=== PATIENT | male | born 1950 | race Caucasian/White ===

== ENCOUNTER → 2017-03-19 11:13 | Outpatient (CLI) | payer OTHER, MEDICARE, SELFPAY ==
[2017-03-19 13:45] LABS: Amphetamine/Metha Screen,Urine Negative ng/mL (<1000); Barbiturates Screen,Urine Negative ng/mL (<200); Benzodiazepines Screen,Urine Negative ng/mL (200); Cannabinoid Screen,Urine Negative ng/mL (<50); Cocaine Screen,Urine Negative ng/g (<300); Methadone Screen,Urine Negative ng/mL (<300); Opiate Screen,Urine Positive ng/mL (<300); Phencyclidine Screen,Urine Negative ng/mL (<25)
[2017-04-02 01:07] LABS: Codeine Negative (Cutoff=100); Hydrocodone Positive (.); Hydromorphone Positive (.); Morphine Negative (Cutoff=100)
[2017-04-02 17:07] LABS: Opiates Positive (.)
== END ==
PROVIDERS: PCP Nuclear Medicine Nuclear Cardiology; Visit Provider Anesthesiology
DX: Z79.899 Other long term (current) drug therapy (principal)
CPT/HCPCS: 80305; 80361; G0480

== ENCOUNTER → 2017-04-20 09:03 | Outpatient (POV) | payer OTHER, MEDICARE, SELFPAY ==
[2017-04-20 09:32] VITALS: BP 145/85; PULSE 66; RESP 18; TEMP 36.1; O2SAT 97; BMI 30.4
--- NOTE | 2017-04-20 10:19 | HMH.PAINSOAP ---
[facility] Pain Management SOAP Note Subjective:: The patient is a pleasant 66-year-old white male who presents today for medication refills. 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 Patient also has chronic DVTs. Patient has recently had a flare in his pain. Patient states that his primary care physician gave him permission to take more medication. We had a long discussion about how we are in a pain clinic and we are unable to allow him to take more medication. I stated that if he had flares in the future he is to call the office and let us know so that a plan can be devised between us and his primary care provider. I discussed with him that taking more medication is a breech of contract and that we have to monitor this closely and it could potentially lead to him being discharged from our clinic. Patient rates his pain 5 out of 10 today. Patient is on chronic Coumadin therapy. Patient states the pain medication allows him to be more functional and he states that he received 50% to 60% relief of his pain symptoms. Patient denies any side effects. [id number] and appropriate. Patient's UDS has been appropriate in the past. ROS General: no recent weight change, no fever, no sleep disturbances Respiratory: no cough, no shortness of air, no recurring pulmonary infections Cardiovascular/Peripheral Vascular: No chest pain, No palpitations, no edema, no shortness of breath. Gastrointestinal: no incontinence, normal bowel movements reported Genitourinary: no incontinence Musculoskeletal: Abdominal pain, back pain Psychiatric: normal mood/ affect Neurological: Weakness at times in bilateral lower extremity, [denies balance issues] Objective:: Physical Exam General: Alert and oriented x3, no acute distress, pleasant and cooperative, [on room air] Lungs: Resps E/U, Symmetrical chest expansion, Eyes: PERRL Musculoskeletal: Flexion and extension of lumbar spine somewhat guarded secondary to pain, deep tendon reflexes normal, strength in upper and lower extremities [5/5], normal gait noted, multiple scars on the abdomen. Neurological: speech clear, roll capper equal, no gross sensory deficits Assessment:: chronic pain syndrome, abdominal pain Plan:: We will refill this patient's Chloride 7.5 g 1 p.o. 3 times daily and give him 2 months prescriptions. Patient and I had a long discussion about taking the medication appropriately. Patient states he understands. Daxa and urine drug screen reviewed and appropriate. We will follow-up the patient in 3 months. He is to call us if he has any flares in his pain or his primary care physician as him to take more pain medication. Dr. Grier has reviewed his chart and agrees with this plan. Patient has been prescribed a controlled substance after being counseled on the medication, medication safety, and possible side effects. DAXA report has been obtained and reviewed prior to prescription and found to be appropriate. Opioid contract was reviewed and signed by the patient, and that they have agreed to all of the terms set forth by our compliance program. This note was dictated using voice recognition software and may contain errors or omissions
--- NOTE | 2017-04-20 10:24 | P.CONS_ITS ---
[facility] Pain Management SOAP Note Subjective:: The patient is a pleasant 66-year-old white male who presents today for medication refills. 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 Patient also has chronic DVTs. Patient has recently had a flare in his pain. Patient states that his primary care physician gave him permission to take more medication. We had a long discussion about how we are in a pain clinic and we are unable to allow him to take more medication. I stated that if he had flares in the future he is to call the office and let us know so that a plan can be devised between us and his primary care provider. I discussed with him that taking more medication is a breech of contract and that we have to monitor this closely and it could potentially lead to him being discharged from our clinic. Patient rates his pain 5 out of 10 today. Patient is on chronic Coumadin therapy. Patient states the pain medication allows him to be more functional and he states that he received 50% to 60% relief of his pain symptoms. Patient denies any side effects. [id number] reviewed and appropriate. Patient's UDS has been appropriate in the past. ROS General: no recent weight change, no fever, no sleep disturbances Respiratory: no cough, no shortness of air, no recurring pulmonary infections Cardiovascular/Peripheral Vascular: No chest pain, No palpitations, no edema, no shortness of breath. Gastrointestinal: no incontinence, normal bowel movements reported Genitourinary: no incontinence Musculoskeletal: Abdominal pain, back pain Psychiatric: normal mood/ affect Neurological: Weakness at times in bilateral lower extremity, [denies balance issues] Objective:: Physical Exam General: Alert and oriented x3, no acute distress, pleasant and cooperative, [ on room air] Lungs: Resps E/U, Symmetrical chest expansion, Eyes: PERRL Musculoskeletal: Flexion and extension of lumbar spine somewhat guarded secondary to pain, deep tendon reflexes normal, strength in upper and lower extremities [5/5], normal gait noted, multiple scars on the abdomen. Neurological: speech clear, bi technical lead equal, no gross sensory deficits Assessment:: chronic pain syndrome, abdominal pain Plan:: We will refill this patient's Har[place] 7.5 g 1 p.o. 3 times daily and give him 2 months prescriptions. Patient and I had a long discussion about taking the medication appropriately. Patient states he understands. Daxa and urine drug screen reviewed and appropriate. We will follow-up the patient in 3 months. He is to call us if he has any flares in his pain or his primary care physician as him to take more pain medication. Dr. Grier has reviewed his chart and agrees with this plan. Patient has been prescribed a controlled substance after being counseled on the medication, medication safety, and possible side effects. DAXA report has been obtained and reviewed prior to prescription and found to be appropriate. Opioid contract was reviewed and signed by the patient, and that they have agreed to all of the terms set forth by our compliance program. This note was dictated using voice recognition software and may contain errors or omissions
== END ==
PROVIDERS: Family Provider Family Medicine; PCP Nuclear Medicine Nuclear Cardiology; Visit Provider Clinical Nurse Specialist Family Health
DX: G89.4 Chronic pain syndrome (principal)
CPT/HCPCS: 99212

== ENCOUNTER → 2017-06-21 09:37 | Outpatient (CLI) | payer OTHER, MEDICARE, SELFPAY ==
[2017-06-21 10:26] LABS: Amphetamine/Metha Screen,Urine Negative ng/mL (<1000); Barbiturates Screen,Urine Negative ng/mL (<200); Benzodiazepines Screen,Urine Negative ng/mL (200); Cannabinoid Screen,Urine Negative ng/mL (<50); Cocaine Screen,Urine Negative ng/g (<300); Methadone Screen,Urine Negative ng/mL (<300); Opiate Screen,Urine Positive ng/mL (<300); Phencyclidine Screen,Urine Negative ng/mL (<25)
[2017-06-29 14:23] LABS: Codeine Negative (Cutoff=100); Hydrocodone Positive (.); Hydromorphone Positive (.); Morphine Negative (Cutoff=100)
[2017-06-29 15:32] LABS: Opiates Positive (.)
== END ==
PROVIDERS: Visit Provider Anesthesiology
DX: Z79.899 Other long term (current) drug therapy (principal)
CPT/HCPCS: 80305; 80361; 80365; G0480

== ENCOUNTER → 2017-07-12 10:49 | Outpatient (POV) | payer OTHER, MEDICARE, SELFPAY ==
[2017-07-12 10:57] VITALS: BP 160/81; PULSE 72; RESP 18; O2SAT 98; BMI 28.3
--- NOTE | 2017-07-12 11:21 | HMH.PAINSOAP ---
[facility] Pain Management SOAP Note Subjective:: Patient is a pleasant 66-year-old white male who presents today for medication refills. 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 Patient also has chronic DVTs. Patient had a recent occurrence of the right calf DVT. Patient has recently passed a pill count. Patient Kaspar #[id number] reviewed and appropriate. Patient's UDS is reviewed and appropriate. Patient's being managed with Newbern 7.5 mg 1 p.o. 3 times daily. He denies any side effects to the medication. Patient states that relieves his symptoms 50-60%. Most of his pain being in his right groin. ROS General: no recent weight change, no fever, no sleep disturbances Respiratory: no cough, no shortness of air, no recurring pulmonary infections Cardiovascular/Peripheral Vascular: No chest pain, No palpitations, no edema, no shortness of breath. Gastrointestinal: no incontinence, normal bowel movements reported Genitourinary: no incontinence Musculoskeletal: Abdominal pain, back pain Psychiatric: normal mood/ affect Neurological: [denies weakness in extremities], [denies balance issues] Objective:: Physical Exam General: Alert and oriented x3, no acute distress, pleasant and cooperative, [on room air] Lungs: Resps E/U, Symmetrical chest expansion, Eyes: PERRL Musculoskeletal: Flexion and extension of lumbar spine somewhat guarded secondary to pain, deep tendon reflexes normal, strength in upper and lower extremities [5/5], slightly antalgic gait noted Neurological: speech clear, international tax manager equal, no gross sensory deficits Assessment:: Chronic pain syndrome, abdominal pain Plan:: We will refill this patient's Newbern 7.5 mg 1 p.o. 3 times daily. We will give him 2 months worth of prescriptions. Patient Kaspar and urine drug screen reviewed and appropriate. Dr. Grier has reviewed this chart and agrees with this plan of care. Patient can lease picker his third month prescription in the interim. Patient has been prescribed a controlled substance after being counseled on the medication, medication safety, and possible side effects. DAXA report has been obtained and reviewed prior to prescription and found to be appropriate. Opioid contract was reviewed and signed by the patient, and that they have agreed to all of the terms set forth by our compliance program. This note was dictated using voice recognition software and may contain errors or omissions
--- NOTE | 2017-07-12 11:26 | P.CONS_ITS ---
[facility] Pain Management SOAP Note Subjective:: Patient is a pleasant 66-year-old white male who presents today for medication refills. 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 Patient also has chronic DVTs. Patient had a recent occurrence of the right calf DVT. Patient has recently passed a pill count. Patient Kaspar #[id number] reviewed and appropriate. Patient's UDS is reviewed and appropriate. Patient's being managed with Ewen 7.5 mg 1 p.o. 3 times daily. He denies any side effects to the medication. Patient states that relieves his symptoms 50-60%. Most of his pain being in his right groin. ROS General: no recent weight change, no fever, no sleep disturbances Respiratory: no cough, no shortness of air, no recurring pulmonary infections Cardiovascular/Peripheral Vascular: No chest pain, No palpitations, no edema, no shortness of breath. Gastrointestinal: no incontinence, normal bowel movements reported Genitourinary: no incontinence Musculoskeletal: Abdominal pain, back pain Psychiatric: normal mood/ affect Neurological: [denies weakness in extremities], [denies balance issues] Objective:: Physical Exam General: Alert and oriented x3, no acute distress, pleasant and cooperative, [ on room air] Lungs: Resps E/U, Symmetrical chest expansion, Eyes: PERRL Musculoskeletal: Flexion and extension of lumbar spine somewhat guarded secondary to pain, deep tendon reflexes normal, strength in upper and lower extremities [5/5], slightly antalgic gait noted Neurological: speech clear, snow removal supervisor equal, no gross sensory deficits Assessment:: Chronic pain syndrome, abdominal pain Plan:: We will refill this patient's Ewen 7.5 mg 1 p.o. 3 times daily. We will give him 2 months worth of prescriptions. Patient Kaspar and urine drug screen reviewed and appropriate. Dr. Grier has reviewed this chart and agrees with this plan of care. Patient can cherry picker operator his third month prescription in the interim. Patient has been prescribed a controlled substance after being counseled on the medication, medication safety, and possible side effects. DAXA report has been obtained and reviewed prior to prescription and found to be appropriate. Opioid contract was reviewed and signed by the patient, and that they have agreed to all of the terms set forth by our compliance program. This note was dictated using voice recognition software and may contain errors or omissions
== END ==
PROVIDERS: Family Provider Family Medicine; PCP Nuclear Medicine Nuclear Cardiology; Visit Provider Clinical Nurse Specialist Family Health
DX: G89.4 Chronic pain syndrome (principal)
CPT/HCPCS: 99212

== ENCOUNTER → 2017-10-18 10:12 | Outpatient (POV) | payer OTHER, MEDICARE, SELFPAY ==
[2017-10-18 10:44] VITALS: BP 141/72; PULSE 86; RESP 18; O2SAT 97; BMI 29.7
--- NOTE | 2017-10-18 12:54 | HMH.PAINSOAP ---
[facility] Pain Management SOAP Note Subjective:: Patient is a pleasant 67-year-old white male who presents today for follow-up and medication refills. 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 Patient has recent occurrence of DVTs. Patient Kaspar #[id number] reviewed and appropriate. Patient's currently on [place] 7.5 mg 1 p.o. 3 times daily. He states it helps his symptoms up to 60%. Most of his pain today is in his sternal region. ROS General: no recent weight change, no fever, no sleep disturbances Respiratory: no cough, no shortness of air, no recurring pulmonary infections Cardiovascular/Peripheral Vascular: No chest pain, No palpitations, no edema, no shortness of breath. Gastrointestinal: no incontinence, normal bowel movements reported Genitourinary: no incontinence Musculoskeletal: Overall pain, abdominal pain Psychiatric: normal mood/ affect Neurological: [denies weakness in extremities], [denies balance issues] Objective:: Physical Exam General: Alert and oriented x3, no acute distress, pleasant and cooperative, [on room air] Lungs: Resps E/U, Symmetrical chest expansion, Eyes: PERRL Musculoskeletal: Flexion and extension of lumbar spine somewhat guarded secondary to pain, deep tendon reflexes normal, strength in upper and lower extremities [5/5], normal gait noted Neurological: speech clear, refinery operator gas plant equal, no gross sensory deficits Assessment:: Chronic pain syndrome, abdominal pain Plan:: We will refill the patient's Norc 7.5 mg 1 p.o. 3 times daily and give him 2 months worth of prescriptions. Patient to follow-up in 3 months. Patient's Daxa and urine drug screen reviewed and appropriate. Dr. Grier is reviewed this chart and agrees with this plan of care. Patient can fish bait picker his third month prescription in the interim. Patient has been prescribed a controlled substance after being counseled on the medication, medication safety, and possible side effects. DAXA report has been obtained and reviewed prior to prescription and found to be appropriate. Opioid contract was reviewed and signed by the patient, and that they have agreed to all of the terms set forth by our compliance program. This note was dictated using voice recognition software and may contain errors or omissions
--- NOTE | 2017-10-18 12:57 | P.CONS_ITS ---
[facility] Pain Management SOAP Note Subjective:: Patient is a pleasant 67-year-old white male who presents today for follow-up and medication refills. 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 Patient has recent occurrence of DVTs. Patient Kaspar #[id number] reviewed and appropriate. Patient's currently on [place] 7.5 mg 1 p.o. 3 times daily. He states it helps his symptoms up to 60%. Most of his pain today is in his sternal region. ROS General: no recent weight change, no fever, no sleep disturbances Respiratory: no cough, no shortness of air, no recurring pulmonary infections Cardiovascular/Peripheral Vascular: No chest pain, No palpitations, no edema, no shortness of breath. Gastrointestinal: no incontinence, normal bowel movements reported Genitourinary: no incontinence Musculoskeletal: Overall pain, abdominal pain Psychiatric: normal mood/ affect Neurological: [denies weakness in extremities], [denies balance issues] Objective:: Physical Exam General: Alert and oriented x3, no acute distress, pleasant and cooperative, [on room air] Lungs: Resps E/U, Symmetrical chest expansion, Eyes: PERRL Musculoskeletal: Flexion and extension of lumbar spine somewhat guarded secondary to pain, deep tendon reflexes normal, strength in upper and lower extremities [5/5], normal gait noted Neurological: speech clear, research home economist equal, no gross sensory deficits Assessment:: Chronic pain syndrome, abdominal pain Plan:: We will refill the patient's Norc 7.5 mg 1 p.o. 3 times daily and give him 2 months worth of prescriptions. Patient to follow-up in 3 months. Patient's Daxa and urine drug screen reviewed and appropriate. Dr. Grier is reviewed this chart and agrees with this plan of care. Patient can fiber picker his third month prescription in the interim. Patient has been prescribed a controlled substance after being counseled on the medication, medication safety, and possible side effects. DAXA report has been obtained and reviewed prior to prescription and found to be appropriate. Opioid contract was reviewed and signed by the patient, and that they have agreed to all of the terms set forth by our compliance program. This note was dictated using voice recognition software and may contain errors or omissions
== END ==
PROVIDERS: Family Provider Family Medicine; PCP Nuclear Medicine Nuclear Cardiology; Visit Provider Clinical Nurse Specialist Family Health
DX: G89.29 Other chronic pain (principal); Z98.890 Other specified postprocedural states; R10.9 Unspecified abdominal pain; Z76.0 Encounter for issue of repeat prescription; Z79.899 Other long term (current) drug therapy
CPT/HCPCS: 99212

== ENCOUNTER → 2018-01-10 08:54 | Outpatient (POV) | payer OTHER, MEDICARE, SELFPAY ==
--- NOTE | 2018-01-10 09:20 | HMH.PAINSOAP ---
[facility] Pain Management SOAP Note Subjective:: Is a pleasant 67-year-old white male who presents today for follow-up. Patient is currently on [place] 7.5 mg 1 p.o. 3 times daily for multiple reasons. Patient is having pain secondary to previous abdominal surgeries and bowel vascular embolus. Patient has had a recent occurrence of DVTs and presents today with increased pain in his legs. I encouraged him to go to his primary care physician. Patient's DAXA reviewed and appropriate. Patient's urine drug screen has been appropriate. Patient denies any side effects to his medication and states that helps up to 60%. Most of his pain today is in his bilateral legs. ROS General: no recent weight change, no fever, no sleep disturbances Respiratory: no cough, no shortness of air, no recurring pulmonary infections Cardiovascular/Peripheral Vascular: No chest pain, No palpitations, no edema, no shortness of breath. Gastrointestinal: no incontinence, normal bowel movements reported Genitourinary: no incontinence Musculoskeletal: Overall pain, abdominal pain, bilateral leg pain Psychiatric: normal mood/ affect Neurological: [denies weakness in extremities], [denies balance issues] Objective:: Physical Exam General: Alert and oriented x3, no acute distress, pleasant and cooperative, [on room air] Lungs: Resps E/U, Symmetrical chest expansion, Eyes: PERRL Musculoskeletal: Flexion and extension of lumbar spine somewhat guarded secondary to pain, deep tendon reflexes normal, strength in upper and lower extremities [5/5], [abnormal gait noted] Neurological: speech clear, behavior support specialist equal, no gross sensory deficits Assessment:: Chronic abdominal pain, chronic pain syndrome Plan:: We will refill the patient's [place] 7.5 mg 1 p.o. 3 times daily and given months worth of prescriptions. Patient follow-up in 3 months and retrieve his third month in the interim. Patient's Daxa and urine drug screen reviewed and appropriate. I encouraged him to utilize Tylenol if necessary. I also encouraged him to make an appointment with his primary care physician in regards to his new onset of laying. Patient states he will do this. Dr. Grier has reviewed this chart and agrees with this plan of care. Patient has been prescribed a controlled substance after being counseled on the medication, medication safety, and possible side effects. DAXA report has been obtained and reviewed prior to prescription and found to be appropriate. Opioid contract was reviewed and signed by the patient, and that they have agreed to all of the terms set forth by our compliance program. This note was dictated using voice recognition software and may contain errors or omissions
[2018-01-10 09:31] VITALS: BP 140/87; PULSE 84; RESP 18; O2SAT 97
[2018-01-10 15:02] LABS: Amphetamine/Metha Screen,Urine Negative ng/mL (<1000); Barbiturates Screen,Urine Negative ng/mL (<200); Benzodiazepines Screen,Urine Negative ng/mL (<200); Cannabinoid Screen,Urine Negative ng/mL (<50); Cocaine Screen,Urine Negative ng/mL (<300); Methadone Screen,Urine Negative ng/mL (<300); Opiate Screen,Urine Positive ng/mL (<300); Phencyclidine Screen,Urine Negative ng/mL (<25)
[2018-01-17 17:09] LABS: Codeine Negative (Cutoff=100); Hydrocodone Positive (.); Hydromorphone Positive (.); Morphine Negative (Cutoff=100)
[2018-01-18 06:08] LABS: Opiates Positive (.)
== END ==
PROVIDERS: PCP Family Medicine; Visit Provider Clinical Nurse Specialist Family Health
DX: G89.29 Other chronic pain (principal); Z79.899 Other long term (current) drug therapy
CPT/HCPCS: 80305; 80361; 80365; 99213; G0480

== ENCOUNTER → 2018-04-05 08:58 | Outpatient (POV) | payer MEDICARE, OTHER, SELFPAY ==
[2018-04-05 09:10] VITALS: BP 189/91; PULSE 90; RESP 18; O2SAT 99
--- NOTE | 2018-04-05 09:15 | HMH.PAINSOAP ---
[facility] Pain Management SOAP Note Subjective:: Is a pleasant 67-year-old white male who presents today for follow-up. He is currently on Fortescue 7.5 mg 1 p.o. 3 times daily for multiple reasons. He has pain secondary to previous abdominal surgeries and bowel vascular embolus. Patient states he is having a flare right now. Patient is finding it difficult to eat at times. Patient rates his pain a 6 out of 10. Patient also still suffering from DVTs in his left leg. Patient's DAXA reviewed and appropriate patient's urine drug screen has been appropriate. He denies side effects to his medication and states it helps up to 60%. Most of the pain today is in his abdomen ROS General: no recent weight change, no fever, no sleep disturbances Respiratory: no cough, no shortness of air, no recurring pulmonary infections Cardiovascular/Peripheral Vascular: No chest pain, No palpitations, no edema, no shortness of breath. Gastrointestinal: no incontinence, normal bowel movements reported Genitourinary: no incontinence Musculoskeletal: Abdominal pain, leg pain Psychiatric: normal mood/ affect Neurological: [denies weakness in extremities], [denies balance issues] Objective:: Physical Exam General: Alert and oriented x3, no acute distress, pleasant and cooperative, [on room air] Lungs: Resps E/U, Symmetrical chest expansion, Eyes: PERRL Musculoskeletal: Flexion and extension of lumbar spine somewhat guarded secondary to pain, deep tendon reflexes normal, strength in upper and lower extremities [5/5], [abnormal gait noted] Neurological: speech clear, hotel services sales representative equal, no gross sensory deficits Assessment:: Chronic abdominal pain, chronic pain syndrome Plan:: We will refill the patient's Fortescue 7.5 mg 1 p.o. 3 times daily and give 2 months worth of medication. Patient will follow-up in 3 months and retrieve his third month in the interim. Patient has been prescribed a controlled substance after being counseled on the medication, medication safety, and possible side effects. DAXA report has been obtained and reviewed prior to prescription and found to be appropriate. Opioid contract was reviewed and signed by the patient, and that they have agreed to all of the terms set forth by our compliance program. Dr. Grier has reviewed this note and agrees with this plan of care. This note was dictated using voice recognition software and may contain errors or omissions
== END ==
PROVIDERS: PCP Family Medicine; Visit Provider Clinical Nurse Specialist Family Health
DX: R10.9 Unspecified abdominal pain (principal); G89.4 Chronic pain syndrome
CPT/HCPCS: 99213

== ENCOUNTER → 2018-07-04 09:51 | Outpatient (POV) | payer MEDICARE, OTHER, SELFPAY ==
--- NOTE | 2018-07-04 10:16 | P.CONS_ITS ---
[facility] Pain Management SOAP Note Subjective:: Patient is a pleasant 67-year-old white male who presents today for follow-up and medication refills. He is currently on [place] 7.5 mg 1 p.o. 3 times daily. He has pain secondary to previous abdominal surgeries and bowel vascular embolus. Patient states his medication helps him up to 60% he rates his pain a 9 out of 10 today. Stating he has a flare. Patient has had gabapentin in the past however he takes it on as-needed basis. I discussed with him potentially adding this is a continual and prophylactic type medication. ROS General: no recent weight change, no fever, no sleep disturbances Respiratory: no cough, no shortness of air, no recurring pulmonary infections Cardiovascular/Peripheral Vascular: No chest pain, No palpitations, no edema, no shortness of breath. Gastrointestinal: no incontinence, normal bowel movements reported Genitourinary: no incontinence Musculoskeletal: Abdominal pain, leg pain Psychiatric: normal mood/ affect Neurological: [denies weakness in extremities], [denies balance issues] Objective:: Physical Exam General: Alert and oriented x3, no acute distress, pleasant and cooperative, [on room air] Lungs: Resps E/U, Symmetrical chest expansion, Eyes: PERRL Musculoskeletal: Flexion and extension of lumbar spine somewhat guarded secondary to pain, deep tendon reflexes normal, strength in upper and lower extremities [5/5], [abnormal gait noted] Neurological: speech clear, outsole molder equal, no gross sensory deficits Assessment:: Chronic abdominal pain, chronic pain syndrome Plan:: We will refill the patient's [place] 7.5 mg 1 p.o. 3 times daily and give 2 months worth of medication. We will follow-up with him in 3 months reassess his symptoms at that time. I encouraged him to utilize his gabapentin on a regular basis. He can receive 3-month in the interim. He is been instructed to call the office if he has any issues prior to the next appointment. Patient has been prescribed a controlled substance after being counseled on the medication, medication safety, and possible side effects. [employer] report has been obtained and reviewed prior to prescription and found to be appropriate. Opioid contract was reviewed and signed by the patient, and that they have agreed to all of the terms set forth by our compliance program. Dr. Grier has reviewed this note and agrees with this plan of care. This note was dictated using voice recognition software and may contain errors or omissions
[2018-07-04 10:17] VITALS: BP 165/80; PULSE 68; RESP 18; O2SAT 98
[2018-07-04 11:06] LABS: Amphetamine/Metha Screen,Urine Negative ng/mL (<1000); Barbiturates Screen,Urine Negative ng/mL (<200); Benzodiazepines Screen,Urine Negative ng/mL (<200); Cannabinoid Screen,Urine Negative ng/mL (<50); Cocaine Screen,Urine Negative ng/mL (<300); Methadone Screen,Urine Negative ng/mL (<300); Opiate Screen,Urine Positive ng/mL (<300); Phencyclidine Screen,Urine Negative ng/mL (<25)
[2018-07-08 14:12] LABS: Codeine Negative (Cutoff=100); Hydrocodone Positive (.); Hydromorphone Negative (Cutoff=100); Morphine Negative (Cutoff=100)
[2018-07-08 14:43] LABS: Opiates Positive (.)
== END ==
PROVIDERS: PCP Family Medicine; Visit Provider Clinical Nurse Specialist Family Health
DX: R10.9 Unspecified abdominal pain (principal); G89.4 Chronic pain syndrome
CPT/HCPCS: 80305; 80361; 80365; 99213; G0480

== ENCOUNTER → 2018-09-26 08:57 | Outpatient (POV) | payer MEDICARE, OTHER, SELFPAY ==
[2018-09-26 09:13] VITALS: BP 160/70; PULSE 71; RESP 18; O2SAT 98
--- NOTE | 2018-09-26 09:18 | HMH.PAINSOAP ---
[facility] Pain Management SOAP Note Subjective:: Patient is a pleasant 68-year-old white female who presents today for follow-up and medication refill. Patient is currently on [place] 7.51 p.o. 3 times daily. He is been on it for quite some time. He states is not helping at this time. He rates his pain a 9 out of 10. He has pain secondary to previous abdominal patient also been out of his gabapentin. Patient's been on gabapentin 300 mg 1-2 tabs twice daily. We will refill this. Kevin #[id number] reviewed and appropriate. ROS General: no recent weight change, no fever, no sleep disturbances Respiratory: no cough, no shortness of air, no recurring pulmonary infections Cardiovascular/Peripheral Vascular: No chest pain, No palpitations, no edema, no shortness of breath. Gastrointestinal: no incontinence, normal bowel movements reported Genitourinary: no incontinence Musculoskeletal: Abdominal pain, leg pain Psychiatric: normal mood/ affect, Neurological: [denies weakness in extremities], [denies balance issues] Objective:: Physical Exam General: Alert and oriented x3, no acute distress, pleasant and cooperative, [on room air] Lungs: Resps E/U, Symmetrical chest expansion, Eyes: PERRL Musculoskeletal: Flexion and extension of bar spine somewhat guarded secondary to pain, deep tendon reflexes normal, strength in upper and lower extremities [5/5], antalgic gait noted, extreme tenderness of the abdomen on palpation. Neurological: speech clear, rn angiography equal, no gross sensory deficits Assessment:: Chronic abdominal pain, chronic pain syndrome Plan:: We will change the patient to Percocet 5 mg 1 p.o. 4 times daily given 1 month worth of medication and see him back in 1 month to see if this is beneficial we will also refill his gabapentin 300 mg 1-2 tabs p.o. twice daily. Kevin reviewed and appropriate. Urine drug screen has been appropriate. Dr. Grier has reviewed this note and agrees with this plan of care. This note was dictated using voice recognition software and may contain errors or omissions Pain Management Hx Components *Have you ever received a pneumonia vaccine?: Yes *Have you received a flu vaccine this season?: No - *Social History *Occupational Status:: other *Travel in the last 8 weeks: None
--- NOTE | 2018-09-26 09:21 | P.CONS_ITS ---
[facility] Pain Management SOAP Note Subjective:: Patient is a pleasant 68-year-old white female who presents today for follow-up and medication refill. Patient is currently on [place] 7.51 p.o. 3 times daily. He is been on it for quite some time. He states is not helping at this time. He rates his pain a 9 out of 10. He has pain secondary to previous abdominal patient also been out of his gabapentin. Patient's been on gabapentin 300 mg 1- 2 tabs twice daily. We will refill this. Kevin #[id number] reviewed and appropriate. ROS General: no recent weight change, no fever, no sleep disturbances Respiratory: no cough, no shortness of air, no recurring pulmonary infections Cardiovascular/Peripheral Vascular: No chest pain, No palpitations, no edema, no shortness of breath. Gastrointestinal: no incontinence, normal bowel movements reported Genitourinary: no incontinence Musculoskeletal: Abdominal pain, leg pain Psychiatric: normal mood/ affect, Neurological: [denies weakness in extremities], [denies balance issues] Objective:: Physical Exam General: Alert and oriented x3, no acute distress, pleasant and cooperative, [on room air] Lungs: Resps E/U, Symmetrical chest expansion, Eyes: PERRL Musculoskeletal: Flexion and extension of bar spine somewhat guarded secondary to pain, deep tendon reflexes normal, strength in upper and lower extremities [5/5], antalgic gait noted, extreme tenderness of the abdomen on palpation. 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 4 times daily given 1 month w orth of medication and see him back in 1 month to see if this is beneficial we will also refill his gabapentin 300 mg 1-2 tabs p.o. twice daily. Kevin reviewed and appropriate. Urine drug screen has been appropriate. Dr. Grier has reviewed this note and agrees with this plan of care. This note was dictated using voice recognition software and may contain errors or omissions Pain Management Hx Components *Have you ever received a pneumonia vaccine?: Yes *Have you received a flu vaccine this season?: No - *Social History *Occupational Status:: other *Travel in the last 8 weeks: None
== END ==
PROVIDERS: PCP Family Medicine; Visit Provider Clinical Nurse Specialist Family Health
DX: R10.9 Unspecified abdominal pain (principal); G89.4 Chronic pain syndrome
CPT/HCPCS: 99212

== ENCOUNTER → 2018-10-25 09:59 | Outpatient (POV) | payer MEDICARE, OTHER, SELFPAY ==
[2018-10-25 11:06] VITALS: BP 155/87; PULSE 75; RESP 18; O2SAT 98; BMI 29.9
--- NOTE | 2018-10-25 12:56 | HMH.PAINSOAP ---
[facility] Pain Management SOAP Note Subjective:: Patient is a pleasant 68-year-old white male who presents today for follow-up and medication refills at his last visit we changed him from [place] to Percocet 5 mg 1 p.o. 4 times daily he states it is much more beneficial he rates his pain 8 out of 10. He denies side effects his medication. [facility] #[id number] reviewed and appropriate. ROS General: no recent weight change, no fever, no sleep disturbances Respiratory: no cough, no shortness of air, no recurring pulmonary infections Cardiovascular/Peripheral Vascular: No chest pain, No palpitations, no edema, no shortness of breath. Gastrointestinal: no incontinence, normal bowel movements reported Genitourinary: no incontinence Musculoskeletal: Abdominal pain Psychiatric: normal mood/ affect Neurological: [denies weakness in extremities], [denies balance issues] Objective:: Physical Exam General: Alert and oriented x3, no acute distress, pleasant and cooperative, [on room air] Lungs: Resps E/U, Symmetrical chest expansion, Eyes: PERRL Musculoskeletal: Flexion and extension of lumbar spine somewhat guarded secondary to pain, deep tendon reflexes normal, strength in upper and lower extremities [5/5], slightly antalgic gait noted Neurological: speech clear, customer experience analyst equal, no gross sensory deficits Assessment:: Chronic abdominal pain and chronic pain syndrome Plan:: We will refill his Percocet 5 mg 1 p.o. 4 times daily and give him 2 months worth of medications back in 3 months. He can brick picker the third month in the interim. He is been instructed to call the office if he has any issues prior to his next appointment. Dr. Grier has reviewed this note and agrees with this plan of care. This note was dictated using voice recognition software and may contain errors or omissions Pain Management Hx Components *Have you ever received a pneumonia vaccine?: Yes *Have you received a flu vaccine this season?: No - *Social History *Occupational Status:: other *Travel in the last 8 weeks: None
== END ==
PROVIDERS: PCP Family Medicine; Visit Provider Clinical Nurse Specialist Family Health
DX: G89.29 Other chronic pain (principal); R10.9 Unspecified abdominal pain
CPT/HCPCS: 99212

== ENCOUNTER → 2018-12-20 12:43 | Outpatient (CLI) | payer MEDICARE, OTHER, SELFPAY ==
[2018-12-20 15:17] LABS: Amphetamine/Metha Screen,Urine Negative ng/mL (<1000); Barbiturates Screen,Urine Negative ng/mL (<200); Benzodiazepines Screen,Urine Negative ng/mL (<200); Cannabinoid Screen,Urine Negative ng/mL (<50); Cocaine Screen,Urine Negative ng/mL (<300); Methadone Screen,Urine Negative ng/mL (<300); Opiate Screen,Urine Positive ng/mL (<300); Phencyclidine Screen,Urine Negative ng/mL (<25)
[2018-12-25 07:08] LABS: Codeine Negative (Cutoff=100); Hydrocodone Positive (.); Hydromorphone Negative (Cutoff=100); Morphine Negative (Cutoff=100); Oxycodone (GC/MS) 697 ng/mL (Cutoff=100)
[2018-12-25 21:12] LABS: Opiates Positive (.); Oxymorphone (GC/MS) 216 ng/mL (Cutoff=100)
== END ==
PROVIDERS: Visit Provider Clinical Nurse Specialist Family Health
DX: Z79.899 Other long term (current) drug therapy (principal)
CPT/HCPCS: 80305; 80361; 80365; G0480

== ENCOUNTER → 2019-01-23 10:03 | Outpatient (POV) | payer MEDICARE, OTHER, SELFPAY ==
[2019-01-23 10:28] VITALS: BP 175/89; PULSE 79; RESP 18; O2SAT 99
--- NOTE | 2019-01-23 10:36 | HMH.PAINSOAP ---
[facility] Pain Management SOAP Note Subjective:: Patient is a pleasant 68-year-old white male who presents today for follow-up and medication refills. Patient is doing well on his Percocet 5 mg 1 p.o. 4 times a day he denies any side effects. [facility] #[id number] reviewed and appropriate. Patient did have a urine drug screen which showed positive for both hydrocodone and oxycodone. With discussion in regards to this patient is stated that he had taken several of his pills that were previously prescribed to him we discussed that this is potentially harmful and we discussed that this is a breech of contract. Patient will discontinue any use of additional narcotic medications. Patient denies side effects his medication he rates his pain a 7 out of 10. ROS General: no recent weight change, no fever, no sleep disturbances Respiratory: no cough, no shortness of air, no recurring pulmonary infections Cardiovascular/Peripheral Vascular: No chest pain, No palpitations, no edema, no shortness of breath. Gastrointestinal: no new onset incontinence, normal bowel movements reported Genitourinary: no new onset incontinence Musculoskeletal: Abdominal pain Psychiatric: normal mood/ affect Neurological: [denies new onset weakness in extremities], [denies new onset balance issues] Objective:: Physical Exam General: Alert and oriented x3, no acute distress, pleasant and cooperative, [on room air] Lungs: Resps E/U, Symmetrical chest expansion, Eyes: PERRL Musculoskeletal: Flexion and extension of lumbar spine somewhat guarded secondary to pain, deep tendon reflexes normal, strength in upper and lower extremities [5/5], antalgic gait noted Neurological: speech clear, lighting designer equal, no gross sensory deficits Assessment:: Chronic abdominal pain, chronic pain syndrome Plan:: We will continue him on his Percocet 5 mg 1 p.o. 4 times daily. Patient also had an appropriate pill count recently. I will follow-up with the patient in 2 months reassess his symptoms at that time he is been instructed to call the office if he has issues prior to his next appointment. Patient has been prescribed a controlled substance after being counseled on the medication, medication safety, and possible side effects. [employer] report has been obtained and reviewed prior to prescription and found to be appropriate. Opioid contract was reviewed and signed by the patient, and that they have agreed to all of the terms set forth by our compliance program. Dr. Grier has reviewed this note and agrees with this plan of care. This note was dictated using voice recognition software and may contain errors or omissions [facility] History I have reviewed the patient's past medical history: Yes *Have you ever received a pneumonia vaccine?: Yes *Have you received a flu vaccine this season?: Yes - *Social History *Occupational Status:: other *Travel in the last 8 weeks: None Family Hx:: Non-contributory
--- NOTE | 2019-01-23 10:39 | P.CONS_ITS ---
[facility] Pain Management SOAP Note Subjective:: Patient is a pleasant 68-year-old white male who presents today for follow-up and medication refills. Patient is doing well on his Percocet 5 mg 1 p.o. 4 times a day he denies any side effects. [facility] #[id number] reviewed and appropriate. Patient did have a urine drug screen which showed positive for both hydrocodone and oxycodone. With discussion in regards to this patient is stated that he had taken several of his pills that were previously prescribed to him we discussed that this is potentially harmful and we discussed that this is a breech of contract. Patient will discontinue any use of additional narcotic medications. Patient denies side effects his medication he rates his pain a 7 o ut of 10. ROS General: no recent weight change, no fever, no sleep disturbances Respiratory: no cough, no shortness of air, no recurring pulmonary infections Cardiovascular/Peripheral Vascular: No chest pain, No palpitations, no edema, no shortness of breath. Gastrointestinal: no new onset incontinence, normal bowel movements reported Genitourinary: no new onset incontinence Musculoskeletal: Abdominal pain Psychiatric: normal mood/ affect Neurological: [denies new onset weakness in extremities], [denies new onset balance issues] Objective:: Physical Exam General: Alert and oriented x3, no acute distress, pleasant and cooperative, [on room air] Lungs: Resps E/U, Symmetrical chest expansion, Eyes: PERRL Musculoskeletal: Flexion and extension of lumbar spine somewhat guarded secondary to pain, deep tendon reflexes normal, strength in upper and lower extremities [5/5], antalgic gait noted Neurological: speech clear, 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 4 times daily. Patient also had an appropriate pill count recently. I will follow-up with the patient in 2 months reassess his symptoms at that time he is been instructed to call the office if he has issues prior to his next appointment. Patient has been prescribed a controlled substance after being counseled on the medication, medication safety, and possible side effects. [employer] report has been obtained and reviewed prior to prescription and found to be appropriate. Opioid contract was reviewed and signed by the patient, and that they have agreed to all of the terms set forth by our compliance program. Dr. Grier has reviewed this note and agrees with this plan of care. This note was dictated using voice recognition software and may contain errors or omissions [facility] History I have reviewed the patient's past medical history: Yes *Have you ever received a pneumonia vaccine?: Yes *Have you received a flu vaccine this season?: Yes - *Social History *Occupational Status:: other *Travel in the last 8 weeks: None Family Hx:: Non-contributory
[2019-01-23 12:10] LABS: Amphetamine/Metha Screen,Urine Negative ng/mL (<1000); Barbiturates Screen,Urine Negative ng/mL (<200); Benzodiazepines Screen,Urine Negative ng/mL (<200); Cannabinoid Screen,Urine Negative ng/mL (<50); Cocaine Screen,Urine Negative ng/mL (<300); Methadone Screen,Urine Negative ng/mL (<300); Opiate Screen,Urine Positive ng/mL (<300); Phencyclidine Screen,Urine Negative ng/mL (<25)
[2019-01-26 16:43] LABS: Oxycodone (GC/MS) 1618 ng/mL (Cutoff=100)
[2019-01-27 10:47] LABS: Opiates Negative (Cutoff=100); Oxymorphone (GC/MS) 1033 ng/mL (Cutoff=100)
== END ==
PROVIDERS: PCP Family Medicine; Visit Provider Clinical Nurse Specialist Family Health
DX: R10.9 Unspecified abdominal pain (principal); G89.4 Chronic pain syndrome; Z79.899 Other long term (current) drug therapy
CPT/HCPCS: 80305; 80361; 80365; 99212; G0480

== ENCOUNTER → 2019-03-27 10:37 | Outpatient (POV) | payer MEDICARE, OTHER, SELFPAY ==
[2019-03-27 11:30] VITALS: BP 155/95; PULSE 90; RESP 18; O2SAT 99
--- NOTE | 2019-03-27 11:56 | HMH.PAINSOAP ---
[facility] Pain Management SOAP Note Subjective:: Patient is a pleasant 68-year-old white male who presents today for follow-up and medication refills. Patient is currently on Percocet 5 mg 1 p.o. 4 times daily. He denies side effects. Overall doing well. [facility] #[id number] reviewed and appropriate. He does have a new blood clot in his left leg which is quite painful. He rates his pain today a 7 out of 10. ROS General: no recent weight change, no fever, no sleep disturbances Respiratory: no cough, no shortness of air, no recurring pulmonary infections Cardiovascular/Peripheral Vascular: No chest pain, No palpitations, no edema, no shortness of breath. Gastrointestinal: no new onset incontinence, normal bowel movements reported Genitourinary: no new onset incontinence Musculoskeletal: Abdominal pain Psychiatric: normal mood/ affect, [denies depression], [denies anxiety] Neurological: [denies new onset weakness in extremities], [denies new onset balance issues] Objective:: Physical Exam General: Alert and oriented x3, no acute distress, pleasant and cooperative, [on room air] Lungs: Resps E/U, Symmetrical chest expansion, Eyes: PERRL Musculoskeletal: Flexion and extension of lumbar spine somewhat guarded secondary to pain, deep tendon reflexes normal, strength in upper and lower extremities [5/5], antalgic gait noted Neurological: speech clear, operations planner equal, no gross sensory deficits Assessment:: Chronic abdominal pain, chronic pain syndrome Plan:: We will refill his Percocet 5 mg 1 p.o. 4 times daily give him 2 months worth of medication. Patient is been instructed call the office if he has any issues prior to his next appointment. We will see him in 3 months reassess his symptoms at that time patient will call for third month interim prescription. Patient has been prescribed a controlled substance after being counseled on the medication, medication safety, and possible side effects. [employer] report has been obtained and reviewed prior to prescription and found to be appropriate. Opioid contract was reviewed and signed by the patient, and that they have agreed to all of the terms set forth by our compliance program. Dr. Grier has reviewed this note and agrees with this plan of care. This note was dictated using voice recognition software and may contain errors or omissions [facility] History I have reviewed the patient's past medical history: Yes *Have you ever received a pneumonia vaccine?: Yes *Have you received a flu vaccine this season?: Yes - *Social History *Occupational Status:: other *Travel in the last 8 weeks: None Family Hx:: Non-contributory
== END ==
PROVIDERS: PCP Family Medicine; Visit Provider Clinical Nurse Specialist Family Health
DX: G89.4 Chronic pain syndrome (principal); R10.9 Unspecified abdominal pain
CPT/HCPCS: 99212

== ENCOUNTER → 2019-06-20 09:36 | Outpatient (POV) | payer MEDICARE, OTHER, SELFPAY ==
[2019-06-20 09:53] VITALS: BP 152/58; PULSE 78; RESP 18; TEMP 36.8; O2SAT 98; BMI 29.9
--- NOTE | 2019-06-20 10:08 | HMH.PAINSOAP ---
[facility] Pain Management SOAP Note Subjective:: Pleasant 68-year-old white male who presents today for medication refills. He is currently on Percocet 5 mg 1 p.o. 4 times daily he denies side effects with medication. He states is working very well up to 80% relief of his symptomology he does rate his pain an 8 out of 10 today which is little higher due to a recent blood clot. Patient's [facility] #[id number] reviewed and appropriate. Patient's urine drug screens have been appropriate. Patient has a morphine equivalent of 30. Patient states that when he got his last pill bottles that he had a mixture of white and blue pills. He had some concerns in regards to this. I discussed with him at his next visit to picking up a prescription at the pharmacy to open them prior to leaving and discussed this with the pharmacist if this occurs again. ROS General: no recent weight change, no fever, no sleep disturbances Respiratory: no cough, no shortness of air, no recurring pulmonary infections Cardiovascular/Peripheral Vascular: No chest pain, No palpitations, no edema, no shortness of breath. Gastrointestinal: no new onset incontinence, normal bowel movements reported Genitourinary: no new onset incontinence Musculoskeletal: Back pain, leg pain, abdominal pain Psychiatric: normal mood/ affect Neurological: [denies new onset weakness in extremities], [denies new onset balance issues] Objective:: Physical Exam General: Alert and oriented x3, no acute distress, pleasant and cooperative, [on room air] Lungs: Resps E/U, Symmetrical chest expansion, Eyes: PERRL Musculoskeletal: Flexion and extension of lumbar spine somewhat guarded secondary to pain, deep tendon reflexes normal, strength in upper and lower extremities [5/5], [abnormal gait noted] Neurological: speech clear, power 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 4 times daily and give him 2 months worth of medication I will follow-up with him in 3 months reassess his symptoms at that time he can picker packer 1 interim prescription. Patient's been instructed to call the office if he has any issues prior to his next appointment. Patient has been prescribed a controlled substance after being counseled on the medication, medication safety, and possible side effects. [employer] report has been obtained and reviewed prior to prescription and found to be appropriate. Opioid contract was reviewed and signed by the patient, and that they have agreed to all of the terms set forth by our compliance program. We specifically discussed risk factors for Covid-19 including age, heart or lung disease, diabetes, immunosuppression and travel. We also discussed that NSAIDs may worsen Covid-19 infection symptoms and that they should not be used to treat Covid-19 symptoms. Patient was also informed that corticosteroids in any form oral or injectable will decrease immune response and may increase risk of Covid-[address] Grier has reviewed this patient's chart and this note and agrees with plan of care. Patient has been instructed to call the office if they have any issues prior to the next appointment. [facility] History I have reviewed the patient's past medical history: Yes *Have you ever received a pneumonia vaccine?: Yes *Have you received a flu vaccine this season?: Yes - *Social History *Occupational Status:: other *Travel in the last 8 weeks: None Family Hx:: Non-contributory
== END ==
PROVIDERS: PCP Family Medicine; Visit Provider Clinical Nurse Specialist Family Health
DX: R10.9 Unspecified abdominal pain (principal); G89.29 Other chronic pain
CPT/HCPCS: 99212

== ENCOUNTER → 2019-09-14 08:13 | Outpatient (POV) | payer MEDICARE, OTHER, SELFPAY ==
[2019-09-14 09:27] VITALS: BP 146/77; PULSE 91; RESP 18; O2SAT 98; BMI 29.9
--- NOTE | 2019-09-14 10:27 | HMH.PAINSOAP ---
[facility] Pain Management SOAP Note Subjective:: Patient is a 68-year-old white male who presents today for medication refill. He is being treated for chronic abdominal pain and chronic pain syndrome. Patient rates his pain a 9 out of 10 today. He says that much of his pain is directly related to the weather today due to rain. He is currently managed with set 5 mg 1 tablet p.o. 4 times daily. He any side effects to the medication. He does say the medication does give him up to 80% relief. Patient's Kevin and urine drug screens have been appropriate. Morphine equivalent is 30. Review of Systems General: No recent weight changes, no fever, no sleep disturbances Respiratory: No cough, no shortness of air, no recurring pulmonary infections Cardiovascular/peripheral vascular: No chest pain, no palpitations, no edema, no shortness of breath Gastrointestinal: No new onset incontinence, normal bowel movements reported Genitourinary: No new onset incontinence Musculoskeletal: Low back pain Psychiatric: Normal mood/affect Neurological: [Denies weakness in extremities], [denies balance issues] Objective:: Physical exam General: Alert and oriented x3, no acute distress, pleasant and cooperative, [on room air] Lungs: Respirations even and unlabored, symmetrical chest expansion Eyes: PERRL Musculoskeletal: Flexion and extension of lumbar spine somewhat guarded secondary to pain, deep tendon reflexes normal, strength in upper and lower extremities [5/5], [abnormal gait noted] Neurological: Speech clear, underground roof bolter equal, no gross sensory deficit Assessment:: Chronic abdominal pain and chronic pain syndrome Plan:: We will the patient and I specifically discussed risk factors for COVID19. These risks include, but are not limited to age greater than 60, heart or lung disease, diabetes, immunosuppression, and travel. We also discussed NSAIDs may worsen COVID19 infection or symptoms. Patient should not use NSAIDs to treat COVID19 signs or symptoms. Patient was also informed that any type of corticosteroid of any form (oral or injection) will decrease the patient's immune system response and may increase the likelihood of COVID19 infection and symptoms[address] Dr. Grier has reviewed this note and agrees with this plan of care. This note was dictated using voice recognition software and make contain errors or omissions. Refill the patient's Percocet 5 mg 1 tablet p.o. 4 times daily. We will give him 2 months worth of medication and he can slate picker the third month in the interim. Patient has been instructed to contact clinic if he has any concerns before his next appointment. [facility] History I have reviewed the patient's past medical history: Yes *Have you ever received a pneumonia vaccine?: Yes *Have you received a flu vaccine this season?: Yes - *Social History *Occupational Status:: other *Travel in the last 8 weeks: None Family Hx:: Non-contributory
== END ==
PROVIDERS: PCP Family Medicine; Visit Provider Clinical Nurse Specialist Family Health
DX: R10.9 Unspecified abdominal pain (principal); G89.29 Other chronic pain
CPT/HCPCS: 99212

== ENCOUNTER → 2019-12-04 08:33 | Outpatient (POV) | payer MEDICARE, OTHER, SELFPAY ==
[2019-12-04 08:36] VITALS: BP 142/74; PULSE 85; RESP 18; TEMP 36.8; O2SAT 98; BMI 29.6
--- NOTE | 2019-12-04 08:53 | P.CONS_ITS ---
[facility] Pain Management SOAP Note Subjective:: Patient is a 69-year-old white male who presents today for medication refills. He is being treated for chronic abdominal pain and chronic pain syndrome. Patient rates his pain 8 out of 10 which is slightly higher he has had no new blood clots develop. He is currently managed with Percocet 5 mg 1 p.o. 4 times daily. He denies side effects his medication. He states it helps up to 80%. [facility] #[id number] reviewed and appropriate. Patient is to do a drug screen and will be called in for 1 in the next month. Patient's morphine equivalent is 30. Patient is currently on high-dose anticoagulants and is unable to do any injective therapies. ROS General: no recent weight change, no fever, no sleep disturbances Respiratory: no cough, no shortness of air, no recurring pulmonary infections Cardiovascular/Peripheral Vascular: No chest pain, No palpitations, no edema, no shortness of breath. Gastrointestinal: no new onset incontinence, normal bowel movements reported Genitourinary: no new onset incontinence Musculoskeletal: Back pain, abdominal pain, joint pain, leg pain Psychiatric: normal mood/ affect Neurological: [denies new onset weakness in extremities], [denies new onset balance issues] Objective:: Physical Exam General: Alert and oriented x3, no acute distress, pleasant and cooperative, [on room air] Lungs: Resps E/U, Symmetrical chest expansion, Eyes: PERRL Musculoskeletal: Flexion and extension of lumbar spine somewhat guarded secon dalton to pain, deep tendon reflexes normal, strength in upper and lower extremities [5/5], antalgic gait noted Neurological: speech clear, assistant front desk manager equal, no gross sensory deficits Assessment:: Chronic abdominal pain, chronic pain syndrome Plan:: We will see the patient back in 3 months and continue his Percocet 5 mg 1 p.o. 4 times daily. Patient is not due medication at this time. His next fill date will be December 12, 2019. He has been instructed to call the office if he has any issues prior to his next appointment. Dr. Grier has reviewed this note and agrees with this plan of care. This note was dictated using voice recognition software and may contain errors or omissions Patient has been prescribed a controlled substance after being counseled on the medication, medication safety, and possible side effects. [employer] report has been obtained and reviewed prior to prescription and found to be appropriate. Opioid contract was reviewed and signed by the patient, and that they have agreed to all of the terms set forth by our compliance program. [facility] History I have reviewed the patient's past medical history: Yes *Have you ever received a pneumonia vaccine?: No *Have you received a flu vaccine this season?: No - *Social History *Occupational Status:: other *Travel in the last 8 weeks: None Family Hx:: Non-contributory
== END ==
PROVIDERS: PCP Family Medicine; Visit Provider Clinical Nurse Specialist Family Health
DX: R10.9 Unspecified abdominal pain (principal); G89.4 Chronic pain syndrome
CPT/HCPCS: 99212

== ENCOUNTER → 2020-03-04 08:49 | Outpatient (POV) | payer MEDICARE, OTHER, SELFPAY ==
--- NOTE | 2020-03-04 09:11 | P.CONS_ITS ---
[facility] Pain Management SOAP Note Subjective:: Patient is a pleasant 69-year-old white male who presents today for medication refills. He is being treated for chronic abdominal pain and chronic pain syndrome. Patient rates his pain a 9 out of 10. This is mostly secondary to a fall. Patient states his medication helps up to 80%. Daxa #[id number] reviewed and appropriate. Drug screens have been appropriate. His morphine equivalent is 30 patient is currently on high-dose anticoagulation therapy and is unable to do injections. ROS General: no recent weight change, no fever, no sleep disturbances Respiratory: no cough, no shortness of air, no recurring pulmonary infections Cardiovascular/Peripheral Vascular: No chest pain, No palpitations, no edema, no shortness of breath. Gastrointestinal: no new onset incontinence, normal bowel movements reported Genitourinary: no new onset incontinence Musculoskeletal: Back pain, abdominal pain, joint pain, leg pain Psychiatric: normal mood/ affect, Neurological: [denies new onset weakness in extremities], [denies new onset balance issues] Objective:: Physical Exam General: Alert and oriented x3, no acute distress, pleasant and cooperative, [on room air] Lungs: Resps E/U, Symmetrical chest expansion, Eyes: PERRL Musculoskeletal: Flexion and extension of lumbar spine somewhat guarded secondary to pain, deep tendon reflexes normal, strength in upper and lower extremities [5/5], [abnormal gait noted] Neurological: speech clear, gift basket packer equal, no gross sensory deficits Assessment:: Chronic abdominal pain, chronic pain syndrome Plan:: We will see the patient back in 3 months. We will continue his Percocet 5 mg 1 p.o. 4 times daily. He is not due medication at this time his next refill date will be March 08. He has been instructed to call the office if he has any issues prior to his next appointment. Patient's been instructed to call the office if she has any issues prior to her next appointment. Dr. Grier has reviewed this note and agrees with this plan of care. This note was dictated using voice recognition software and may contain errors or omissions Patient has been prescribed a controlled substance after being counseled on the medication, medication safety, and possible side effects. [employer] report has been obtained and reviewed prior to prescription and found to be appropriate. Opioid contract was reviewed and signed by the patient, and that they have agreed to a ll of the terms set forth by our compliance program. [facility] History I have reviewed the patient's past medical history: Yes *Have you ever received a pneumonia vaccine?: No *Have you received a flu vaccine this season?: No - *Social History *Occupational Status:: other *Travel in the last 8 weeks: None Family Hx:: Non-contributory
[2020-03-04 09:14] VITALS: BP 156/87; PULSE 74; RESP 18; O2SAT 98; BMI 29.7
== END ==
PROVIDERS: PCP Family Medicine; Visit Provider Clinical Nurse Specialist Family Health
DX: R10.9 Unspecified abdominal pain (principal); G89.4 Chronic pain syndrome; Z88.8 Allergy status to other drugs, medicaments and biological substances
CPT/HCPCS: 99212; G0463

== ENCOUNTER → 2020-06-03 08:52 | Outpatient (POV) | payer MEDICARE, OTHER, SELFPAY ==
[2020-06-03 09:14] VITALS: BP 160/71; PULSE 71; RESP 18; O2SAT 98; BMI 29.0
--- NOTE | 2020-06-03 09:16 | P.CONS_ITS ---
[facility] Pain Management SOAP Note Subjective:: Patient is a pleasant 69-year-old white male who presents today for medication refills. He is being treated for chronic abdominal pain and chronic pain syndrome. Patient rates his pain a 9 out of 10. He is currently in a crisis being managed by his primary care physician. Patient has a history of blood clots and has developed one under his right arm. Drug screens have been appropriate. His morphine equivalent is 30. Daxa #[id number] reviewed and appropriate. He is currently on high doses of anticoagulation therapy. ROS General: no recent weight change, no fever, no sleep disturbances Respiratory: no cough, no shortness of air, no recurring pulmonary infections Cardiovascular/Peripheral Vascular: No chest pain, No palpitations, no edema, no shortness of breath. Gastrointestinal: no new onset incontinence, normal bowel movements reported Genitourinary: no new onset incontinence Musculoskeletal: Abdominal pain, joint pain, back pain Psychiatric: normal mood/ affect Neurological: [denies new onset weakness in extremities], [denies new onset balance issues] Objective:: Physical Exam General: Alert and oriented x3, no acute distress, pleasant and cooperative, [on room air] Lungs: Resps E/U, Symmetrical chest expansion, Eyes: PERRL Musculoskeletal: Flexion and extension of lumbar spine somewhat guarded secondary to pain, deep tendon reflexes normal, strength in upper and lower extremities [5/5], [abnormal gait noted] Neurological: speech clear, flux core welder equal, no gross sensory deficits Assessment:: Chronic pain syndrome, chronic abdominal pain Plan:: We will continue the patient's Percocet 5 mg 1 p.o. 4 times daily. We will refill him in 3 months. He has been instructed to call the office if he has any issues prior to his next appointment. Patient has been prescribed a controlled substance after being counseled on the medication, medication safety, and possible side effects. [employer] report has been obtained and reviewed prior to prescription and found to be appropriate. Opioid contract was reviewed and signed by the patient, and that they have agreed to all of the terms set forth by our compliance program. Dr. Grier has reviewed this note and agrees with this plan of care. This note was dictated using voice recognition software and may contain errors or omissions [facility] History I have reviewed the patient's past medical history: Yes *Have you ever received a pneumonia vaccine?: Yes *Have you received a flu vaccine this season?: Yes - *Social History *Occupational Status:: other *Travel in the last 8 weeks: None Family Hx:: Non-contributory
== END ==
PROVIDERS: PCP Family Medicine; Visit Provider Clinical Nurse Specialist Family Health
DX: R10.9 Unspecified abdominal pain (principal); G89.4 Chronic pain syndrome
CPT/HCPCS: 99212; G0463

== ENCOUNTER → 2020-08-29 08:45 | Outpatient (POV) | payer MEDICARE, OTHER, SELFPAY ==
[2020-08-29 08:58] VITALS: BP 156/77; PULSE 81; RESP 18; O2SAT 97; BMI 29.9
--- NOTE | 2020-08-29 10:16 | HMH.PAINSOAP ---
[facility] Pain Management SOAP Note Subjective:: Patient is a 70-year-old white male who presents today for follow-up and medication refills. He has been treated for chronic abdominal pain and chronic pain syndrome. He recently had cataract surgery and is having being worsening pain today. He says that because he is unable to bend forward due to his cataract surgery, his pain has worsened in his abdominal area. He is managed with Percocet 5 mg 1 tablet p.o. 4 times daily. He denies any side effects patient. Daxa and drug screens have been appropriate. He does rate his pain an 8 out of 10 today. Review of Systems General: No recent weight changes, no fever, no sleep disturbances Respiratory: No cough, no shortness of air, no recurring pulmonary infections Cardiovascular/peripheral vascular: No chest pain, no palpitations, no edema, no shortness of breath Gastrointestinal: No new onset incontinence, normal bowel movements reported Genitourinary: No new onset incontinence Musculoskeletal: [] Abdominal pain left lower Psychiatric: Normal mood/affect Neurological: [Denies weakness in extremities], [denies balance issues] Objective:: Physical exam General: Alert and oriented x3, no acute distress, pleasant and cooperative, [on room air] Lungs: Respirations even and unlabored, symmetrical chest expansion Eyes: PERRL Musculoskeletal: Flexion and extension of [] spine somewhat nonguarded, deep tendon reflexes normal, strength in upper and lower extremities [5/5], [abnormal gait noted] Neurological: Speech clear, surveillance observer equal, no gross sensory deficit Gastrointestinal: Abdomen soft, tender to palpation Assessment:: Chronic neck abdominal pain, chronic pain syndrome Plan:: We will refill the patient's Percocet 5 mg 1 tablet p.o. 4 times daily. We will give him a month medication and see him back in the clinic in 1 month for reevaluation of symptoms. Patient has been instructed to contact the clinic with any concerns before the next appointment. Dr. Grier has reviewed this note and agrees with this plan of care. This note was dictated using voice recognition software and make contain errors or omissions. Patient has been prescribed a controlled substance after being counseled on the medication, medication safety, and possible side effects. [employer] report has been obtained and reviewed prior to prescription and found to be appropriate. Opioid contract was reviewed and signed by the patient, and that they have agreed to all of the terms set forth by our compliance program. Risks and benefits of the medication have been explained in detail to the patient. The patient has been advised to consult with his/her primary care provider and pharmacist regarding drug-drug interaction of medications currently prescribed. [facility] History I have reviewed the patient's past medical history: Yes *Have you ever received a pneumonia vaccine?: No *Have you received a flu vaccine this season?: No - *Social History Smoking Status: Never smoker Alcohol Intake: never *Occupational Status:: unemployed *Travel in the last 8 weeks: None Family Hx:: Non-contributory
[2020-08-29 10:51] LABS: Benzodiazepines Screen,Urine Negative ng/ml (<200)
[2020-08-29 10:52] LABS: Amphetamine/Metha Screen,Urine Negative ng/ml (<1000); Barbiturates Screen,Urine Negative ng/ml (<200)
[2020-08-29 10:53] LABS: Cannabinoid Screen,Urine Negative ng/ml (<50); Cocaine Screen,Urine Negative ng/ml (<300)
[2020-08-29 10:54] LABS: Methadone Screen,Urine Negative ng/ml (<300)
[2020-08-29 10:55] LABS: Opiate Screen,Urine Positive ng/ml (<300); Phencyclidine Screen,Urine Negative ng/ml (<25)
[2020-09-05 00:07] LABS: Opiates Negative ng/mL (Cutoff=100); Oxycodone Positive (.); Oxycodone Confirm 1381 ng/mL (Cutoff=100); Oxymorphone Positive (.); Oxymorphone Confirm 658 ng/mL (Cutoff=100)
== END ==
PROVIDERS: Visit Provider Clinical Nurse Specialist Family Health
DX: M54.2 Cervicalgia (principal); R10.9 Unspecified abdominal pain; G89.4 Chronic pain syndrome; Z79.899 Other long term (current) drug therapy
CPT/HCPCS: 80305; 80361; 80365; 99212; G0463; G0480

== ENCOUNTER → 2020-09-23 08:53 | Outpatient (POV) | payer MEDICARE, OTHER, SELFPAY ==
--- NOTE | 2020-09-23 09:04 | P.CONS_ITS ---
[facility] Pain Management SOAP Note Subjective:: Patient is a pleasant 71-year-old white male who presents today chronic neck, abdominal pain and chronic pain syndrome. He is currently being being treated for chronic neck, abdominal pain, chronic pain syndrome. He is rating his pain today a 9 out of 10. Is currently managed with Percocet five 1 tablet p.o. 4 times daily. He is concerned his last prescription that was received from the pharmacy was a different size pill, he feels that this brand of Percocet did not effectively manage his pain. I have advised the patient to follow-up with the pharmacy as we have prescribed the same medication for the patient. His Kevin number is [phone] he has an active morphine equivalent of 30. His previous drug screens have been reviewed and appropriate. Review of Systems General: No recent weight changes, no fever, no sleep disturbances Respiratory: No cough, no shortness of air, no recurring pulmonary infections Cardiovascular/peripheral vascular: No chest pain, no palpitations, no edema, no shortness of breath Gastrointestinal: No new onset incontinence, normal bowel movements reported Genitourinary: No new onset incontinence Musculoskeletal: [Neck abdominal pain] Psychiatric: [Normal mood/affect] Neurological: [Denies weakness in extremities], [denies balance issues] Objective:: Physical exam General: Alert and oriented x3 no acute distress, pleasant and cooperative, [on room air] Lungs: Respirations even and unlabored, symmetrical chest expansion Eyes: PERRL Musculoskeletal: Flexion and extension of the cervical spine nonguarded, deep tendon reflexes normal, strength in upper and lower extremities 5 out of 5 normal gait noted Neurological: Speech clear, bus steward equal, no gross sensory deficit Assessment:: Chronic neck, abdominal pain, chronic pain syndrome Plan:: We will refill the patient's Percocet 5 mg 1 tablet p.o. 4 times daily. We will provide the patient with 1 month worth of medication refills. We will see the patient back in the clinic in 1 month for follow-up. He is welcome to contact the clinic if he has any questions or concerns prior to his next appointment. Dr. Lan has reviewed this note and agrees with this plan of care. This note was dictated using voice recognition software and may contain errors or omissions. [facility] History *Have you ever received a pneumonia vaccine?: No *Have you received a flu vaccine this season?: No - *Social History Smoking Status: Never smoker Alcohol Intake: never *Occupational Status:: unemployed *Travel in the last 8 weeks: None Family Hx:: Non-contributory
[2020-09-23 09:05] VITALS: BP 134/92; PULSE 89; RESP 18; O2SAT 98
== END ==
PROVIDERS: Visit Provider Family Medicine
DX: M54.2 Cervicalgia (principal); R10.9 Unspecified abdominal pain; G89.4 Chronic pain syndrome
CPT/HCPCS: 99212; G0463

== ENCOUNTER → 2020-10-17 08:50 | Outpatient (POV) | payer MEDICARE, OTHER, SELFPAY ==
[2020-10-17 09:15] VITALS: BP 164/77; PULSE 88; RESP 18; O2SAT 98
--- NOTE | 2020-10-17 09:45 | HMH.PAINSOAP ---
[facility] Pain Management SOAP Note Subjective:: Patient is a 70-year-old white male who presents today for medication refills. He has been treated for chronic neck pain, abdominal pain. The patient says that his previous medication that he got, Percocet 5 mg 1 tablet p.o. 4 times daily was a generic medication and did not seem to give him adequate relief. I did discuss with the patient he would need to discuss this with his pharmacy. He does not wish to change pharmacies. Today, the patient's pain is in his right axilla area. He says that he is unable to raise his arm above his head due to pain. I did discuss possible compounding cream to the area, however, he has declined. He is also taking gabapentin prescribed by his primary care he does rate his pain a 9 out of 10. He is not interested in injective therapy. Review of Systems General: No recent weight changes, no fever, no sleep disturbances Respiratory: No cough, no shortness of air, no recurring pulmonary infections Cardiovascular/peripheral vascular: No chest pain, no palpitations, no edema, no shortness of breath Gastrointestinal: No new onset incontinence, normal bowel movements reported Genitourinary: No new onset incontinence Musculoskeletal: Right axilla pain, right neck pain, abdominal pain Psychiatric: [Normal mood/affect] Neurological: [Denies weakness in extremities], [denies balance issues] Objective:: Physical exam General: Alert and oriented x3, no acute distress, pleasant and cooperative, [on room air] Lungs: Respirations even and unlabored, symmetrical chest expansion Eyes: PERRL Musculoskeletal: Flexion and extension of cervical [spine] somewhat guarded secondary to pain, strength in upper and lower extremities [5/5], normal gait noted Gastrointestinal: Abdomen tender Neurological: Speech clear, [cub reporter equal], no gross sensory deficit Assessment:: Chronic neck pain, abdominal pain, chronic pain syndrome Plan:: We will refill the patient's Percocet 5 mg 1 tablet p.o. 4 times daily. We will see him back in 1 month for reevaluation of symptoms. The patient's [facility] #[id number] drug screen has been appropriate. Risks and benefits of the medication have been explained in detail to the patient. The patient has been advised to consult with his/her primary care provider and pharmacist regarding drug-drug interaction of medications currently prescribed. Patient has been instructed to contact the clinic with any concerns before the next appointment. Dr. Grier has reviewed this note and agrees with this plan of care. This note was dictated using voice recognition software and make contain errors or omissions. [facility] History I have reviewed the patient's past medical history: Yes *Have you ever received a pneumonia vaccine?: Yes *Have you received a flu vaccine this season?: No - *Social History Smoking Status: Never smoker Alcohol Intake: never *Occupational Status:: unemployed *Travel in the last 8 weeks: None Family Hx:: Non-contributory
== END ==
PROVIDERS: Visit Provider Clinical Nurse Specialist Family Health
DX: M54.2 Cervicalgia (principal); R10.9 Unspecified abdominal pain; G89.4 Chronic pain syndrome
CPT/HCPCS: 99212; G0463

== ENCOUNTER → 2020-11-14 09:42 | Outpatient (POV) | payer MEDICARE, OTHER, SELFPAY ==
[2020-11-14 09:53] VITALS: BP 139/70; PULSE 95; RESP 18; O2SAT 98; BMI 29.7
--- NOTE | 2020-11-14 10:37 | HMH.PAINSOAP ---
[facility] Pain Management SOAP Note Subjective:: Patient is a 70-year-old white male who presents today for medication refills. He is being treated for chronic abdominal pain and low back and lower extremity pain. He is currently on Percocet 5 mg 1 tablet p.o. 4 times daily. He rates his pain an 8 out of 10 today. Is complaining of worsening right lower extremity pain. He does report a history of blood clots. He recently underwent cataract surgery for which he says was not successful. He does have to return to his surgeon for repeat surgery to his eyes. Patient is complaining of worsening pain to his right low back area and right lower extremity. He is very sensitive to medications and is concerned with trying any other oral medications. We discussed trying compounding cream to the area. He does not want to proceed with injective therapy. Review of Systems General: No recent weight changes, no fever, no sleep disturbances Respiratory: No cough, no shortness of air, no recurring pulmonary infections Cardiovascular/peripheral vascular: No chest pain, no palpitations, no edema, no shortness of breath Gastrointestinal: No new onset incontinence, normal bowel movements reported Genitourinary: No new onset incontinence Musculoskeletal: Right low back pain, right lower extremity pain Psychiatric: [Normal mood/affect] Neurological: [Denies weakness in extremities], [denies balance issues] Objective:: Physical exam General: Alert and oriented x3, no acute distress, pleasant and cooperative, [on room air] Lungs: Respirations even and unlabored, symmetrical chest expansion Eyes: PERRL Musculoskeletal: Flexion and extension of lumbar [spine] somewhat guarded secondary to pain, strength in upper and lower extremities [5/5], [antalgic gait noted] Neurological: Speech clear, [manager warehouse equal], no gross sensory deficit Assessment:: Low back pain, abdominal pain, chronic pain syndrome Plan:: Patient's leg was assessed with no redness or open areas to the leg. He does report a history of blood clots. He did not have pain with movement of the leg. He says the pain is worse upon awakening in the morning. The pain eases off throughout the day. We will order the patient compounding cream without diclofenac. He is on anticoagulation therapy. We will continue his Percocet 5 mg 1 tablet p.o. 4 times daily. [facility] #[id number] has been reviewed and is appropriate. Morphine equivalent is 30. Risks and benefits of the medication have been explained in detail to the patient. The patient has been advised to consult with his/her primary care provider and pharmacist regarding drug-drug interaction of medications currently prescribed. Patient has been prescribed a controlled substance after being counseled on the medication, medication safety, and possible side effects. DAXA report has been obtained and reviewed prior to prescription and found to be appropriate. Opioid contract was reviewed and signed by the patient, and that they have agreed to all of the terms set forth by our compliance program. Patient has been instructed to contact the clinic with any concerns before the next appointment. Dr. Grier has reviewed this note and agrees with this plan of care. This note was dictated using voice recognition software and make contain errors or omissions. [facility] History I have reviewed the patient's past medical history: Yes *Have you ever received a pneumonia vaccine?: Yes *Have you received a flu vaccine this season?: No - *Social History Smoking Status: Never smoker Alcohol Intake: never *Occupational Status:: unemployed *Travel in the last 8 weeks: None Family Hx:: Non-contributory
== END ==
PROVIDERS: PCP Family Medicine; Visit Provider Clinical Nurse Specialist Family Health
DX: M54.5 Low back pain (principal); R10.9 Unspecified abdominal pain; G89.4 Chronic pain syndrome
CPT/HCPCS: 99212; G0463

== ENCOUNTER → 2020-12-12 09:34 | Outpatient (POV) | payer MEDICARE, OTHER, SELFPAY ==
[2020-12-12 09:56] VITALS: BP 149/75; PULSE 89; RESP 18; O2SAT 99; BMI 29.6
--- NOTE | 2020-12-12 10:01 | HMH.PAINSOAP ---
[facility] Pain Management SOAP Note Subjective:: Patient is a 70-year-old white male who presents today for medication refills. He is rating his pain a 9 out of 10 today. He says that he is having worsening episodes of severe pain that will cause him to fall to the floor. He is having to be assisted to the bathroom due to pain and fear of falling. He is accompanied by his today. He does have a history of blood clots and recently underwent cataract surgery to his eyes. He is also having worsening pain to his eyes since surgery. He reports to be very sensitive to medications and is concerned with trying other oral medications. He is managed in the clinic with Percocet 5 mg 1 tablet p.o. 4 times daily. The patient's is requesting a visit with Dr. Grier. They would like to discuss a further plan of care with him. Review of Systems General: No recent weight changes, no fever, no sleep disturbances Respiratory: No cough, no shortness of air, no recurring pulmonary infections Cardiovascular/peripheral vascular: No chest pain, no palpitations, no edema, no shortness of breath Gastrointestinal: No new onset incontinence, normal bowel movements reported Genitourinary: No new onset incontinence Musculoskeletal: Chronic abdominal and leg pain, frequent headaches Psychiatric: [Normal mood/affect] Neurological: Weakness and recent falls Objective:: Physical exam General: Alert and oriented x3, no acute distress, pleasant and cooperative Lungs: Respirations even and unlabored, symmetrical chest expansion Eyes: PERRL Musculoskeletal: Flexion and extension of lumbar [spine] somewhat guarded secondary to pain, [antalgic gait noted] Neurological: Speech clear, no gross sensory deficit Assessment:: Chronic pain syndrome, low back pain, chronic abdominal pain Plan:: We will continue the patient's Percocet 5 mg 1 tablet p.o. 4 times daily. They would like to see Dr. Grier at the next visit. They would like to discuss further plan of care with him regarding his oral medications. reports she has never met Dr. Grier and has been coming here for 3 years. Risks and benefits of the medication have been explained in detail to the patient. The patient does understand the risk of dependence on the medication when given over a prolonged period. Patient has been advised of risks of oversedation with the prescribed medication. Narcan has been offered to the paitent in the event of oversedation. Patient has been advised that a family member should also be educated regarding administration of Narcan. The patient has been advised to consult with his/her primary care provider and pharmacist regarding drug-drug interaction of medications currently prescribed. Patient has been prescribed a controlled substance after being counseled on the medication, medication safety, and possible side effects. DAXA report has been obtained and reviewed prior to prescription and found to be appropriate. Opioid contract was reviewed and signed by the patient, and that they have agreed to all of the terms set forth by our compliance program. Patient has been instructed to contact the clinic with any concerns before the next appointment. Dr. Grier has reviewed this note and agrees with this plan of care. This note was dictated using voice recognition software and make contain errors or omissions. [facility] History I have reviewed the patient's past medical history: Yes *Have you ever received a pneumonia vaccine?: Yes *Have you received a flu vaccine this season?: No - *Social History Smoking Status: Never smoker Alcohol Intake: never *Occupational Status:: unemployed *Travel in the last 8 weeks: None Family Hx:: Non-contributory
[2020-12-12 11:03] LABS: Amphetamine/Metha Screen,Urine Negative ng/ml (<1000)
[2020-12-12 11:04] LABS: Barbiturates Screen,Urine Negative ng/ml (<200); Benzodiazepines Screen,Urine Negative ng/ml (<200)
[2020-12-12 11:06] LABS: Cannabinoid Screen,Urine Negative ng/ml (<50)
[2020-12-12 11:07] LABS: Cocaine Screen,Urine Negative ng/ml (<300)
[2020-12-12 11:08] LABS: Methadone Screen,Urine Negative ng/ml (<300)
[2020-12-12 11:12] LABS: Opiate Screen,Urine Positive ng/ml (<300)
[2020-12-12 11:13] LABS: Phencyclidine Screen,Urine Negative ng/ml (<25)
== END ==
PROVIDERS: Visit Provider Clinical Nurse Specialist Family Health
DX: G89.4 Chronic pain syndrome (principal); M54.50 Low back pain, unspecified; R10.9 Unspecified abdominal pain; Z79.891 Long term (current) use of opiate analgesic
CPT/HCPCS: 80305; 99212; G0463

== ENCOUNTER → 2021-01-10 10:44 | Outpatient (POV) | payer MEDICARE, OTHER, SELFPAY ==
[2021-01-10 11:00] VITALS: BP 150/66; PULSE 79; RESP 20; TEMP 36.6; O2SAT 96
--- NOTE | 2021-01-10 12:59 | HMH.PAINSOAP ---
[facility] Pain Management SOAP Note Subjective:: Patient is a very pleasant 70-year-old white male who presents today for follow-up and medication refills. He has been treated for chronic pain syndrome, low back pain, and chronic abdominal pain. He reports he is continuing to have worsening episodes of severe pain that results in him breaking out in sweat turning red and falling to the floor. He has a history of blood clots and is currently on Coumadin for this. He also recently underwent eye surgery. In regards to his chronic pain, he is currently taking Percocet 5 mg 1 tablet p.o. 4 times daily and gabapentin 300 mg 1 tab p.o. twice daily and reports overall this is somewhat managing his pain. He denies any adverse effects to this medication. The gabapentin is being prescribed by his primary care physician. However, he states it would be easier to get all his pain medications from one clinic and is requesting we take over prescribing the gabapentin. Objective:: General: Alert and oriented x3, no acute distress, pleasant and cooperative Lungs: Resps E/U, symmetric chest expansion Eyes: PERRL Musculoskeletal: limited flexion and extension of the lumbar spine secondary to pain. Deep tendon reflexes were normal in bilateral lower extremities. Motor exam was grossly intact in the bilateral lower extremities, antalgic gait noted. Neurological: Speech is clear, taker out equal, no gross sensory deficits Assessment:: Chronic pain syndrome, low back pain, chronic abdominal pain Plan:: I discussed with the patient we will continue his current oral pain medications including oral Percocet 5 mg 1 tablet p.o. 4 times daily #120 which we will refill today. We will also take over prescribing the gabapentin and increase him to gabapentin 300 mg 1 tablet p.o. 3 times daily for better pain control. We will follow-up with him in 1 month reassessment of his chronic pain symptoms and medication refills. We discussed risks and benefits of this medication and these have been explained in detail to the patient. The patient does understand the risk of dependence on the medication when given over a prolonged period. The patient also has been advised the risks of oversedation with prescribed medication. He has been previously prescribed Narcan in the event of oversedation. Patient has been advised that a family member should also be educated regarding the administration of Narcan. Patient has been advised to consult with his or her primary care provider and pharmacist regarding drug drug interaction of medications currently prescribed. Patient has been prescribed a controlled substance after being counseled on the medication, medication safety, and possible side effects. The Kevin report has been obtained and reviewed prior to prescription and found to be appropriate. Opiate contract was also reviewed and signed by the patient, and that they have agreed to all of the terms set forth by our compliance program. [facility] History *Have you ever received a pneumonia vaccine?: Yes *Have you received a flu vaccine this season?: No - *Social History Smoking Status: Never smoker Alcohol Intake: never *Occupational Status:: other *Travel in the last 8 weeks: None Family Hx:: Non-contributory
== END ==
PROVIDERS: PCP Family Medicine; Visit Provider Anesthesiology Pain Medicine
DX: M54.50 Low back pain, unspecified (principal); R10.9 Unspecified abdominal pain; G89.4 Chronic pain syndrome
CPT/HCPCS: 99212; G0463

== ENCOUNTER → 2021-02-10 09:07 | Outpatient (POV) | payer MEDICARE, OTHER, SELFPAY ==
[2021-02-10 09:17] VITALS: BP 153/85; PULSE 93; RESP 18; O2SAT 99
--- NOTE | 2021-02-10 09:40 | P.CONS_ITS ---
[facility] Pain Management SOAP Note Subjective:: Patient is a pleasant 71-year-old male who comes in here today for follow-up and medication refill. Patient is currently being treated for chronic pain syndrome, chronic abdominal pain. Patient is currently being managed with Percocet 5 mg / 325 mg 4 times a day and gabapentin 300 mg 3 times a day. Patient denies any side effects from this medication. Patient denies any change to location and type of pain. Patient is wanting refills today. Patient rates his pain as 9 out of 10. His Daxa is [id number] with an active morphine equivalent of 30. Drug screen has been reviewed and appropriate. Review of Systems General: No recent weight changes, no fever, no sleep disturbances Respiratory: No cough, no shortness of air, no recurring pulmonary infections Cardiovascular/peripheral vascular: No chest pain, no palpitations, no edema, no shortness of breath Gastrointestinal: Abdominal pain no new onset incontinence, normal bowel movements reported Genitourinary: No new onset incontinence Musculoskeletal: [Low back pain Psychiatric: [Normal mood/affect] Neurological: [Denies weakness in extremities], [denies balance issues] Objective:: Physical exam General: Alert and oriented x3, no acute distress, pleasant and cooperative Lungs: Respirations even and unlabored, symmetrical chest expansion Eyes: PERRL GI: tender to palpation in all quadrants Musculoskeletal: Flexion and extension of lumbar [spine] somewhat guarded secondary to pain, [antalgic gait noted] Neurological: Speech clear, no gross sensory deficit Assessment:: Chronic pain syndrome, low back pain, chronic abdominal pain Factor V Leiden Plan:: We will continue the patient's 4 times a day and gabapentin 300 mg 3 times a day. We will provide the patient with [1 month] of refills. We would like to see the patient back in [1 month] for follow up. Risks and benefits of the medication have been explained in detail to the patient. The patient does understand the risk of dependence on the medication when given over a prolonged period. Patient has been advised of risks of oversedation with the prescribed medication. Narcan has been offered to the paitent in the event of oversedation. Patient has been advised that a family member should also be educated regarding administration of Narcan. The patient has been advised to consult with his/her primary care provider and pharmacist regarding drug-drug interaction of medications currently prescribed. Patient has been prescribed a controlled substance after being counseled on the medication, medication safety, and possible side effects. DAXA report has been obtained and reviewed prior to prescription and found to be appropriate. Opioid contract was reviewed and signed by the patient, and that they have agreed to all of the terms set forth by our compliance program. Patient has been instructed to contact the clinic with any concerns before the next appointment. Dr. Grier has reviewed this note and agrees with this plan of care. This note was dictated using voice recognition software and make contain errors or omissions. [facility] History *Have you ever received a pneumonia vaccine?: No *Have you received a flu vaccine this season?: No - *Social History Smoking Status: Never smoker Alcohol Intake: never *Occupational Status:: unemployed *Travel in the last 8 weeks: None Family Hx:: Non-contributory
== END ==
PROVIDERS: Visit Provider Clinical Nurse Specialist Family Health
DX: G89.4 Chronic pain syndrome (principal); M54.50 Low back pain, unspecified; R10.9 Unspecified abdominal pain; D68.51 Activated protein C resistance
CPT/HCPCS: 99212; G0463

== ENCOUNTER → 2021-03-11 13:49 | Outpatient (POV) | payer MEDICARE, OTHER, SELFPAY ==
[2021-03-11 14:08] VITALS: BP 144/90; PULSE 99; RESP 18; O2SAT 98
--- NOTE | 2021-03-11 14:31 | HMH.PAINSOAP ---
[facility] Pain Management SOAP Note Subjective:: Patient is a 70-year-old white male who presents today for medication refill. We do treat the patient for chronic pain syndrome and chronic abdominal pain. He is managed with Percocet 5 mg 1 tablet p.o. 4 times daily and gabapentin 300 mg 1 tablet p.o. 3 times daily. He says he does not need refills on gabapentin. Patient says he does have occasional constipation. He does manage this with MiraLAX and stool softeners. He is rating his pain an 8 out of 10 today. He does not feel that the oral medications are given him significant relief. The patient does say that he does have a history of clotting disorder requiring him to take Coumadin. He also reports that he has not seen Dr. Grier and would like to follow-up with him. He was scheduled to see Dr. Grier, but says he did see Dr. Dinero at that time. He says Dr. Dinero did not do anything for him and would prefer to see Dr. Grier at next visit. Review of Systems General: No recent weight changes, no fever, no sleep disturbances Respiratory: No cough, no shortness of air, no recurring pulmonary infections Cardiovascular/peripheral vascular: No chest pain, no palpitations, no edema, no shortness of breath Gastrointestinal: No new onset incontinence, normal bowel movements reported Genitourinary: No new onset incontinence Musculoskeletal: Chronic abdominal pain, chronic leg pain Psychiatric: [Normal mood/affect] Neurological: [Denies weakness in extremities], [denies balance issues] Objective:: Physical exam General: Alert and oriented x3, no acute distress, pleasant and cooperative Lungs: Respirations even and unlabored, symmetrical chest expansion Eyes: PERRL Musculoskeletal: Flexion and extension of lumbar [spine] somewhat guarded secondary to pain, [antalgic gait noted] Neurological: Speech clear, no gross sensory deficit Assessment:: Chronic pain syndrome, chronic abdominal pain, Factor V Leiden Plan:: For now, we will continue patient's Percocet 5 mg 1 tablet p.o. 4 times daily. He will continue with gabapentin 300 mg 1 tablet p.o. 3 times daily. He does not need refills on his gabapentin at this time. [facility] #[id number] has been reviewed and is appropriate. Drug screens have been appropriate. Morphine equivalent is 30. ORT is minimal risk. He will see Dr. Grier next visit. Risks and benefits of the medication have been explained in detail to the patient. The patient does understand the risk of dependence on the medication when given over a prolonged period. Patient has been advised of risks of oversedation with the prescribed medication. Narcan has been offered to the paitent in the event of oversedation. Patient has been advised that a family member should also be educated regarding administration of Narcan. The patient has been advised to consult with his/her primary care provider and pharmacist regarding drug-drug interaction of medications currently prescribed. Patient has been prescribed a controlled substance after being counseled on the medication, medication safety, and possible side effects. DAXA report has been obtained and reviewed prior to prescription and found to be appropriate. Opioid contract was reviewed and signed by the patient, and that they have agreed to all of the terms set forth by our compliance program. Patient has been instructed to contact the clinic with any concerns before the next appointment. Dr. Grier has reviewed this note and agrees with this plan of care. This note was dictated using voice recognition software and make contain errors or omissions. [facility] History I have reviewed the patient's past medical history: Yes *Have you ever received a pneumonia vaccine?: Yes *Have you received a flu vaccine this season?: No - *Social History Smoking Status: Never smoker Alcohol Intake: never *Occupational Status:: unemployed *Travel in the last 8 weeks: None Family Hx:: Non-c
[2021-03-11 23:09] LABS: Amphetamine/Metha Screen,Urine Negative ng/ml (<1000); Benzodiazepines Screen,Urine Negative ng/ml (<200)
[2021-03-11 23:10] LABS: Barbiturates Screen,Urine Negative ng/ml (<200)
[2021-03-11 23:11] LABS: Cannabinoid Screen,Urine Negative ng/ml (<50); Methadone Screen,Urine Negative ng/ml (<300)
[2021-03-11 23:12] LABS: Cocaine Screen,Urine Negative ng/ml (<300)
[2021-03-11 23:13] LABS: Opiate Screen,Urine Negative ng/ml (<300)
[2021-03-11 23:14] LABS: Phencyclidine Screen,Urine Negative ng/ml (<25)
[2021-03-25 19:08] LABS: Opiates Negative (Cutoff=100); Oxycodone (GC/MS) 577 ng/mL (Cutoff=100); Oxymorphone (GC/MS) 430 ng/mL (Cutoff=100)
== END ==
PROVIDERS: Visit Provider Clinical Nurse Specialist Family Health
DX: G89.4 Chronic pain syndrome (principal); R10.9 Unspecified abdominal pain; D68.51 Activated protein C resistance; Z79.891 Long term (current) use of opiate analgesic
CPT/HCPCS: 80305; 80361; 80365; 99212; G0463; G0480

== ENCOUNTER → 2021-04-03 14:49 | Outpatient (POV) | payer MEDICARE, OTHER, SELFPAY ==
[2021-04-03 15:13] VITALS: BP 142/81; PULSE 103; RESP 18; O2SAT 97
--- NOTE | 2021-04-07 15:17 | HMH.PAINSOAP ---
[facility] Pain Management SOAP Note Subjective:: Patient is a 70-year-old white male who presents today for medication refills. We do manage him for chronic pain syndrome with chronic abdominal pain. He does have a clotting disorder. Patient is managed with Percocet 5 mg 1 tablet p.o. 4 times daily and gabapentin 300 mg 1 tablet p.o. 3 times daily. The patient is complaining that he is having 9 out of 10 pain. Patient has also complained in the past of not being able to see Dr. Grier. At last visit, he was scheduled to see Dr. Grier, however, Dr. Dinero was present. The patient did not want to discuss his pain with Dr. Dinero. Today, he is once again asking for change in medication. His is very tearful and states that the patient is having significant pain with minimal relief with his oral medications. Review of Systems General: No recent weight changes, no fever, no sleep disturbances Respiratory: No cough, no shortness of air, no recurring pulmonary infections Cardiovascular/peripheral vascular: No chest pain, no palpitations, no edema, no shortness of breath Gastrointestinal: No new onset incontinence, Genitourinary: No new onset incontinence Musculoskeletal: Chronic abdominal pain Psychiatric: [Normal mood/affect] Neurological: [Denies weakness in extremities], [denies balance issues] Objective:: Physical exam General: Alert and oriented x3, no acute distress, pleasant and cooperative Lungs: Respirations even and unlabored, symmetrical chest expansion Eyes: PERRL Abdomen: Soft, nondistended, tender to palpation Musculoskeletal: Flexion and extension of [] [spine nonguarded [antalgic gait noted] Neurological: Speech clear, no gross sensory deficit Assessment:: Chronic pain syndrome, chronic abdominal pain Plan:: Patient and are advised today that I cannot change his current medication regimen. He is on Percocet 5 mg 1 tablet p.o. 4 times daily and gabapentin 300 mg 1 tablet p.o. 3 times daily. Of note, the patient did report that he did not have enough medication to last the full month. The clinical documentation spec did contact the pharmacy. Patient has pick the medication up early. We will obtain a drug screen and will need to do a random pill count to maintain compliance with medications. We will schedule him to see Dr. Grier next visit to discuss his medication options. Drug screens have been appropriate in the past Daxa has been appropriate in the past. Patient denies any side effects to medication. Risks and benefits of the medication have been explained in detail to the patient. The patient does understand the risk of dependence on the medication when given over a prolonged period. Patient has been advised of risks of oversedation with the prescribed medication. Narcan has been offered to the paitent in the event of oversedation. Patient has been advised that a family member should also be educated regarding administration of Narcan. The patient has been advised to consult with his/her primary care provider and pharmacist regarding drug-drug interaction of medications currently prescribed. Patient has been prescribed a controlled substance after being counseled on the medication, medication safety, and possible side effects. DAXA report has been obtained and reviewed prior to prescription and found to be appropriate. Opioid contract was reviewed and signed by the patient, and that they have agreed to all of the terms set forth by our compliance program. Patient has been instructed to contact the clinic with any concerns before the next appointment. Dr. Grier has reviewed this note and agrees with this plan of care. This note was dictated using voice recognition software and make contain errors or omissions. [facility] History I have reviewed the patient's past medical history: Yes *Have you ever received a pneumonia vaccine?: No *Have you received a flu vaccine this season?: No - *Social History
== END ==
PROVIDERS: Visit Provider Clinical Nurse Specialist Family Health
DX: R10.9 Unspecified abdominal pain (principal); G89.29 Other chronic pain
CPT/HCPCS: 99212; G0463

== ENCOUNTER → 2021-05-08 13:13 | Outpatient (POV) | payer MEDICARE, OTHER, SELFPAY ==
[2021-05-08 14:00] VITALS: BP 151/82; PULSE 105; RESP 20; TEMP 37; O2SAT 96; BMI 29.7
--- NOTE | 2021-05-08 15:37 | P.CONS_ITS ---
[facility] Pain Management SOAP Note Subjective:: Patient is a pleasant 70-year-old male who is here for medication refill and follow-up. Patient is currently being treated for chronic pain syndrome, chronic abdominal pain. Patient is being managed with Percocet 5 mg 4 times a day and gabapentin 300 mg 3 times a day. Patient denies any side effects from the medications. Patient denies any changes to the location and type of pain. Patient states that this is adequately helping manage his pain. Rates pain as 6 out of 10. [facility] number [id number]. Patient continues to have abdominal pain and right-sided chest pain secondary to his clotting issue. General: No recent weight changes, no fever, no sleep disturbances Respiratory: No cough, no shortness of air, no recurring pulmonary infections Cardiovascular/peripheral vascular: No chest pain, no palpitations, no edema, no shortness of breath Gastrointestinal: No new onset incontinence, normal bowel movements reported Genitourinary: No new onset incontinence Musculoskeletal: Abdominal pain, right-sided chest pain Psychiatric: [Normal mood/affect] Neurological: [Denies weakness in extremities], [denies balance issues] Objective:: General: Alert and oriented x3, no acute distress, pleasant and cooperative, [on room air] Lungs: Respirations even and unlabored, symmetrical chest expansion Chest: Swelling and tenderness around his right chest Eyes: PERRL GI: Epigastric region is tender to palpation. Neurological: Speech clear, no gross sensory deficit Assessment:: Chronic pain syndrome, chronic abdominal pain, factor V Leiden Plan:: We will continue the patient's Percocet 5 mg 4 times a day. Patient still has refills on his gabapentin. We will also start the patient on lidocaine patches to hopefully help with some of the right-sided chest pain. We will provide the patient with 1 month of refills. We would like to see the patient back in a month for follow-up and reevaluation of chronic pain syndrome. Patient has been advised of risks of oversedation with the prescribed medi cation. Narcan has been offered to the paitent in the event of oversedation. Patient has been advised that a family member should also be educated regarding administration of Narcan. Patient has been instructed to contact the clinic with any concerns before the next appointment. Dr. Grier has reviewed this note and agrees with this plan of care. This note was dictated using voice recognition software and make contain errors or omissions. [facility] History *Have you ever received a pneumonia vaccine?: Yes *Have you received a flu vaccine this season?: No - *Social History Smoking Status: Never smoker Alcohol Intake: never *Occupational Status:: retired *Travel in the last 8 weeks: None Family Hx:: Non-contributory
== END ==
PROVIDERS: Visit Provider Student in an Organized Health Care Education/Training Program
DX: G89.4 Chronic pain syndrome (principal); R10.9 Unspecified abdominal pain; D68.51 Activated protein C resistance
CPT/HCPCS: 99212; G0463

== ENCOUNTER → 2021-05-23 09:52 | Outpatient (POV) | payer MEDICARE, OTHER, SELFPAY ==
[2021-05-23 10:35] VITALS: BP 165/74; PULSE 95; RESP 20; TEMP 36.3; O2SAT 99; BMI 29.7
--- NOTE | 2021-05-23 12:39 | P.CONS_ITS ---
[facility] Pain Management SOAP Note Subjective:: This patient is a pleasant 70-year-old white male who we have been treating for chronic abdominal pain along with degenerative disc disease of lumbar spine and lumbar radiculopathy symptoms. He does have factor V Leiden deficiency with increasing clotting disorder and is not a candidate for any injective therapy. Currently he is medically managed with Percocet 5 mg 4 times a day and gabapentin 300 mg 3 times a day. The gabapentin is given to him by his primary care physician. He has been on this dose for a long time. He did notice that he is having some increasing pain. I have talked to him about changing his medication regimen and we can increase this to oxycodone 5 mg 6 times a day to see if this helps with his pain symptoms since he continues to have clotting issues with his factor V Leiden deficiency and is not a candidate for any injections. I did tell him he can take Tylenol in addition to this but no more than 4 times a day. Objective:: Alert and oriented x3 no acute distress. Patient does have an antalgic gait. Motor strength of the lower extremities is 5/5. There is no gross sensory deficit. Pain score is an 8 out of 10 today. Assessment:: Degenerative disc disease of lumbar spine with lumbar radiculopathy symptoms with chronic low back pain and chronic abdominal pain as well as increasing chest pain with factor V Leiden deficiency. Plan:: We are medically managing this patient. We will change his medication regimen to oxycodone 5 mg 6 times a day. He can take Tylenol in addition to this but no more than 4 times a day. He is to continue with his gabapentin 300 mg 3 times a day given to him by his primary care physician. [facility] History *Have you ever received a pneumonia vaccine?: Yes *Have you received a flu vaccine this season?: No - *Social History Smoking Status: Never smoker Alcohol Intake: never *Occupational Status:: other *Travel in the last 8 weeks: None Family Hx:: Non-contributory
== END ==
PROVIDERS: PCP Family Medicine; Visit Provider Anesthesiology
DX: M51.16 Intervertebral disc disorders with radiculopathy, lumbar region (principal); R10.84 Generalized abdominal pain; R07.9 Chest pain, unspecified; G89.29 Other chronic pain
CPT/HCPCS: 99212; G0463

== ENCOUNTER → 2021-06-23 09:38 | Outpatient (POV) | payer MEDICARE, OTHER, SELFPAY ==
--- NOTE | 2021-06-23 10:00 | P.CONS_ITS ---
[facility] Pain Management SOAP Note Subjective:: This patient is a pleasant 70-year-old white male that comes our clinic today for medication refills. Currently writing for him Percocet 5 mg 6 times daily. He does have factor V Leiden deficiency with increasing clotting disorder and is not a candidate for any injective therapy. Currently his medications seems to be doing him well regarding his chronic pain. Patient also taking gabapentin 300 mg 1 p.o. 3 times daily. This comes from his PCP. Patient describes his pain as constant, dull, aching. Pain is eccentrically all over his body specifically upper body and chest area. Objective:: Patient is awake alert oriented x3. No acute distress. Patient does have antalgic gait. Upper and lower extremity motor strength normal. Gross sensory deficit. Pain score today is 7/10. Assessment:: Indices lumbar spine multiple levels. Lumbar radicular symptoms. Chronic low back pain with chronic abdominal pain as well increasing chest pain with factor V Leiden deficiency. Plan:: We will continue his pain medication as ordered. Percocet 5 mg 1 p.o. 6 times daily. Gabapentin from his PCP is 600 mg 1 p.o. twice daily. Patient's [facility] report is been reviewed and appropriate. #[id number]. [facility] History *Have you ever received a pneumonia vaccine?: Yes *Have you received a flu vaccine this season?: No - *Social History Smoking Status: Never smoker Alcohol Intake: never *Occupational Status:: other *Travel in the last 8 weeks: Inside the [facility] Family Hx:: Non-contributory
[2021-06-23 10:58] VITALS: BP 145/75; PULSE 95; RESP 18; TEMP 35.7; O2SAT 99; BMI 33.0
[2021-06-23 11:08] LABS: Amphetamine/Metha Screen,Urine Negative ng/ml (<1000)
[2021-06-23 11:09] LABS: Barbiturates Screen,Urine Negative ng/ml (<200)
[2021-06-23 11:10] LABS: Benzodiazepines Screen,Urine Negative ng/ml (<200); Cannabinoid Screen,Urine Negative ng/ml (<50)
[2021-06-23 11:11] LABS: Cocaine Screen,Urine Negative ng/ml (<300)
[2021-06-23 11:12] LABS: Methadone Screen,Urine Negative ng/ml (<300); Opiate Screen,Urine Positive ng/ml (<300)
[2021-06-23 11:13] LABS: Phencyclidine Screen,Urine Negative ng/ml (<25)
[2021-07-02 19:09] LABS: Opiates Negative (Cutoff=100); Oxycodone (GC/MS) 1062 ng/mL (Cutoff=100); Oxymorphone (GC/MS) 992 ng/mL (Cutoff=100)
== END ==
PROVIDERS: Student in an Organized Health Care Education/Training Program; Visit Provider Nurse Anesthetist, Certified Registered
DX: M51.16 Intervertebral disc disorders with radiculopathy, lumbar region (principal); R10.9 Unspecified abdominal pain; G89.29 Other chronic pain; R07.9 Chest pain, unspecified; D68.51 Activated protein C resistance; Z79.891 Long term (current) use of opiate analgesic
CPT/HCPCS: 80305; 80361; 80365; 99212; G0463; G0480

== ENCOUNTER → 2021-07-24 08:51 | Outpatient (POV) | payer MEDICARE, OTHER, SELFPAY ==
--- NOTE | 2021-07-24 09:46 | P.CONS_ITS ---
[facility] Pain Management SOAP Note Subjective:: Patient is a pleasant 71-year-old male who is here for medication refill and follow-up. Patient is currently being treated for degenerative disc disease of the lumbar spine with lumbar radiculopathy symptoms. Patient is being managed with oxycodone 5 mg 6 times a day. Patient denies any side effects from the medications. Patient denies any changes to the location and type of pain. Patient states that this is adequately helping manage their pain. Rates pain as 6 out of 10. [facility] number [id number] with an active morphine equivalent 45. Drug screens have been reviewed and appropriate. Patient does have factor V Leiden and is not a candidate for any injective therapy. We recently increased his medication from Percocet 5 mg 4 times a day to oxycodone 5 mg 6 times a day. He says that this pain regimen is helping him more. Additionally, they did find some pulmonary nodules recently. 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 Nothing to do at the moment. Review of Systems: General: No recent weight changes, no fever, no sleep disturbances Respiratory: No cough, no shortness of air, no recurring pulmonary infections Cardiovascular/peripheral vascular: No chest pain, no palpitations, no edema, no shortness of breath Gastrointestinal: No new onset incontinence, normal bowel movements reported Genitourinary: No new onset incontinence Musculoskeletal: Low back pain Psychiatric: [Normal mood/affect] Neurological: [Denies weakness in extremities], [denies balance issues] Objective:: Physical Exam: General: Alert and oriented x3, no acute distress, pleasant and cooperative Lungs: Respirations even and unlabored, symmetrical chest expansion Eyes: PERRL Musculoskeletal: Flexion and extension of lumbar [spine] somewhat guarded secondary to pain, [antalgic gait noted] Neurological: Speech clear, no gross sensory deficit Assessment:: Degenerative disc disease of lumbar spine with lumbar radiculopathy symptoms, factor V Leiden deficiency Plan:: We will continue the patient's oxycodone 5 mg 6 times a day. We will provide the patient with 1 month of refills. We would like to see the patient back in 1 month for follow-up and reevaluation of chronic pain syndrome. Patient has been advised of risks of oversedation with the prescribed medication. Narcan has been offered to the patient in the event of oversedation. Patient has been advised that a family member should also be educated regarding administration of Narcan. Patient has been instructed to contact the clinic with any concerns before the next appointment. Dr. Grier has reviewed this note and agrees with this plan of care. This note was dictated using voice recognition software and make contain errors or omissions. [facility] History *Have you ever received a pneumonia vaccine?: No *Have you received a flu vaccine this season?: No - *Social History Smoking Status: Never smoker Alcohol Intake: never *Occupational Status:: retired *Travel in the last 8 weeks: Inside the [place] Family Hx:: Non-contributory
[2021-07-24 10:17] VITALS: BP 113/72; PULSE 88; RESP 18; TEMP 36.2; O2SAT 97
== END ==
PROVIDERS: Visit Provider Student in an Organized Health Care Education/Training Program
DX: M51.16 Intervertebral disc disorders with radiculopathy, lumbar region (principal); D68.2 Hereditary deficiency of other clotting factors
CPT/HCPCS: 99212; G0463

== ENCOUNTER → 2021-08-26 08:33 | Outpatient (POV) | payer MEDICARE, OTHER, SELFPAY ==
--- NOTE | 2021-08-26 08:58 | P.CONS_ITS ---
[facility] Pain Management SOAP Note Subjective:: Patient is a pleasant 71-year-old male who is here for medication refill and follow-up. Patient is currently being treated for degenerative disc disease of lumbar spine with lumbar radiculopathy symptoms. Patient has managed with oxycodone 5 mg 6 times a day. He denies any side effects from this medication. He denies any changes to the location and type of pain. Patient states this is actively managing his pain. Today he rates his pain a 6 out of 10. Patient describes the pain as a dull ache. Patient has a history of factor V Leiden and is not a candidate for injective therapy. Kevin is [phone]. It has been reviewed and is appropriate. 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 He has follow-up with this next week. 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 He states that he is only has 50% use of his lungs due to this. He also is having trouble from prior cataract surgery. He states it did not improve his vision. He is following up with ophthalmology regarding this. Review of Systems: General: No recent weight changes, no fever, no sleep disturbances Respiratory: No cough, no shortness of air, no recurring pulmonary infections Cardiovascular/peripheral vascular: No chest pain, no palpitations, no edema, no shortness of breath Gastrointestinal: No new onset incontinence, normal bowel movements reported Genitourinary: No new onset incontinence Musculoskeletal: Low back pain, abdomen pain Psychiatric: [Normal mood/affect] Neurological: [Denies weakness in extremities], [denies balance issues] Objective:: Physical Exam: General: Alert and oriented x3, no acute distress, pleasant and cooperative Lungs: Respirations even and unlabored, symmetrical chest expansion Eyes: PERRL Musculoskeletal: Flexion and extension of lumbar [spine] somewhat guarded secondary to pain, [antalgic gait noted] Neurological: Speech clear, no gross sensory deficit Assessment:: Degenerative disc disease of lumbar spine with lumbar radiculopathy symptoms, factor V Leiden deficiency Plan:: We will continue the patient's oxycodone 5 mg 6 times a day. We will give 1 month of refills on this. Will return to clinic in 1 month for follow-up and med refill. Patient has been advised of risks of oversedation with the prescribed medication. Narcan has been offered to the patient in the event of oversedation. Patient has been advised that a family member should also be educated regarding administration of Narcan. Patient has been instructed to contact the clinic with any concerns before the next appointment. Dr. Grier has reviewed this note and agrees with this plan of care. This note was dictated using voice recognition software and make contain errors or omissions. [facility] History I have reviewed the patient's past medical history: Yes *Have you ever received a pneumonia vaccine?: Yes *Have you received a flu vaccine this season?: No - *Social History Smoking Status: Never smoker Alcohol Intake: never *Occupational Status:: retired *Travel in the last 8 weeks: Inside the [place] [facility] Family Hx:: Non-contributory
[2021-08-26 09:07] VITALS: BP 157/91; PULSE 99; RESP 18; TEMP 36.8; O2SAT 98; BMI 29.7
== END ==
PROVIDERS: Visit Provider Student in an Organized Health Care Education/Training Program
DX: M51.16 Intervertebral disc disorders with radiculopathy, lumbar region (principal); D68.2 Hereditary deficiency of other clotting factors
CPT/HCPCS: 99212; G0463

== ENCOUNTER → 2021-09-25 10:00 | Outpatient (POV) | payer MEDICARE, OTHER, SELFPAY ==
[2021-09-25 10:04] VITALS: BP 147/67; PULSE 89; RESP 20; O2SAT 97; BMI 29.7
[2021-09-25 10:45] LABS: Amphetamine/Metha Screen,Urine Negative ng/ml (<1000)
[2021-09-25 10:46] LABS: Barbiturates Screen,Urine Negative ng/ml (<200)
[2021-09-25 10:47] LABS: Benzodiazepines Screen,Urine Negative ng/ml (<200); Cannabinoid Screen,Urine Negative ng/ml (<50)
[2021-09-25 10:48] LABS: Cocaine Screen,Urine Negative ng/ml (<300)
[2021-09-25 10:49] LABS: Methadone Screen,Urine Negative ng/ml (<300)
[2021-09-25 10:50] LABS: Opiate Screen,Urine Negative ng/ml (<300)
[2021-09-25 10:51] LABS: Phencyclidine Screen,Urine Negative ng/ml (<25)
--- NOTE | 2021-09-25 11:13 | HMH.PAINSOAP ---
[facility] Pain Management SOAP Note Subjective:: Patient is a pleasant 71-year-old male who presents today for medication refill and follow-up. We are currently treating the patient for degenerative disc disease of lumbar spine with lumbar radiculopathy symptoms. Today he rates his pain a 7 out of 10. He describes his pain all in his low back, chest and groin area. States he has a hiatal hernia that occasionally bothers him causing chest pain. He is currently being managed with oxycodone 5 mg 6 times a day. He denies any side effects from this medication. He denies any change to the location or type of pain he experiences. He states this medication is helping manage his pain. Patient has a history of factor V Leyden and is not a candidate for injective therapy. Patient states he is scheduled for removal of his cancerous facial lesion on October 22. He is scheduled to have this in office and states he is not sure how he will make it to his next follow-up appointment with us. He is also scheduled for a vision appointment on October 13. He has had trouble since his cataract surgery and has not had improvement in his vision. His Kevin is [phone]. It has been reviewed and appropriate. 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 He states he only has 50% use of his lungs due to this. Review of Systems: General: No recent weight changes, no fever, no sleep disturbances Respiratory: No cough, no shortness of air, no recurring pulmonary infections Cardiovascular/peripheral vascular: No chest pain, no palpitations, no edema, no shortness of breath Gastrointestinal: No new onset incontinence, normal bowel movements reported Genitourinary: No new onset incontinence Musculoskeletal: Low back pain, chest pain, groin pain Psychiatric: [Normal mood/affect] Neurological: [Denies weakness in extremities], [denies balance issues] Objective:: Physical Exam: General: Alert and oriented x3, no acute distress, pleasant and cooperative Lungs: Respirations even and unlabored, symmetrical chest expansion Eyes: PERRL Musculoskeletal: Flexion and extension of lumbar [spine] somewhat guarded secondary to pain, [antalgic gait noted] Neurological: Speech clear, no gross sensory deficit Assessment:: Degenerative disc disease of lumbar spine with lumbar radiculopathy symptoms Plan:: Patient has significant pain in his low back. We will refill the patient's oxycodone 5 mg 6 times a day. We will give this patient a 1 month supply of this medication. I have discussed with the patient regarding doing a telehealth visit at our next follow-up due to his upcoming surgical procedure. We will see the patient back via telehealth visit for medication refill and reevaluation of symptoms. Patient has been advised of risk of oversedation with the prescribed medication. Patient has been instructed to contact the clinic with any concerns before the next appointment. Dr. Grier has reviewed this note and agrees with this plan of care. This note was dictated using voice recognition software and make contain errors or omissions. [facility] History I have reviewed the patient's past medical history: Yes *Have you ever received a pneumonia vaccine?: Yes *Have you received a flu vaccine this season?: No - *Social History Smoking Status: Never smoker Alcohol Intake: never *Occupational Status:: other *Travel in the last 8 weeks: None Family Hx:: Non-contributory
[2021-09-30 15:15] LABS: Opiates Negative (Cutoff=100); Oxycodone (GC/MS) 1944 ng/mL (Cutoff=100); Oxymorphone (GC/MS) 1437 ng/mL (Cutoff=100)
== END ==
PROVIDERS: Student in an Organized Health Care Education/Training Program; PCP Family Medicine; Visit Provider Nurse Practitioner Family
DX: M51.16 Intervertebral disc disorders with radiculopathy, lumbar region (principal)
CPT/HCPCS: 80305; 80361; 80365; 99212; G0463; G0480

== ENCOUNTER → 2021-10-23 09:06 | Outpatient (POV) | payer MEDICARE, OTHER, SELFPAY ==
--- NOTE | 2021-10-23 09:12 | EXP.PAIN.SOA ---
[facility] Pain Management SOAP Note Subjective:: Patient is a pleasant 71-year-old male who presents today for medication refill and follow-up. We are currently treating the patient for degenerative disc disease of lumbar spine with lumbar radiculopathy symptoms. Today he states his pain is a 9 out of 10. He states the pain is all in his low back, groin area and chest where he has a hiatal hernia. Patient states that he got bad news over the weekend and he had a bad episode that increased his pain. Patient describes these as aching, throbbing sensations that are fairly constant. He denies any new trauma or injury. He denies any change to the location or type of pain he experiences. He is currently managed with Percocet 5 mg 6 times a day. He denies any side effects from this medication. He states this medication does help manage his pain. He is requesting a refill at today's visit. Patient states he does still occasionally use his gabapentin 300 mg as needed. He states this weekend he did take some and it did seem to help with his symptoms. Patient does have a history of factor V Leyden and is not a candidate for injective therapy. He has a history of multiple PEs and DVTs. Patient was recently scheduled to have cancerous facial lesions removed at the end of September however it has been postponed due to finding out a larger area of skin must be removed and will need a skin graft. He is waiting to hear more for the new date because he will be hospitalized for this procedure. He has also been experiencing vision problems since having cataract surgery. 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 His Kevin is [phone]. Its been reviewed and appropriate. Review of Systems: General: No recent weight changes, no fever, no sleep disturbances Respiratory: No cough, no shortness of air, no recurring pulmonary infections Cardiovascular/peripheral vascular: No chest pain, no palpitations, no edema, no shortness of breath Gastrointestinal: No new onset incontinence, normal bowel movements reported Genitourinary: No new onset incontinence Musculoskeletal: Chest pain, groin pain, low back Psychiatric: [Normal mood/affect] Neurological: [Denies weakness in extremities], [denies balance issues] Objective:: General: Alert and oriented x3, pleasant and cooperative Lungs: Patient is able to say complete sentences without dyspnea Neurological: Speech clear Assessment:: Degenerative disc disease of lumbar spine with lumbar radiculopathy symptoms Plan:: Patient continues to have significant pain in his low back groin and chest. I will reorder the patient's Percocet 5 mg 6 times a day and provide a 1 month supply of this medication. Patient will keep us updated regarding when he will be rescheduled for surgery. We will follow back up with the patient in 1 month to reevaluate his symptoms and refill medication. Patient has been instructed to contact the clinic with any concerns before the next appointment. Dr. Grier has reviewed this note and agrees with this plan of care. This note was dictated using voice recognition software and make contain errors or omissions. Patient is an established patient with their informed consent to treat signed and on file. Patient was visually authenticated based on the photograph in the patient?s file. Patient was given a choice of telemedicine visit or office visit; patient chose telemedicine/telehealth visit due to COVID-19 state of emergency. This visit is being conducted via telemedicine telehealth ([place]) in accordance with all applicable laws and regulations. Patient is located in [location] and the treating medical provider is located in [place]. [facility] Social History Smoking Status: Never smoker alcohol intake: never current occupational status: other
== END | disposition home or self-care (01) ==
PROVIDERS: PCP Family Medicine; Visit Provider Nurse Practitioner Family
DX: M51.16 Intervertebral disc disorders with radiculopathy, lumbar region (principal)
CPT/HCPCS: 99212; G0463

== ENCOUNTER → 2021-11-19 09:43 | Outpatient (POV) | payer MEDICARE, OTHER, SELFPAY ==
[2021-11-19 10:43] VITALS: BP 147/74; PULSE 89; RESP 18; TEMP 37.1; O2SAT 97; BMI 29.2
--- NOTE | 2021-11-19 12:24 | EXP.PAIN.SOA ---
[facility] Pain Management SOAP Note Subjective:: Patient is a pleasant 71-year-old male who presents today for medication refill and follow-up. We are currently treating the patient for degenerative disc disease of the lumbar spine with lumbar radiculopathy symptoms. Today he rates his pain a 8 out of 10. He states the pain is all in his low back, groin area and chest where he has a hiatal hernia. Patient is scheduled for December 02 at the [facility] for excision of cancer from his face. Patient states that they are having to take a large section as compared to what they initially thought that would need to be removed and he is going to have to require a skin graft. Patient also has a history of factor V Leyden and is not a candidate for injective therapy due to multiple PEs and DVTs. 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 Patient is currently managed with Percocet 5 mg 6 times a day. He denies any side effects from this medication he states this medication does adequately manage his pain. He is requesting refill at today's visit. He does also use gabapentin 300 mg as needed when his symptoms are worse. His Kevin is [id number]. It has been reviewed and appropriate. Review of Systems: General: No recent weight changes, no fever, no sleep disturbances Respiratory: No cough, no shortness of air, no recurring pulmonary infections Cardiovascular/peripheral vascular: No chest pain, no palpitations, no edema, no shortness of breath Gastrointestinal: No new onset incontinence, normal bowel movements reported Genitourinary: No new onset incontinence Musculoskeletal: Low back pain, groin pain, chest pain Psychiatric: [Normal mood/affect] Neurological: [Denies weakness in extremities], [denies balance issues] Objective:: Physical Exam: General: Alert and oriented x3, no acute distress, pleasant and cooperative Lungs: Respirations even and unlabored, symmetrical chest expansion Eyes: PERRL Musculoskeletal: Flexion and extension of lumbar [spine] somewhat guarded secondary to pain, [antalgic gait noted] Neurological: Speech clear, no gross sensory deficit Assessment:: Degenerative disc disease lumbar spine with lumbar radiculopathy symptoms Plan:: Patient continues to have significant pain in his low back that radiates into his bilateral extremities. Patient is not a candidate for injective therapy and he is managed with oral medications. I will refill the patient's Percocet 5 mg 6 times a day and provide a 1 month supply of this medication. Due to the patient's upcoming surgery at [facility] we will make his next appointment a telehealth visit. Patient will follow-up in 1 month via telehealth for reevaluation of symptoms and medication refill. Patient has been advised of risks of oversedation with the prescribed medication. Narcan has been offered to the patient in the event of oversedation. Patient has been advised that a family member should also be educated regarding administration of Narcan. Patient has been instructed to contact the clinic with any concerns before the next appointment. Dr. Grier has reviewed this note and agrees with this plan of care. This note was dictated using voice recognition software and make contain errors or omissions. [facility] Social History (Updated 10/23/21 @ 09:22 by Maryjane Woodard APRN) Smoking Status: Never smoker alcohol intake: never current occupational status: retired Travel in the last 8 weeks: None
== END | disposition home or self-care (01) ==
PROVIDERS: PCP Family Medicine; Visit Provider Nurse Practitioner Family
DX: M51.16 Intervertebral disc disorders with radiculopathy, lumbar region (principal)
CPT/HCPCS: 99212; G0463

== ENCOUNTER → 2021-12-15 09:30 | Outpatient (POV) | payer MEDICARE, OTHER, SELFPAY ==
--- NOTE | 2021-12-15 09:38 | EXP.PAIN.SOA ---
[facility] Pain Management SOAP Note Subjective:: Patient is a pleasant 71-year-old male who presents today for telehealth visit, medication refill and follow-up. We are currently treating the patient for degenerative disc disease of lumbar spine with lumbar radiculopathy symptoms. Today he rates his pain a 10 out of 10. He states the pain is primarily in his chest and under both his bilateral arms. Patient denies any new trauma or injury. Patient did have facial surgery on December 02 to remove cancer. Patient did undergo a skin graft at the time of this procedure. Patient did follow-up in the [facility] on the and had his alana removed. Patient states he is scheduled for follow-up on Wednesday with them. Patient states he has had this type of pain before and states frequently does have chest pain due to his hiatal hernia. Patient states he takes a daily Pepcid we will continue the patient's to help with the symptoms. Patient has a history of factor V Leyden and is not a candidate for injective therapy due to multiple PEs and DVTs in the past. Patient does see an compress engineer for vision problems and he has stated he is almost legally blind in 1 eye. 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 Patient is currently managed with Percocet 5 mg 6 times a day. Patient denies any side effects from this medication.. He states this medication does help manage his pain symptoms. He is requesting a refill. Patient does also use gabapentin 300 mg as needed when his pain symptoms are worse. His Kevin is [id number]. It has been reviewed and appropriate. Review of Systems: General: No recent weight changes, no fever, no sleep disturbances Respiratory: No cough, no shortness of air, no recurring pulmonary infections Cardiovascular/peripheral vascular: No chest pain, no palpitations, no edema, no shortness of breath Gastrointestinal: No new onset incontinence, normal bowel movements reported Genitourinary: No new onset incontinence Musculoskeletal: Chest pain, bilateral underarm pain Psychiatric: [Normal mood/affect] Neurological: [Denies weakness in extremities], [denies balance issues] Objective:: General: Alert and oriented x3, pleasant and cooperative Lungs: Patient is able to say complete sentences without dyspnea Neurological: Speech clear Assessment:: Degenerative disc disease lumbar spine with lumbar radiculopathy symptoms Plan:: Patient is experiencing significant pain in his chest and under his bilateral arms during today's visit. I have counseled the patient to present to the ER for evaluation of symptoms if they continue to worsen or are unrelieved by his pain medication. Patient will let us know if he ends up going to the ER. Patient's audio telehealth visit occurred at the patient's home lasting from 0925 through 0937. We will follow-up with the patient in 1 month. Patient will return to clinic in 1 month for reevaluation of symptoms, medication refill and follow-up. Patient has been advised of risks of oversedation with the prescribed medication. Narcan has been offered to the patient in the event of oversedation. Patient has been advised that a family member should also be educated regarding administration of Narcan. Patient has been instructed to contact the clinic with any concerns before the next appointment. Dr. Grier has reviewed this note and agrees with this plan of care. This note was dictated using voice recognition software and make contain errors or omissions. Patient is an established patient with their informed consent to treat signed and on file. Patient was visually authenticated based on the photograph in the patient?s file. Patient was given a choice of telemedicine visit or office visit; patient chose telemedicine/telehealth visit due to recent facial surgery. This visit is being conducted via telemedicine telehealth ([place]) in accordance with a
== END | disposition home or self-care (01) ==
PROVIDERS: Visit Provider Nurse Practitioner Family
DX: M51.16 Intervertebral disc disorders with radiculopathy, lumbar region (principal)
CPT/HCPCS: 99212; G0463

== ENCOUNTER → 2022-01-13 09:21 | Outpatient (POV) | payer MEDICARE, OTHER, SELFPAY ==
[2022-01-13 09:47] VITALS: BP 129/67; PULSE 89; RESP 18; O2SAT 99; BMI 29.0
--- NOTE | 2022-01-13 09:48 | EXP.PAIN.SOA ---
[facility] Pain Management SOAP Note Subjective:: Patient is a pleasant 71-year-old male who presents today for medication refill and follow-up. We are currently treating the patient for degenerative disc disease of lumbar spine with lumbar radiculopathy symptoms. Today he rates his pain a 7 out of 10. Patient states it is more stomach pains. Recently patient did have facial surgery on December 02 to remove cancer and undergo a skin graft at that time as well. Patient states his surgery went well and he had clear margins. Patient did state he had several issues following the surgery with his stomach, GERD, blood pressure, etc. Today he does state that he is feeling much better, that he was prescribed a new medication for his GERD. Patient states he is scheduled for follow-up on March 19. Patient does state he has limited range of motion of his head due to them taking the skin graft from his neck. 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 Patient does see a patient access coordinator on a regular basis for this issue. 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 Patient is currently managed on Percocet 5 mg 6 times a day. Patient denies any side effects from this medication. He states this medication does help his pain symptoms. He is requesting a refill. His Kevin is [phone]. It has been reviewed and appropriate. Review of Systems: General: No recent weight changes, no fever, no sleep disturbances Respiratory: No cough, no shortness of air, no recurring pulmonary infections Cardiovascular/peripheral vascular: No chest pain, no palpitations, no edema, no shortness of breath Gastrointestinal: No new onset incontinence, normal bowel movements reported Genitourinary: No new onset incontinence Musculoskeletal: Low back, abdomen pain Psychiatric: [Normal mood/affect] Neurological: [Denies weakness in extremities], [denies balance issues] Objective:: Physical Exam: General: Alert and oriented x3, no acute distress, pleasant and cooperative Lungs: Respirations even and unlabored, symmetrical chest expansion Eyes: PERRL Musculoskeletal: Flexion and extension of lumbar [spine] somewhat guarded secondary to pain, [antalgic gait noted] Neurological: Speech clear, no gross sensory deficit Assessment:: Degenerative disc disease of lumbar spine with lumbar radiculopathy symptoms, abdominal pain, chronic pain Plan:: Patient continues to experience significant pain in his low back/abdomen at today's visit. I will refill the patient's Percocet 5 mg 6 times a day and provide a 1 month supply of this medication. I have counseled the patient that he may benefit from physical therapy in the future to help with his limited range of motion however at this time the patient would like to wait. We will follow-up with the patient in 1 month via audio telehealth visit for reevaluation of symptoms, medication refill and follow-up. Patient has been advised of risks of oversedation with the prescribed medication. Narcan has been offered to the patient in the event of oversedation. Patient has been advised that a family member should also be educated regarding administration of Narcan. Patient has been instructed to contact the clinic with any concerns before the next appointment. Dr. Grier has reviewed this note and agrees with this plan of care. This note was dictated using voice recognition software and make contain errors or omissions. [facility] Social History (Updated 10/23/21 @ 09:22 by Maryjane Woodard, ANDREW) Smoking Status: Never smoker alcohol intake: never current occupational status: retired Travel in the last 8 weeks: None
== END | disposition home or self-care (01) ==
PROVIDERS: PCP Family Medicine; Visit Provider Nurse Practitioner Family
DX: M51.16 Intervertebral disc disorders with radiculopathy, lumbar region (principal); R10.9 Unspecified abdominal pain; G89.29 Other chronic pain
CPT/HCPCS: 99212; G0463

== ENCOUNTER → 2022-02-19 10:24 | Outpatient (POV) | payer MEDICARE, OTHER, SELFPAY ==
--- NOTE | 2022-02-19 10:45 | EXP.PAIN.SOA ---
[facility] Pain Management SOAP Note Subjective:: Patient is a pleasant 71-year-old male who presents today for medication refill and follow-up via telehealth visit. This telehealth visit is occurring at the patient's home and he has consented for this appointment. We do currently treat the patient for degenerative disc disease of his lumbar spine with lumbar radiculopathy symptoms. Today he rates his pain an 8 out of 10. Patient denies any new trauma or injury. Patient denies any change location or type of pain he experiences. Patient does state he continues to experience pain in his stomach and that did have a flareup yesterday. Patient was prescribed a new medication for his GERD at our last visit and he states that this is doing well however in times of these flareups there is not much that makes a difference except waiting them out. Patient did recently have facial surgery to remove skin cancer on December 02 and did actually have a skin graft placed at that time as well. Patient continues to state he is doing well from this procedure and is scheduled to go back for follow-up on March 18. Patient states that he did have a couple concerning spots on his neck that he will be seen if he needs to have those removed. 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 Patient is almost legally blind in 1 eye and does go to an industrial fabric cutter on a regular basis. 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 Patient is managed with Percocet 5 mg 6 times a day. Patient denies any side effects from this medication. He states this medication does help provide significant relief of his symptoms. He is requesting a refill at today's visit. His Kevin is [phone]. It is been reviewed and appropriate. Review of Systems: General: No recent weight changes, no fever, no sleep disturbances Respiratory: No cough, no shortness of air, no recurring pulmonary infections Cardiovascular/peripheral vascular: No chest pain, no palpitations, no edema, no shortness of breath Gastrointestinal: No new onset incontinence, normal bowel movements reported Genitourinary: No new onset incontinence Musculoskeletal: Stomach pain Psychiatric: [Normal mood/affect] Neurological: [Denies weakness in extremities], [denies balance issues] Objective:: General: Alert and oriented x3, pleasant and cooperative Lungs: Patient is able to say complete sentences without dyspnea Neurological: Speech clear Assessment:: Degenerative disc disease of lumbar spine with lumbar radiculopathy symptoms Plan:: Patient continues to experience significant stomach pain however he is doing well with his current medication regimen. I will refill the patient's oxycodone 5 mg 6 times a day and provide a 1 month supply of this medication. This telehealth visit occurred from [id number]. Patient will return to clinic in 1 month for reevaluation of symptoms, medication refill and follow-up. Patient has been advised of risks of oversedation with the prescribed medication. Narcan has been offered to the patient in the event of oversedation. Patient has been advised that a family member should also be educated regarding administration of Narcan. Patient has been instructed to contact the clinic with any concerns before the next appointment. Dr. Grier has reviewed this note and agrees with this plan of care. This note was dictated using voice recognition software and make contain errors or omissions. [facility] Disclaimer: The information contained in this section may have been updated after the patient was seen, as this information can be updated by other users. Social History (Updated 10/23/21 @ 09:22 by Maryjane Wodoard APRN) Smoking Status: Never smoker alcohol intake: never current occupational status: retired Travel in the last 8 weeks: None
== END | disposition home or self-care (01) ==
PROVIDERS: Visit Provider Nurse Practitioner Family
DX: M51.16 Intervertebral disc disorders with radiculopathy, lumbar region (principal)
CPT/HCPCS: 99212; G0463

== ENCOUNTER → 2022-03-16 09:19 | Outpatient (POV) | payer MEDICARE, OTHER, SELFPAY ==
[2022-03-16 09:43] VITALS: BP 162/85; PULSE 91; RESP 18; O2SAT 97; BMI 29.1
--- NOTE | 2022-03-16 09:44 | EXP.PAIN.SOA ---
[facility] Pain Management SOAP Note Subjective:: Patient is a pleasant 71-year-old male who presents today for medication refill and follow-up. We are currently treating the patient for degenerative disc disease of lumbar spine with lumbar radiculopathy symptoms, abdominal pain. Today he rates his pain a 6 out of 10. Patient denies any new trauma or injury. Patient denies any change location or type of pain he experiences. Patient did state he had a flareup of his stomach pain about a week and a half ago. Patient has been prescribed a new GERD medication and states this has helped with some of his flareups. Patient does have a history of facial surgery to remove cancer on December 02 and is scheduled for a follow-up with them on March 18. Patient does state he continues to have some limited range of motion around his neck where they took the skin graft as well as his left cheek at the site of excision. Patient states he is experiencing drawing of his mouth with numbness and some dribbling of fluids when he tries to drink. Patient also states he feels like he has some limited range of motion below his left eye to the site of the skin graft and states he feels like it is pulling with certain movements. 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 Patient also is almost legally blind in 1 eye and only has 50% use of his lungs due to a calcified fungal infection. Patient is currently managed with oxycodone 5 mg 6 times a day. Patient denies any side effects from this medication. He states this medication does adequately help manage his symptoms. He is requesting a refill at today's visit. His Kevin is [id number]. Its been reviewed and appropriate. Review of Systems: General: No recent weight changes, no fever, no sleep disturbances Respiratory: No cough, no shortness of air, no recurring pulmonary infections Cardiovascular/peripheral vascular: No chest pain, no palpitations, no edema, no shortness of breath Gastrointestinal: No new onset incontinence, normal bowel movements reported Genitourinary: No new onset incontinence Musculoskeletal: Abdominal pain, face pain, low back pain Psychiatric: [Normal mood/affect] Neurological: [Denies weakness in extremities], [denies balance issues] Objective:: Physical Exam: General: Alert and oriented x3, no acute distress, pleasant and cooperative Lungs: Respirations even and unlabored, symmetrical chest expansion Eyes: PERRL Musculoskeletal: Flexion and extension of lumbar [spine] somewhat guarded secondary to pain, [antalgic gait noted] Neurological: Speech clear, no gross sensory deficit ORT score updated with low risk Assessment:: Degenerative disc disease of lumbar spine with lumbar radiculopathy symptoms, abdominal pain Plan:: Patient continues to experience significant pain in his abdomen and low back however he does do well with his current medication regimen. I will refill his oxycodone 5 mg 6 times a day and provide a 1 month supply of this medication. Patient will do a 1 month telehealth visit for reevaluation of his symptoms, medication refill and follow-up. Patient has been advised of risks of oversedation with the prescribed medication. Narcan has been offered to the patient in the event of oversedation. Patient has been advised that a family member should also be educated regarding administration of Narcan. Patient has been instructed to contact the clinic with any concerns before the next appointment. Dr. Grier has reviewed this note and agrees with this plan of care. This note was dictated using voice recognition software and make contain errors or omissions. [facility] Disclaimer: The information contained in this section may have been updated after the patient was seen, as this information can be updated by other users. Social History (Updated 10/23/21 @ 09:22 by Maryjane Woodard APRN) Smoking Status: [place]
== END | disposition home or self-care (01) ==
PROVIDERS: PCP Family Medicine; Visit Provider Nurse Practitioner Family
DX: M51.16 Intervertebral disc disorders with radiculopathy, lumbar region (principal); R10.9 Unspecified abdominal pain
CPT/HCPCS: 99212; G0463

== ENCOUNTER → 2022-04-16 11:11 | Outpatient (POV) | payer MEDICARE, OTHER, SELFPAY ==
--- NOTE | 2022-04-16 11:17 | A.OFFVIS_ITS ---
[facility] Pain Management SOAP Note Subjective:: Patient is a pleasant 71-year-old male who presents today via telehealth visit for medication refill and follow-up. This visit is occurring at his home and he has given consent for our audio appointment. We are currently treating the patient for degenerative disc disease of lumbar spine with lumbar radiculopathy symptoms, abdominal pain. Today he rates his pain an 8 out of 10. Patient states he has had a recent flareup of his abdominal pain. Patient states that it is getting better however it frequently takes several days to see significant improvement. Patient does have a history of facial surgery with skin graft to remove cancer on December 02, 2021. Patient states he has had a follow-up visit with this doctor and stated that it was healing good and have discharged him from their care. Patient states he does have a spot on his shoulder that he will go to a fixture maker to look at and is unsure whether or not he will have to have this removed. 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 Patient is not a candidate for injective therapy due to a significant history of PEs and DVTs. Patient does have history of factor V Leyden. Patient does state that he continues to have some pulling around his neck at the site of where they took the skin for his graft. Patient is currently managed with oxycodone 5 mg 6 times a day. Patient denies any side effects from this medicat ion. His Kevin is [id number]. Its been reviewed and appropriate. Review of Systems: General: No recent weight changes, no fever, no sleep disturbances Respiratory: No cough, no shortness of air, no recurring pulmonary infections Cardiovascular/peripheral vascular: No chest pain, no palpitations, no edema, no shortness of breath Gastrointestinal: No new onset incontinence, normal bowel movements reported Genitourinary: No new onset incontinence Musculoskeletal: Abdominal pain Psychiatric: [Normal mood/affect] Neurological: [Denies weakness in extremities], [denies balance issues] Objective:: General: Alert and oriented x3, pleasant and cooperative Lungs: Patient is able to say complete sentences without dyspnea Neurological: Speech clear Assessment:: Degenerative disc disease of lumbar spine with lumbar radiculopathy symptoms, abdominal pain Plan:: Patient continues to experience significant pain in his abdomen however he is doing well with his current medication regimen. I will refill his oxycodone 5 mg 6 times a day and provide a 1 month supply of this medication. Patient will return to clinic in 1 month for reevaluation of symptoms, medication refill and follow-up. Patient has been advised of risks of oversedation with the prescribed medication. Narcan has been offered to the patient in the event of oversedation. Patient has been advised that a family member should also be educated regarding administration of Narcan. Patient has been instructed to contact the clinic with any concerns before the next appointment. Dr. Grier has reviewed this note and agrees with this plan of care. This note was dictated using voice recognition software and make contain errors or omissions. [facility] Disclaimer: The information contained in this section may have been updated after the patient was seen, as this information can be updated by other users. Social History (Updated 10/23/21 @ 09:22 by Maryjane Woodard APRN) Smoking Status: Never smoker alcohol intake: never current occupational status: retired Travel in the last 8 weeks: None
== END | disposition home or self-care (01) ==
PROVIDERS: Visit Provider Nurse Practitioner Family
DX: M51.16 Intervertebral disc disorders with radiculopathy, lumbar region (principal); R10.9 Unspecified abdominal pain
CPT/HCPCS: 99212; G0463

== ENCOUNTER → 2022-05-14 09:30 | Outpatient (POV) | payer MEDICARE, OTHER, SELFPAY ==
[2022-05-14 10:16] VITALS: BP 140/73; PULSE 99; RESP 18; O2SAT 97; BMI 30.4
--- NOTE | 2022-05-14 10:23 | A.OFFVIS_ITS ---
[facility] [place] Pain Management SOAP Note Subjective:: Patient is a pleasant 71-year-old male who presents today for 1 month follow-up and medication refill. We are currently treating the patient for degenerative disc disease of lumbar spine with lumbar radiculopathy symptoms, abdominal pain. Today he rates his pain a 8 out of 10. Patient states that he was doing more yard work a couple of days ago and woke up the next day with pain, swelling and tenderness at his right leg. Patient states he has gone to his primary care doctor who did state it was a blood clots. He states he has been put on a new medication for this. Patient states he continues to have low back pain and abdominal pain. He denies any recent flareups. He is currently managed with oxycodone 5 mg 6 times a day. Patient denies any side effects from this medication. His Kevin is [id number]. Its been reviewed and appropriate. Review of Systems: General: No recent weight changes, no fever, no sleep disturbances Respiratory: No cough, no shortness of air, no recurring pulmonary infections Cardiovascular/peripheral vascular: No chest pain, no palpitations, no edema, no shortness of breath Gastrointestinal: No new onset incontinence, normal bowel movements reported Genitourinary: No new onset incontinence Musculoskeletal: Abdominal pain Psychiatric: [Normal mood/affect] Neurological: [Denies weakness in extremities], [denies balance issues] Objective:: Physical Exam: General: Alert and oriented x3, no acute distress, pleasant and cooperative Lungs: Respirations even and unlabored, symmetrical chest expansion Eyes: PERRL Musculoskeletal: Flexion and extension of thoracic [spine] somewhat guarded secondary to pain, [antalgic gait noted] Neurological: Speech clear, no gross sensory deficit Assessment:: Degenerative disc disease of lumbar spine with lumbar radiculopathy symptoms, abdominal pain Plan:: Patient is doing well with his current medication regimen. I will refill his oxycodone 5 mg 6 times a day and provide a 1 month supply of this medication. Patient will return to clinic in 1 month for reevaluation of symptoms, medication refill and follow-up. Patient has been advised of risks of oversedation with the prescribed medication. Narcan has been offered to the patient in the event of oversedation. Patient has been advised that a family member should also be educated regarding administration of Narcan. Patient has been instructed to contact the clinic with any concerns before the next appointment. Dr. Grier has reviewed this note and agrees with this plan of care. This note was dictated using voice recognition software and make contain errors or omissions. [facility] Disclaimer: The information contained in this section may have been updated after the patient was seen, as this information can be updated by other users. Social History (Updated 10/23/21 @ 09:22 by Maryjane Woodard APRN) Smoking Status: Never smoker alcohol intake: never current occupational status: retired Travel in the last 8 weeks: None
[2022-05-14 10:43] LABS: Benzodiazepines Screen,Urine Negative ng/ml (<200)
[2022-05-14 10:44] LABS: Amphetamine/Metha Screen,Urine Negative ng/ml (<1000)
[2022-05-14 10:45] LABS: Barbiturates Screen,Urine Negative ng/ml (<200); Cannabinoid Screen,Urine Negative ng/ml (<50)
[2022-05-14 10:46] LABS: Cocaine Screen,Urine Negative ng/ml (<300)
[2022-05-14 10:47] LABS: Methadone Screen,Urine Negative ng/ml (<300)
[2022-05-14 10:48] LABS: Opiate Screen,Urine Positive ng/ml (<300); Phencyclidine Screen,Urine Negative ng/ml (<25)
[2022-05-22 08:14] LABS: Opiates Negative (Cutoff=100); Oxycodone (GC/MS) 2310 ng/mL (Cutoff=100); Oxymorphone (GC/MS) 1104 ng/mL (Cutoff=100)
== END | disposition home or self-care (01) ==
PROVIDERS: PCP Family Medicine; Visit Provider Nurse Practitioner Family
DX: M51.16 Intervertebral disc disorders with radiculopathy, lumbar region (principal); Z79.891 Long term (current) use of opiate analgesic; R10.9 Unspecified abdominal pain
CPT/HCPCS: 80305; 80361; 80365; 99212; G0463; G0480

== ENCOUNTER → 2022-06-11 09:16 | Outpatient (POV) | payer MEDICARE, OTHER, SELFPAY ==
[2022-06-11 09:26] VITALS: BP 139/70; PULSE 85; RESP 18; O2SAT 96; BMI 30.4
--- NOTE | 2022-06-11 09:28 | A.OFFVIS_ITS ---
[facility] Pain Management SOAP Note Subjective:: Patient is a pleasant 71-year-old male who presents today for medication refill and follow-up. We are currently treating the patient for degenerative disc disease of lumbar spine with lumbar radiculopathy symptoms, abdominal pain. Today he rates his pain a 4 out of 10. Patient denies any new trauma or injury. He states he continues to do overall well with his medications. He states he has not had any stomach flareups over the last week. He is currently managed with oxycodone 5 mg 6 times a day. His Kevin is [id number]. Its been reviewed and appropriate. Review of Systems: General: No recent weight changes, no fever, no sleep disturbances Respiratory: No cough, no shortness of air, no recurring pulmonary infections Cardiovascular/peripheral vascular: No chest pain, no palpitations, no edema, no shortness of breath Gastrointestinal: No new onset incontinence, normal bowel movements reported Genitourinary: No new onset incontinence Musculoskeletal: Low back pain Psychiatric: [Normal mood/affect] Neurological: [Denies weakness in extremities], [denies balance issues] Objective:: Physical Exam: General: Alert and oriented x3, no acute distress, pleasant and cooperative Lungs: Respirations even and unlabored, symmetrical chest expansion Eyes: PERRL Musculoskeletal: Flexion and extension of lumbar [spine] somewhat guarded secondary to pain, [antalgic gait noted] Neurological: Speech clear, no gross sensory deficit Assessment:: Degenerative disc disease of lumbar spine with lumbar radiculopathy symptoms, abdominal pain Plan:: Patient is doing well with his current medication regimen. I will refill his oxycodone 5 mg 6 times a day and provide a 1 month supply of this medication. Patient will return to clinic in 1 month for reevaluation of symptoms, medication refill and follow-up. Patient has been advised of risks of oversedation with the prescribed medication. Narcan has been offered to the patient in the event of oversedation. Patient has been advised that a family member should also be educated regarding administration of Narcan. Patient has been instructed to contact the clinic with any concerns before the next appointment. Dr. Grier has reviewed this note and agrees with this plan of care. This note was dictated using voice recognition software and make contain errors or omissions. [facility] Disclaimer: The information contained in this section may have been updated after the patient was seen, as this information can be updated by other users. Social History (Updated 10/23/21 @ 09:22 by Maryjane Woodard APRN) Smoking Status: Never smoker alcohol intake: never current occupational status: retired Travel in the last 8 weeks: None
== END | disposition home or self-care (01) ==
PROVIDERS: PCP Family Medicine; Visit Provider Nurse Practitioner Family
DX: M51.16 Intervertebral disc disorders with radiculopathy, lumbar region (principal); R10.9 Unspecified abdominal pain
CPT/HCPCS: 99212; G0463

== ENCOUNTER → 2022-07-09 08:59 | Outpatient (POV) | payer MEDICARE, OTHER, SELFPAY ==
--- NOTE | 2022-07-09 09:23 | A.OFFVIS_ITS ---
[facility] Pain Management SOAP Note Subjective:: Patient is a pleasant 71-year-old male who presents today for medication refill and follow-up. We are currently treating the patient for degenerative disc disease of the lumbar spine with lumbar radiculopathy symptoms, abdominal pain. Today he rates his pain an 8 out of 10. Patient states that he has pain on a daily basis and continues to have abdominal issues. He states he did have significant straining with a bowel movement earlier this week and did bleed due to this. Patient does take daily medications to help soften his bowels and help them stay regulated however occasionally and he will continue to have stomach flareups and constipation issues. He is currently managed with oxycodone 5 mg 6 times a day. He denies any side effects from this medication. He does also have a compounding cream that he states he will occasionally put on his legs and get additional relief. His Kevin is [id number]. Its been reviewed and appropriate. Review of Systems: General: No recent weight changes, no fever, no sleep disturbances Respiratory: No cough, no shortness of air, no recurring pulmonary infections Cardiovascular/peripheral vascular: No chest pain, no palpitations, no edema, no shortness of breath Gastrointestinal: No new onset incontinence, normal bowel movements reported Genitourinary: No new onset incontinence Musculoskeletal: Low back pain, abdominal pain Psychiatric: [Normal mood/affect] Neurological: [Denies weakness in extremities], [denies balance issues] Objective:: Physical Exam: General: Alert and oriented x3, no acute distress, pleasant and cooperative Lungs: Respirations even and unlabored, symmetrical chest expansion Eyes: PERRL Musculoskeletal: Flexion and extension of lumbar [spine] somewhat guarded secondary to pain, [antalgic gait noted] Neurological: Speech clear, no gross sensory deficit Assessment:: Degenerative disc disease of lumbar spine with lumbar radiculopathy symptoms, abdominal pain Plan:: I will refill his oxycodone 5 mg 6 times a day and provide a 1 month supply of this medication. Patient will return to clinic in 1 months for reevaluation of symptoms and medication refill. Patient has been advised of risks of oversedation with the prescribed medication. Narcan has been offered to the patient in the event of oversedation. Patient has been advised that a family member should also be educated regarding administration of Narcan. Patient has been instructed to contact the clinic with any concerns before the next appointment. Dr. Grier has reviewed this note and agrees with this plan of care. This note was dictated using voice recognition software and make contain errors or omissions. [facility] Disclaimer: The information contained in this section may have been updated after the patient was seen, as this information can be updated by other users. Social History (Updated 10/23/21 @ 09:22 by Maryjane Woodard APRN) Smoking Status: Never smoker alcohol intake: never current occupational status: retired Travel in the last 8 weeks: None
[2022-07-09 09:50] VITALS: BP 161/79; PULSE 81; RESP 20
== END | disposition home or self-care (01) ==
PROVIDERS: PCP Family Medicine; Visit Provider Nurse Practitioner Family
DX: M51.16 Intervertebral disc disorders with radiculopathy, lumbar region (principal); R10.9 Unspecified abdominal pain
CPT/HCPCS: 99212; G0463

== ENCOUNTER → 2022-08-06 08:45 | Outpatient (POV) | payer MEDICARE, OTHER, SELFPAY ==
--- NOTE | 2022-08-06 08:50 | A.OFFVIS_ITS ---
[facility] Pain Management SOAP Note Subjective:: Patient is a pleasant 71-year-old male who presents today for 1 month medication refill and follow-up.? We are currently treating the patient for degenerative disc disease of the lumbar spine with lumbar radiculopathy symptoms, abdominal pain.? Today he rates his pain an 7 out of 10.? He denies any new trauma or injury. He denies any change location or type of pain he experiences. He states he did have a GI flareup this past weekend that was really bad however it has resolved and he is doing better today. He states he is scheduled for a wellness checkup next Wednesday. He is currently managed with oxycodone 5 mg 6 times a day.? He denies any side effects from this medication.? He is also prescribed compounding cream. His Kevin is [id number] its been reviewed and appropriate. Review of Systems: General: No recent weight changes, no fever, no sleep disturbances Respiratory: No cough, no shortness of air, no recurring pulmonary infections Cardiovascular/peripheral vascular: No chest pain, no palpitations,? no edema, no shortness of breath Gastrointestinal: No new onset incontinence, normal bowel movements reported Genitourinary: No new onset incontinence Musculoskeletal: Low back pain, abdominal pain Psychiatric: [Normal mood/affect] Neurological: [Denies weakness in extremities], [denies balance issues] Objective:: Physical Exam: General: Alert and oriented x3, no acute distress, pleasant and cooperative Lungs: Respirations even and unlabored, symmetrical chest expansion Eyes: PERRL Musculoskeletal: Flexion and extension of lumbar [spine] somewhat guarded secondary to pain, [antalgic gait noted] Neurological: Speech clear, no gross sensory deficit Assessment:: Degenerative disc disease of lumbar spine with lumbar radiculopathy symptoms, abdominal pain Plan:: I will refill the patient's oxycodone 5 mg 6 times a day and provide a 1 month supply of this medication. Patient will return to clinic in 1 month for re evaluation of symptoms, medication refill and follow-up. Patient has been advised of risks of oversedation with the prescribed medication. Narcan has been offered to the patient in the event of ove rsedation. Patient has been advised that a family member should also be educated regarding administration of Narcan. Patient has been instructed to contact the clinic with any concerns before the next appointment. Dr. Grier has reviewed this note and agrees with this plan of care. This note was dictated using voice recognition software and make contain errors or omissions. [facility] Disclaimer: The information contained in this section may have been updated after the patient was seen, as this information can be updated by other users. Social History (Updated 10/23/21 @ 09:22 by Maryjane Woodard APRN) Smoking Status: Never smoker alcohol intake: never current occupational status: retired Travel in the last 8 weeks: None
[2022-08-06 09:19] VITALS: BP 130/65; PULSE 83; RESP 18; TEMP 36.6; O2SAT 96; BMI 268.0
== END | disposition home or self-care (01) ==
PROVIDERS: PCP Family Medicine; Visit Provider Nurse Practitioner Family
DX: M51.16 Intervertebral disc disorders with radiculopathy, lumbar region (principal); R10.9 Unspecified abdominal pain
CPT/HCPCS: 99212; G0463

== ENCOUNTER → 2022-09-04 09:09 | Outpatient (POV) | payer MEDICARE, OTHER, SELFPAY ==
[2022-09-04 09:20] VITALS: BP 119/77; PULSE 94; RESP 18; O2SAT 98; BMI 29.7
--- NOTE | 2022-09-04 09:22 | A.OFFVIS_ITS ---
[facility] Pain Management SOAP Note Subjective:: This patient is a very pleasant 71-year-old male that comes our clinic today for a 1 month medication refill and follow-up. He currently is being treated by our clinic for degenerative disc lumbar spine multilevels. With lumbar radiculopathy. Chronic abdominal pain. Today he rates his pain 7/10. Patient is currently being managed by our clinic with oxycodone 5 mg 1 p.o. 6 times daily. Patient's Kevin #[id number] has been reviewed and appropriate. Patient does not report any side effects or complications with the current medication management. Objective:: Patient is awake alert Dodson x3. In no acute distress. Flexion-extension imelda mbar spine somewhat guarded secondary to pain. Deep tendon reflexes upper lower extremities normal. Motor strength upper and lower extremities normal. There is no gross sensory deficit. Gait is antalgic requiring a cane for stability. Assessment:: Degenerative disc lumbar spine multilevels. Lumbar radiculopathy. Chronic abdominal pain. History of CVA. Chronic pain syndrome. Plan:: We will refill the patient's oxycodone 5 mg 1 p.o. 6 times daily. Patient will return to see us in 1 month for medication refill. [facility] Disclaimer: The information contained in this section may have been updated after the patient was seen, as this information can be updated by other users. Social History (Updated 10/23/21 @ 09:22 by Maryjane Woodard APRN) Smoking Status: Never smoker alcohol intake: never substance use type: denies use current occupational status: retired Travel in the last 8 weeks: None
== END | disposition home or self-care (01) ==
PROVIDERS: PCP Family Medicine; Visit Provider Nurse Practitioner Family
DX: M51.16 Intervertebral disc disorders with radiculopathy, lumbar region (principal); R10.9 Unspecified abdominal pain; Z86.73 Personal history of transient ischemic attack (TIA), and cerebral infarction without residual deficits; G89.4 Chronic pain syndrome
CPT/HCPCS: 99212; G0463

== ENCOUNTER → 2022-10-05 09:20 | Outpatient (POV) | payer MEDICARE, OTHER, SELFPAY ==
--- NOTE | 2022-10-05 09:35 | EXP.PAIN.SOA ---
[facility] Pain Management SOAP Note Subjective:: Patient is a pleasant 72-year-old male who presents today for medication refill and follow-up.? We are currently treating the patient for degenerative disc disease of the lumbar spine with lumbar radiculopathy symptoms, abdominal pain.? Today he rates his pain an 8 out of 10.? He does have a current blood clot in the left lower leg. He states he has had his blood thinners altered related to this and that they are continuing to monitor his progress. Patient also states he has not had a GI flareup since about 2 weeks ago. He denies any other new trauma. He is currently managed with oxycodone 5 mg 6 times a day.? He denies any side effects from this medication.? He is also prescribed compounding cream. His Kevin is [id number]. its been reviewed and appropriate. Review of Systems: General: No recent weight changes, no fever, no sleep disturbances Respiratory: No cough, no shortness of air, no recurring pulmonary infections Cardiovascular/peripheral vascular: No chest pain, no palpitations,? no edema, no shortness of breath Gastrointestinal: No new onset incontinence, normal bowel movements reported Genitourinary: No new onset incontinence Musculoskeletal: Low back pain, left lower leg pain Psychiatric: [Normal mood/affect] Neurological: [Denies weakness in extremities], [denies balance issues] Objective:: Physical Exam: General: Alert and oriented x3, no acute distress, pleasant and cooperative Lungs: Respirations even and unlabored, symmetrical chest expansion Eyes: PERRL Musculoskeletal: Flexion and extension of lumbar [spine] somewhat guarded secondary to pain, [antalgic gait noted] Neurological: Speech clear, no gross sensory deficit Assessment:: Degenerative disc disease of lumbar spine with lumbar radiculopathy symptoms, abdominal pain Plan:: I will refill the patient's oxycodone 5 mg 6 times a day and provide a 1 month supply of this medication. Patient will return to clinic in 1 month for reevaluation of symptoms, medication refill and follow-up. Patient has been advised of risks of oversedation with the prescribed medication. Narcan has been offered to the patient in the event of oversedation. Patient has been advised that a family member should also be educated regarding administration of Narcan. Patient has been instructed to contact the clinic with any concerns before the next appointment. Dr. Grier has reviewed this note and agrees with this plan of care. This note was dictated using voice recognition software and make contain errors or omissions. [facility] Disclaimer: The information contained in this section may have been updated after the patient was seen, as this information can be updated by other users. Social History (Updated 09/04/22 @ 09:24 by José Biswas CRNA) Smoking Status: Never smoker alcohol intake: never substance use type: denies use current occupational status: retired Travel in the last 8 weeks: None
[2022-10-05 10:00] VITALS: BP 130/76; PULSE 93; RESP 18; O2SAT 99; BMI 29.7
== END | disposition home or self-care (01) ==
PROVIDERS: PCP Family Medicine; Visit Provider Nurse Practitioner Family
DX: M51.16 Intervertebral disc disorders with radiculopathy, lumbar region (principal); R10.9 Unspecified abdominal pain
CPT/HCPCS: 99212; G0463

== ENCOUNTER → 2022-11-05 09:05 | Outpatient (POV) | payer MEDICARE, OTHER, SELFPAY ==
--- NOTE | 2022-11-05 09:40 | A.OFFVIS_ITS ---
[facility] Pain Management SOAP Note Subjective:: Patient is a pleasant 72-year-old male who presents today for medication refill. We are currently treating the patient for degenerative disc disease of the lumbar spine with lumbar radiculopathy symptoms, abdominal pain. Today he rates his pain an 8 out of 10. Patient denies any new trauma or injury. He states he continues to have flareups of his abdominal pain as well as he still dealing with a blood clot in his left lower leg. He is currently managed with oxycodone 5 mg 6 times a day. Patient denies any side effects from this medication. He is also prescribed compounding cream. His Kevin is [id number]. Its been reviewed and appropriate. Review of Systems: General: No recent weight changes, no fever, no sleep disturbances Respiratory: No cough, no shortness of air, no recurring pulmonary infections Cardiovascular/peripheral vascular: No chest pain, no palpitations, no edema, no shortness of breath Gastrointestinal: No new onset incontinence, normal bowel movements reported Genitourinary: No new onset incontinence Musculoskeletal: Abdominal pain, low back pain Psychiatric: [Normal mood/affect] Neurological: [Denies weakness in extremities], [denies balance issues] Objective:: Physical Exam: General: Alert and oriented x3, no acute distress, pleasant and cooperative Lungs: Respirations even and unlabored, symmetrical chest expansion Eyes: PERRL Musculoskeletal: Flexion and extension of lumbar [spine] somewhat guarded secondary to pain, [antalgic gait noted] Neurological: Speech clear, no gross sensory deficit Assessment:: Degenerative disc disease of lumbar spine with lumbar radiculopathy symptoms, abdominal pain Plan:: I will refill the patient's oxycodone 5 mg 6 times a day and provide a 1 month supply of this medication. Patient will return to clinic in 1 month for reevaluation of symptoms and medication refill. Patient has been advised of risks of oversedation with the prescribed medication. Narcan has been offered to the patient in the event of oversedation. Patient has been advised that a family member should also be educated regarding administration of Narcan. Patient has been instructed to contact the clinic with any concerns before the next appointment. Dr. Grier has reviewed this note and agrees with this plan of care. This note was dictated using voice recognition software and make contain errors or omissions. [facility] Disclaimer: The information contained in this section may have been updated after the patient was seen, as this information can be updated by other users. Social History (Updated 09/04/22 @ 09:24 by José Biswas CRNA) Smoking Status: Never smoker alcohol intake: never substance use type: denies use current occupational status: retired Travel in the last 8 weeks: None
[2022-11-05 11:05] VITALS: BP 102/69; PULSE 85; RESP 18; O2SAT 98; BMI 29.7
== END | disposition home or self-care (01) ==
PROVIDERS: Visit Provider Nurse Practitioner Family
DX: M51.16 Intervertebral disc disorders with radiculopathy, lumbar region (principal); R10.9 Unspecified abdominal pain
CPT/HCPCS: 99212; G0463

== ENCOUNTER → 2022-12-04 08:48 | Outpatient (POV) | payer MEDICARE, OTHER, SELFPAY ==
--- OUTSIDE RECORDS SUMMARY | 2022-12-04 08:51 | XMS_ITS | Continuity of Care Document ---
Author Name Unknown Address [address] [place], [place] [id number] Organization [facility] Phone Care Team Providers Care Channel Cementer Name Role Phone SAQIB GREENE Primary Care SAQIB GREENE Admitting SAQIB GREENE Primary Attending SAQIB GREENE Unavailable ALLERGIES AND ADVERSE REACTIONS ALLERGIES AND ADVERSE REACTIONS Code System Allergy Substance Adverse Reaction Date Reaction (Severity) Comment Status Reported By Updated By [id number] RXNorm FLOXIN Adverse reaction to substance active [id number] on October 17, 2015 1:11:03 PM [facility] [id number] RXNorm IODINE Adverse reaction to substance active [id number] on October 17, 2015 1:11:03 PM [place] METOCLOPRAMIDE Adverse reaction to substance active [id number] on October 17, 2015 4:31:40 PM [facility] 6058 RXNorm ISOSORBIDE NITRATE Adverse reaction to substance active [id number] on June 03, 2017 2:53:38 PM [facility] RESULTS Patient: LILIBETH Cohen Date of : 1950 LABORATORY RESULTS ORDER 200: PT PROTHROMBIN TI ME W INR (LOINC: 61801-3) ORDER DATE: September 23, 2022 11:31:00 AM [place] Specimen Source: Plasma PERFORMING LAB: [address] [id number] Result Comment:
--- OUTSIDE RECORDS SUMMARY | 2022-12-04 08:51 | XMS_ITS | Continuity of Care Document ---
Author Name Unknown Address [address] [place], [place] [id number] Organization [facility] Phone Care Team Providers Care Spiral Machine Operator Name Role Phone SAQIB GREENE Primary Care SAQIB GREENE Admitting SAQIB GREENE Primary Attending [phone] SAQIB GREENE Unavailable ALLERGIES AND ADVERSE REACTIONS ALLERGIES AND ADVERSE REACTIONS Code System Allergy Substance Adverse Reaction Date Reaction (Severity) Comment Status Reported By Updated By [id number] RXNorm FLOXIN Adverse reaction to substance active [id number] on October 17, 2015 1:11:03 PM [facility] [id number] RXNorm IODINE Adverse reaction to substance active [id number] on October 17, 2015 1:11:03 PM [place] METOCLOPRAMIDE Adverse reaction to substance active [id number] on October 17, 2015 4:31:40 PM [facility] 6058 RXNorm ISOSORBIDE NITRATE Adverse reaction to substance active [id number] on June 03, 2017 2:53:38 PM [facility] RESULTS Patient: LILIBETH Cohen Date of : 1950 LABORATORY RESULTS ORDER 200: PT PROTHROMBIN TI ME W INR (LOINC: 77930-0) ORDER DATE: September 23, 2022 11:31:00 AM [place] Specimen Source: Plasma PERFORMING LAB: [address] [id number] Result Comment:
--- OUTSIDE RECORDS SUMMARY | 2022-12-04 08:51 | XMS_ITS | Continuity of Care Document ---
Author Name Unknown Address [address] [place], [place] [id number] Organization [facility] Phone Care Team Providers Care Instructional Systems Designer Name Role Phone SAQIB GREENE Admitting SAQIB GREENE Primary Attending SAQIB GREENE Unavailable SAQIB GREENE Primary Care ALLERGIES AND ADVERSE REACTIONS ALLERGIES AND ADVERSE REACTIONS Code System Allergy Substance Adverse Reaction Date Reaction (Severity) Comment Status Reported By Updated By [id number] RXNorm FLOXIN Adverse reaction to substance active [id number] on October 17, 2015 1:11:03 PM [place] [id number] RXNorm IODINE Adverse reaction to substance active [id number] on October 17, 2015 1:11:03 PM [facility] METOCLOPRAMIDE Adverse reaction to substance active [id number] on October 17, 2015 4:31:40 PM [facility] 6058 RXNorm ISOSORBIDE NITRATE Adverse reaction to substance active [id number] on June 03, 2017 2:53:38 PM [facility] RESULTS Patient: LILIBETH Cohen Date of : 1950 LABORATORY RESULTS ORDER 200: PT PROTHROMBIN TI ME W INR (LOINC: 33930-3) ORDER DATE: November 17, 2022 12:30:00 PM [place] Specimen Source: Plasma PERFORMING LAB: [address] [id number] Result Commen
--- OUTSIDE RECORDS SUMMARY | 2022-12-04 08:51 | XMS_ITS | Continuity of Care Document ---
Author Name Unknown Address [address], [place] [id number] Organization [facility] Phone Care Team Providers Care Aco Coordinator Name Role Phone SAQIB GREENE Admitting SAQIB GREENE Primary Attending SAQIB GREENE Unavailable SAQIB GREENE Primary Care ALLERGIES AND ADVERSE REACTIONS ALLERGIES AND ADVERSE REACTIONS Code System Allergy Substance Adverse Reaction Date Reaction (Severity) Comment Status Reported By Updated By 7623 RXNorm FLOXIN Adverse reaction to substance active [id number] on October 17, 2015 1:11:03 PM [place] [id number] RXNorm IODINE Adverse reaction to substance active [id number] on October 17, 2015 1:11:03 PM UT METOCLOPRAMIDE Adverse reaction to substance active [id number] on October 17, 2015 4:31:40 PM UT 6058 RXNorm ISOSORBIDE NITRATE Adverse reaction to substance active [id number] on June 03, 2017 2:53:38 PM UT RESULTS Patient: LILIBETH Cohen Date of : 1950 LABORATORY RESULTS ORDER 200: PT PROTHROMBIN TI ME W INR (LOINC: 22375-2) ORDER DATE: November 17, 2022 12:30:00 PM UT Specimen Source: Plasma PERFORMING LAB: [address] [id number] Result Commen
[2022-12-04 09:34] VITALS: BP 132/68; PULSE 90; RESP 20; BMI 29.4
--- NOTE | 2022-12-04 09:40 | A.OFFVIS_ITS ---
[facility] Pain Management SOAP Note Subjective:: This patient is a pleasant 72-year-old male that presents to our clinic today for medication refills. We currently treating the patient for degenerative disc disease lumbar spine multilevels. Lumbar radiculopathy. Patient continues with chronic blood thinner. He reports his INR yesterday was 2.9. He has a history of deep vein thrombosis bilateral legs. Patient reports having clots evacuated in the left lower leg last week. We are currently managing the patient with oxycodone 5 mg 1 p.o. 6 times daily. Patient denies any side effects regarding this medication. Patient's Kevin #[id number] has been reviewed and appropriate. Objective:: Patient is awake alert Moran x3. In no acute distress. Flexion-extension lumbar spine somewhat guarded secondary to pain. Deep tendon reflexes upper lower extremities normal. Motor strength upper and lower extremities normal. There is no sensory deficit. Gait is antalgic. Assessment:: Degenerative disc lumbar spine multilevels. Lumbar radiculopathy. Lumbar spondylosis. Chronic blood thinner secondary to history of DVTs. Plan:: We will refill the patient's pain medication. Oxycodone 5 mg 1 p.o. 6 times daily. Patient will be sent to the lab today for urinary drug screen. [facility] Disclaimer: The information contained in this section may have been updated after the patient was seen, as this information can be updated by other users. Social History (Updated 09/04/22 @ 09:24 by José Biswas CRNA) Smoking Status: Never smoker alcohol intake: never substance use type: denies use current occupational status: other Travel in the last 8 weeks: None
== END | disposition home or self-care (01) ==
PROVIDERS: PCP Family Medicine; Visit Provider Nurse Anesthetist, Certified Registered
DX: M51.16 Intervertebral disc disorders with radiculopathy, lumbar region (principal); M47.26 Other spondylosis with radiculopathy, lumbar region; Z79.01 Long term (current) use of anticoagulants; Z86.718 Personal history of other venous thrombosis and embolism
CPT/HCPCS: 99212; G0463

== ENCOUNTER → 2022-12-04 09:34 | Outpatient (CLI) | payer MEDICARE, OTHER, SELFPAY ==
[2022-12-04 10:36] LABS: Barbiturates Screen,Urine Negative ng/ml (<200)
[2022-12-04 10:37] LABS: Amphetamine/Metha Screen,Urine Negative ng/ml (<1000)
[2022-12-04 10:38] LABS: Benzodiazepines Screen,Urine Negative ng/ml (<200); Cannabinoid Screen,Urine Negative ng/ml (<50)
[2022-12-04 10:39] LABS: Methadone Screen,Urine Negative ng/ml (<300)
[2022-12-04 10:40] LABS: Cocaine Screen,Urine Negative ng/ml (<300); Phencyclidine Screen,Urine Negative ng/ml (<25)
[2022-12-04 10:41] LABS: Opiate Screen,Urine Negative ng/ml (<300)
[2022-12-09 15:33] LABS: Opiates Negative (Cutoff=100); Oxycodone (GC/MS) 1068 ng/mL (Cutoff=100); Oxymorphone (GC/MS) 620 ng/mL (Cutoff=100)
== END ==
LOC: LAB 09:35
PROVIDERS: PCP Family Medicine; Visit Provider Nurse Practitioner Family
DX: Z79.891 Long term (current) use of opiate analgesic (principal)
CPT/HCPCS: 80305; 80307; 80361; 80365; 99212; G0463; G0480

== ENCOUNTER → 2022-12-31 08:32 | Outpatient (POV) | payer MEDICARE, OTHER, SELFPAY ==
--- NOTE | 2022-12-31 08:51 | EXP.PAIN.SOA ---
[facility] Pain Management SOAP Note Subjective:: Patient is a pleasant 72-year-old male who presents today for medication refill. We are currently treating the patient for degenerative disc disease of lumbar spine with lumbar radiculopathy symptoms. Today he rates his pain a 9 out of 10. Patient does state today is a bad day with his abdominal pain and has more pressure in his upper chest related to diet. Patient denies any new injury or trauma from our last visit. Patient states he is still dealing with the blood clots in his lower leg however he states they have told him it may be the best it is going to get. Patient has significant comorbidities. He is currently managed with oxycodone 5 mg 6 times a day. He denies any side effects from this medication. His Kevin has been reviewed and is appropriate. Review of Systems: General: No recent weight changes, no fever, no sleep disturbances Respiratory: No cough, no shortness of air, no recurring pulmonary infections Cardiovascular/peripheral vascular: No chest pain, no palpitations, no edema, no shortness of breath Gastrointestinal: No new onset incontinence, normal bowel movements reported Genitourinary: No new onset incontinence Musculoskeletal: Low back pain, abdominal pain Psychiatric: [Normal mood/affect] Neurological: [Denies weakness in extremities], [denies balance issues] Objective:: Physical Exam: General: Alert and oriented x3, no acute distress, pleasant and cooperative Lungs: Respirations even and unlabored, symmetrical chest expansion Eyes: PERRL Musculoskeletal: Flexion and extension of lumbar [spine] somewhat guarded secondary to pain, [antalgic gait noted] Neurological: Speech clear, no gross sensory deficit Assessment:: Degenerative disc disease of lumbar spine with lumbar radiculopathy symptoms, abdominal pain Plan:: I will refill the patient's oxycodone 5 mg 6 times a day and provide a 1 month supply of these medications. Patient will return to clinic in 1 month for reevaluation of symptoms and plan of care. Patient has been advised of risks of oversedation with the prescribed medication. Narcan has been offered to the patient in the event of oversedation. Patient has been advised that a family member should also be educated regarding administration of Narcan. Patient has been instructed to contact the clinic with any concerns before the next appointment. Dr. Grier has reviewed this note and agrees with this plan of care. This note was dictated using voice recognition software and make contain errors or omissions. [facility] Disclaimer: The information contained in this section may have been updated after the patient was seen, as this information can be updated by other users. Social History (Updated 09/04/22 @ 09:24 by José Biswas CRNA) Smoking Status: Never smoker alcohol intake: never substance use type: denies use current occupational status: other Travel in the last 8 weeks: None
[2022-12-31 09:02] VITALS: BP 141/82; PULSE 76; RESP 18; O2SAT 99; BMI 29.4
== END | disposition home or self-care (01) ==
PROVIDERS: PCP Family Medicine; Visit Provider Nurse Practitioner Family
DX: M51.16 Intervertebral disc disorders with radiculopathy, lumbar region (principal); R10.9 Unspecified abdominal pain
CPT/HCPCS: 99212; G0463

== ENCOUNTER → 2023-01-27 10:12 | Outpatient (POV) | payer MEDICARE, OTHER, SELFPAY ==
[2023-01-27 10:36] VITALS: BP 125/81; PULSE 89; RESP 18; O2SAT 97; BMI 29.1
--- NOTE | 2023-01-27 10:53 | A.OFFVIS_ITS ---
[facility] Pain Management SOAP Note Subjective:: Patient is a pleasant 72-year-old male who presents today for 1 month follow-up and medication refill. We are currently treating the patient for degenerative disc disease of lumbar spine with lumbar radiculopathy symptoms. Today he rates his pain an 8 out of 10. Patient denies any new trauma or injury. He does state that he is no longer having the stomach pain like what he was at last visit however he is having the nausea still. Patient does state that this is almost worse than the pain. Patient is currently managed with oxycodone 5 mg 6 times a day. He denies any side effects from this medication. His Kevin has been reviewed and is appropriate. Review of Systems: General: No recent weight changes, no fever, no sleep disturbances Respiratory: No cough, no shortness of air, no recurring pulmonary infections Cardiovascular/peripheral vascular: No chest pain, no palpitations, no edema, no shortness of breath Gastrointestinal: No new onset incontinence, normal bowel movements reported Genitourinary: No new onset incontinence Musculoskeletal: Low back pain, stomach pain Psychiatric: [Normal mood/affect] Neurological: [Denies weakness in extremities], [denies balance issues] Objective:: Physical Exam: General: Alert and oriented x3, no acute distress, pleasant and cooperative Lungs: Respirations even and unlabored, symmetrical chest expansion Eyes: PERRL Musculoskeletal: Flexion and extension of lumbar [spine] somewhat guarded secondary to pain, [antalgic gait noted] Neurological: Speech clear, no gross sensory deficit Assessment:: Degenerative disc disease of lumbar spine with lumbar radiculopathy symptoms, abdominal pain Plan:: I will refill the patient's oxycodone 5 mg 6 times a day and provide a 1 month supply of this medication. Patient will return to clinic in 1 month for reevaluation of symptoms and plan of care. Patient has been advised of risks of oversedation with the prescribed medication. Narcan has been offered to the patient in the event of oversedation. Patient has been advised that a family member should also be educated regarding administration of Narcan. Patient has been instructed to contact the clinic with any concerns before the next appointment. Dr. Grier has reviewed this note and agrees with this plan of care. This note was dictated using voice recognition software and make contain errors or omissions. [facility] Disclaimer: The information contained in this section may have been updated after the patient was seen, as this information can be updated by other users. Social History (Updated 09/04/22 @ 09:24 by José Biswas CRNA) Smoking Status: Never smoker alcohol intake: never substance use type: denies use current occupational status: retired Travel in the last 8 weeks: None
== END | disposition home or self-care (01) ==
PROVIDERS: PCP Family Medicine; Visit Provider Nurse Practitioner Family
DX: M51.16 Intervertebral disc disorders with radiculopathy, lumbar region (principal); R10.9 Unspecified abdominal pain
CPT/HCPCS: 99212; G0463

== ENCOUNTER → 2023-02-24 11:15 | Outpatient (POV) | payer MEDICARE, OTHER, SELFPAY ==
[2023-02-24 11:32] VITALS: BP 175/94; PULSE 101; RESP 20; BMI 28.7
--- NOTE | 2023-02-24 11:40 | A.OFFVIS_ITS ---
[facility] Pain Management SOAP Note Subjective:: Nicole is a pleasant 72-year-old male who presents today for medication refill. We are currently treating the patient for degenerative disc disease of lumbar spine with lumbar radiculopathy symptoms. Today he rates his pain an 8 out of 10. Patient states he has been under the weather the last couple of weeks due to having a stomach flareup. Patient states that he did have severe pain during this time and was unable to enjoy Cris or New Year's due to this. Patient states he does have concerns for upcoming visits if he has a another flareup of whether or not he will be able to get in for his follow-up appointments. Patient is currently managed with oxycodone 5 mg 6 times a day. He denies any side effects from this medication. His Kevin has been reviewed and is appropriate. Review of Systems: General: No recent weight changes, no fever, no sleep disturbances Respiratory: No cough, no shortness of air, no recurring pulmonary infections Cardiovascular/peripheral vascular: No chest pain, no palpitations, no edema, no shortness of breath Gastrointestinal: No new onset incontinence, normal bowel movements reported Genitourinary: No new onset incontinence Musculoskeletal: Stomach pain Psychiatric: [Normal mood/affect] Neurological: [Denies weakness in extremities], [denies balance issues] Objective:: Physical Exam: General: Alert and oriented x3, no acute distress, pleasant and cooperative Lungs: Respirations even and unlabored, symmetrical chest expansion Eyes: PERRL Musculoskeletal: Flexion and extension of lumbar [spine] somewhat guarded secondary to pain, [antalgic gait noted] Neurological: Speech clear, no gross sensory deficit Assessment:: Degenerative disc disease of lumbar spine with lumbar radiculopathy symptoms Plan:: We will refill the patient's oxycodone 5 mg 6 times a day and provide a 1 month supply of this medication. Patient will return to clinic in 1 month for reevaluation of symptoms and medication refill. Patient has been advised of risks of oversedation with the prescribed medication. Narcan has been offered to the patient in the event of oversedation. Patient has been advised that a family member should also be educated regarding administration of Narcan. Patient has been instructed to contact the clinic with any concerns before the next appointment. Dr. Grier has reviewed this note and agrees with this plan of care. This note was dictated using voice recognition software and make contain errors or omissions. [facility] Disclaimer: The information contained in this section may have been updated after the patient was seen, as this information can be updated by other users. Social History (Updated 09/04/22 @ 09:24 by José Biswas CRNA) Smoking Status: Never smoker alcohol intake: never substance use type: denies use current occupational status: other Travel in the last 8 weeks: None
[2023-02-24 12:24] LABS: Amphetamine/Metha Screen,Urine Negative ng/ml (<1000); Barbiturates Screen,Urine Negative ng/ml (<200); Benzodiazepines Screen,Urine Negative ng/ml (<200); Cannabinoid Screen,Urine Negative ng/ml (<50); Methadone Screen,Urine Negative ng/ml (<300); Phencyclidine Screen,Urine Negative ng/ml (<25)
[2023-02-24 12:29] LABS: Cocaine Screen,Urine Negative ng/ml (<300); Opiate Screen,Urine Negative ng/ml (<300)
[2023-02-28 13:14] LABS: Opiates Negative (Cutoff=100); Oxycodone (GC/MS) 1218 ng/mL (Cutoff=100); Oxymorphone (GC/MS) 468 ng/mL (Cutoff=100)
== END | disposition home or self-care (01) ==
PROVIDERS: PCP Family Medicine; Visit Provider Nurse Practitioner Family
DX: Z79.891 Long term (current) use of opiate analgesic (principal); M51.16 Intervertebral disc disorders with radiculopathy, lumbar region
CPT/HCPCS: 80307; 80361; 80365; 99212; G0463; G0480

== ENCOUNTER → 2023-03-26 08:23 | Outpatient (POV) | payer MEDICARE, OTHER, SELFPAY ==
--- NOTE | 2023-03-26 08:35 | EXP.PAIN.SOA ---
[facility] Pain Management SOAP Note Subjective:: Patient is a pleasant 72-year-old male who comes our clinic today for follow-up visit regarding medication refills. We are currently managing him with oxycodone 5 mg 1 p.o. 5 times daily. Patient reports pain medicine is helping with his overall low back hip and leg radicular symptoms. We have been treating the patient for quite some time for chronic low back pain as well as bilateral hip and leg radicular symptoms due to degenerative disc multilevel lumbar spine. Patient reports having left lateral cervical node pop up over the last 2 weeks. Upon examination it is extremely tender for palpation. He does have an appointment with his PCP next week for evaluation. He denies sore throat. No cough. His Kevin and UDS have been appropriate. He rates his pain today 08/01. Objective:: Patient is awake alert [place] x 3. No acute distress. Flexion-extension lumbar spine very guarded secondary to pain. Deep tendon reflexes upper and lower extremities normal. Motor strength upper and lower extremities normal. There is no gross sensory deficit. Gait is normal. Assessment:: Degenerative disc lumbar spine multilevels. Lumbar radiculopathy. Macular degeneration. Plan:: Patient will return in 1 month for medication refills. [facility] Disclaimer: The information contained in this section may have been updated after the patient was seen, as this information can be updated by other users. Social History (Updated 09/04/22 @ 09:24 by José Biswas CRNA) Smoking Status: Never smoker alcohol intake: never substance use type: denies use current occupational status: other Travel in the last 8 weeks: None
[2023-03-26 08:40] VITALS: BP 132/73; PULSE 84; RESP 18; O2SAT 97; BMI 28.7
== END | disposition home or self-care (01) ==
PROVIDERS: PCP Family Medicine; Visit Provider Nurse Anesthetist, Certified Registered
DX: M51.16 Intervertebral disc disorders with radiculopathy, lumbar region (principal); H35.30 Unspecified macular degeneration
CPT/HCPCS: 99212; G0463

== ENCOUNTER → 2023-04-26 09:27 | Outpatient (POV) | payer MEDICARE, OTHER, SELFPAY ==
[2023-04-26 10:13] VITALS: BP 169/83; PULSE 101; RESP 18; BMI 29.4
--- NOTE | 2023-04-26 10:40 | A.OFFVIS_ITS ---
[facility] Pain Management SOAP Note Subjective:: Patient is a pleasant 72-year-old male who presents today for medication refill and follow-up. We are currently treating the patient for degenerative disc disease of lumbar spine with lumbar radiculopathy symptoms, abdominal pain. Today he rates his pain a 10 out of 10. Patient states he continues to have abdominal issues but also has tenderness under his right arm due to still having swelling from prior blood clots. 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 He states that this is causing some pain. Patient is questioning whether or not he will have to have these removed and if he needs to go to a specialist. Patient is currently managed with oxycodone 5 mg 6 times a day. He denies any side effects from this medication. His Kevin has been reviewed and is appropriate. Review of Systems: General: No recent weight changes, no fever, no sleep disturbances Respiratory: No cough, no shortness of air, no recurring pulmonary infections Cardiovascular/peripheral vascular: No chest pain, no palpitations, no edema, no shortness of breath Gastrointestinal: No new onset incontinence, normal bowel movements reported Genitourinary: No new onset incontinence Musculoskeletal: Low back pain Psychiatric: [Normal mood/affect] Neurological: [Denies weakness in extremities], [denies balance issues] Objective:: Physical Exam: General: Alert and oriented x3, no acute distress, pleasant and cooperative Lungs: Respirations even and unlabored, symmetrical chest expansion Eyes: PERRL Musculoskeletal: Flexion and extension of lumbar [spine] somewhat guarded secondary to pain, [antalgic gait noted] Neurological: Speech clear, no gross sensory deficit Assessment:: Degenerative disc disease of lumbar spine with lumbar radiculopathy symptoms, abdominal pain Plan:: I will refill the patient's oxycodone 5 mg 6 times a day and provide a 1 month supply of this medication. Patient will return to clinic in 1 month for reevaluation of symptoms and plan of care. I have discussed with the patient due to the location of the lipomas that I would suggest he follow-up with his ENT specialist out of . We will follow-up with this at future visits. Risks and benefits of the medication have been explained in detail to the patient. The patient does understand the risk of dependence on the medication when given over a prolonged period. Patient has been advised of risks of oversedation with the prescribed medication. Narcan has been offered to the paitent in the event of oversedation. Patient has been advised that a family member should also be educated regarding administration of Narcan. The patient has been advised to consult with his/her primary care provider and pharmacist regarding drug-drug interaction of medications currently prescribed. Patient has been prescribed a controlled substance after being counseled on the medication, medication safety, and possible side effects. Opioid contract was reviewed and signed by the patient, and that they have agreed to all of the terms set forth by our compliance program. Patient has been instructed to contact the clinic with any concerns before the next appointment. Dr. Grier has reviewed this note and agrees with this plan of care. This note was dictated using voice recognition software and make contain errors or omissions. [facility] Disclaimer: The information contained in this section may have been updated after the patient was seen, as this information can be updated by other users. Social History (Updated 09/04/22 @ 09:24 by José Biswas CRNA) Smoking Status: Never smoker alcohol intake: never substance use type: denies use current occupational status: other Travel in the last 8 weeks: None
== END | disposition home or self-care (01) ==
PROVIDERS: PCP Family Medicine; Visit Provider Nurse Practitioner Family
DX: M51.16 Intervertebral disc disorders with radiculopathy, lumbar region (principal); R10.9 Unspecified abdominal pain
CPT/HCPCS: 99212; G0463

== ENCOUNTER 2023-05-26 09:35 | Outpatient (POV) | payer MEDICARE, OTHER, SELFPAY ==
[2023-05-26 09:55] VITALS: BP 155/80; PULSE 86; RESP 16; O2SAT 98; BMI 29.6
--- NOTE | 2023-05-26 09:57 | EXP.PAIN.SOA ---
[facility] Pain Management SOAP Note Subjective:: Patient is a pleasant 72-year-old male who presents today for medication refill. He rates his pain today at 8 out of 10. Patient denies any new trauma or injury. He does state from our last visit he is feeling a little bit better. He does state that over the last 3 days he has had more stomach related issues. He also states that they did have to change his blood thinner recently. 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 He denies that it has gotten any larger. He states he is set up to see his primary care doctor regarding this and that then she will set up with the ENT specialist out of . He does also state that he feels like he is completely now lost his vision in the right eye. He states he can just see light or dark but the rest is blurred. Patient is currently managed with oxycodone 5 mg 6 times a day. He denies any side effects from this medication. Patient is prescribed compounded cream and states that he is almost out of it. Patient is unsure whether or not he has refills. His Kevin has been reviewed and is appropriate. Review of Systems: General: No recent weight changes, no fever, no sleep disturbances Respiratory: No cough, no shortness of air, no recurring pulmonary infections Cardiovascular/peripheral vascular: No chest pain, no palpitations, no edema, no shortness of breath Gastrointestinal: No new onset incontinence, normal bowel movements reported Genitourinary: No new onset incontinence Musculoskeletal: Abdominal pain, low back pain, left neck pain Psychiatric: [Normal mood/affect] Neurological: [Denies weakness in extremities], [denies balance issues] Objective:: Physical Exam: General: Alert and oriented x3, no acute distress, pleasant and cooperative Lungs: Respirations even and unlabored, symmetrical chest expansion Eyes: PERRL Musculoskeletal: Flexion and extension of lumbar [spine] somewhat guarded secondary to pain, [antalgic gait noted] Neurological: Speech clear, no gross sensory deficit Assessment:: Degenerative disc disease of lumbar spine with lumbar radiculopathy symptoms, abdominal pain Plan:: We will refill the patient's oxycodone 5 mg 6 times a day and provide a 1 month supply of this medication. Patient will return to clinic in 1 month for reevaluation of symptoms and plan of care. Risks and benefits of the medication have been explained in detail to the patient. The patient does understand the risk of dependence on the medication when given over a prolonged period. Patient has been advised of risks of oversedation with the prescribed medication. Narcan has been offered to the paitent in the event of oversedation. Patient has been advised that a family member should also be educated regarding administration of Narcan. The patient has been advised to consult with his/her primary care provider and pharmacist regarding drug-drug interaction of medications currently prescribed. Patient has been prescribed a controlled substance after being counseled on the medication, medication safety, and possible side effects. Opioid contract was reviewed and signed by the patient, and that they have agreed to all of the terms set forth by our compliance program. Patient has been instructed to contact the clinic with any concerns before the next appointment. Dr. Grier has reviewed this note and agrees with this plan of care. This note was dictated using voice recognition software and make contain errors or omissions. [facility] Disclaimer: The information contained in this section may have been updated after the patient was seen, as this information can be updated by other users. Social History (Updated 09/04/22 @ 09:24 by José Biswas CRNA) Smoking Status: Never smoker alcohol intake: never substance use type: denies use current occupational status: other Travel in the last 8 weeks: None
== END 2023-05-26 23:59 | disposition home or self-care (01) ==
PROVIDERS: PCP Family Medicine; Visit Provider Nurse Practitioner Family
DX: M51.16 Intervertebral disc disorders with radiculopathy, lumbar region (principal); R10.9 Unspecified abdominal pain
CPT/HCPCS: 99212; G0463

== ENCOUNTER 2023-06-24 08:45 | Outpatient (POV) | payer MEDICARE, OTHER, SELFPAY ==
[2023-06-24 09:02] VITALS: BP 126/82; PULSE 91; RESP 18; O2SAT 98; BMI 29.4
--- NOTE | 2023-06-24 09:12 | A.OFFVIS_ITS ---
[facility] Pain Management SOAP Note Subjective:: Patient is a pleasant 72-year-old male who presents today for medication refill and 1 month follow-up. Today he rates his pain an 8 out of 10. He denies any new trauma or injury. He does state that they are still having trouble regulating his blood levels with his blood thinner. He states he is scheduled to go back next Wednesday to check the PT and INR again. Patient does also state from our last visit that he is now being dropped by one of his insurances coming up. Patient is currently managed with oxycodone 5 mg 6 times a day. He denies any side effects from this medication. Patient has also gotten his compounded cream and states it does help. His Kevin has been reviewed and is appropriate. Review of Systems: General: No recent weight changes, no fever, no sleep disturbances Respiratory: No cough, no shortness of air, no recurring pulmonary infections Cardiovascular/peripheral vascular: No chest pain, no palpitations, no edema, no shortness of breath Gastrointestinal: No new onset incontinence, normal bowel movements reported Genitourinary: No new onset incontinence Musculoskeletal: Low back pain abdominal pain Psychiatric: [Normal mood/affect] Neurological: [Denies weakness in extremities], [denies balance issues] Objective:: Physical Exam: General: Alert and oriented x3, no acute distress, pleasant and cooperative Lungs: Respirations even and unlabored, symmetrical chest expansion Eyes: PERRL Musculoskeletal: Flexion and extension of lumbar [spine] somewhat guarded secondary to pain, [antalgic gait noted] Neurological: Speech clear, no gross sensory deficit Assessment:: Degenerative disc disease of lumbar spine with lumbar radiculopathy symptoms, chronic pain syndrome, abdominal pain Plan:: I will refill the patient's oxycodone and provide a 1 month supply of this medication. Patient will return to clinic in 1 month for reevaluation of symptoms and plan of care. Risks and benefits of the medication have been explained in detail to the patient. The patient does understand the risk of dependence on the medication when given over a prolonged period. Patient has been advised of risks of oversedation with the prescribed medication. Narcan has been offered to the paitent in the event of oversedation. Patient has been advised that a family member should also be educated regarding administration of Narcan. The patient has been advised to consult with his/her primary care provider and pharmacist regarding drug-drug interaction of medications currently prescribed. Patient has been prescribed a controlled substance after being counseled on the medication, medication safety, and possible side effects. Opioid contract was reviewed and signed by the patient, and that they have agreed to all of the terms set forth by our compliance program. Patient has been instructed to contact the clinic with any concerns before the next appointment. Dr. Grier has reviewed this note and agrees with this plan of care. This note was dictated using voice recognition software and make contain errors or omissions. [facility] Disclaimer: The information contained in this section may have been updated after the patient was seen, as this information can be updated by other users. Social History (Updated 09/04/22 @ 09:24 by José Biswas CRNA) Smoking Status: Never smoker alcohol intake: never substance use type: denies use current occupational status: retired Travel in the last 8 weeks: None
== END 2023-06-24 23:59 | disposition home or self-care (01) ==
PROVIDERS: PCP Family Medicine; Visit Provider Nurse Practitioner Family
DX: M51.16 Intervertebral disc disorders with radiculopathy, lumbar region (principal); G89.4 Chronic pain syndrome; R10.9 Unspecified abdominal pain
CPT/HCPCS: 99212; G0463

== ENCOUNTER 2023-07-26 10:28 | Outpatient (POV) | payer MEDICARE, SELFPAY ==
[2023-07-26 10:41] VITALS: BP 135/75; PULSE 94; RESP 18; O2SAT 96; BMI 29.4
--- NOTE | 2023-07-26 11:07 | EXP.PAIN.SOA ---
[facility] Pain Management SOAP Note Subjective:: Patient is a pleasant 73-year-old male who presents today for medication refill. Today he rates his pain an 8 out of 10. Patient denies any new trauma or injury. He does state from our last visit they are still trying to get his PT and INR within range. He states he has had come back to the hospital multiple times to have his blood checked and as of Wednesday it was 3.7. Patient is prescribed oxycodone 5 mg 6 times a day. He denies any side effects from this medication. He is also prescribed compounded cream. His Kevin has been reviewed and is appropriate. Review of Systems: General: No recent weight changes, no fever, no sleep disturbances Respiratory: No cough, no shortness of air, no recurring pulmonary infections Cardiovascular/peripheral vascular: No chest pain, no palpitations, no edema, no shortness of breath Gastrointestinal: No new onset incontinence, normal bowel movements reported Genitourinary: No new onset incontinence Musculoskeletal: Low back pain, abdominal pain Psychiatric: [Normal mood/affect] Neurological: [Denies weakness in extremities], [denies balance issues] Objective:: Physical Exam: General: Alert and oriented x3, no acute distress, pleasant and cooperative Lungs: Respirations even and unlabored, symmetrical chest expansion Eyes: PERRL Musculoskeletal: Flexion and extension of lumbar [spine] somewhat guarded secondary to pain, [antalgic gait noted] Neurological: Speech clear, no gross sensory deficit Assessment:: Degenerative disc disease of lumbar spine with lumbar radiculopathy symptoms, chronic pain syndrome, abdominal pain Plan:: I will refill the patient's oxycodone and provide a 1 month supply of this medication. Patient will return to clinic in 1 month for reevaluation of symptoms and plan of care. Risks and benefits of the medication have been explained in detail to the patient. The patient does understand the risk of dependence on the medication when given over a prolonged period. Patient has been advised of risks of oversedation with the prescribed medication. Narcan has been offered to the paitent in the event of oversedation. Patient has been advised that a family member should also be educated regarding administration of Narcan. The patient has been advised to consult with his/her primary care provider and pharmacist regarding drug-drug interaction of medications currently prescribed. Patient has been prescribed a controlled substance after being counseled on the medication, medication safety, and possible side effects. Opioid contract was reviewed and signed by the patient, and that they have agreed to all of the terms set forth by our compliance program. Patient has been instructed to contact the clinic with any concerns before the next appointment. Dr. Grier has reviewed this note and agrees with this plan of care. This note was dictated using voice recognition software and make contain errors or omissions. [facility] Disclaimer: The information contained in this section may have been updated after the patient was seen, as this information can be updated by other users. Social History Smoking Status: Never smoker alcohol intake: never substance use type: denies use current occupational status: other Travel in the last 8 weeks: None
== END 2023-07-26 23:59 | disposition home or self-care (01) ==
PROVIDERS: PCP Family Medicine; Visit Provider Nurse Practitioner Family
DX: M51.16 Intervertebral disc disorders with radiculopathy, lumbar region (principal); G89.4 Chronic pain syndrome; R10.9 Unspecified abdominal pain
CPT/HCPCS: 99212; G0463

== ENCOUNTER 2023-08-30 10:41 | Outpatient (POV) | payer MEDICARE, OTHER, SELFPAY ==
--- NOTE | 2023-08-30 11:02 | A.OFFVIS_ITS ---
[facility] Disclaimer: The information contained in this section may have been updated after the patient was seen, as this information can be updated by other users. Social History Smoking Status: Never smoker alcohol intake: never substance use type: denies use current occupational status: other Travel in the last 8 weeks: None PM Subjective & Objective Subjective Subjective:: Patient is a pleasant 73-year-old male who presents today for medication refill and follow-up. Today he rates his pain an 8 out of 10. Patient denies any new trauma or injury. Patient does state that they are still trying to work out his blood that he is still out of range with his current blood thinner. He states he goes back tomorrow for additional blood work. 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 Patient is currently managed with oxycodone 5 mg 6 times a day. He denies any side effects from this medication. Patient does state where he had to change insurance that the last prescription he had to pay for [id number] because it needed a prior authorization. His Kevin has been reviewed and is appropriate. Review of Systems: General: No recent weight changes, no fever, no sleep disturbances Respiratory: No cough, no shortness of air, no recurring pulmonary infections Cardiovascular/peripheral vascular: No chest pain, no palpitations, no edema, no shortness of breath Gastrointestinal: No new onset incontinence, normal bowel movements reported Genitourinary: No new onset incontinence Musculoskeletal: Low back pain Psychiatric: [Normal mood/affect] Neurological: [Denies weakness in extremities], [denies balance issues] Pain at rest (0-10 scale): 8 Objective Objective:: Physical Exam: General: Alert and oriented x3, no acute distress, pleasant and cooperative Lungs: Respirations even and unlabored, symmetrical chest expansion Eyes: PERRL Musculoskeletal: Flexion and extension of lumbar [spine] somewhat guarded secondary to pain, [antalgic gait noted] Neurological: Speech clear, no gross sensory deficit Has patient had previous pain injection?: No Conservative treatment options previously tried: Home exercise plan Length of treatment: Longer than 6 weeks and Prescription medications Length of treatment: Longer than 6 weeks Meds Home Medications and Allergies Home Medications Medication Instructions Recorded Confirmed Type isosorbide mononitrate 120 mg 30 mg PO DAILY Hypertension 07/12/17 07/26/23 History tablet,extended release 24 hr amlodipine 10 mg tablet 2.5 mg PO DAILY Hypertension 12/04/19 07/26/23 History famotidine 20 mg tablet 20 mg PO BID GERD 01/10/21 07/26/23 History hydroxyzine HCl 25 mg tablet 25 mg PO QID itching 01/10/21 07/26/23 History lisinopril 20 1 tab PO DAILY blood pressure 01/10/21 07/26/23 History mg-hydrochlorothiazide 12.5 mg tablet warfarin 5 mg tablet 5 mg PO DAILY DVT prophylaxis 01/10/21 07/26/23 History gabapentin 300 mg capsule 300 mg PO TID pain 05/08/21 07/26/23 History lidocaine 5 % topical patch 1 each TP Q24H Pain 05/23/21 07/26/23 History pantoprazole 40 mg tablet,delayed 40 mg PO DAILY STOMACH 01/13/22 07/26/23 History release oxycodone 5 mg tablet 5 mg PO Q4H Pain #180 tabs 07/26/23 Rx oxycodone 5 mg tablet 5 mg PO Q4H PRN pain #36 tabs 08/18/23 Rx New Prescriptions to Start Prescriptions: Allergies Allergy/AdvReac Type Severity Reaction Status Date / Time iodine [IODINE] Allergy Unknown UNKNOWN Verified 07/26/23 10:42 metoclopramide [From REGLAN] Allergy Unknown UNKNOWN Verified 07/26/23 10:42 ofloxacin [From FLOXIN] Allergy Unknown UNKNOWN Verified 07/26/23 10:42 Assessment and Plan *Assessment and plan (1) Degenerative disc disease, lumbar: Status: Acute Category: Medical Code(s): M51.36 - Other intervertebral disc degeneration, lumbar region (2) Lumbar radiculopathy: Status: Acute Category: Medical Code(s): M54.16 - Radiculopathy, lumbar region (3) Chronic pain syndrome: Status: Acute Category: Medical Code(s): G89.4 - Chronic pain syndrome (4) Chronic abdominal pain: Status: Acute Category: Medical Code(s): R10.9 - Unspecified abdominal pain; G89.29 - Other chronic pain Plan We will refill the patient's oxycodone and provide a 1 month supply of this medication. Patient will return to clinic in 1 month for reevaluation of symptoms and plan of care. Risks and benefits of the medication have been explained in detail to the patient. The patient does understand the risk of dependence on the medication when given over a prolonged period. Patient has been advised of risks of oversedation with the prescribed medication. Narcan has been offered to the paitent in the event of oversedation. Patient has been advised that a family member should also be educated regarding administration of Narcan. The patient has been advised to consult with his/her primary care provider and pharmacist regarding drug-drug interaction of medications currently prescribed. Patient has been prescribed a controlled substance after being counseled on the medication, medication safety, and possible side effects. Opioid contract was reviewed and signed by the patient, and that they have agreed to all of the terms set forth by our compliance program. Patient has been instructed to contact the clinic with any concerns before the next appointment. Dr. Grier has reviewed this note and agrees with this plan of care. This note was dictated using voice recognition software and make contain errors or omissions.
[2023-08-30 11:13] VITALS: BP 139/77; PULSE 97; RESP 18; O2SAT 99; BMI 29.4
== END 2023-08-30 23:59 | disposition home or self-care (01) ==
PROVIDERS: PCP Family Medicine; Visit Provider Nurse Practitioner Family
DX: G89.4 Chronic pain syndrome; Z79.891 Long term (current) use of opiate analgesic; M51.36 Other intervertebral disc degeneration, lumbar region; M54.16 Radiculopathy, lumbar region; R10.9 Unspecified abdominal pain
CPT/HCPCS: 99212; G0463

== ENCOUNTER 2023-09-27 09:03 | Outpatient (POV) | payer MEDICARE, OTHER, SELFPAY ==
[2023-09-27 09:12] VITALS: BP 136/79; PULSE 87; RESP 16; O2SAT 98; BMI 29.7
--- NOTE | 2023-09-27 09:43 | EXP.PAIN.SOA ---
[facility] Disclaimer: The information contained in this section may have been updated after the patient was seen, as this information can be updated by other users. Social History Smoking Status: Never smoker alcohol intake: never substance use type: denies use current occupational status: unemployed Travel in the last 8 weeks: None PM Subjective & Objective Subjective Subjective:: Patient is a pleasant 73-year-old male who presents today for medication refill. Today he rates his pain an 8 out of 10. Patient denies any new trauma or injury. P he does state they are still trying to regulate his blood and that it is still not within range. He states he is basically going every 2 weeks for additional lab work. Patient is currently managed with oxycodone 5 mg 6 times a day. He denies any side effects from this medication. His Kevin has been reviewed and is appropriate. Review of Systems: General: No recent weight changes, no fever, no sleep disturbances Respiratory: No cough, no shortness of air, no recurring pulmonary infections Cardiovascular/peripheral vascular: No chest pain, no palpitations, no edema, no shortness of breath Gastrointestinal: No new onset incontinence, normal bowel movements reported Genitourinary: No new onset incontinence Musculoskeletal: Low back pain Psychiatric: [Normal mood/affect] Neurological: [Denies weakness in extremities], [denies balance issues] Pain at rest (0-10 scale): 8 Objective Objective:: Physical Exam: General: Alert and oriented x3, no acute distress, pleasant and cooperative Lungs: Respirations even and unlabored, symmetrical chest expansion Eyes: PERRL Musculoskeletal: Flexion and extension of lumbar [spine] somewhat guarded secondary to pain, [antalgic gait noted] Neurological: Speech clear, no gross sensory deficit Has patient had previous pain injection?: No Conservative treatment options previously tried: Home exercise plan Length of treatment: Longer than 6 weeks Meds Home Medications and Allergies Home Medications ?Medication ?Instructions ?Recorded ?Confirmed ?Type isosorbide mononitrate 120 mg 30 mg PO DAILY Hypertension 07/12/17 09/27/23 History tablet,extended release 24 hr amlodipine 10 mg tablet 2.5 mg PO DAILY Hypertension 12/04/19 09/27/23 History famotidine 20 mg tablet 20 mg PO BID GERD 01/10/21 09/27/23 History hydroxyzine HCl 25 mg tablet 25 mg PO QID itching 01/10/21 09/27/23 History lisinopril 20 1 tab PO DAILY blood pressure 01/10/21 09/27/23 History mg-hydrochlorothiazide 12.5 mg tablet warfarin 5 mg tablet 5 mg PO DAILY DVT prophylaxis 01/10/21 09/27/23 History gabapentin 300 mg capsule 300 mg PO TID pain 05/08/21 09/27/23 History lidocaine 5 % topical patch 1 each TP Q24H Pain 05/23/21 09/27/23 History pantoprazole 40 mg tablet,delayed 40 mg PO DAILY STOMACH 01/13/22 09/27/23 History release oxycodone 5 mg tablet 5 mg PO Q4H PRN pain #36 tabs 08/18/23 09/27/23 Rx oxycodone 5 mg tablet 5 mg PO Q4H Pain #180 tabs 08/30/23 09/27/23 Rx New Prescriptions to Start Prescriptions: Allergies Allergy/AdvReac Type Severity Reaction Status Date / Time iodine [IODINE] Allergy Unknown UNKNOWN Verified 07/26/23 10:42 metoclopramide [From REGLAN] Allergy Unknown UNKNOWN Verified 07/26/23 10:42 ofloxacin [From FLOXIN] Allergy Unknown UNKNOWN Verified 07/26/23 10:42 Assessment and Plan *Assessment and plan (1) Lumbar radiculopathy: Status: Acute Category: Medical Code(s): M54.16 - Radiculopathy, lumbar region (2) Degenerative disc disease, lumbar: Status: Acute Category: Medical Code(s): M51.36 - Other intervertebral disc degeneration, lumbar region Plan We will refill his oxycodone and provide a 1 month supply of this medication. Patient will return to clinic in 1 month for reevaluation of symptoms and plan. Risks and benefits of the medication have been explained in detail to the patient. The patient does understand the risk of dependence on the medication when given over a prolonged period. Patient has been advised of risks of oversedation with the prescribed medication. Narcan has been offered to the paitent in the event of oversedation. Patient has been advised that a family member should also be educated regarding administration of Narcan. The patient has been advised to consult with his/her primary care provider and pharmacist regarding drug-drug interaction of medications currently prescribed. Patient has been prescribed a controlled substance after being counseled on the medication, medication safety, and possible side effects. Opioid contract was reviewed and signed by the patient, and that they have agreed to all of the terms set forth by our compliance program. Patient has been instructed to contact the clinic with any concerns before the next appointment. Dr. Grier has reviewed this note and agrees with this plan of care. This note was dictated using voice recognition software and make contain errors or omissions.
== END 2023-09-27 23:59 | disposition home or self-care (01) ==
PROVIDERS: PCP Family Medicine; Visit Provider Nurse Practitioner Family
DX: M51.16 Intervertebral disc disorders with radiculopathy, lumbar region (principal); Z79.899 Other long term (current) drug therapy
CPT/HCPCS: 99212; G0463

== ENCOUNTER 2023-11-01 11:45 | Outpatient (POV) | payer MEDICARE, OTHER, SELFPAY ==
[2023-11-01 12:08] VITALS: BP 166/79; PULSE 89; RESP 18; O2SAT 98; BMI 29.4
--- NOTE | 2023-11-01 12:18 | A.OFFVIS_ITS ---
[facility] Disclaimer: The information contained in this section may have been updated after the patient was seen, as this information can be updated by other users. Social History Smoking Status: Never smoker alcohol intake: never substance use type: denies use current occupational status: retired Travel in the last 8 weeks: None PM Subjective & Objective Subjective Subjective:: Patient is a pleasant 73-year-old male who presents today for medication refill and follow-up. Today he rates his pain a 10 out of 10. He denies any new trauma or injury. He does state that he has been having worsening pain because he has tried to decrease it due to the gap between office visits. Patient does also state that they are still trying to work with getting his PT and INR within range due to his blood thinner. Patient is currently managed with oxycodone 5 mg 6 times a day. His Kevin has been reviewed and is appropriate. Review of Systems: General: No recent weight changes, no fever, no sleep disturbances Respiratory: No cough, no shortness of air, no recurring pulmonary infections Cardiovascular/peripheral vascular: No chest pain, no palpitations, no edema, no shortness of breath Gastrointestinal: No new onset incontinence, normal bowel movements reported Genitourinary: No new onset incontinence Musculoskeletal: Low back pain, abdominal pain Psychiatric: [Normal mood/affect] Neurological: [Denies weakness in extremities], [denies balance issues] Pain at rest (0-10 scale): 10 Objective Objective:: Physical Exam: General: Alert and oriented x3, no acute distress, pleasant and cooperative Lungs: Respirations even and unlabored, symmetrical chest expansion Eyes: PERRL Musculoskeletal: Flexion and extension of lumbar [spine] somewhat guarded secondary to pain, [antalgic gait noted] Neurological: Speech clear, no gross sensory deficit Has patient had previous pain injection?: No Conservative treatment options previously tried: Prescription medications Length of treatment: Longer than 12 weeks Meds Home Medications and Allergies Home Medications ?Medication ?Instructions ?Recorded ?Confirmed ?Type isosorbide mononitrate 120 mg 30 mg PO DAILY Hypertension 07/12/17 11/01/23 History tablet,extended release 24 hr amlodipine 10 mg tablet 2.5 mg PO DAILY Hypertension 12/04/19 11/01/23 History famotidine 20 mg tablet 20 mg PO BID GERD 01/10/21 11/01/23 History hydroxyzine HCl 25 mg tablet 25 mg PO QID itching 01/10/21 11/01/23 History lisinopril 20 1 tab PO DAILY blood pressure 01/10/21 11/01/23 History mg-hydrochlorothiazide 12.5 mg tablet warfarin 5 mg tablet 5 mg PO DAILY DVT prophylaxis 01/10/21 11/01/23 History gabapentin 300 mg capsule 300 mg PO TID pain 05/08/21 11/01/23 History lidocaine 5 % topical patch 1 each TP Q24H Pain 05/23/21 11/01/23 History pantoprazole 40 mg tablet,delayed 40 mg PO DAILY STOMACH 01/13/22 11/01/23 Hi story release oxycodone 5 mg tablet 5 mg PO Q4H PRN pain #36 tabs 08/18/23 11/01/23 Rx New Prescriptions to Start Prescriptions: Allergies Allergy/AdvReac Type Severity Reaction Status Date / Time iodine [IODINE] Allergy Unknown UNKNOWN Verified 07/26/23 10:42 metoclopramide [From REGLAN] Allergy Unknown UNKNOWN Verified 07/26/23 10:42 ofloxacin [From FLOXIN] Allergy Unknown UNKNOWN Verified 07/26/23 10:42 Assessment and Plan *Assessment and plan (1) Chronic abdominal pain: Status: Acute Category: Medical Code(s): R10.9 - Unspecified abdominal pain; G89.29 - Other chronic pain (2) Chronic pain syndrome: Status: Acute Category: Medical Code(s): G89.4 - Chronic pain syndrome (3) Lumbar radiculopathy: Status: Acute Category: Medical Code(s): M54.16 - Radiculopathy, lumbar region (4) Degenerative disc disease, lumbar: Status: Acute Category: Medical Code(s): M51.36 - Other intervertebral disc degeneration, lumbar region Plan Patient was counseled that there was a temporary prescription of the oxycodone sent over with 36 tablets to get him to today's visit. I did apologize for the miscommunication and that he was not notified of the second prescription. We will refill the patient's oxycodone and send a 1 month supply of this medication in today. Patient will return to clinic in 1 month for reevaluation of symptoms and plan of care. Risks and benefits of the medication have been explained in detail to the patient. The patient does understand the risk of dependence on the medication when given over a prolonged period. Patient has been advised of risks of oversedation with the prescribed medication. Narcan has been offered to the paitent in the event of oversedation. Patient has been advised that a family member should also be educated regarding administration of Narcan. The patient has been advised to consult with his/her primary care provider and pharmacist regarding drug-drug interaction of medications currently prescribed. Patient has been prescribed a controlled substance after being counseled on the medication, medication safety, and possible side effects. Opioid contract was reviewed and signed by the patient, and that they have agreed to all of the terms set forth by our compliance program. Patient has been instructed to contact the clinic with any concerns before the next appointment. Dr. Grier has reviewed this note and agrees with this plan of care. This note was dictated using voice recognition software and make contain errors or omissions.
== END 2023-11-01 23:59 | disposition home or self-care (01) ==
PROVIDERS: PCP Family Medicine; Visit Provider Nurse Practitioner Family
DX: R10.9 Unspecified abdominal pain (principal); G89.4 Chronic pain syndrome; M54.16 Radiculopathy, lumbar region; M51.36 Other intervertebral disc degeneration, lumbar region; Z79.01 Long term (current) use of anticoagulants
CPT/HCPCS: 99212; G0463

== ENCOUNTER 2023-11-25 09:01 | Outpatient (POV) | payer MEDICARE, OTHER, SELFPAY ==
--- NOTE | 2023-11-25 09:48 | A.OFFVIS_ITS ---
[facility] Disclaimer: The information contained in this section may have been updated after the patient was seen, as this information can be updated by other users. Social History Smoking Status: Never smoker alcohol intake: never substance use type: denies use current occupational status: retired Travel in the last 8 weeks: None PM Subjective & Objective Subjective Subjective:: Patient is a pleasant 73-year-old male who presents today for medication refill and follow-up. Today he rates his pain a 9 out of 10. He denies any new trauma or injury. Patient does state overall he is feeling better today than what he has in the past visits. He does state that they are still trying to get his PT and INR within range still. Patient states this been going on for months. Patient is currently managed with oxycodone 5 mg 6 times a day. He denies any side effects from this medication. His Kevin has been reviewed and is appropri ate. Review of Systems: General: No recent weight changes, no fever, no sleep disturbances Respiratory: No cough, no shortness of air, no recurring pulmonary infections Cardiovascular/peripheral vascular: No chest pain, no palpitations, no edema, no shortness of breath Gastrointestinal: No new onset incontinence, normal bowel movements reported Genitourinary: No new onset incontinence Musculoskeletal: Abdominal pain Psychiatric: [Normal mood/affect] Neurological: [Denies weakness in extremities], [denies balance issues] Pain at rest (0-10 scale): 9 Objective Objective:: Physical Exam: General: Alert and oriented x3, no acute distress, pleasant and cooperative Lungs: Respirations even and unlabored, symmetrical chest expansion Eyes: PERRL Musculoskeletal: Flexion and extension of lumbar [spine] somewhat guarded secondary to pain, [antalgic gait noted] Neurological: Speech clear, no gross sensory deficit Has patient had previous pain injection?: No Conservative treatment options previously tried: Home exercise plan Length of treatment: Longer than 12 weeks Meds Home Medications and Allergies Home Medications ?Medication ?Instructions ?Recorded ?Confirmed ?Type isosorbide mononitrate 120 mg 30 mg PO DAILY Hypertension 07/12/17 11/01/23 History tablet,extended release 24 hr amlodipine 10 mg tablet 2.5 mg PO DAILY Hypertension 12/04/19 11/01/23 History famotidine 20 mg tablet 20 mg PO BID GERD 01/10/21 11/01/23 History hydroxyzine HCl 25 mg tablet 25 mg PO QID itching 01/10/21 11/01/23 History lisinopril 20 1 tab PO DAILY blood pressure 01/10/21 11/01/23 History mg-hydrochlorothiazide 12.5 mg tablet warfarin 5 mg tablet 5 mg PO DAILY DVT prophylaxis 01/10/21 11/01/23 History gabapentin 300 mg capsule 300 mg PO TID pain 05/08/21 11/01/23 History lidocaine 5 % topical patch 1 each TP Q24H Pain 05/23/21 11/01/23 History pantoprazole 40 mg tablet,delayed 40 mg PO DAILY STOMACH 01/13/22 11/01/23 History release oxycodone 5 mg tablet 5 mg PO Q4H PRN pain #180 tabs 11/01/23 Rx New Prescriptions to Start Prescriptions: Allergies Allergy/AdvReac Type Severity Reaction Status Date / Time iodine [IODINE] Allergy Unknown UNKNOWN Verified 07/26/23 10:42 metoclopramide [From REGLAN] Allergy Unknown UNKNOWN Verified 07/26/23 10:42 ofloxacin [From FLOXIN] Allergy Unknown UNKNOWN Verified 07/26/23 10:42 Assessment and Plan *Assessment and plan (1) Chronic abdominal pain: Status: Acute Category: Medical Code(s): R10.9 - Unspecified abdominal pain; G89.29 - Other chronic pain (2) Chronic pain syndrome: Status: Acute Category: Medical Code(s): G89.4 - Chronic pain syndrome (3) Lumbar radiculopathy: Status: Acute Category: Medical Code(s): M54.16 - Radiculopathy, lumbar region (4) Degenerative disc disease, lumbar: Status: Acute Category: Medical Code(s): M51.36 - Other intervertebral disc degeneration, lumbar region Plan We will refill the patient's oxycodone and provide a 1 month supply of this medication. Patient will return to clinic in 1 month for reevaluation of symptoms and plan of care. Risks and benefits of the medication have been explained in detail to the patient. The patient does understand the risk of dependence on the medication when given over a prolonged period. Patient has been advised of risks of oversedation with the prescribed medication. Narcan has been offered to the paitent in the event of oversedation. Patient has been advised that a family member should also be educated regarding administration of Narcan. The patient has been advised to consult with his/her primary care provider and pharmacist regarding drug-drug interaction of medications currently prescribed. Patient has been prescribed a controlled substance after being counseled on the medication, medication safety, and possible side effects. Opioid contract was reviewed and signed by the patient, and that they have agreed to all of the terms set forth by our compliance program. Patient has been instructed to contact the clinic with any concerns before the next appointment. Dr. Grier has reviewed this note and agrees with this plan of care. This note was dictated using voice recognition software and make contain errors or omissions.
[2023-11-25 09:50] VITALS: BP 150/82; PULSE 88; RESP 18; O2SAT 99; BMI 28.3
== END 2023-11-25 23:59 | disposition home or self-care (01) ==
PROVIDERS: PCP Family Medicine; Visit Provider Nurse Practitioner Family
DX: R10.9 Unspecified abdominal pain (principal); G89.4 Chronic pain syndrome; M51.16 Intervertebral disc disorders with radiculopathy, lumbar region
CPT/HCPCS: 99212; G0463

== ENCOUNTER 2023-12-27 08:55 | Outpatient (POV) | payer MEDICARE, OTHER, SELFPAY ==
--- NOTE | 2023-12-27 09:24 | EXP.PAIN.SOA ---
[facility] Disclaimer: The information contained in this section may have been updated after the patient was seen, as this information can be updated by other users. Social History Smoking Status: Never smoker alcohol intake: never substance use type: denies use current occupational status: retired Travel in the last 8 weeks: None PM Subjective & Objective Subjective Subjective:: Patient is a pleasant 73-year-old male who presents today for medication refill and follow-up. Today he rates his pain a 8 out of 10. He denies any new changes from our last visit. He does state that they are still trying to get his blood thinner dosage worked down but it does seem like they are getting a little bit closer. Patient is currently managed with oxycodone 5 mg 6 times per day. He denies any side effects from this medication. He does state that come the first of the year he is planning on changing prescription plan companies and that at that time he may be changing his pharmacy. His Kevin has been reviewed and is appropriate. Review of Systems: General: No recent weight changes, no fever, no sleep disturbances Respiratory: No cough, no shortness of air, no recurring pulmonary infections Cardiovascular/peripheral vascular: No chest pain, no palpitations, no edema, no shortness of breath Gastrointestinal: No new onset incontinence, normal bowel movements reported Genitourinary: No new onset incontinence Musculoskeletal: Low back pain, abdominal pain Psychiatric: [Normal mood/affect] Neurological: [Denies weakness in extremities], [denies balance issues] Pain at rest (0-10 scale): 8 Objective Objective:: Physical Exam: General: Alert and oriented x3, no acute distress, pleasant and cooperative Lungs: Respirations even and unlabored, symmetrical chest expansion Eyes: PERRL Musculoskeletal: Flexion and extension of lumbar [spine] somewhat guarded secondary to pain, [antalgic gait noted] Neurological: Speech clear, no gross sensory deficit Has patient had previous pain injection?: No Conservative treatment options previously tried: Home exercise plan Length of treatment: Longer than 12 weeks Meds Home Medications and Allergies Home Medications ?Medication ?Instructions ?Recorded ?Confirmed ?Type isosorbide mononitrate 120 mg 30 mg PO DAILY Hypertension 07/12/17 11/25/23 History tablet,extended release 24 hr amlodipine 10 mg tablet 2.5 mg PO DAILY Hypertension 12/04/19 11/25/23 History famotidine 20 mg tablet 20 mg PO BID GERD 01/10/21 11/25/23 History hydroxyzine HCl 25 mg tablet 25 mg PO QID itching 01/10/21 11/25/23 History lisinopril 20 1 tab PO DAILY blood pressure 01/10/21 11/25/23 History mg-hydrochlorothiazide 12.5 mg tablet warfarin 5 mg tablet 5 mg PO DAILY DVT prophylaxis 01/10/21 11/25/23 History gabapentin 300 mg capsule 300 mg PO TID pain 05/08/21 11/25/23 History lidocaine 5 % topical patch 1 each TP Q24H Pain 05/23/21 11/25/23 History pantoprazole 40 mg tablet,delayed 40 mg PO DAILY STOMACH 01/13/22 11/25/23 History release oxycodone 5 mg tablet 5 mg PO Q4H PRN pain #180 tabs 11/25/23 Rx New Prescriptions to Start Prescriptions: Allergies Allergy/AdvReac Type Severity Reaction Status Date / Time iodine [IODINE] Allergy Unknown UNKNOWN Verified 07/26/23 10:42 metoclopramide [From REGLAN] Allergy Unknown UNKNOWN Verified 07/26/23 10:42 ofloxacin [From FLOXIN] Allergy Unknown UNKNOWN Verified 07/26/23 10:42 Assessment and Plan *Assessment and plan (1) Lumbar radiculopathy: Status: Acute Category: Medical Code(s): M54.16 - Radiculopathy, lumbar region (2) Degenerative disc disease, lumbar: Status: Acute Category: Medical Code(s): M51.36 - Other intervertebral disc degeneration, lumbar region (3) Chronic pain syndrome: Status: Acute Category: Medical Code(s): G89.4 - Chronic pain syndrome Plan We will refill the patient's oxycodone and provide a 1 month supply of this medication. Patient will return to clinic in 1 month for reevaluation of symptoms and plan of care. Risks and benefits of the medication have been explained in detail to the patient. The patient does understand the risk of dependence on the medication when given over a prolonged period. Patient has been advised of risks of oversedation with the prescribed medication. Narcan has been offered to the paitent in the event of oversedation. Patient has been advised that a family member should also be educated regarding administration of Narcan. The patient has been advised to consult with his/her primary care provider and pharmacist regarding drug-drug interaction of medications currently prescribed. Patient has been prescribed a controlled substance after being counseled on the medication, medication safety, and possible side effects. Opioid contract was reviewed and signed by the patient, and that they have agreed to all of the terms set forth by our compliance program. Patient has been instructed to contact the clinic with any concerns before the next appointment. Dr. Grier has reviewed this note and agrees with this plan of care. This note was dictated using voice recognition software and make contain errors or omissions.
[2023-12-27 10:54] VITALS: BP 132/80; PULSE 81; RESP 16; O2SAT 97; BMI 29.4
== END 2023-12-27 23:59 | disposition home or self-care (01) ==
PROVIDERS: PCP Family Medicine; Visit Provider Nurse Practitioner Family
DX: G89.4 Chronic pain syndrome; M51.16 Intervertebral disc disorders with radiculopathy, lumbar region
CPT/HCPCS: 99212; G0463

== ENCOUNTER 2024-01-26 08:07 | Outpatient (POV) | payer MEDICARE, OTHER, SELFPAY ==
--- NOTE | 2024-01-26 08:38 | EXP.PAIN.SOA ---
[facility] Disclaimer: The information contained in this section may have been updated after the patient was seen, as this information can be updated by other users. Social History Smoking Status: Never smoker alcohol intake: never substance use type: denies use current occupational status: other Travel in the last 8 weeks: None PM Subjective & Objective Subjective Subjective:: Patient is a pleasant 73-year-old male who presents today for medication refill and 1 month follow-up. He rates his pain a 8 out of 10. He did state today that he had additional lab work and that his PT and INR is getting closer to the therapeutic level. He is currently managed with oxycodone 5 mg 6 times per day. He denies any side effects from this medication. His Kevin has been reviewed and is appropriate. Review of Systems: General: No recent weight changes, no fever, no sleep disturbances Respiratory: No cough, no shortness of air, no recurring pulmonary infections Cardiovascular/peripheral vascular: No chest pain, no palpitations, no edema, no shortness of breath Gastrointestinal: No new onset incontinence, normal bowel movements reported Genitourinary: No new onset incontinence Musculoskeletal: Low back pain, abdominal pain Psychiatric: [Normal mood/affect] Neurological: [Denies weakness in extremities], [denies balance issues] Pain at rest (0-10 scale): 8 Objective Objective:: Physical Exam: General: Alert and oriented x3, no acute distress, pleasant and cooperative Lungs: Respirations even and unlabored, symmetrical chest expansion Eyes: PERRL Musculoskeletal: Flexion and extension of lumbar [spine] somewhat guarded secondary to pain, [antalgic gait noted] Neurological: Speech clear, no gross sensory deficit Has patient had previous pain injection?: No Conservative treatment options previously tried: Prescription medications Length of treatment: Longer than 12 weeks Meds Home Medications and Allergies Home Medications ?Medication ?Instructions ?Recorded ?Confirmed ?Type isosorbide mononitrate 120 mg 30 mg PO DAILY Hypertension 07/12/17 12/27/23 History tablet,extended release 24 hr amlodipine 10 mg tablet 2.5 mg PO DAILY Hypertension 12/04/19 12/27/23 History famotidine 20 mg tablet 20 mg PO BID GERD 01/10/21 12/27/23 History hydroxyzine HCl 25 mg tablet 25 mg PO QID itching 01/10/21 12/27/23 History lisinopril 20 1 tab PO DAILY blood pressure 01/10/21 12/27/23 History mg-hydrochlorothiazide 12.5 mg tablet warfarin 5 mg tablet 5 mg PO DAILY DVT prophylaxis 01/10/21 12/27/23 History gabapentin 300 mg capsule 300 mg PO TID pain 05/08/21 12/27/23 History lidocaine 5 % topical patch 1 each TP Q24H Pain 05/23/21 12/27/23 History pantoprazole 40 mg tablet,delayed 40 mg PO DAILY STOMACH 01/13/22 12/27/23 History release oxycodone 5 mg tablet 5 mg PO Q4H PRN pain #180 tabs 12/27/23 Rx New Prescriptions to Start Prescriptions: Allergies Allergy/AdvReac Type Severity Reaction Status Date / Time iodine (IODINE) Allergy Unknown UNKNOWN Verified 07/26/23 10:42 metoclopramide (From REGLAN) Allergy Unknown UNKNOWN Verified 07/26/23 10:42 ofloxacin (From FLOXIN) Allergy Unknown UNKNOWN Verified 07/26/23 10:42 Assessment and Plan *Assessment and plan (1) Chronic abdominal pain: Status: Acute Category: Medical Code(s): R10.9 - Unspecified abdominal pain; G89.29 - Other chronic pain (2) Chronic pain syndrome: Status: Acute Category: Medical Code(s): G89.4 - Chronic pain syndrome (3) Lumbar radiculopathy: Status: Acute Category: Medical Code(s): M54.16 - Radiculopathy, lumbar region (4) Degenerative disc disease, lumbar: Status: Acute Category: Medical Code(s): M51.36 - Other intervertebral disc degeneration, lumbar region Plan We will refill the patient's oxycodone and provide a 1 month supply of this medication. Patient will return to clinic in 1 month for follow-up. Risks and benefits of the medication have been explained in detail to the patient. The patient does understand the risk of dependence on the medication when given over a prolonged period. Patient has been advised of risks of oversedation with the prescribed medication. Narcan has been offered to the paitent in the event of oversedation. Patient has been advised that a family member should also be educated regarding administration of Narcan. The patient has been advised to consult with his/her primary care provider and pharmacist regarding drug-drug interaction of medications currently prescribed. Patient has been prescribed a controlled substance after being counseled on the medication, medication safety, and possible side effects. Opioid contract was reviewed and signed by the patient, and that they have agreed to all of the terms set forth by our compliance program. Patient has been instructed to contact the clinic with any concerns before the next appointment. Dr. Grier has reviewed this note and agrees with this plan of care. This note was dictated using voice recognition software and make contain errors or omissions.
[2024-01-26 09:30] VITALS: BP 147/80; PULSE 88; RESP 14; O2SAT 97; BMI 29.4
== END 2024-01-26 23:59 | disposition home or self-care (01) ==
PROVIDERS: PCP Family Medicine; Visit Provider Nurse Practitioner Family
DX: R10.9 Unspecified abdominal pain (principal); G89.4 Chronic pain syndrome; M51.16 Intervertebral disc disorders with radiculopathy, lumbar region; Z79.01 Long term (current) use of anticoagulants
CPT/HCPCS: 99212; G0463

== ENCOUNTER 2024-02-24 08:49 | Outpatient (POV) | payer MEDICARE, OTHER, SELFPAY ==
--- NOTE | 2024-02-24 09:18 | EXP.PAIN.SOA ---
[facility] Disclaimer: The information contained in this section may have been updated after the patient was seen, as this information can be updated by other users. Social History Smoking Status: Never smoker alcohol intake: never substance use type: denies use current occupational status: other Travel in the last 8 weeks: None Have you lived/traveled outside [place] in past 30 days?: No Contact w/someone who lives/traveled outside [place] past 30 days?: No Exposure to someone with infectious disease in past 14 days?: No Do you have a fever (greater than 100.4 F or 38 C)?: No Have you tested positive for COVID-19: No Exposed to someone with COVID-19 in past 14 days?: No Do you have a sore throat?: No Do you have a cough?: No Do you have any weakness?: No Do you have any diarrhea?: No Are you experiencing any unusual bleeding?: No Do you have any muscle aches/pain?: No Do you have any abdominal pain?: No Are you experiencing loss of taste or smell?: No PM Subjective & Objective Subjective Subjective:: Patient is a pleasant 73-year-old male who presents today for 1 month medication refill. Today he rates his pain a 9 out of 10. He denies any new injuries however does state from our last visit he ended up having a spot on each ear and a spot on his nose that they are questioning for possible cancer. He states that he is scheduled for follow-up soon and that they had talked about doing the freezing of these areas to remove them and go from there. He does state that they are still trying to regulate his PT and INR and he is now taking a half a tablet daily of his blood thinner. Patient is managed with oxycodone 5 mg 6 times a day from our office. He denies any side effects from this medication. He does also make mention that he does have a knot along his left upper leg with a lipoma below it. He states that he cannot sit for very long due to the pain. His Kevin has been reviewed and is appropriate. Review of Systems: General: No recent weight changes, no fever, no sleep disturbances Respiratory: No cough, no shortness of air, no recurring pulmonary infections Cardiovascular/peripheral vascular: No chest pain, no palpitations, no edema, no shortness of breath Gastrointestinal: No new onset incontinence, normal bowel movements reported Genitourinary: No new onset incontinence Musculoskeletal: Low back pain, leg pain, abdominal pain Psychiatric: [Normal mood/affect] Neurological: [Denies weakness in extremities], [denies balance issues] Pain at rest (0-10 scale): 9 Objective Objective:: Physical Exam: General: Alert and oriented x3, no acute distress, pleasant and cooperative Lungs: Respirations even and unlabored, symmetrical chest expansion Eyes: PERRL Musculoskeletal: Flexion and extension of lumbar [spine] somewhat guarded secondary to pain, [antalgic gait noted] Neurological: Speech clear, no gross sensory deficit Has patient had previous pain injection?: No Conservative treatment options previously tried: Prescription medications Length of treatment: Longer than 12 weeks Meds Home Medications and Allergies Home Medications ?Medication ?Instructions ?Recorded ?Confirmed ?Type isosorbide mononitrate 120 mg 30 mg PO DAILY Hypertension 07/12/17 01/26/24 History tablet,extended release 24 hr amlodipine 10 mg tablet 2.5 mg PO DAILY Hypertension 12/04/19 01/26/24 History famotidine 20 mg tablet 20 mg PO BID GERD 01/10/21 01/26/24 History hydroxyzine HCl 25 mg tablet 25 mg PO QID itching 01/10/21 01/26/24 History lisinopril 20 1 tab PO DAILY blood pressure 01/10/21 01/26/24 History mg-hydrochlorothiazide 12.5 mg tablet warfarin 5 mg tablet 5 mg PO DAILY DVT prophylaxis 01/10/21 01/26/24 History gabapentin 300 mg capsule 300 mg PO TID pain 05/08/21 01/26/24 History lidocaine 5 % topical patch 1 each TP Q24H Pain 05/23/21 01/26/24 History pantoprazole 40 mg tablet,delayed 40 mg PO DAILY STOMACH 01/13/22 01/26/24 History release oxycodone 5 mg tablet 5 mg PO Q4H PRN pain #180 tabs 01/26/24 Rx New Prescriptions to Start Prescriptions: Allergies Allergy/AdvReac Type Severity Reaction Status Date / Time iodine (IODINE) Allergy Unknown UNKNOWN Verified 07/26/23 10:42 metoclopramide (From REGLAN) Allergy Unknown UNKNOWN Verified 07/26/23 10:42 ofloxacin (From FLOXIN) Allergy Unknown UNKNOWN Verified 07/26/23 10:42 Assessment and Plan *Assessment and plan (1) Chronic abdominal pain: Status: Acute Category: Medical Code(s): R10.9 - Unspecified abdominal pain; G89.29 - Other chronic pain (2) Chronic pain syndrome: Status: Acute Category: Medical Code(s): G89.4 - Chronic pain syndrome (3) Lumbar radiculopathy: Status: Acute Category: Medical Code(s): M54.16 - Radiculopathy, lumbar region (4) Degenerative disc disease, lumbar: Status: Acute Category: Medical Code(s): M51.369 - Other intervertebral disc degeneration, lumbar region without mention of lumbar back pain or lower extremity pain Plan We will refill the patient's oxycodone and provide a 1 month supply of this medication. Patient will return to clinic in 1 month for reevaluation of symptoms and plan of care. Risks and benefits of the medication have been explained in detail to the patient. The patient does understand the risk of dependence on the medication when given over a prolonged period. Patient has been advised of risks of oversedation with the prescribed medication. Narcan has been offered to the paitent in the event of oversedation. Patient has been advised that a family member should also be educated regarding administration of Narcan. The patient has been advised to consult with his/her primary care provider and pharmacist regarding drug-drug interaction of medications currently prescribed. Patient has been prescribed a controlled substance after being counseled on the medication, medication safety, and possible side effects. Opioid contract was reviewed and signed by the patient, and that they have agreed to all of the terms set forth by our compliance program. A UDS is needed to verify patient's compliance with our office pain contract. This is ordered based off specific treatments related to chronic pain with the potential to abuse certain medications. Patient has been instructed to contact the clinic with any concerns before the next appointment. Dr. Grier has reviewed this note and agrees with this plan of care. This note was dictated using voice recognition software and make contain errors or omissions.
[2024-02-24 09:48] VITALS: BP 152/85; PULSE 94; RESP 16; O2SAT 99; BMI 29.4
== END 2024-02-24 23:59 | disposition home or self-care (01) ==
PROVIDERS: PCP Family Medicine; Visit Provider Nurse Practitioner Family
DX: R10.9 Unspecified abdominal pain (principal); G89.4 Chronic pain syndrome; M51.16 Intervertebral disc disorders with radiculopathy, lumbar region; Z79.01 Long term (current) use of anticoagulants
CPT/HCPCS: 99212; G0463

== ENCOUNTER 2024-03-27 08:53 | Outpatient (POV) | payer MEDICARE, OTHER, SELFPAY ==
[2024-03-27 09:21] VITALS: BP 130/69; PULSE 79; RESP 14; O2SAT 98; BMI 29.4
--- NOTE | 2024-03-27 09:27 | EXP.PAIN.SOA ---
[facility] Disclaimer: The information contained in this section may have been updated after the patient was seen, as this information can be updated by other users. Social History Smoking Status: Never smoker alcohol intake: never substance use type: denies use current occupational status: other Travel in the last 8 weeks: None Have you lived/traveled outside [place] in past 30 days?: No Contact w/someone who lives/traveled outside US past 30 days?: No Exposure to someone with infectious disease in past 14 days?: No Do you have a fever (greater than 100.4 F or 38 C)?: No Have you tested positive for COVID-19: No Exposed to someone with COVID-19 in past 14 days?: No Do you have a sore throat?: No Do you have a cough?: No Do you have any weakness?: No Do you have any diarrhea?: No Are you experiencing any unusual bleeding?: No Do you have any muscle aches/pain?: No Do you have any abdominal pain?: No Are you experiencing loss of taste or smell?: No PM Subjective & Objective Subjective Subjective:: Patient is a pleasant 73-year-old male who presents today for medication refill. Today he rates his pain an 8 out of 10. He denies any new trauma or injury. He states he still has the chronic pain throughout his abdomen as well as his legs. He states that the blood clots in his legs are about the same and they are just continuing to monitor. Patient does state that he has an appointment follow-up regarding his possible additional areas of skin cancer coming up at the beginning of April. Patient is currently managed with oxycodone 5 mg 6 times a day from our office. He denies any side effects. He is also managed with compounded cream. His Kevin has been reviewed and is appropriate. Review of Systems: General: No recent weight changes, no fever, no sleep disturbances Respiratory: No cough, no shortness of air, no recurring pulmonary infections Cardiovascular/peripheral vascular: No chest pain, no palpitations, no edema, no shortness of breath Gastrointestinal: No new onset incontinence, normal bowel movements reported Genitourinary: No new onset incontinence Musculoskeletal: Low back pain Psychiatric: [Normal mood/affect] Neurological: [Denies weakness in extremities], [denies balance issues] Pain at rest (0-10 scale): 8 Objective Objective:: Physical Exam: General: Alert and oriented x3, no acute distress, pleasant and cooperative Lungs: Respirations even and unlabored, symmetrical chest expansion Eyes: PERRL Musculoskeletal: Flexion and extension of lumbar [spine] somewhat guarded secondary to pain, [antalgic gait noted] Neurological: Speech clear, no gross sensory deficit Has patient had previous pain injection?: No Conservative treatment options previously tried: Prescription medications Length of treatment: Longer than 12 weeks Meds Home Medications and Allergies Home Medications ?Medication ?Instructions ?Recorded ?Confirmed ?Type isosorbide mononitrate 120 mg 30 mg PO DAILY Hypertension 07/12/17 03/27/24 History tablet,extended release 24 hr amlodipine 10 mg tablet 2.5 mg PO DAILY Hypertension 12/04/19 03/27/24 History famotidine 20 mg tablet 20 mg PO BID GERD 01/10/21 03/27/24 History hydroxyzine HCl 25 mg tablet 25 mg PO QID itching 01/10/21 03/27/24 History lisinopril 20 1 tab PO DAILY blood pressure 01/10/21 03/27/24 History mg-hydrochlorothiazide 12.5 mg tablet warfarin 5 mg tablet 5 mg PO DAILY DVT prophylaxis 01/10/21 03/27/24 History gabapentin 300 mg capsule 300 mg PO TID pain 05/08/21 03/27/24 History lidocaine 5 % topical patch 1 each TP Q24H Pain 05/23/21 03/27/24 History pantoprazole 40 mg tablet,delayed 40 mg PO DAILY STOMACH 01/13/22 03/27/24 History release oxycodone 5 mg tablet 5 mg PO Q4H PRN pain #180 tabs 02/24/24 03/27/24 Rx New Prescriptions to Start Prescriptions: Allergies Allergy/AdvReac Type Severity Reaction Status Date / Time iodine (IODINE) Allergy Unknown UNKNOWN Verified 07/26/23 10:42 metoclopramide (From REGLAN) Allergy Unknown UNKNOWN Verified 07/26/23 10:42 ofloxacin (From FLOXIN) Allergy Unknown UNKNOWN Verified 07/26/23 10:42 Assessment and Plan *Assessment and plan (1) Chronic abdominal pain: Status: Acute Category: Medical Code(s): R10.9 - Unspecified abdominal pain; G89.29 - Other chronic pain (2) Chronic pain syndrome: Status: Acute Category: Medical Code(s): G89.4 - Chronic pain syndrome (3) Lumbar radiculopathy: Status: Acute Category: Medical Code(s): M54.16 - Radiculopathy, lumbar region (4) Degenerative disc disease, lumbar: Status: Acute Category: Medical Code(s): M51.369 - Other intervertebral disc degeneration, lumbar region without mention of lumbar back pain or lower extremity pain Plan I will refill his oxycodone and provide a 1 month supply of this medication. Patient will return to clinic in 1 month for reevaluation of symptoms and plan of care. Risks and benefits of the medication have been explained in detail to the patient. The patient does understand the risk of dependence on the medication when given over a prolonged period. Patient has been advised of risks of oversedation with the prescribed medication. Narcan has been offered to the paitent in the event of oversedation. Patient has been advised that a family member should also be educated regarding administration of Narcan. The patient has been advised to consult with his/her primary care provider and pharmacist regarding drug-drug interaction of medications currently prescribed. Patient has been prescribed a controlled substance after being counseled on the medication, medication safety, and possible side effects. Opioid contract was reviewed and signed by the patient, and that they have agreed to all of the terms set forth by our compliance program. A UDS is needed to verify patient's compliance with our office pain contract. This is ordered based off specific treatments related to chronic pain with the potential to abuse certain medications. Patient has been instructed to contact the clinic with any concerns before the next appointment. Dr. Grier has reviewed this note and agrees with this plan of care. This note was dictated using voice recognition software and make contain errors or omissions.
== END 2024-03-27 23:59 | disposition home or self-care (01) ==
PROVIDERS: PCP Family Medicine; Visit Provider Nurse Practitioner Family
DX: R10.9 Unspecified abdominal pain (principal); G89.4 Chronic pain syndrome; M51.16 Intervertebral disc disorders with radiculopathy, lumbar region
CPT/HCPCS: 99212; G0463

== ENCOUNTER 2024-04-24 10:44 | Outpatient (POV) | payer MEDICARE, OTHER, SELFPAY ==
--- NOTE | 2024-04-24 10:56 | A.OFFVIS_ITS ---
[facility] Disclaimer: The information contained in this section may have been updated after the patient was seen, as this information can be updated by other users. Social History Smoking Status: Never smoker alcohol intake: never substance use type: denies use current occupational status: other Travel in the last 8 weeks: None Have you lived/traveled outside [place] in past 30 days?: No Contact w/someone who lives/traveled outside [place] past 30 days?: No Exposure to someone with infectious disease in past 14 days?: No Do you have a fever (greater than 100.4 F or 38 C)?: No Have you tested positive for COVID-19: No Exposed to someone with COVID-19 in past 14 days?: No Do you have a sore throat?: No Do you have a cough?: No Do you have any weakness?: No Do you have any diarrhea?: No Are you experiencing any unusual bleeding?: No Do you have any muscle aches/pain?: No Do you have any abdominal pain?: No Are you experiencing loss of taste or smell?: No PM Subjective & Objective Subjective Subjective:: Patient is a pleasant 73-year-old male who presents today for his monthly medication refill. Today he rates his pain a 9 out of 10. He does state from our last visit he has had more problems with he has Coumadin. He states where they were closer at our last appointment now things have gone off track again. He states that he has been increased to 5 mg daily this week and that he goes back on for additional lab work. Patient does also state he is just having a little bit more pain today in general. He is scheduled to see the skin cancer doctor on the sixth of this month. Patient is currently managed with oxycodone 5 mg 6 times a day. He denies any side effects. He is asking if we can send this medication to [facility] as his current pharmacy went from $17 a month to $47. His Kevin has been reviewed and is appropriate. Review of Systems: General: No recent weight changes, no fever, no sleep disturbances Respiratory: No cough, no shortness of air, no recurring pulmonary infections Cardiovascular/peripheral vascular: No chest pain, no palpitations, no edema, no shortness of breath Gastrointestinal: No new onset incontinence, normal bowel movements reported Genitourinary: No new onset incontinence Musculoskeletal: Abdominal pain, leg pain Psychiatric: [Normal mood/affect] Neurological: [Denies weakness in extremities], [denies balance issues] Pain at rest (0-10 scale): 9 Objective Objective:: Physical Exam: General: Alert and oriented x3, no acute distress, pleasant and cooperative Lungs: Respirations even and unlabored, symmetrical chest expansion Eyes: PERRL Musculoskeletal: Flexion and extension of lumbar [spine] somewhat guarded secondary to pain, [antalgic gait noted] Neurological: Speech clear, no gross sensory deficit Has patient had previous pain injection?: No Conservative treatment options previously tried: Prescription medications Length of treatment: Longer than 12 weeks Meds Home Medications and Allergies Home Medications ?Medication ?Instructions ?Recorded ?Confirmed ?Type isosorbide mononitrate 120 mg 30 mg PO DAILY Hypertension 07/12/17 03/27/24 History tablet,extended release 24 hr amlodipine 10 mg tablet 2.5 mg PO DAILY Hypertension 12/04/19 03/27/24 History famotidine 20 mg tablet 20 mg PO BID GERD 01/10/21 03/27/24 History hydroxyzine HCl 25 mg tablet 25 mg PO QID itching 01/10/21 03/27/24 History lisinopril 20 1 tab PO DAILY blood pressure 01/10/21 03/27/24 History mg-hydrochlorothiazide 12.5 mg tablet warfarin 5 mg tablet 5 mg PO DAILY DVT prophylaxis 01/10/21 03/27/24 History gabapentin 300 mg capsule 300 mg PO TID pain 05/08/21 03/27/24 History lidocaine 5 % topical patch 1 each TP Q24H Pain 05/23/21 03/27/24 History pantoprazole 40 mg tablet,delayed 40 mg PO DAILY STOMACH 01/13/22 03/27/24 History release oxycodone 5 mg tablet 5 mg PO Q4H PRN pain #180 tabs 03/27/24 Rx New Prescriptions to Start Prescriptions: Allergies Allergy/AdvReac Type Severity Reaction Status Date / Time iodine (IODINE) Allergy Unknown UNKNOWN Verified 07/26/23 10:42 metoclopramide (From REGLAN) Allergy Unknown UNKNOWN Verified 07/26/23 10:42 ofloxacin (From FLOXIN) Allergy Unknown UNKNOWN Verified 07/26/23 10:42 Assessment and Plan *Assessment and plan (1) Lumbar radiculopathy: Status: Acute Category: Medical Code(s): M54.16 - Radiculopathy, lumbar region (2) Degenerative disc disease, lumbar: Status: Acute Category: Medical Code(s): M51.369 - Other intervertebral disc degeneration, lumbar region without mention of lumbar back pain or lower extremity pain Plan I will refill his oxycodone and provide a 1 month supply of this medication. Patient will return to clinic in 1 month. Risks and benefits of the medication have been explained in detail to the patient. The patient does understand the risk of dependence on the medication when given over a prolonged period. Patient has been advised of risks of oversedation with the prescribed medication. Narcan has been offered to the paitent in the event of oversedation. Patient has been advised that a family member should also be educated regarding administration of Narcan. The patient has been advised to consult with his/her primary care provider and pharmacist regarding drug-drug interaction of medications currently prescribed. Patient has been prescribed a controlled substance after being counseled on the medication, medication safety, and possible side effects. Opioid contract was reviewed and signed by the patient, and that they have agreed to all of the terms set forth by our compliance program. A UDS is needed to verify patient's compliance with our office pain contract. This is ordered based off specific treatments related to chronic pain with the potential to abuse certain medications. Patient has been instructed to contact the clinic with any concerns before the next appointment. Dr. Grier has reviewed this note and agrees with this plan of care. This note was dictated using voice recognition software and make contain errors or omissions.
[2024-04-24 11:39] VITALS: BP 179/92; PULSE 87; RESP 18; O2SAT 100; BMI 29.4
== END 2024-04-24 23:59 | disposition home or self-care (01) ==
PROVIDERS: PCP Family Medicine; Visit Provider Nurse Practitioner Family
DX: M51.16 Intervertebral disc disorders with radiculopathy, lumbar region (principal)
CPT/HCPCS: 99212; G0463

== ENCOUNTER 2024-05-25 10:01 | Outpatient (POV) | payer MEDICARE, OTHER, SELFPAY ==
[2024-05-25 10:14] VITALS: BP 122/85; PULSE 85; RESP 14; O2SAT 98; BMI 29.2
--- NOTE | 2024-05-25 10:39 | EXP.PAIN.SOA ---
[facility] Disclaimer: The information contained in this section may have been updated after the patient was seen, as this information can be updated by other users. Medical History Blood disorder HTN (hypertension) GERD (gastroesophageal reflux disease) Surgical History History of facial surgery Family History Other Unknown family medical history Social History Smoking Status: Never smoker alcohol intake: never substance use type: denies use current occupational status: other Travel in the last 8 weeks: None PM Subjective & Objective Subjective Subjective:: Patient is a pleasant 73-year-old male who presents today for medication refill and 1 month follow-up. Today he rates his pain an 8 out of 10. He denies any new trauma or injury. He does state that they are still trying to work out his blood thinner. Patient states for the first time ever his levels were 6.8 so they did have him stop his blood thinner for about 4 days. He states they are still going back and forth on the dosage. Patient does also state that he did end up having a biopsy for what was possible cancer and that it was benign. He states they did even do some cold spray to one of the lesions on his nose. Patient is currently managed with oxycodone 5 mg 6 times a day from our office. He denies any side effects from this medication. His Kevin has been reviewed and is appropriate. Patient is still requesting this prescription to go to [facility]. Review of Systems: General: No recent weight changes, no fever, no sleep disturbances Respiratory: No cough, no shortness of air, no recurring pulmonary infections Cardiovascular/peripheral vascular: No chest pain, no palpitations, no edema, no shortness of breath Gastrointestinal: No new onset incontinence, normal bowel movements reported Genitourinary: No new onset incontinence Musculoskeletal: Low back pain Psychiatric: [Normal mood/affect] Neurological: [Denies weakness in extremities], [denies balance issues] Pain at rest (0-10 scale): 8 Objective Objective:: Physical Exam: General: Alert and oriented x3, no acute distress, pleasant and cooperative Lungs: Respirations even and unlabored, symmetrical chest expansion Eyes: PERRL Musculoskeletal: Flexion and extension of lumbar [spine] somewhat guarded secondary to pain, [antalgic gait noted] Neurological: Speech clear, no gross sensory deficit Has patient had previous pain injection?: No Conservative treatment options previously tried: Prescription medications Length of treatment: Longer than 12 weeks Meds Home Medications and Allergies Home Medications ?Medication ?Instructions ?Recorded ?Confirmed ?Type isosorbide mononitrate 120 mg 30 mg PO DAILY Hypertension 07/12/17 05/25/24 History tablet,extended release 24 hr amlodipine 10 mg tablet 2.5 mg PO DAILY Hypertension 12/04/19 05/25/24 History famotidine 20 mg tablet 20 mg PO BID GERD 01/10/21 05/25/24 History hydroxyzine HCl 25 mg tablet 25 mg PO QID itching 01/10/21 05/25/24 History lisinopril 20 1 tab PO DAILY blood pressure 01/10/21 05/25/24 History mg-hydrochlorothiazide 12.5 mg tablet warfarin 5 mg tablet 5 mg PO DAILY DVT prophylaxis 01/10/21 05/25/24 History gabapentin 300 mg capsule 300 mg PO TID pain 05/08/21 05/25/24 History lidocaine 5 % topical patch 1 each TP Q24H Pain 05/23/21 05/25/24 History pantoprazole 40 mg tablet,delayed 40 mg PO DAILY STOMACH 01/13/22 05/25/24 History release oxycodone 5 mg tablet 5 mg PO Q4H PRN pain #180 tabs 04/24/24 05/25/24 Rx New Prescriptions to Start Prescriptions: Allergies Allergy/AdvReac Type Severity Reaction Status Date / Time iodine (IODINE) Allergy Unknown UNKNOWN Verified 07/26/23 10:42 metoclopramide (From REGLAN) Allergy Unknown UNKNOWN Verified 07/26/23 10:42 ofloxacin (From FLOXIN) Allergy Unknown UNKNOWN Verified 07/26/23 10:42 Assessment and Plan *Assessment and plan (1) Lumbar radiculopathy: Status: Acute Category: Medical Code(s): M54.16 - Radiculopathy, lumbar region (2) Degenerative disc disease, lumbar: Status: Acute Category: Medical Code(s): M51.369 - Other intervertebral disc degeneration, lumbar region without mention of lumbar back pain or lower extremity pain Plan I will refill his oxycodone and provide a 1 month supply of this medication. Patient will return to clinic in 1 month. Risks and benefits of the medication have been explained in detail to the patient. The patient does understand the risk of dependence on the medication when given over a prolonged period. Patient has been advised of risks of oversedation with the prescribed medication. Narcan has been offered to the paitent in the event of oversedation. Patient has been advised that a family member should also be educated regarding administration of Narcan. The patient has been advised to consult with his/her primary care provider and pharmacist regarding drug-drug interaction of medications currently prescribed. Patient has been prescribed a controlled substance after being counseled on the medication, medication safety, and possible side effects. Opioid contract was reviewed and signed by the patient, and that they have agreed to all of the terms set forth by our compliance program. A UDS is needed to verify patient's compliance with our office pain contract. This is ordered based off specific treatments related to chronic pain with the potential to abuse certain medications. Patient has been instructed to contact the clinic with any concerns before the next appointment. Dr. Grier has reviewed this note and agrees with this plan of care. This note was dictated using voice recognition software and make contain errors or omissions.
== END 2024-05-25 23:59 | disposition home or self-care (01) ==
PROVIDERS: PCP Family Medicine; Visit Provider Nurse Practitioner Family
DX: M51.16 Intervertebral disc disorders with radiculopathy, lumbar region (principal)
CPT/HCPCS: 99212; G0463

== ENCOUNTER 2024-06-22 14:20 | Outpatient (POV) | payer MEDICARE, OTHER, SELFPAY ==
--- OUTSIDE RECORDS SUMMARY | 2024-06-22 14:24 | XMS_ITS | Data Portability ---
Author Organization [facility] Address [address] [place] [address] Care Team Providers Care Teradata Developer Name Role Phone SAQIB GREENE Primary Care Provider Assessment Encounter Date Assessment Date Assessment LastModified by Organization Details LastModified Time 06/10/2021 06/10/2021 RTC in [address] for at [facility] for [facility]. [email or web address] Not available 06/10/2021 11:21:22 07/03/2021 07/03/2021 RTC PRN. [email or web address] Not available 06/22 10:51:41 Plan of Treatment Reminders Order Date Submit Date Provider Last Modified By Organization Details Last Modified Time Details Appointments None record ed. Lab None record ed. Referral None record ed. Procedures None record ed. Surgeries None record ed. Imaging None record ed. Medication Orders None record ed. Patient TargetsNo targets recorded. Patient InstructionsNo instructions recorded. Reason for Referral None Reported. Results Created Date Observation Date Name Description Value Unit Range Abnormal Flag Note LastModifiedBy Organization Detail LastModifiedTime 06/26/1906/25/2021 CT, chest , w/o contr ast No observ ation record ed. [facility] (Radiology) [address], [place], [address], 09/02/2021 10:35:17 Result Notes None recorded. Problems Name Problem SNOMED Code Status Onset Date Resolution Date Notes Provider Name and Address Organization Details Recorded Time Hypertensive disorder 79412090 Active 2021 Tamar naranjo [facility] 10:43:28 Hypercholestero lemia 17823269 [facility] 10:[facility] Hereditary factor V deficiency disease 27487517 [facility] 10:[facility]29 Problem Notes None recorded. Procedures Surgical History None recorded. Imaging Results Imaging Date Name Status LastModified by Organiz ation Details LastModified Time 06/25/2021 CT, chest, w/o contrast completed [facility] (Radiology) [address] [place] [address] , [place], [address], 09/02/2021 10:35:17 Procedure Notes None recorded. Medical Equipment None Reported. Allergies No known drug allergies Medications Name Sig Start Date Stop Date Status Note LastModified by Organization Details LastModified Time lisinopril 20 mg-hydroch lorothiazi de 12.5 mg tablet Take 1 tablet every day by oral route. active Not Available Not Available No t Available simvastati n 10 mg tablet Take 1 tablet every day by oral route. active Not Available Not Available No t Available oxycodone- acetaminop hen 5 mg-325 mg tablet Take 1 tablet every 6 hours by oral route. active Not Available Not Available No t Available famotidine 20 mg tablet Take 1 tablet every day by oral route. active Not Available Not Available No t Available amitriptyl ine 25 mg tablet Take 1 tablet every day by oral route. active Not Available Not Available No t Available promethazi ne 25 mg tablet Take 1 tablet every 4 hours by oral route. active PRN Not Available Not Available No t Available warfarin 5 mg tablet Take 1 tablet every day by oral route. active 1 tablet for 3 days, 1/2 tab 4 days Not Available Not Available Not Available gabapentin 300 mg capsule Take 1 capsule every day by oral route. active Not Available Not Available No t Available hydroxyzin e HCl 25 mg tablet Take 1 tablet by oral route. active PRN Not Available Not Available No t Available aspirin 07/03 completed Not Available Not Available Not Available metoprolol succinate ER 25 mg capsule sprinkle, ext. release 24 hr Take 1 capsule every day by oral route. active Not Available Not Available No t Available albuterol sulf 90 mcg/actuat ion breath activated powder inhaler,se nsor Inhale 2 puffs every 4 hours by inhalati on route. active Not Available Not Available No t Available Vitals Date Recorded Body weight Heart rate Oxygen saturation Oxygen saturation in Arterial blood by Pulse oximetry Systolic blood pressure Diastolic blood pressure Provider Name and Address Organization Details Last Updated DateTime 2 15106.2 5 g 101 /min 98 % 98 % 134 mm[Hg] 79 mm[Hg] Tamar Malik [facility] 2 10:46:39 Date Recorded Body weight Heart rate Oxygen saturation Oxygen saturation in Arterial blood by Pulse oximetry Systolic blood pressure Diastolic blood pressure Provider Name and Address Organization Details Last Updated DateTime 2 54337.7 g 82 /min 98 % 98 % 126 mm[Hg] 70 mm[Hg] Amberly Hammond [facility] 2 10:13:54 Social History Question Answer Notes LastModified by Organizat ion Details LastModified Time Tobacco Smoking Status Never Smoker Tamar Malik [facility] 06/10/2021 10:45:14 What Is Your Level Of Alcohol Consumption? None Information not available 06/10/2021 What Was The Date Of Your Most Recent Tobacco Screening? 06/10/2021 Information not available 06/10/2021 Do You Use Any Illicit Or Recreational Drugs? No Information not available 06/10/2021 Has Tobacco Cessation Counseling Been Provided? No Information not available 06/10/2021 Do You Or Have You Ever Used Any Other Forms Of Tobacco Or Nicotine? No Information not available 06/10/2021 Sex: Unknown Functional Status None recorded. Mental Status None recorded. Family History Nothing Reported. Medical History No medical history recorded. Past Encounters Encounter ID Performer Location Encounter Start Date Encounter Closed Date Diagnosis/Indication Diagnosis SNOMED-CT Code Diagnosis ICD10 Code Diagnosis Note [id number] FLORENTIN CROWLEY [facility] [address], [address] [place] [address] 06/10/2021 10:12:19 06/11/2021 08:22:36 Multiple nodules of lung 488264685 R91.8 Miliary pattern of multiple nodules reported on chest x-ray. No known history of TB. No constituti onal symptoms. No cough. He has a history of a negative PPD. 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 I do not know at this point in time if his imaging findings are representa tive of longstandi ng lung scarring or an active process. I will get a CT scan on him. He wants to get it at [facility] where he had a CT scan several years ago. I have asked him to bring the disc with him on follow-up for my imaging review. Based on the pattern, I will decide if he needs QuantiFERO N testing or interstiti al lung disease testing or BAL or chest trending of his imaging. [id number] FLORENTIN CROWLEY MD [facility] [address], [address] [place] [address] 07/03/2021 09:49:11 07/03/2021 11:10:26 Calcified granuloma of lung 3911846953 7876436 J84.10 Scattered calcified pulmonary granulomas . These are a benign finding representa tive of a prior fungal infection and no further work-up is needed. His 1.8 cm paratrache al lymph node is at the upper end of normal. With no noncalcifi ed lung lesions, I believe it to be a benign finding. It is possible that his occasional chest discomfort is due to his hiatal hernia and reflux. Health Concerns Section Related Observation LastModified by Organization Detai ls LastModified Time None Recorded Concern Status LastModified by Organization Details LastModified Time None Recorded Advance Directives Directive None Recorded Payers Encounter Date Sequence Insurance Name Policy Number Policy [place] Covered Member ID [place] Member ID Guarantor Name 06/10/2021 1 [employer] (MEDICARE) Vianey Flores [id number] Vianey Gibsony 06/10/2021 2 [employer] (POS) [id number] Vianey Gibsony [id number] Vianey Flores 07/03/2021 1 [employer] (MEDICARE) Vianey Flores [id number] Vianey Gibsony 07/03/2021 2 [employer] (POS) [id number] Vianey Flores [id number] Vianey Flores Notes Date Note Type Note Provider Name and Address Organization Details Recorded Time 06/10/2021 text/html Mr. Flores a chest x-ray after having eye problems. He does not feel like his breathing is changed. 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 He has no cough or night sweats unless he is having a porphyria flare up. He is not on immunosuppression. He uses albuterol when he gets really hot. 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 Is a history of a normal TB skin test. He thought he had imaging in the past at [facility] and we have been unable to find it. FLORENTIN CROWLEY MD [address] [place] [address], [phone], [facility] 07/02/2021 02:10:28 07/03/2021 text/html Mr. Flores come s in for evaluation of an abnormal CXR. He had a miliary pattern show up on CXR. 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 CT chest without contrast 06/25/2021: Scattered calcified granulomas. 1.8 cm paratracheal lymph node. No masses or noncalcified nodules. Small hiatal hernia. FLORENTIN CROWLEY MD [address] [place] [address], [phone], [facility] 07/03/2021 10:52:18
--- OUTSIDE RECORDS SUMMARY | 2024-06-22 14:24 | XMS_ITS | Continuity of Care Document ---
Author Organization [facility] Address [address] [facility] [address] [place] [address] Care Team Providers Care Unit Manager [employer] Name Role Phone JUSTYN HOWELL Referring Provider SARAHWING Referring Provider Assessment Encounter Date Assessment Date Assessment LastModified by Organization Details LastModified Time 06/12/2024 06/12/2024 Mr. Flores presents for a brief check up. He has chronic pain and is followed by pain management. He has been treated by dermatology and has a history of extensive skin cancers. He recently had some cryotherapy to his ears and face and the areas are healing nicely. His INR seems to have finally stabilized and we will have him check the lab every 2 weeks for now. Not available 06/12/2024 15:25:38 Plan of Treatment Reminders Order Date Submit Date Provider Last Modified By Organization Details Last Modified Time Details Appointments None recorded. Lab None recorded. Referral None recorded. Procedures None recorded. Surgeries None recorded. Imaging None recorded. Medication Orders albuterol sulfate HFA 90 mcg/actuat ion aerosol inhaler 2024 025 [facility][id number], [address] [place], [address], 15:26:42 Patient TargetsNo targets recorded. Patient InstructionsNo instructions recorded. Reason for Referral None Reported. 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 6 11:31:55 Blood coagulation disorder 24300261 Lucretia Bernstein MD [address] [address], [facility] 6 11:31:55 Varicose veins of lower extremity [id number] Lucretia Bernstein MD [address] [address], [facility] 6 11:31:55 Benign essential hypertension [id number] Lucretia Bernstein MD [address] [address], [facility] 6 11:31:55 Nausea [id number] Lucretia Bernstein MD [address] [address], [facility] 6 11:31:55 Hyperlipidemia [id number] Lucretia Bernstein MD [address] [address], [facility] 6 11:31:54 Pain in right lower limb [id number] Lucretia Bernstein MD [address] [address], [facility] 6 11:31:55 Gastroesophage al reflux disease [id number] Lucretia Bernstein MD [address] [address], [facility] 6 11:31:55 Pruritic disorder [id number] Lucretia Bernstein MD [address] [address], [facility] 6 11:31:55 Chronic pain syndrome [id number] Lucretia Bernstein MD [address], [address] [place] [address], [place] - [facility] 6 11:31:55 Superficial thrombophlebit is [id number] Lucretia Bernstein MD [address], [address] [place] [address], [place] - [facility] 6 11:31:55 Pain in lower limb [id number] Lucretia Bernstein MD [address], [address] [place] [address], [place] - [facility] 6 11:31:55 Fracture of ankle [id number] Lucretia Bernstein MD [address], [address] [place] [address], [place] - [facility] 6 11:31:55 Fracture of lower limb [id number] Lucretia Bernstein MD [address], [address] [place] [address], [place] - [facility] 6 11:31:55 Vertigo [id number] Lucretia Bernstein MD [address], [address] [place] [address], [place] - [facility] 6 11:31:55 Fatigue [id number] Lucretia Bernstein MD [address] [address], [place] - [facility] 6 11:31:55 Chronic back pain [id number] Lucretia Bernstein MD [address], [address] [place] [address], [place] - [facility] 6 11:31:55 Blood glucose outside reference range [id number] Lucretia Bernstein MD [address], [address] [place] [address], [facility] - [facility] 6 11:31:55 Lower abdominal pain 97184145 Active Charlotte Bernstein MD [address] [address], [facility] - [facility] 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 6 11:31:55 Acute bronchitis 26499139 Active Charlotte Bernstein MD [address] [address], [facility] - [facility] 6 22:22:11 Wheezing 05009054 Active Charlotte Bernstein MD [address] [address], [facility] - [facility] 6 22:22:11 Anticoagulant therapy Active 2015 Charlotte Bernstein MD [address] [address], [facility] 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 8 21:06:57 Factor V Leiden mutation 808720043 Active Charlotte Bernstein MD [address] [address], [facility] 8 21:07:38 Problem Notes None recorded. Procedures Surgical History Date Name Laterality Status Provider Name and Address Organization Details Recorded Time 022 reconstruction using skin flap completed Charlotte Bernstein MD [address] [address], [place] [facility] 08/16/2022 09:02:59 006 Bronchoscopy completed [facility] 10/03/2015 11:14:11 006 Hernia Repair completed [facility] 10/03/2015 11:12:32 996 Partial removal of colon completed [facility] 10/03/2015 11:13:31 Colonoscopy completed Charlotte Bernstein MD [address] [facility], [address], [place], [address], [facility] 09/22/2013 10:54:43 Splenectomy completed Not Available [facility] 01/06/2011 04:58:32 Cholecystectomy completed Not Available [facility] 01/06/2011 04:58:32 Appendectomy completed Not Available [facility] 01/06/2011 04:58:32 Hemorrhoidectomy completed Not Available [facility] 01/06/2011 04:58:32 Imaging Results None recorded. Procedure Notes None recorded. Medical Equipment None Reported. Allergies Allergen ID Allergen Name Allergen Category Reaction Reaction Severity Criticality Documentation Date Start Date Code Code System Note Provider Name and Address Organization Details Recorded Time 9383 iodine medicatio n Not available Not available Not available 04/20/2011 5933 [facility] 2 09:26:52 9384 Floxin medicatio n Not available Not available Not available 04/20/201175751 8 RxNorm Isabella [facility] 2 09:26:52 9385 Reglan medicatio n Not available Not available Not available 04/20/2011 9230 RxNorm Isabella [facility] 2 09:26:52 Medications Name Sig Start Date Stop Date Status Note LastModified by Organization Details LastModified Time Prescript ion - Renewal 11/18 completed Not Available Not Available Not Available Prescript ion - Clarifica tion 11/25 completed DAXA Not Available Not Available Not Available doxycycli ne hyclate 100 mg capsule TAKE ONE CAPSULE TWICE DAILY 10/09 completed Not Available Not Available Not Available lisinopri l 20 mg-hydroc hlorothia zide 12.5 mg tablet Take 1 tablet twice a day by oral route for 90 days. active Not Available Not Available No t Available Ventolin 90 mcg/Actua tion inhl aers Inhale 1 puff every 4 hours by inhalati on route as needed. 09/15 completed Not Available Not Available Not Available azithromy diaz 250 mg tablet Take 2 tablets (500 mg) by oral route once daily for 1 day then 1 tablet (250 mg) by oral route once daily for 4 days 09/15 completed Not Available Not Available Not Available pravastat in 40 mg tablet Take 1 tablet every day. active Not Available Not Available No t Available ranitidin e 300 mg tablet 1 po daily 06/12 completed recalled , no longer being made Not Available Not Available Not Available hydrocodo ne 5 mg-acetam inophen 325 mg tablet active Not Available Not Available Not Available senna 8.6 mg tablet Take 2 tablets every day by oral route as needed. active Not Available Not Available No t Available isosorbid e mononitra te ER 30 mg tablet,ex tended release 24 hr 12/02 completed Not Available Not Available Not Available simvastat in 10 mg tablet TAKE 1 TABLET DAILY IN THE EVENING. 06/24 completed Not Available Not Available Not Available amlodipin e 2.5 mg tablet Take 1 tablet(s ) every day 03/18 completed Not Available Not Available Not Available potassium chloride ER 10 mEq tablet,ex tended release active Not Available Not Available Not Available metronida zole 500 mg tablet 11/14 completed Not Available Not Available Not Available amlodipin e 5 mg tablet Take 1 tablet every day by oral route for 90 days. active Not Available Not Available No t Available sulfameth oxazole 800 mg-trimet hoprim 160 mg tablet 11/24 completed Not Available Not Available Not Available aspirin 81 mg tablet,de layed release Take 1 tablet 3 times a week by oral route. 06/24 completed Not Available Not Available Not Available oxycodone -acetamin ophen 5 mg-325 mg tablet TAKE ONE TABLET BY MOUTH FOUR TIMES DAILY 06/24 completed Not Available Not Available Not Available ceftriaxo ne 1 gram solution for injection 09/08 completed Rocephin Not Available Not Available Not Available famotidin e 20 mg tablet TAKE ONE TABLET TWICE DAILY PRN active Not Available Not Available No t Available amitripty line 25 mg tablet TAKE ONE TABLET BY MOUTH EVERY EVENING active Not Available Not Available No t Available prednisol one acetate 1 % eye drops,juany pension Instill 1 drop into affected eye as directed After surgery, instill 1 drop 4 times daily x 1 week, 3 times daily x 1 week, 2 times daily x 1 week, then daily x 1 week 01/10 completed Not Available Not Available Not Available hydrocodo ne 7.5 mg-acetam inophen 325 mg tablet TAKE ONE TABLET THREE TIMES DAILY 10/02 completed Not Available Not Available Not Available cephalexi n 500 mg capsule Take 1 capsule by mouth every 6 hours for 5 days. 08/13 completed Not Available Not Available Not Available pantopraz ole 40 mg tablet,de layed release Take 1 tablet every day by oral route in the morning. active Not Available Not Available No t Available simvastat in 20 mg tablet Take 1 Tablet(s ) 1 time a day 08/13 completed Not Available Not Available Not Available erythromy diaz 5 mg/gram (0.5 %) eye ointment Apply a thin layer twice a day 1/4 inch strip 2 times daily 3 days before but not day of surgery 01/10 completed Not Available Not Available Not Available cyanocoba allie (vit B-12) 1,000 mcg/mL injection solution Inject 0.5 mL by subcutan eous route. 2023 active Not Available Not Available Not Avai lable tobramyci n 0.3 % eye drops Instill 1 drop into affected eye as directed After surgery, instill 1 drop 4 TIMES DAILY x 1 week, then 3 TIMES DAILY x 1 week 01/10 completed Not Available Not Available Not Available ranitidin e 150 mg tablet TAKE 1 TABLET TWICE A DAY. 02/10 completed Not Available Not Available Not Available promethaz ine 25 mg tablet TAKE 1 TABLET ONCE DAILY DIRECTED active Not Available Not Available No t Available warfarin 5 mg tablet TAKE 1 TABLET DAILY DIRECTED . active Not Available Not Available No t Available metoprolo l tartrate 50 mg tablet 12/07 completed dose changed Not Available Not Available Not Available gabapenti n 300 mg capsule TAKE ONE CAPSULE BY MOUTH THREE TIMES DAILY PRN only 08/13 completed Not Available Not Available Not Available cephalexi n 500 mg tablet Take 1 tablet every 6 hours by oral route for 5 days. 08/13 completed Not Available Not Available Not Available hydrocort isone 2.5 % topical cream APPLY A THIN LAYER TO THE AFFECTED AREA(S) BY TOPICAL ROUTE 2 TIMES PER DAY 08/13 completed Not Available Not Available Not Available hydroxyzi ne HCl 25 mg tablet TAKE (1) TABLET FOUR TIMES DAILY NEEDED. active Not Available Not Available No t Available hydrocodo ne 5 mg-acetam inophen 500 mg tablet Take 1 tablet 4 times a day by oral route. active Not Available Not Available No t Available mupirocin 2 % topical ointment APPLY A SMALL AMOUNT TO THE AFFECTED AREA BY TOPICAL ROUTE 3 TIMES PER DAY 09/01 completed Not Available Not Available Not Available metoprolo l succinate ER 25 mg tablet,ex tended release 24 hr TAKE 1 TABLET ONCE A DAY. 09/10 completed Not Available Not Available Not Available dexametha sone sodium phosphate 4 mg/mL injection solution Inject 1 mL by intramus cular route. 08/27 completed Not Available Not Available Not Available polyethyl jaspreet glycol 3350 17 gram/dose oral powder dissolve 17 g (1 capful) in liquid and drink every day as needed for 30 days. active Not Available Not Available No t Available methylpre dnisolone 4 mg tablets in a dose pack take as directed on pack 02/10 completed Not Available Not Available Not Available albuterol sulfate HFA 90 mcg/actua tion aerosol inhaler INHALE 2 PUFF(S) EVERY 4 HOURS PRN active Not Available Not Available No t Available fluticaso ne propionat e 50 mcg/actua tion nasal spray,juany pension Place 1 spray(s) in each nostril every day as needed. 06/24 completed Not Available Not Available Not Available oxycodone 5 mg tablet TAKE 1 TABLET ORALLY EVERY 4 HOURS NEEDED FOR PAIN active Not Available Not Available No t Available enoxapari n 80 mg/0.8 mL subcutane ous syringe Inject 0.8 mL (80 mg total) as directed every 12 (twelve) hours for 4 days. 08/13 completed Not Available Not Available Not Available enoxapari n 100 mg/mL subcutane ous syringe 08/13 completed Not Available Not Available Not Available metoprolo l tartrate 25 mg tablet 06/07 completed Not Available Not Available Not Available aspirin active Not Available Not Avail able Not Available Senna Laxative as needed active Not Available Not Available No t Available Ranexa 500 mg tablet,ex tended release TAKE ONE TABLET EVERY DAY 05/11 completed Not Available Not Available Not Available budesonid e-formote rol HFA 160 mcg-4.5 mcg/actua tion aerosol inhaler Inhale 2 puffs twice a day by inhalati on route for 30 days. 06/12 completed Not Available Not Available Not Available compounde d medicatio n 05/02 completed Not Available Not Available Not Available Vitals Date Recorded Body height Body mass index (BMI) Body weight Heart rate Oxygen saturation Oxygen saturation in Arterial blood by Pulse oximetry Body temperature Systolic blood pressure Diastolic blood pressure Provider Name and Address Organization Details Last Updated DateTime 5 171.45 cm 29.3 kg/m2 95245.2 5 g 79 /min 97 % 97 % 98.1 [degF] 148 mm[Hg] 84 mm[Hg] [facility] 5 14:34:36 Social History Question Answer Notes LastModified by Organizat ion Details LastModified Time Tobacco Smoking Status Never Smoker Not Available [facility] 12/19/2019 03:11:20 Do You Have An Advance Directive? Yes [id number] Information not available 12/19/2019 What Is Your Level Of Alcohol Consumption? None [id number] Information not available 12/19/2019 Animal Exposure? No Informat ion not available 07/03/2011 Auto Related Injury? No 5 Information not available 01/06/2011 Is Blood Transfusion Acceptable In An Emergency? Yes [id number] Information not available 12/19/2019 What Is Your Level Of Caffeine Consumption? Moderate Information not available 06/22/2020 How Much Tobacco Do You Chew? None [id number] Information not available 12/19/2019 Are You Currently Employed? Yes [id number] Information not available 12/19/2019 Diabetes No [id number]_ 11 5 Information not available 01/06/2011 What Type Of Diet Are You Following? REGULAR [id number] Information not available 12/19/2019 Education 12 Information no t available 07/03/2011 What Is The Highest Grade Or Level Of School You Have Completed Or The Highest Degree You Have Received? [id number] Information not available 06/21/2020 What Is Your Occupation? Retired [id number] Information not available 12/19/2019 Family History Of Heart Disease? Yes 5 Information not available 01/06/2011 Which Of Your Hands Is Dominant? Right [id number] Information not available 12/19/2019 High Blood Pressure Yes 5 Information not available 01/06/2011 High Cholesterol No Informat ion not available 07/03/2011 Live Alone Or With Others? With Others 5 Information not available 01/06/2011 Marital Status [id number] 5 Information not available 01/06/2011 What Was The Date Of Your Most Recent Tobacco Screening? 09/02/2023 Information not available 09/02/2023 How Many Children Do You Have? 2 [id number] Information not available 12/19/2019 What Is Your Relationship Status? Information not available 06/21/2020 Do You Use Your Seat Belt Or Car Seat Routinely? Yes [id number] Information not available 12/19/2019 Seat Belts Used Routinely Yes 5 Information not available 01/06/2011 Smoke Alarm In Home Yes Information not available 07/03/2011 General Stress Level Low Information not available 07/03/2011 Do You Use Any Illicit Or Recreational Drugs? No Information not available 06/21/2020 Do You Use Sunscreen Routinely? Yes [id number] Information not available 12/19/2019 Do You Or Have You Ever Used Any Other Forms Of Tobacco Or Nicotine? No Information not available 06/21/2020 Sex: Unknown Functional Status Question Answer Note LastModified by Organization D etails LastModified Time Are you able to care for yourself? Yes [id number] Information n ot available 12/19/2019 What is your exercise level? None [id number] Information not available 12/19/2019 Mental Status None recorded. Family History Relationship Description Onset Age of this Age Resolved Age Notes LastModified by Organization Details LastModified Time Father Myocardial infarction 70 previo usly record ed as Heart Attack ([place]) Not available 09/09/2015 11:37:58 Mother Problem 70 porphy alex (previ ously record ed as Other) Not available 09/09/2015 11:37:58 Medical History Condition Response Coronary Artery Disease N Gout N Kidney Stones Y Blood Diseases N Hyperthyroidism N Depression N Hypothyroidism N COPD N Developmental or Behavioral Disorders N Eczema, Hives or other skin conditions N Anxiety Disorder N Muscle, Joint, or Bone Problems N Vision or Eye Problems N Arthritis N Serious Illness or Injuries N Congenital Anomalies N Cancer N Stroke N Bladder or Kidney Problems N Hospital Admission other than N High Cholesterol N Liver Disease N Fibromyalgia N Kidney Disease N Heart Problems N Ear or Hearing Problems Y ADD or ADHD N Thyroid Problems N Skin Problems N Anemia N Constipation N Diabetes N Bedwetting N Seizures/Epilepsy N Tuberculosis N Diverticulitis N Allergies N Asthma N GERD/Reflux N Heart Disease N Pulmonary Embolism N Hypertension Y Osteoporosis N Chicken Pox N Immunizations Vaccine Type Date Status Note Provider Nam e and Address Organization Details Recorded Time Pneumococcal conjugate PCV 13 7 completed Not Available [facility] 03/11/2019 02:12:07 Influenza, high-dose, quadrivalent, PF 0 completed Charlotte Bernstein MD [address] [facility], [address], [place], [address], [facility] 11/27/2019 10:26:48 Influenza, high-dose, trivalent, PF 4 completed [facility] 01/29/2014 14:30:01 pneumococcal polysaccharide PPV23 4 completed [facility] 01/29/2014 14:30:56 pneumococcal polysaccharide PPV23 3 completed Charlotte Bernstein MD [address] [address], [place], [address], [facility] 05/15/2014 16:10:57 Td (adult) 0 completed Charlotte Bernstein MD [address] [address], [place], [address], [facility] 10/22/2014 10:31:23 Tdap 5 completed [facility] 10/22/2014 10:32:08 COVID-19, mRNA, LNP-S, bivalent, PF, 30 mcg/0.3 mL dose 3 completed [facility] 01/21/2023 10:41:33 COVID-19, mRNA, LNP-S, PF, zan-sucrose, 30 mcg/0.3 mL 4 completed Charlotte Bernstein MD [address] [address], [place], [address], [facility] 02/03/2024 22:26:29 COVID-19, mRNA, LNP-S, PF, 100 mcg/0.5mL dose or 50 mcg/0.25mL dose 1 completed Charlotte Bernstein MD [address], [address], [facility] 06/20/2020 11:21:45 COVID-19, mRNA, LNP-S, PF, 100 mcg/0.5mL dose or 50 mcg/0.25mL dose 1 completed Charlotte Bernstein MD [address], [address], [facility] 06/20/2020 11:22:01 COVID-19, mRNA, LNP-S, PF, 100 mcg/0.5mL dose or 50 mcg/0.25mL dose 1 completed [facility] 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 Requires l ifelong warfarin therapy 585701752 Z79.01 recheck INR on 02/13 Body mass index 25-29 - overweight 532638764 Z68.29 Health Concerns Section Related Observation LastModified by Organization Detai ls LastModified Time None Recorded Concern Status LastModified by Organization Details LastModified Time None Recorded Payers Encounter Date Sequence Insurance Name Policy Number Policy [place] Covered Member ID [place] Member ID Guarantor Name 06/12/2024 2 [facility] (MEDICARE SUPPLEMENT) Vianey Flores [id number] Vianey Flores 06/12/2024 1 [place] Vianey Flores [id number] Vianey Flores Notes Date Note Type Note Provider Name and Address Organization Details Recorded Time 06/12/2024 text/html he is stable except having night sweats at night; INR us staying therapeutic now on the 2.5 mg coumadin daily.He had a lot of cryotherapy on face and the ears especially are still sore and healing more slowly. We have suggested topical vaseline. They are benign. Charlotte Bernstein MD [address] [address], [place], [address], [facility] 06/12/2024 15:25:48
--- OUTSIDE RECORDS SUMMARY | 2024-06-22 14:24 | XMS_ITS | Data Portability ---
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 Flores presents for a follow up. 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 His regular use of opioids has led to constipation and his coumadin prevents him from a lot of fruits and vegetables for fiber. We will prescribe generic Miralax as that has helped him before as needed. He uses a rescue inhaler occasionally a few times per month. A pulmonary function test shows a mild restrictive pattern. Warfarin is therapeutic. He declines colon cancer screening. He is compliant with medications and they are reviewed. Blood pressure is borderline and DASH guidelines are encouraged. Not available 11/20/2022 08:15:03 04/02/2023 04/02/2023 Mr. Flores has chronic pain and continues to follow with pain management. Recently he feels his chronic abdominal pain is worse. His exam clinically has not changed but we will order further labs for GI inflammation and pancreas evaluation. He recently noticed some neck soreness and found a lump on the left side. Clinically the area is very soft and most consistent with a lipoma. We will follow it clinically and should it change evaluate further. He has some chronic nasal drip and has a small sore in the right nostril that will be treated with topical bactroban ointment. Labs for the prediabetes are pending. He has a long history of documented vitamin B12 deficiency and receives a parental dose today. Not available 04/04/2023 01:15:31 09/02/2023 09/02/2023 Mr. Flores presents for a wellness check. 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 He is adequately anti coagulated and a little over so we are adjusting the coumadin down slightly. He has had issues in the past with dizziness and near syncope and has been followed by cardiology. With his coagulation disorder they do not recommend cardiac cath, but rather medical management. Previously he could not tolerate ranexa or isosorbide. He has had evidence for old granulomatous disease on chest CT. His primary complaint lately is significant shortness of breath with any activity although he has never smoked. 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 A previous pulmonary function showed mild restriction but today the pulmonary function shows severe obstruction. We discussed trying a maintenance inhaler and that is prescribed. He has been followed by pain management for the chronic opioid use he has required for many years. He has had no recent falls or injuries. He previously did some light yard work seasonally but has been physically unable to do so this year. Also he is losing his vision significantly. Likewise he has contraindication to having a colonoscopy with the coagulation disorder. He declines any screening for it as well. He is encouraged to watch his diet. He understands the restrictions with regard to coumadin. His weight is stable but he does not have much appetite and often only eats once daily. But his advises he is eating too much candy and chocolate. His glucose is 225 and he needs an A1C test with his next INR. He does complain of some nausea and finds that phenergan does help when he needs it and he does not need it every day. Depression screen is unchanged and negative. Fall risk is low. He did not take a flu vaccine this past year. He did however take the Covid Moderna vaccines. He should consider the newest bivalent booster as well. Medications are reconciled. Blood pressure has improved. 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 A ten year calculated CV risk is high at 50.94%. We encourage ongoing healthy lifestyle choices. Not available 09/02/2023 23:04:45 02/03/2024 02/03/2024 Mr. Flores presents for a brief check up. He has chronic pain and is followed by pain management. He has been treated by dermatology and has a history of extensive Not available 02/03/2024 22:33:53 06/12/2024 06/12/2024 Mr. Flores presents for a [...] Modified Time Details Appointments None recorded. Lab HbA1c (hemoglobin A1c), blood [email or web address] [place] [address] (Lab Registration) , [address], [place], [address], 4 11:41:27 CBC w/ auto diff [address] (Lab Registration) , [address], [place], [address], 4 09:15:18 lipase, serum or plasma [address] (Lab Registration) , [address] [place], [address], 4 09:15:18 amylase, serum or plasma [address] (Lab Registration) , [address] [place], [address], 4 09:15:18 C-reactive protein, quantitativ e, serum or plasma [address] (Lab Registration) , [address] , [place], [address], 4 09:15:19 HbA1c (hemoglobin A1c), blood [email or web address] [place] [address] (Lab Registration) , [address] , [place], [address], 4 09:46:52 CMP, serum or plasma [address] (Lab Registration) , [address] , [place], [address], 4 09:15:18 Referral dermatologi referral - history skin cancer 2023 024 [place] [id number] [facility], [address], [place], [address], 5 16:10:19 Procedures None recorded. Surgeries None recorded. Imaging None recorded. Medication Orders albuterol sulfate HFA 90 mcg/actuati on aerosol inhaler 2024 025 [id number], [address] [place], [address], 5 15:26:42 Breyna 160 mcg-4.5 mcg/actuati on HFA aerosol inhaler 2023 025 [facility], [address] [place] [address], [id number], 5 15:31:39 cyanocobala min (vit B-12) 1,000 mcg/mL injection solution [address] [facility], [address] [place] [address], [id number], 4 13:40:34 promethazin e 25 mg tablet 2023 024 [facility], [address] [place] [address], [id number], 5 10:39:27 cyanocobala min (vit B-12) 1,000 mcg/mL injection solution 2023 024 [email or web address] [facility], [address] [place] [address], [id number], 4 11:29:37 mupirocin 2 % topical ointment 2023 024 [facility], [address] [place] [address], [id number], 4 14:33:20 polyethylen e glycol 3350 17 gram/dose oral powder 2022 023 [facility], [address] [place] [address], [id number], 4 13:02:48 cyanocobala min (vit B-12) 1,000 mcg/mL injection solution 2022 023 [email or web address] Not available 3 16:20:24 Patient TargetsNo targets recorded. 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 1 high INR is inten ded to be used only for patie nts on stabl e oral anti- coagu lant thera py. *Ther apeut ic Range s 2.0 - 3.0 Usual Thera peuti c Range 2.5 - 3.5 For patie nts with a histo ry of multi ple deep vein throm bus or mecha nical heart valve s. Not Available [facility] (Lab Registration) [address], [place], [address], 11/17/2022 08:48:44 11/18/1911/17/2022 PT (PROT HROMB IN TIME) W INR note Unles s other lazcano noted testi ng perfo rmed at: [facility] [address] [place] [address] [phone] Gilberto harrison MD CLIA: [id number] Not Available [facility] (Lab Registration) [address], [place], [address], 11/17/2022 08:48:44 02/03/20 23 02/02/2023 PT (PROT HROMB IN TIME) W INR PT (prothrombin time) 31.7 secon ds 9.3-11 .4 high Not Available [facility] (Lab Registration) [address], [place], [address], 02/02/2023 12:03:43 02/03/20 23 02/02/2023 PT (PROT HROMB IN TIME) W INR INR 3.16 0.9-1. 1 high INR is inten ded to be used only for patie nts on stabl e oral anti- coagu lant thera py. *Ther apeut ic Range s 2.0 - 3.0 Usual Thera peuti c Range 2.5 - 3.5 For patie nts with a histo ry of multi ple deep vein throm bus or mecha nical heart valve s. Not Available [facility] (Lab Registration) [address] [place], [address], 02/02/2023 12:03:43 02/03/20 23 02/02/2023 PT (PROT HROMB IN TIME) W INR note Unles s other lazcano noted testi ng perfo rmed at: [facility] [address] [place] [address] [phone] Gilberto harrison MD CLIA: [id number] Not Available [facility] (Lab Registration) [address] [place], [address], 02/02/2023 12:03:43 04/01/19 24 04/01/2023 PT (PROT HROMB IN TIME) W INR PT (prothrombin time) 22.9 secon ds 9.1-12 .0 high Not Available [facility] (Lab Registration) [address] [place], [address], 04/01/2023 09:28:48 04/01/19 24 04/01/2023 PT (PROT HROMB IN TIME) W INR INR 2.16 0.9-1. 1 high INR is inten ded to be used only for patie nts on stabl e oral anti- coagu lant thera py. *Ther apeut ic Range s 2.0 - 3.0 Usual Thera peuti c Range 2.5 - 3.5 For patie nts with a histo ry of multi ple deep vein throm bus or mecha nical heart valve s. Not Available [facility] (Lab Registration) [address] [place], [address], 04/01/2023 09:28:48 04/01/19 24 04/01/2023 PT (PROT HROMB IN TIME) W INR note Unles s other lazcano noted testi ng perfo rmed at: [facility] [address] [place] [address] [phone] Gilberto harrison MD CLIA: [id number] Not Available [facility] (Lab Registration) [address] [place], [address], 04/01/2023 09:28:48 05/10/19 24 05/10/2023 CBC AUTO W DIFF WBC 10.4 10 4.5-11 .5 Not Available [facility] (Lab Registration) [address] [place], [address], 05/10/2023 09:35:53 05/10/19 24 05/10/2023 CBC AUTO W DIFF RBC 4.02 10 4.25-5 .57 low Not Available [facility] (Lab Registration) [address] [place], [address], 05/10/2023 09:35:53 05/10/19 24 05/10/2023 CBC AUTO W DIFF HGB 13.6 g/dL 13.5-1 7.2 Not Available [facility] (Lab Registration) [address] [place], [address], 05/10/2023 09:35:53 05/10/19 24 05/10/2023 CBC AUTO W DIFF HCT 37.1 % 42.0-5 2.0 low Not Available [facility] (Lab Registration) [address] [place], [address], 05/10/2023 09:35:53 05/10/19 24 05/10/2023 CBC AUTO W DIFF MCV 92.3 fL 80-95 Not Available [facility] (Lab Registration) [address] [place], [address], 05/10/2023 09:35:53 05/10/19 24 05/10/2023 CBC AUTO W DIFF MCH 33.8 pg 27.0-3 4.0 Not Available [facility] (Lab Registration) [address] [place], [address], 05/10/2023 09:35:53 05/10/19 24 05/10/2023 CBC AUTO W DIFF MCHC 36.7 g/dL 32.0-3 6.0 high Not Available [facility] (Lab Registration) [address] [place], [address], 05/10/2023 09:35:53 05/10/19 24 05/10/2023 CBC AUTO W DIFF platelet count 346 10 150-45 0 Not Available [facility] (Lab Registration) [address] [place], [address], 05/10/2023 09:35:53 05/10/19 24 05/10/2023 CBC AUTO W DIFF RDW 11.9 % 12.3-1 5.1 low Not Available [facility] (Lab Registration) [address] [place], [address], 05/10/2023 09:35:53 05/10/19 24 05/10/2023 CBC AUTO W DIFF MPV 11.0 fL 7.4-10 .4 high Not Available [facility] (Lab Registration) [address] [place], [address], 05/10/2023 09:35:53 05/10/19 24 05/10/2023 CBC AUTO W DIFF granulocyte% 51.2 % 40-75 Not Available [facility] (Lab Registration) [address] [place], [address], 05/10/2023 09:35:53 05/10/19 24 05/10/2023 CBC AUTO W DIFF lymphocyte% 36.2 % 15-57 Not Available [facility] (Lab Registration) [address] [place], [address], 05/10/2023 09:35:53 05/10/19 24 05/10/2023 CBC AUTO W DIFF monocyte% 10.1 % 4.0-12 .0 Not Available [facility] (Lab Registration) [address], [place], [address], 05/10/2023 09:35:53 05/10/19 24 05/10/2023 CBC AUTO W DIFF eosinophil% 2.1 % 0.0-4. 0 Not Available [facility] (Lab Registration) [address] [place], [address], 05/10/2023 09:35:53 05/10/19 24 05/10/2023 CBC AUTO W DIFF basophil% 0.3 % 0.0-1. 0 Not Available [facility] (Lab Registration) [address] [place], [address], 05/10/2023 09:35:53 05/10/19 24 05/10/2023 CBC AUTO W DIFF immature granulocytes % 0.1 % 0.0-0. 8 Not Available [facility] (Lab Registration) [address] [place], [address], 05/10/2023 09:35:53 05/10/19 24 05/10/2023 CBC AUTO W DIFF granulocyte# 5.35 10 Not Available [facility] (Lab Registration) [address] [place], [address], 05/10/2023 09:35:53 05/10/19 24 05/10/2023 CBC AUTO W DIFF lymphocyte# 3.78 10 Not Available [facility] (Lab Registration) [address] [place], [address], 05/10/2023 09:35:53 05/10/19 24 05/10/2023 CBC AUTO W DIFF monocyte# 1.05 10 Not Available [facility] (Lab Registration) [address] [place], [address], 05/10/2023 09:35:53 05/10/19 24 05/10/2023 CBC AUTO W DIFF eosinophil# 0.22 10 Not Available [facility] (Lab Registration) [address] [place], [address], 05/10/2023 09:35:53 05/10/19 24 05/10/2023 CBC AUTO W DIFF basophil# 0.03 10 Not Available [facility] (Lab Registration) [address] [place], [address], 05/10/2023 09:35:53 05/10/19 24 05/10/2023 CBC AUTO W DIFF immature granulocytes # 0.01 10 Not Available [facility] (Lab Registration) [address] [place], [address], 05/10/2023 09:35:53 05/10/19 24 05/10/2023 CBC AUTO W DIFF manual differential NO Not Available [facility] (Lab Registration) [address] [place], [address], 05/10/2023 09:35:53 05/10/19 24 05/10/2023 CBC AUTO W DIFF note Unles s other lazcano noted testi ng perfo rmed at: [facility] [address] [place] [address] [phone] Gilberto harrison MD CLIA: [id number] Not Available [facility] (Lab Registration) [address] [place], [address], 05/10/2023 09:35:53 05/10/19 24 05/10/2023 PT (PROT HROMB IN TIME) W INR PT (prothrombin time) 35.7 secon ds 9.1-12 .0 high Not Available [facility] (Lab Registration) [address] [place], [address], 05/10/2023 09:42:30 05/10/19 24 05/10/2023 PT (PROT HROMB IN TIME) W INR INR 3.45 0.9-1. 1 high INR is inten ded to be used only for patie nts on stabl e oral anti- coagu lant thera py. *Ther apeut ic Range s 2.0 - 3.0 Usual Thera peuti c Range 2.5 - 3.5 For patie nts with a histo ry of multi ple deep vein throm bus or mecha nical heart valve s. Not Available [facility] (Lab Registration) [address], [place], [address], 05/10/2023 09:42:30 05/10/19 24 05/10/2023 PT (PROT HROMB IN TIME) W INR note Unles s other lazcano noted testi ng perfo rmed at: [facility] [address] [place] [address] [phone] Gilberto harrison MD CLIA: [id number] Not Available [facility] (Lab Registration) [address] [place], [address], 05/10/2023 09:42:30 05/10/19 24 05/10/2023 HEMOG LOBIN A1C glycosylated hemoglobin A1C 6.8 % 4.5-6. 2 high Not Available [facility] (Lab Registration) [address] [place], [address], 05/10/2023 09:56:50 05/10/19 24 05/10/2023 HEMOG LOBIN A1C estimated average glucose 148 mg/dL 82-131 high Not Available [facility] (Lab Registration) [address] [place], [address], 05/10/2023 09:56:50 05/10/19 24 05/10/2023 HEMOG LOBIN A1C note Unles s other lazcano noted testi ng perfo rmed at: [facility] [address] [place] [address] [phone] Gilberto harrison MD CLIA: [id number] Not Available [facility] (Lab Registration) [address] [place], [address], 05/10/2023 09:56:50 05/10/19 24 05/10/2023 COMP METAB OLIC PANEL sodium 138 mmol/ L 136-14 5 Not Available [facility] (Lab Registration) [address] [place], [address], 05/10/2023 10:14:15 05/10/19 24 05/10/2023 COMP METAB OLIC PANEL potassium 4.2 mmol/ L 3.5-5. 1 Not Available [facility] (Lab Registration) [address] [place], [address], 05/10/2023 10:14:15 05/10/19 24 05/10/2023 COMP METAB OLIC PANEL chloride 102 mmol/ L 98-107 Not Available [facility] (Lab Registration) [address] [place], [address], 05/10/2023 10:14:15 05/10/19 24 05/10/2023 COMP METAB OLIC PANEL carbon dioxide 25 mmol/ L 21-32 Not Available [facility] (Lab Registration) [address] [place], [address], 05/10/2023 10:14:15 05/10/19 24 05/10/2023 COMP METAB OLIC PANEL anion gap 11.0 Not Available [facility] (Lab Registration) [address] [place], [address], 05/10/2023 10:14:15 05/10/19 24 05/10/2023 COMP METAB OLIC PANEL glucose 180 mg/dL 70-110 high Not Available [facility] (Lab Registration) [address] [place], [address], 05/10/2023 10:14:15 05/10/19 24 05/10/2023 COMP METAB OLIC PANEL blood urea nitrogen 12 mg/dL 7-18 Not Available [facility] (Lab Registration) [address] [place], [address], 05/10/2023 10:14:15 05/10/19 24 05/10/2023 COMP METAB OLIC PANEL creatinine 1.0 mg/dL 0.8-1. 3 Not Available [facility] (Lab Registration) [address], [place], [address], 05/10/2023 10:14:15 05/10/19 24 05/10/2023 COMP METAB OLIC PANEL BUN/creatini ne ratio 12.0 ratio 9-21 Not Available [facility] (Lab Registration) [address] [place], [address], 05/10/2023 10:14:15 05/10/19 24 05/10/2023 COMP METAB OLIC PANEL estimated glom filtration rate 78 mL/mi n >60- Not Available [facility] (Lab Registration) [address] [place], [address], 05/10/2023 10:14:15 05/10/19 24 05/10/2023 COMP METAB OLIC PANEL total protein 7.5 g/dL 6.4-8. 2 Not Available [facility] (Lab Registration) [address] [place], [address], 05/10/2023 10:14:15 05/10/19 24 05/10/2023 COMP METAB OLIC PANEL albumin 4.0 g/dL 3.4-5. 0 Not Available [facility] (Lab Registration) [address] [place], [address], 05/10/2023 10:14:15 05/10/19 24 05/10/2023 COMP METAB OLIC PANEL calcium 9.2 mg/dL 8.5-10 .1 Not Available [facility] (Lab Registration) [address] [place], [address], 05/10/2023 10:14:15 05/10/19 24 05/10/2023 COMP METAB OLIC PANEL corrected calcium 9.2 mg/dL 8.5-10 .1 Not Available [facility] (Lab Registration) [address] [place], [address], 05/10/2023 10:14:15 05/10/19 24 05/10/2023 COMP METAB OLIC PANEL bilirubin total 1.1 mg/dL 0.4-1. 5 Not Available [facility] (Lab Registration) [address] [place], [address], 05/10/2023 10:14:15 05/10/19 24 05/10/2023 COMP METAB OLIC PANEL AST (SGOT) 17 U/L 15-37 Not Available [facility] (Lab Registration) [address] [place], [address], 05/10/2023 10:14:15 05/10/19 24 05/10/2023 COMP METAB OLIC PANEL ALT (SGPT) 19 U/L 12-78 Not Available [facility] (Lab Registration) [address] [place], [address], 05/10/2023 10:14:15 05/10/19 24 05/10/2023 COMP METAB OLIC PANEL alk phosphatase 65 U/L Not Available [facility] (Lab Registration) [address] [place], [address], 05/10/2023 10:14:15 05/10/19 24 05/10/2023 COMP METAB OLIC PANEL note Unles s other lazcano noted testi ng perfo rmed at: [facility] [address] [employer] [place] [address] [phone] Gilberto harrison MD CLIA: [id number] Not Available [facility] (Lab Registration) [address] [place], [address], 05/10/2023 10:14:15 05/10/19 24 05/10/2023 LIPAS E lipase 41 U/L 16-77 Not Available [facility] (Lab Registration) [address] [place], [address], 05/10/2023 10:14:16 05/10/19 24 05/10/2023 LIPAS E note Unles s other lazcano noted testi ng perfo rmed at: [facility] [address] [place] [address] [phone] Gilberto harrison MD CLIA: [id number] Not Available [facility] (Lab Registration) [address], [place], [address], 05/10/2023 10:14:16 05/10/19 24 05/10/2023 AMYLA SE amylase 46 U/L 25-115 Not Available [facility] (Lab Registration) [address], [place], [address], 05/10/2023 10:15:20 05/10/19 24 05/10/2023 AMYLA SE note Unles s other lazcano noted testi ng perfo rmed at: [facility] [address] [place] [address] [phone] Gilberto harrison MD CLIA: [id number] Not Available [facility] (Lab Registration) [address], [place], [address], 05/10/2023 10:15:20 05/10/19 24 05/10/2023 C-NIDHI CTIVE PROTE IN C-reactive protein, quant 0.30 mg/dL 0.05-0 .300 Not Available [facility] (Lab Registration) [address] [place], [address], 05/10/2023 10:15:22 05/10/19 24 05/10/2023 C-NIDHI CTIVE PROTE IN note Unles s other lazcano noted testi ng perfo rmed at: [facility] [address] [place] [address] [phone] Gilberto harrison MD CLIA: [id number] Not Available [facility] (Lab Registration) [address] [place], [address], 05/10/2023 10:15:22 05/26/19 24 05/26/2023 PT (PROT HROMB IN TIME) W INR PT (prothrombin time) 21.3 secon ds 9.1-12 .0 high Not Available [facility] (Lab Registration) [address] [place], [address], 05/26/2023 11:11:48 05/26/19 24 05/26/2023 PT (PROT HROMB IN TIME) W INR INR 2.01 0.9-1. 1 high INR is inten ded to be used only for patie nts on stabl e oral anti- coagu lant thera py. *Ther apeut ic Range s 2.0 - 3.0 Usual Thera peuti c Range 2.5 - 3.5 For patie nts with a histo ry of multi ple deep vein throm bus or mecha nical heart valve s. Not Available [facility] (Lab Registration) [address] [place], [address], 05/26/2023 11:11:48 05/26/19 24 05/26/2023 PT (PROT HROMB IN TIME) W INR note Unles s other lazcano noted testi ng perfo rmed at: [facility] [address] [employer] [place] [address] [phone] Gilberto harrison MD CLIA: [id number] Not Available [facility] (Lab Registration) [address] [place], [address], 05/26/2023 11:11:48 06/15/19 24 06/15/2023 PT (PROT HROMB IN TIME) W INR PT (prothrombin time) 39.9 secon ds 9.1-12 .0 high Not Available [facility] (Lab Registration) [address] [place], [address], 06/15/2023 10:24:37 06/15/19 24 06/15/2023 PT (PROT HROMB IN TIME) W INR INR 3.87 0.9-1. 1 high INR is inten ded to be used only for patie nts on stabl e oral anti- coagu lant thera py. *Ther apeut ic Range s 2.0 - 3.0 Usual Thera peuti c Range 2.5 - 3.5 For patie nts with a histo ry of multi ple deep vein throm bus or mecha nical heart valve s. Not Available [facility] (Lab Registration) [address], [place], [address], 06/15/2023 10:24:37 06/15/19 24 06/15/2023 PT (PROT HROMB IN TIME) W INR note Unles s other lazcano noted testi ng perfo rmed at: [facility] [address] [place] [address] [phone] Gilberto harrison MD CLIA: [id number] Not Available [facility] (Lab Registration) [address], [place], [address], 06/15/2023 10:24:37 06/29/19 24 06/29/2023 PT (PROT HROMB IN TIME) W INR PT (prothrombin time) 48.4 secon ds 9.1-12 .0 high Not Available [facility] (Lab Registration) [address], [place], [address], 06/29/2023 08:37:53 06/29/19 24 06/29/2023 PT (PROT HROMB IN TIME) W INR INR 4.74 0.9-1. 1 critical high INR is inten ded to be used only for patie nts on stabl e oral anti- coagu lant thera py. *Ther apeut ic Range s 2.0 - 3.0 Usual Thera peuti c Range 2.5 - 3.5 For patie nts with a histo ry of multi ple deep vein throm bus or mecha nical heart valve s. Not Available [facility] (Lab Registration) [address], [place], [address], 06/29/2023 08:37:53 06/29/19 24 06/29/2023 PT (PROT HROMB IN TIME) W INR note Unles s other lazcano noted testi ng perfo rmed at: [facility] [address] [place] [address] [phone] Gilberto harrison MD CLIA: [id number] Not Available [facility] (Lab Registration) [address], [place], [address], 06/29/2023 08:37:53 07/14/19 24 07/14/2023 PT (PROT HROMB IN TIME) W INR PT (prothrombin time) 42.7 secon ds 9.1-12 .0 high Not Available [facility] (Lab Registration) [address], [place], [address], 07/14/2023 09:14:41 07/14/19 24 07/14/2023 PT (PROT HROMB IN TIME) W INR INR 4.15 0.9-1. 1 critical high INR is inten ded to be used only for patie nts on stabl e oral anti- coagu lant thera py. *Ther apeut ic Range s 2.0 - 3.0 Usual Thera peuti c Range 2.5 - 3.5 For patie nts with a histo ry of multi ple deep vein throm bus or mecha nical heart valve s. Not Available [facility] (Lab Registration) [address], [place], [address], 07/14/2023 09:14:41 07/14/19 24 07/14/2023 PT (PROT HROMB IN TIME) W INR note Unles s other lazcano noted testi ng perfo rmed at: [facility] [address] [place] [address] [phone] Gilberto harrison MD CLIA: [id number] Not Available [facility] (Lab Registration) [address] [place], [address], 07/14/2023 09:14:41 07/23/19 24 07/23/2023 PT (PROT HROMB IN TIME) W INR PT (prothrombin time) 38.2 secon ds 9.1-12 .0 high Not Available [facility] (Lab Registration) [address], [address], 07/23/2023 10:30:30 07/23/19 24 07/23/2023 PT (PROT HROMB IN TIME) W INR INR 3.69 0.9-1. 1 high INR is inten ded to be used only for patie nts on stabl e oral anti- coagu lant thera py. *Ther apeut ic Range s 2.0 - 3.0 Usual Thera peuti c Range 2.5 - 3.5 For patie nts with a histo ry of multi ple deep vein throm bus or mecha nical heart valve s. Not Available [facility] (Lab Registration) [address] [place], [address], 07/23/2023 10:30:30 07/23/19 24 07/23/2023 PT (PROT HROMB IN TIME) W INR note Unles s other lazcano noted testi ng perfo rmed at: [facility] [address] [place] [address] [phone] Gilberto harrison MD CLIA: [id number] Not Available [facility] (Lab Registration) [address] [place], [address], 07/23/2023 10:30:30 08/09/19 24 08/09/2023 PT (PROT HROMB IN TIME) W INR PT (prothrombin time) 20.1 secon ds 9.1-12 .0 high Not Available [facility] (Lab Registration) [address], [place], [address], 08/09/2023 10:06:28 08/09/19 24 08/09/2023 PT (PROT HROMB IN TIME) W INR INR 1.89 0.9-1. 1 high INR is inten ded to be used only for patie nts on stabl e oral anti- coagu lant thera py. *Ther apeut ic Range s 2.0 - 3.0 Usual Thera peuti c Range 2.5 - 3.5 For patie nts with a histo ry of multi ple deep vein throm bus or mecha nical heart valve s. Not Available [facility] (Lab Registration) [address] [place], [address], 08/09/2023 10:06:28 08/09/19 24 08/09/2023 PT (PROT HROMB IN TIME) W INR note Unles s other lazcano noted testi ng perfo rmed at: [facility] [address] [place] [address] [phone] Gilberto harrison MD CLIA: [id number] Not Available [facility] (Lab Registration) [address] [place], [address], 08/09/2023 10:06:28 08/19/19 24 08/19/2023 PT (PROT HROMB IN TIME) W INR PT (prothrombin time) 40.9 secon ds 9.1-12 .0 high Not Available [facility] (Lab Registration) [address] [place], [address], 08/19/2023 10:18:27 08/19/19 24 08/19/2023 PT (PROT HROMB IN TIME) W INR INR 3.97 0.9-1. 1 high INR is inten ded to be used only for patie nts on stabl e oral anti- coagu lant thera py. *Ther apeut ic Range s 2.0 - 3.0 Usual Thera peuti c Range 2.5 - 3.5 For patie nts with a histo ry of multi ple deep vein throm bus or mecha nical heart valve s. Not Available [facility] (Lab Registration) [address] [place], [address], 08/19/2023 10:18:27 08/19/19 24 08/19/2023 PT (PROT HROMB IN TIME) W INR note Unles s other lazcano noted testi ng perfo rmed at: [facility] [address] [place] [address] [phone] Gilberto harrison MD CLIA: [id number] Not Available [facility] (Lab Registration) [address] [place], [address], 08/19/2023 10:18:27 08/31/19 24 08/31/2023 PT (PROT HROMB IN TIME) W INR PT (prothrombin time) 38.3 secon ds 9.1-12 .0 high Not Available [facility] (Lab Registration) [address] [place], [address], 08/31/2023 10:06:02 08/31/19 24 08/31/2023 PT (PROT HROMB IN TIME) W INR INR 3.70 0.9-1. 1 high INR is inten ded to be used only for patie nts on stabl e oral anti- coagu lant thera py. *Ther apeut ic Range s 2.0 - 3.0 Usual Thera peuti c Range 2.5 - 3.5 For patie nts with a histo ry of multi ple deep vein throm bus or mecha nical heart valve s. Not Available [facility] (Lab Registration) [address] [place], [address], 08/31/2023 10:06:02 08/31/19 24 08/31/2023 PT (PROT HROMB IN TIME) W INR note Unles s other lazcano noted testi ng perfo rmed at: [facility] [address] [place] [address] [phone] Gilberto harrison MD CLIA: [id number] Not Available [facility] (Lab Registration) [address] [place], [address], 08/31/2023 10:06:02 08/31/19 24 08/31/2023 CBC AUTO W DIFF WBC 11.2 10 4.5-11 .5 Not Available [facility] (Lab Registration) [address] [place], [address], 08/31/2023 10:06:05 08/31/19 24 08/31/2023 CBC AUTO W DIFF RBC 4.29 10 4.25-5 .57 Not Available [facility] (Lab Registration) [address] [place], [address], 08/31/2023 10:06:05 08/31/19 24 08/31/2023 CBC AUTO W DIFF HGB 14.3 g/dL 13.5-1 7.2 Not Available [facility] (Lab Registration) [address] [place], [address], 08/31/2023 10:06:05 08/31/19 24 08/31/2023 CBC AUTO W DIFF HCT 39.5 % 42.0-5 2.0 low Not Available [facility] (Lab Registration) [address] [place], [address], 08/31/2023 10:06:05 08/31/19 24 08/31/2023 CBC AUTO W DIFF MCV 92.1 fL 80-95 Not Available [facility] (Lab Registration) [address] [place], [address], 08/31/2023 10:06:05 08/31/19 24 08/31/2023 CBC AUTO W DIFF MCH 33.3 pg 27.0-3 4.0 Not Available [facility] (Lab Registration) [address] [place], [address], 08/31/2023 10:06:05 08/31/19 24 08/31/2023 CBC AUTO W DIFF MCHC 36.2 g/dL 32.0-3 6.0 high Not Available [facility] (Lab Registration) [address] [place], [address], 08/31/2023 10:06:05 08/31/19 24 08/31/2023 CBC AUTO W DIFF platelet count 360 10 150-45 0 Not Available [facility] (Lab Registration) [address] [place], [address], 08/31/2023 10:06:05 08/31/19 24 08/31/2023 CBC AUTO W DIFF RDW 11.9 % 12.3-1 5.1 low Not Available [facility] (Lab Registration) [address] [place], [address], 08/31/2023 10:06:05 08/31/19 24 08/31/2023 CBC AUTO W DIFF MPV 10.5 fL 7.4-10 .4 high Not Available [facility] (Lab Registration) [address] [place], [address], 08/31/2023 10:06:05 08/31/19 24 08/31/2023 CBC AUTO W DIFF granulocyte% 56.0 % 40-75 Not Available [facility] (Lab Registration) [address] [place], [address], 08/31/2023 10:06:05 08/31/19 24 08/31/2023 CBC AUTO W DIFF lymphocyte% 33.2 % 15-57 Not Available [facility] (Lab Registration) [address] [place], [address], 08/31/2023 10:06:05 08/31/19 24 08/31/2023 CBC AUTO W DIFF monocyte% 8.4 % 4.0-12 .0 Not Available [facility] (Lab Registration) [address] [place], [address], 08/31/2023 10:06:05 08/31/19 24 08/31/2023 CBC AUTO W DIFF eosinophil% 1.8 % 0.0-4. 0 Not Available [facility] (Lab Registration) [address] [place], [address], 08/31/2023 10:06:05 08/31/19 24 08/31/2023 CBC AUTO W DIFF basophil% 0.4 % 0.0-1. 0 Not Available [facility] (Lab Registration) [address] [place], [address], 08/31/2023 10:06:05 08/31/19 24 08/31/2023 CBC AUTO W DIFF immature granulocytes % 0.2 % 0.0-0. 8 Not Available [facility] (Lab Registration) [address] [place], [address], 08/31/2023 10:06:05 08/31/19 24 08/31/2023 CBC AUTO W DIFF granulocyte# 6.28 10 Not Available [facility] (Lab Registration) [address] [place], [address], 08/31/2023 10:06:05 08/31/19 24 08/31/2023 CBC AUTO W DIFF lymphocyte# 3.73 10 Not Available [facility] (Lab Registration) [address] [place], [address], 08/31/2023 10:06:05 08/31/19 24 08/31/2023 CBC AUTO W DIFF monocyte# 0.94 10 Not Available [facility] (Lab Registration) [address] [place], [address], 08/31/2023 10:06:05 08/31/19 24 08/31/2023 CBC AUTO W DIFF eosinophil# 0.20 10 Not Available [facility] (Lab Registration) [address], [place], [address], 08/31/2023 10:06:05 08/31/19 24 08/31/2023 CBC AUTO W DIFF basophil# 0.05 10 Not Available [facility] (Lab Registration) [address] [place], [address], 08/31/2023 10:06:05 08/31/19 24 08/31/2023 CBC AUTO W DIFF immature granulocytes # 0.02 10 Not Available [facility] (Lab Registration) [address] [place], [address], 08/31/2023 10:06:05 08/31/19 24 08/31/2023 CBC AUTO W DIFF manual differential NO Not Available [facility] (Lab Registration) [address] [place], [address], 08/31/2023 10:06:05 08/31/19 24 08/31/2023 CBC AUTO W DIFF note Unles s other lazcano noted testi ng perfo rmed at: [facility] [address] [place] [address] [phone] Gilberto harrison MD CLIA: [id number] Not Available [facility] (Lab Registration) [address] [place], [address], 08/31/2023 10:06:05 08/31/19 24 08/31/2023 PROST ATE SPECI FIC AG (PSA) prostate specific Ag (PSA) 1.03 NG/mL 0.0-4. 0 Not Available [facility] (Lab Registration) [address] [place], [address], 08/31/2023 10:13:42 08/31/19 24 08/31/2023 PROST ATE SPECI FIC AG (PSA) note Unles s other lazcano noted testi ng perfo rmed at: [facility] [address] [place] [address] [phone] Gilberto harrison MD CLIA: [id number] Not Available [facility] (Lab Registration) [address] [place], [address], 08/31/2023 10:13:42 08/31/19 24 08/31/2023 THYRO ID STIMU LATIN G HORMO NE thyroid stimulating hormone 2.16 mIU/m L 0.34-4 .80 Not Available [facility] (Lab Registration) [address] [place], [address], 08/31/2023 10:13:44 08/31/19 24 08/31/2023 THYRO ID STIMU LATIN G HORMO NE note Shantal harrison other lazcano noted testi ng perfo rmed at: [facility] [address] [place] [address] [phone] Gilberto harrison MD CLIA: [id number] Not Available [facility] (Lab Registration) [address] [place], [address], 08/31/2023 10:13:44 08/31/19 24 08/31/2023 COMP METAB OLIC PANEL sodium 136 mmol/ L 136-14 5 Not Available [facility] (Lab Registration) [address] [place], [address], 08/31/2023 10:13:46 08/31/19 24 08/31/2023 COMP METAB OLIC PANEL potassium 4.3 mmol/ L 3.5-5. 1 Not Available [facility] (Lab Registration) [address] [place], [address], 08/31/2023 10:13:46 08/31/19 24 08/31/2023 COMP METAB OLIC PANEL chloride 102 mmol/ L 98-107 Not Available [facility] (Lab Registration) [address] [place], [address], 08/31/2023 10:13:46 08/31/19 24 08/31/2023 COMP METAB OLIC PANEL carbon dioxide 24 mmol/ L 21-32 Not Available [facility] (Lab Registration) [address] [place], [address], 08/31/2023 10:13:46 08/31/19 24 08/31/2023 COMP METAB OLIC PANEL anion gap 10.0 Not Available [facility] (Lab Registration) [address] [place], [address], 08/31/2023 10:13:46 08/31/19 24 08/31/2023 COMP METAB OLIC PANEL glucose 225 mg/dL 70-110 high Not Available [facility] (Lab Registration) [address] [place], [address], 08/31/2023 10:13:46 08/31/19 24 08/31/2023 COMP METAB OLIC PANEL blood urea nitrogen 8 mg/dL 7-18 Not Available [facility] (Lab Registration) [address] [place], [address], 08/31/2023 10:13:46 08/31/19 24 08/31/2023 COMP METAB OLIC PANEL creatinine 0.9 mg/dL 0.8-1. 3 Not Available [facility] (Lab Registration) [address] [place], [address], 08/31/2023 10:13:46 08/31/19 24 08/31/2023 COMP METAB OLIC PANEL BUN/creatini ne ratio 8.9 ratio 9-21 low Not Available [facility] (Lab Registration) [address] [place], [address], 08/31/2023 10:13:46 08/31/19 24 08/31/2023 COMP METAB OLIC PANEL estimated glom filtration rate 89 mL/mi n >60- Not Available [facility] (Lab Registration) [address], [place], [address], 08/31/2023 10:13:46 08/31/19 24 08/31/2023 COMP METAB OLIC PANEL total protein 8.2 g/dL 6.4-8. 2 Not Available [facility] (Lab Registration) [address] [place], [address], 08/31/2023 10:13:46 08/31/19 24 08/31/2023 COMP METAB OLIC PANEL albumin 3.7 g/dL 3.4-5. 0 Not Available [facility] (Lab Registration) [address] [place], [address], 08/31/2023 10:13:46 08/31/19 24 08/31/2023 COMP METAB OLIC PANEL calcium 8.9 mg/dL 8.5-10 .1 Not Available [facility] (Lab Registration) [address] [place], [address], 08/31/2023 10:13:46 08/31/19 24 08/31/2023 COMP METAB OLIC PANEL corrected calcium 9.1 mg/dL 8.5-10 .1 Not Available [facility] (Lab Registration) [address] [place], [address], 08/31/2023 10:13:46 08/31/19 24 08/31/2023 COMP METAB OLIC PANEL bilirubin total 1.2 mg/dL 0.4-1. 5 Not Available [facility] (Lab Registration) [address] [place], [address], 08/31/2023 10:13:46 08/31/19 24 08/31/2023 COMP METAB OLIC PANEL AST (SGOT) 13 U/L 15-37 low Not Available [facility] (Lab Registration) [address] [place], [address], 08/31/2023 10:13:46 08/31/19 24 08/31/2023 COMP METAB OLIC PANEL ALT (SGPT) 16 U/L 12-78 Not Available [facility] (Lab Registration) [address] [place], [address], 08/31/2023 10:13:46 08/31/19 24 08/31/2023 COMP METAB OLIC PANEL alk phosphatase 78 U/L Not Available [facility] (Lab Registration) [address] [place], [address], 08/31/2023 10:13:46 08/31/19 24 08/31/2023 COMP METAB OLIC PANEL note Unles s other lazcano noted testi ng perfo rmed at: [facility] [address] [place] [address] [phone] Gilberto harrison MD CLIA: [id number] Not Available [facility] (Lab Registration) [address] [place], [address], 08/31/2023 10:13:46 08/31/19 24 08/31/2023 LIPID PANEL triglyceride 141 mg/dL 20-200 The Natio nal Jacquelyn st[employer] l [employer]ca tion Progr am (NCEP ) has set the follo wing guide lines for Fasti ng Trigl yceri kanu: TURNER L: <150 mg/dL BORDE RLINE HIGH: 150 - 199 mg/dL HIGH: 200 - 499 mg/dL VERY HIGH: > or =500 mg/dL Not Available [facility] (Lab Registration) [address] [place], [address], 08/31/2023 10:13:48 08/31/19 24 08/31/2023 LIPID PANEL cholesterol 156 mg/dL 0-200 The Natio nal Jacquelyn [employer] l Educa tion Progr am (NCEP ) has set the follo wing guide lines for Fasti ng Jacquelyn stero l: SINDHU ABLE: <200 mg/dL BORDE RLINE HIGH: 200 - 239 mg/dL HIGH: > or =240 mg/dL Not Available [facility] (Lab Registration) [address] [place], [address], 08/31/2023 10:13:48 08/31/19 24 08/31/2023 LIPID PANEL HDL cholesterol 42 mg/dL 60- low The Natio nal Jacquelyn stero l Educa tion Progr am ([facility] ) has set the follo wing guide lines for Fasti ng HDL Jacquelyn stero l: LOW HDL: <40 mg/dL TURNER L: 40 - 60 mg/dL SINDHU ABLE: >60 mg/dL Not Available [facility] (Lab Registration) [address] [place], [address], 08/31/2023 10:13:48 08/31/19 24 08/31/2023 LIPID PANEL LDL calculated 86 mg/dL 100- low The Natio nal Jacquelyn [employer] l Educa tion Progr am ([facility] ) has set the follo wing guide lines for Fasti ng LDL Jacquelyn stero l: OPTIM AL: < 100 mg/dL LOW RISK: 100 - 129 mg/dL BORDE RLINE HIGH: 130 - 159 mg/dL HIGH: 160 - 189 mg/dL VERY HIGH: > or = 190 mg/dL Not Available [facility] (Lab Registration) [address] [place], [address], 08/31/2023 10:13:48 08/31/19 24 08/31/2023 LIPID PANEL chol/HDL ratio 4 ratio -5 Not Available [facility] (Lab Registration) [address] [place], [address], 08/31/2023 10:13:48 08/31/19 24 08/31/2023 LIPID PANEL note Unles s other lazcano noted testi ng perfo rmed at: [facility] [address] [place] [address] [phone] Gilberto harrison MD CLIA: [id number] Not Available [facility] (Lab Registration) [address] [place], [address], 08/31/2023 10:13:48 09/14/19 24 09/14/2023 PT (PROT HROMB IN TIME) W INR PT (prothrombin time) 15.5 secon ds 9.1-12 .0 high Not Available [facility] (Lab Registration) [address], [place], [address], 09/14/2023 10:41:37 09/14/19 24 09/14/2023 PT (PROT HROMB IN TIME) W INR INR 1.43 0.9-1. 1 high INR is inten ded to be used only for patie nts on stabl e oral anti- coagu lant thera py. *Ther apeut ic Range s 2.0 - 3.0 Usual Thera peuti c Range 2.5 - 3.5 For patie nts with a histo ry of multi ple deep vein throm bus or mecha nical heart valve s. Not Available [facility] (Lab Registration) [address], [place], [address], 09/14/2023 10:41:37 09/14/19 24 09/14/2023 PT (PROT HROMB IN TIME) W INR note Unles s other lazcano noted testi ng perfo rmed at: [facility] [address] [place] [address] [phone] Gilberto harrison MD CLIA: [id number] Not Available [facility] (Lab Registration) [address], [place], [address], 09/14/2023 10:41:37 09/27/19 24 09/27/2023 PT (PROT HROMB IN TIME) W INR PT (prothrombin time) 22.5 secon ds 9.1-12 .0 high Not Available [facility] (Lab Registration) [address] [place], [address], 09/27/2023 10:49:44 09/27/19 24 09/27/2023 PT (PROT HROMB IN TIME) W INR INR 2.17 0.9-1. 1 high INR is inten ded to be used only for patie nts on stabl e oral anti- coagu lant thera py. *Ther apeut ic Range s 2.0 - 3.0 Usual Thera peuti c Range 2.5 - 3.5 For patie nts with a histo ry of multi ple deep vein throm bus or mecha nical heart valve s. Not Available [facility] (Lab Registration) [address], [place], [address], 09/27/2023 10:49:44 09/27/19 24 09/27/2023 PT (PROT HROMB IN TIME) W INR note Unles s other lazcano noted testi ng perfo rmed at: [facility] [address] [place] [address] [phone] Gilberto harrison MD CLIA: [id number] Not Available [facility] (Lab Registration) [address], [place], [address], 09/27/2023 10:49:44 10/12/19 24 10/12/2023 PT (PROT HROMB IN TIME) W INR PT (prothrombin time) 31.6 secon ds 9.1-12 .0 high Not Available [facility] (Lab Registration) [address], [place], [address], 10/12/2023 10:29:13 10/12/19 24 10/12/2023 PT (PROT HROMB IN TIME) W INR INR 3.12 0.9-1. 1 high INR is inten ded to be used only for patie nts on stabl e oral anti- coagu lant thera py. *Ther apeut ic Range s 2.0 - 3.0 Usual Thera peuti c Range 2.5 - 3.5 For patie nts with a histo ry of multi ple deep vein throm bus or mecha nical heart valve s. Not Available [facility] (Lab Registration) [address], [place], [address], 10/12/2023 10:29:13 10/12/19 24 10/12/2023 PT (PROT HROMB IN TIME) W INR note Unles s other lazcano noted testi ng perfo rmed at: [facility] [address] [place] [address] [phone] Gilberto harrison MD CLIA: [id number] Not Available [facility] (Lab Registration) [address] [place], [address], 10/12/2023 10:29:13 10/29/19 24 10/29/2023 PT (PROT HROMB IN TIME) W INR PT (prothrombin time) 33.9 secon ds 9.1-12 .0 high Not Available [facility] (Lab Registration) [address] [place], [address], 10/29/2023 08:55:43 10/29/19 24 10/29/2023 PT (PROT HROMB IN TIME) W INR INR 3.37 0.9-1. 1 high INR is inten ded to be used only for patie nts on stabl e oral anti- coagu lant thera py. *Ther apeut ic Range s 2.0 - 3.0 Usual Thera peuti c Range 2.5 - 3.5 For patie nts with a histo ry of multi ple deep vein throm bus or mecha nical heart valve s. Not Available [facility] (Lab Registration) [address] [place], [address], 10/29/2023 08:55:43 10/29/19 24 10/29/2023 PT (PROT HROMB IN TIME) W INR note Unles s other lazcano noted testi ng perfo rmed at: [facility] [address] [place] [address] [phone] Gilberto harrison MD CLIA: [id number] Not Available [facility] (Lab Registration) [address] [place], [address], 10/29/2023 08:55:43 11/11/19 24 11/11/2023 PT (PROT HROMB IN TIME) W INR PT (prothrombin time) 32.5 secon ds 9.1-12 .0 high Not Available [facility] (Lab Registration) [address] [place], [address], 11/11/2023 16:33:40 11/11/19 24 11/11/2023 PT (PROT HROMB IN TIME) W INR INR 3.22 0.9-1. 1 high INR is inten ded to be used only for patie nts on stabl e oral anti- coagu lant thera py. *Ther apeut ic Range s 2.0 - 3.0 Usual Thera peuti c Range 2.5 - 3.5 For patie nts with a histo ry of multi ple deep vein throm bus or mecha nical heart valve s. Not Available [facility] (Lab Registration) [address] [place], [address], 11/11/2023 16:33:40 11/11/19 24 11/11/2023 PT (PROT HROMB IN TIME) W INR note Unles s other lazcano noted testi ng perfo rmed at: [facility] [address] [employer] [place] [address] [phone] Gilberto harrison MD CLIA: [id number] Not Available [facility] (Lab Registration) [address] [place], [address], 11/11/2023 16:33:40 11/23/19 24 11/23/2023 PT (PROT HROMB IN TIME) W INR PT (prothrombin time) 53.8 secon ds 9.1-12 .0 high Not Available [facility] (Lab Registration) [address] [place], [address], 11/23/2023 10:26:33 11/23/19 24 11/23/2023 PT (PROT HROMB IN TIME) W INR INR 5.52 0.9-1. 1 critical high INR is inten ded to be used only for patie nts on stabl e oral anti- coagu lant thera py. *Ther apeut ic Range s 2.0 - 3.0 Usual Thera peuti c Range 2.5 - 3.5 For patie nts with a histo ry of multi ple deep vein throm bus or mecha nical heart valve s. Not Available [facility] (Lab Registration) [address], [place], [address], 11/23/2023 10:26:33 11/23/19 24 11/23/2023 PT (PROT HROMB IN TIME) W INR note Unles s other lazcano noted testi ng perfo rmed at: [facility] [address] [place], [place] [id number] [phone] Gilberto harrison MD CLIA: [id number] Not Available [facility] (Lab Registration) [address], [place], [address], 11/23/2023 10:26:33 11/23/19 24 11/23/2023 PTT (PART IAL THROM B TIME) PTT (partial thromb time) 44.6 secon ds 24.5-3 2.8 high Not Available [facility] (Lab Registration) [address], [place], [address], 11/23/2023 10:27:36 11/23/1911/23/2023 PTT (PART IAL THROM B TIME) note Unles s other lazcano noted testi ng perfo rmed at: [facility] [address] [place], [place] [id number] [phone] Gilberto harrison MD CLIA: [id number] Not Available [facility] (Lab Registration) [address], [place], [address], 11/23/2023 10:27:36 11/26/1911/26/2023 PT (PROT HROMB IN TIME) W INR PT (prothrombin time) 38.7 secon ds 9.1-12 .0 high Not Available [facility] (Lab Registration) [address], [place], [address], 11/26/2023 09:38:11 11/26/19 24 11/26/2023 PT (PROT HROMB IN TIME) W INR INR 3.88 0.9-1. 1 high INR is inten ded to be used only for patie nts on stabl e oral anti- coagu lant thera py. *Ther apeut ic Range s 2.0 - 3.0 Usual Thera peuti c Range 2.5 - 3.5 For patie nts with a histo ry of multi ple deep vein throm bus or mecha nical heart valve s. Not Available [facility] (Lab Registration) [address], [place], [address], 11/26/2023 09:38:11 11/26/19 24 11/26/2023 PT (PROT HROMB IN TIME) W INR note Unles s other lazcano noted testi ng perfo rmed at: [facility] [address] [place] [address] [phone] Gilberto harrison MD CLIA: [id number] Not Available [facility] (Lab Registration) [address] [place], [address], 11/26/2023 09:38:11 11/29/19 24 11/29/2023 PT (PROT HROMB IN TIME) W INR PT (prothrombin time) 15.9 secon ds 9.1-12 .0 high Not Available [facility] (Lab Registration) [address] [place], [address], 11/29/2023 09:34:30 11/29/19 24 11/29/2023 PT (PROT HROMB IN TIME) W INR INR 1.50 0.9-1. 1 high INR is inten ded to be used only for patie nts on stabl e oral anti- coagu lant thera py. *Ther apeut ic Range s 2.0 - 3.0 Usual Thera peuti c Range 2.5 - 3.5 For patie nts with a histo ry of multi ple deep vein throm bus or mecha nical heart valve s. Not Available [facility] (Lab Registration) [address] , [place], [address], 11/29/2023 09:34:30 11/29/19 24 11/29/2023 PT (PROT HROMB IN TIME) W INR note Unles s other lazcano noted testi ng perfo rmed at: [facility] [address] [place] [address] [phone] Gilberto harrison MD CLIA: [id number] Not Available [facility] (Lab Registration) [address], [place], [address], 11/29/2023 09:34:30 12/03/19 24 12/03/2023 PT (PROT HROMB IN TIME) W INR PT (prothrombin time) 19.2 secon ds 9.1-12 .0 high Not Available [facility] (Lab Registration) [address], [place], [address], 12/03/2023 09:40:22 12/03/19 24 12/03/2023 PT (PROT HROMB IN TIME) W INR INR 1.83 0.9-1. 1 high INR is inten ded to be used only for patie nts on stabl e oral anti- coagu lant thera py. *Ther apeut ic Range s 2.0 - 3.0 Usual Thera peuti c Range 2.5 - 3.5 For patie nts with a histo ry of multi ple deep vein throm bus or mecha nical heart valve s. Not Available [facility] (Lab Registration) [address], [place], [address], 12/03/2023 09:40:22 12/03/19 24 12/03/2023 PT (PROT HROMB IN TIME) W INR note Unles s other lazcano noted testi ng perfo rmed at: [facility] [address] [place] [address] [phone] Gilberto harrison MD CLIA: [id number] Not Available [facility] (Lab Registration) [address], [place], [address], 12/03/2023 09:40:22 12/10/19 24 12/10/2023 PT (PROT HROMB IN TIME) W INR PT (prothrombin time) 32.6 secon ds 9.1-12 .0 high Not Available [facility] (Lab Registration) [address] [place], [address], 12/10/2023 09:24:52 12/10/19 24 12/10/2023 PT (PROT HROMB IN TIME) W INR INR 3.23 0.9-1. 1 high INR is inten ded to be used only for patie nts on stabl e oral anti- coagu lant thera py. *Ther apeut ic Range s 2.0 - 3.0 Usual Thera peuti c Range 2.5 - 3.5 For patie nts with a histo ry of multi ple deep vein throm bus or mecha nical heart valve s. Not Available [facility] (Lab Registration) [address] [place], [address], 12/10/2023 09:24:52 12/10/19 24 12/10/2023 PT (PROT HROMB IN TIME) W INR note Unles s other lazcano noted testi ng perfo rmed at: [facility] [place] [address] [phone] Gilberto harrison MD CLIA: [id number] Not Available [facility] (Lab Registration) [address] , [place], [address], 12/10/2023 09:24:52 12/20/19 24 12/20/2023 PT (PROT HROMB IN TIME) W INR PT (prothrombin time) 28.7 secon ds 9.1-12 .0 high Not Available [facility] (Lab Registration) [address] [place], [address], 12/20/2023 10:04:52 12/20/19 24 12/20/2023 PT (PROT HROMB IN TIME) W INR INR 2.81 0.9-1. 1 high INR is inten ded to be used only for patie nts on stabl e oral anti- coagu lant thera py. *Ther apeut ic Range s 2.0 - 3.0 Usual Thera peuti c Range 2.5 - 3.5 For patie nts with a histo ry of multi ple deep vein throm bus or mecha nical heart valve s. Not Available [facility] (Lab Registration) [address] [place], [address], 12/20/2023 10:04:52 12/20/19 24 12/20/2023 PT (PROT HROMB IN TIME) W INR note Unles s other lazcano noted testi ng perfo rmed at: [facility] [address] [employer] [place] [address] [phone] Gilberto harrison MD CLIA: [id number] Not Available [facility] (Lab Registration) [address] [place], [address], 12/20/2023 10:04:52 01/05/20 24 01/05/2024 PT (PROT HROMB IN TIME) W INR PT (prothrombin time) 31.4 secon ds 9.1-12 .0 high Not Available [facility] (Lab Registration) [address], [place], [address], 01/05/2024 09:59:06 01/05/20 24 01/05/2024 PT (PROT HROMB IN TIME) W INR INR 3.10 0.9-1. 1 high INR is inten ded to be used only for patie nts on stabl e oral anti- coagu lant thera py. *Ther apeut ic Range s 2.0 - 3.0 Usual Thera peuti c Range 2.5 - 3.5 For patie nts with a histo ry of multi ple deep vein throm bus or mecha nical heart valve s. Not Available [facility] (Lab Registration) [address], [place], [address], 01/05/2024 09:59:06 01/05/20 24 01/05/2024 PT (PROT HROMB IN TIME) W INR note Unles s other lazcano noted testi ng perfo rmed at: [facility] [address] [place] [address] [phone] Gilberto harrison MD CLIA: [id number] Not Available [facility] (Lab Registration) [address] [place], [address], 01/05/2024 09:59:06 01/17/20 24 01/17/2024 PT (PROT HROMB IN TIME) W INR PT (prothrombin time) 28.9 secon ds 9.1-12 .0 high Not Available [facility] (Lab Registration) [address] [place], [address], 01/17/2024 10:21:50 01/17/20 24 01/17/2024 PT (PROT HROMB IN TIME) W INR INR 2.84 0.9-1. 1 high INR is inten ded to be used only for patie nts on stabl e oral anti- coagu lant thera py. *Ther apeut ic Range s 2.0 - 3.0 Usual Thera peuti c Range 2.5 - 3.5 For patie nts with a histo ry of multi ple deep vein throm bus or mecha nical heart valve s. Not Available [facility] (Lab Registration) [address] [place], [address], 01/17/2024 10:21:50 01/17/20 24 01/17/2024 PT (PROT HROMB IN TIME) W INR note Unles s other lazcano noted testi ng perfo rmed at: [facility] [address] [place] [address] [phone] Gilberto harrison MD CLIA: [id number] Not Available [facility] (Lab Registration) [address] [place], [address], 01/17/2024 10:21:50 02/02/20 24 02/02/2024 PT (PROT HROMB IN TIME) W INR PT (prothrombin time) 37.8 secon ds 9.1-12 .0 high Not Available [facility] (Lab Registration) [address] [place], [address], 02/02/2024 10:55:13 02/02/20 24 02/02/2024 PT (PROT HROMB IN TIME) W INR INR 3.79 0.9-1. 1 high INR is inten ded to be used only for patie nts on stabl e oral anti- coagu lant thera py. *Ther apeut ic Range s 2.0 - 3.0 Usual Thera peuti c Range 2.5 - 3.5 For patie nts with a histo ry of multi ple deep vein throm bus or mecha nical heart valve s. Not Available [facility] (Lab Registration) [address] [place], [address], 02/02/2024 10:55:13 02/02/20 24 02/02/2024 PT (PROT HROMB IN TIME) W INR note Unles s other lazcano noted testi ng perfo rmed at: [facility] [address] [place], [place] [address] [phone] Gilberto harrison MD CLIA: [id number] Not Available [facility] (Lab Registration) [address] [place], [address], 02/02/2024 10:55:13 02/15/20 24 02/15/2024 PT (PROT HROMB IN TIME) W INR PT (prothrombin time) 23.9 secon ds 9.1-12 .0 high Not Available [facility] (Lab Registration) [address] [place], [address], 02/15/2024 10:00:50 02/15/20 24 02/15/2024 PT (PROT HROMB IN TIME) W INR INR 2.31 0.9-1. 1 high INR is inten ded to be used only for patie nts on stabl e oral anti- coagu lant thera py. *Ther apeut ic Range s 2.0 - 3.0 Usual Thera peuti c Range 2.5 - 3.5 For patie nts with a histo ry of multi ple deep vein throm bus or mecha nical heart valve s. Not Available [facility] (Lab Registration) [address], [place], [address], 02/15/2024 10:00:50 02/15/20 24 02/15/2024 PT (PROT HROMB IN TIME) W INR note Unles s other lazcano noted testi ng perfo rmed at: [facility] [address] [place], [place] [id number] [phone] Gilberto harrison MD CLIA: [id number] Not Available [facility] (Lab Registration) [address] [place], [address], 02/15/2024 10:00:50 04/18/19 25 04/18/2024 PT (PROT HROMB IN TIME) W INR PT (prothrombin time) 16.7 secon ds 9.1-12 .0 high Not Available [facility] (Lab Registration) [address] [place], [address], 04/18/2024 10:10:09 04/18/19 25 04/18/2024 PT (PROT HROMB IN TIME) W INR INR 1.58 0.9-1. 1 high INR is inten ded to be used only for patie nts on stabl e oral anti- coagu lant thera py. *Ther apeut ic Range s 2.0 - 3.0 Usual Thera peuti c Range 2.5 - 3.5 For patie nts with a histo ry of multi ple deep vein throm bus or mecha nical heart valve s. Not Available [facility] (Lab Registration) [address], [place], [address], 04/18/2024 10:10:09 04/18/19 25 04/18/2024 PT (PROT HROMB IN TIME) W INR note Unles s other lazcano noted testi ng perfo rmed at: [facility] [address] [place] [address] [phone] Gilberto harrison MD CLIA: [id number] Not Available [facility] (Lab Registration) [address] [place], [address], 04/18/2024 10:10:09 04/29/19 25 04/28/2024 PT (PROT HROMB IN TIME) W INR PT (prothrombin time) 64.3 secon ds 9.1-12 .0 Not Available [facility] (Lab Registration) [address] [place], [address], 04/28/2024 11:18:48 04/29/19 25 04/28/2024 PT (PROT HROMB IN TIME) W INR INR 6.68 0.9-1. 1 INR is inten ded to be used only for patie nts on stabl e oral anti- coagu lant thera py. *Ther apeut ic Range s 2.0 - 3.0 Usual Thera peuti c Range 2.5 - 3.5 For patie nts with a histo ry of multi ple deep vein throm bus or mecha nical heart valve s. Not Available [facility] (Lab Registration) [address], [place], [address], 04/28/2024 11:18:48 04/29/19 25 04/28/2024 PT (PROT HROMB IN TIME) W INR note Unles s other lazcano noted testi ng perfo rmed at: [facility] [address] [place] [address] [phone] Gilberto harrison MD CLIA: [id number] Not Available [facility] (Lab Registration) [address], [place], [address], 04/28/2024 11:18:48 05/02/19 25 05/01/2024 PT (PROT HROMB IN TIME) W INR PT (prothrombin time) 21.2 secon ds 9.1-12 .0 high Not Available [facility] (Lab Registration) [address], [place], [address], 05/01/2024 12:39:09 05/02/19 25 05/01/2024 PT (PROT HROMB IN TIME) W INR INR 2.03 0.9-1. 1 high INR is inten ded to be used only for patie nts on stabl e oral anti- coagu lant thera py. *Ther apeut ic Range s 2.0 - 3.0 Usual Thera peuti c Range 2.5 - 3.5 For patie nts with a histo ry of multi ple deep vein throm bus or mecha nical heart valve s. Not Available [facility] (Lab Registration) [address], [place], [address], 05/01/2024 12:39:09 05/02/19 25 05/01/2024 PT (PROT HROMB IN TIME) W INR note Unles s other lazcano noted testi ng perfo rmed at: [facility] [address] [employer] [place] [address] [phone] Gilberto harrison MD CLIA: [id number] Not Available [facility] (Lab Registration) [address], [place], [address], 05/01/2024 12:39:09 05/06/19 25 05/05/2024 PT (PROT HROMB IN TIME) W INR PT (prothrombin time) 25.7 secon ds 9.1-12 .0 high Not Available [facility] (Lab Registration) [address], [place], [address], 05/05/2024 09:48:56 05/06/19 25 05/05/2024 PT (PROT HROMB IN TIME) W INR INR 2.51 0.9-1. 1 high INR is inten ded to be used only for patie nts on stabl e oral anti- coagu lant thera py. *Ther apeut ic Range s 2.0 - 3.0 Usual Thera peuti c Range 2.5 - 3.5 For patie nts with a histo ry of multi ple deep vein throm bus or mecha nical heart valve s. Not Available [facility] (Lab Registration) [address] [place], [address], 05/05/2024 09:48:56 05/06/19 25 05/05/2024 PT (PROT HROMB IN TIME) W INR note Unles s other lazcano noted testi ng perfo rmed at: [facility] [address] [facility] [place], [place] [address] [phone] Gilberto harrison MD CLIA: [id number] Not Available [facility] (Lab Registration) [address], [place], [address], 05/05/2024 09:48:56 05/16/19 25 05/15/2024 PT (PROT HROMB IN TIME) W INR PT (prothrombin time) 25.1 secon ds 9.1-12 .0 high Not Available [facility] (Lab Registration) [address], [place], [address], 05/15/2024 10:56:15 05/16/19 25 05/15/2024 PT (PROT HROMB IN TIME) W INR INR 2.44 0.9-1. 1 high INR is inten ded to be used only for patie nts on stabl e oral anti- coagu lant thera py. *Ther apeut ic Range s 2.0 - 3.0 Usual Thera peuti c Range 2.5 - 3.5 For patie nts with a histo ry of multi ple deep vein throm bus or mecha nical heart valve s. Not Available [facility] (Lab Registration) [address], [place], [address], 05/15/2024 10:56:15 05/16/19 25 05/15/2024 PT (PROT HROMB IN TIME) W INR note Unles s other lazcano noted testi ng perfo rmed at: [facility] [address] [place] [address] [phone] Gilberto harrison MD CLIA: [id number] Not Available [facility] (Lab Registration) [address] [place], [address], 05/15/2024 10:56:15 05/24/19 25 05/23/2024 PT (PROT HROMB IN TIME) W INR PT (prothrombin time) 33.6 secon ds 9.1-12 .0 high Not Available [facility] (Lab Registration) [address], [place], [address], 05/23/2024 08:51:45 05/24/19 25 05/23/2024 PT (PROT HROMB IN TIME) W INR INR 3.33 0.9-1. 1 high INR is inten ded to be used only for patie nts on stabl e oral anti- coagu lant thera py. *Ther apeut ic Range s 2.0 - 3.0 Usual Thera peuti c Range 2.5 - 3.5 For patie nts with a histo ry of multi ple deep vein throm bus or mecha nical heart valve s. Not Available [facility] (Lab Registration) [address], [place], [address], 05/23/2024 08:51:45 05/24/19 25 05/23/2024 PT (PROT HROMB IN TIME) W INR note Unles s other lazcano noted testi ng perfo rmed at: [facility] [address] [place] [address] [phone] Gilberto harrison MD CLIA: [id number] Not Available [facility] (Lab Registration) [address] [place] [place], [address], 05/23/2024 08:51:45 06/01/19 25 05/31/2024 PT (PROT HROMB IN TIME) W INR PT (prothrombin time) 22.9 secon ds 9.1-12 .0 high Not Available [facility] (Lab Registration) [address] [place], [address], 05/31/2024 10:10:55 06/01/19 25 05/31/2024 PT (PROT HROMB IN TIME) W INR INR 2.21 0.9-1. 1 high INR is inten ded to be used only for patie nts on stabl e oral anti- coagu lant thera py. *Ther apeut ic Range s 2.0 - 3.0 Usual Thera peuti c Range 2.5 - 3.5 For patie nts with a histo ry of multi ple deep vein throm bus or mecha nical heart valve s. Not Available [facility] (Lab Registration) [address] [place], [address], 05/31/2024 10:10:55 06/01/19 25 05/31/2024 PT (PROT HROMB IN TIME) W INR note Unles s other lazcano noted testi ng perfo rmed at: [facility] [address] [place] [address] [phone] Gilberto harrison MD CLIA: [id number] Not Available [facility] (Lab Registration) [address] [place], [address], 05/31/2024 10:10:55 06/20/19 25 06/19/2024 PT (PROT HROMB IN TIME) W INR PT (prothrombin time) 18.9 secon ds 9.1-12 .0 high Not Available [facility] (Lab Registration) [address] [place], [address], 06/19/2024 09:26:51 06/20/19 25 06/19/2024 PT (PROT HROMB IN TIME) W INR INR 1.80 0.9-1. 1 high INR is inten ded to be used only for patie nts on stabl e oral anti- coagu lant thera py. *Ther apeut ic Range s 2.0 - 3.0 Usual Thera peuti c Range 2.5 - 3.5 For patie nts with a histo ry of multi ple deep vein throm bus or mecha nical heart valve s. Not Available [facility] (Lab Registration) [address] [place], [address], 06/19/2024 09:26:51 06/20/19 25 06/19/2024 PT (PROT HROMB IN TIME) W INR note Unles s other lazcano noted testi ng perfo rmed at: [facility] [address] [place] [address] [phone] Gilberto harrison MD CLIA: [id number] Not Available [facility] (Lab Registration) [address] [place], [address], 06/19/2024 09:26:51 11/21/19 23 11/19/2022 pulmo nary funct ion test* No observ ation record ed. [id number], [address], 11/20/2022 16:30:59 09/03/19 24 09/02/2023 pulmo nary funct ion test* No observ ation record ed. [id number], [address], 09/03/2023 09:37:16 Result Notes None recorded. 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 6 11:31:55 Blood coagulation disorder 94177540 Active Charlotte Bernstein MD [address] [address], [facility] 6 11:31:55 Varicose veins of lower extremity 83113718 Active Charlotte Bernstein MD [address] [address], [facility] 6 11:31:55 Benign essential hypertension 7822979 Active Charlotte Bernstein MD [address] [address], [place] - [facility] 6 11:31:55 Nausea [id number] Lucretia Bernstein MD [address] [address], [place] - [facility] 6 11:31:55 Hyperlipidemia 66273332 Lucretia Bernstein MD [address] [address], [place] - [facility] 6 11:31:54 Pain in right lower limb [id number] Lucretia Bernstein MD [address] [address], [facility] - [facility] 6 11:31:55 Gastroesophage al reflux disease 139670131 Lucretia Bernstein MD [address] [address], [facility] 6 11:31:55 Pruritic disorder 690973545 Lucretia Bernstein MD [address] [address], [facility] - [facility] 6 11:31:55 Chronic pain syndrome 210519762 Lucretia Bernstein MD [address] [address], [facility] - [facility] 6 11:31:55 Superficial thrombophlebit is 4090638 Lucretia Bernstein MD [address] [address], [facility] 6 11:31:55 Pain in lower limb 96841734 Lucretia Bernstein MD [address] [address], [facility] 6 11:31:55 Fracture of ankle 87908171 Lucretia Bernstein MD [address] [address], [facility] 6 11:31:55 Fracture of lower limb 80674253 Lucretia Bernstein MD [address] [address], [facility] 6 11:31:55 Vertigo [id number] Lucretia Bernstein MD [address] [address], [facility] 6 11:31:55 Fatigue 11978116 Lcuretia Bernstein MD [address] [address], [facility] - [facility] 6 11:31:55 Chronic back pain 935118029 Lucretia Bernstein MD [address] [address], [facility] 6 11:31:55 Blood glucose outside reference range 338277637 Lucretia Bernstein MD [address] [address], [facility] 6 11:31:55 Lower abdominal pain 76098079 Lucretia Bernstein MD [address] [address], [facility] 6 11:31:55 Peripheral neuropathic pain 211228176 Lucretia Bernstein MD [address] [address], [facility] 6 11:31:55 Acute bronchitis 48235132 Lucretia Bernstein MD [address], [address] [place] [address], [facility] 6 22:22:11 Wheezing 01691192 Active Charlotte Bernstein MD [address] [address], [facility] 6 22:22:11 Anticoagulant therapy Active 2015 Charlotte Bernstein MD [address] [address], [facility] 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 8 21:06:57 Factor V Leiden mutation 766259189 Active Charlotte Bernstein MD [address] [address], [facility] 8 21:07:38 Problem Notes None recorded. Procedures Surgical History Date Name Laterality Status Provider Name and Address Organization Details Recorded Time 022 reconstruction using skin flap completed Charlotte Bernstein MD [address], [address] [place] [address], [facility] 08/16/2022 09:02:59 006 Bronchoscopy completed [facility] 10/03/2015 11:14:11 006 Hernia Repair completed [facility] 10/03/2015 11:12:32 996 Partial removal of colon completed [facility] 10/03/2015 11:13:31 Colonoscopy completed Charlotte Bernstein MD [address], [address] [place] [address], [facility] 09/22/2013 10:54:43 Splenectomy completed Not Available [facility] 01/06/2011 04:58:32 Cholecystectomy completed Not Available [facility] 01/06/2011 04:58:32 Appendectomy completed Not Available [facility] 01/06/2011 04:58:32 Hemorrhoidectomy completed Not Available [facility] 01/06/2011 04:58:32 Imaging Results Imaging Date Name Status LastModified by Organiz ation Details LastModified Time 11/19/2022 pulmonary function test* completed [id number] [place], [address], 11/20/2022 16:30:59 09/02/2023 pulmonary function test* completed [address] [place], [address], 09/03/2023 09:37:16 Procedure Notes None recorded. Medical Equipment None Reported. Allergies Allergen ID Allergen Name Allergen Category Reaction Reaction Severity Criticality Documentation Date Start Date Code Code System Note Provider Name and Address Organization Details Recorded Time 9383 iodine medicatio n Not available Not available Not available 04/20/2011 5933 [facility] 2 09:26:52 9384 Floxin medicatio n Not available Not available Not available 04/20/201105045 8 [facility] 2 09:26:52 9385 Reglan medicatio n Not available Not available Not available 04/20/2011 9230 RxNorm [facility] 2 09:26:52 Medications Name Sig Start [...] and Address Organization Details Last Updated DateTime 3 171.45 cm 29 kg/m2 82139.0 7 g 91 /min 99 % 99 % 97.9 [degF] 142 mm[Hg] 81 mm[Hg] [facility] 3 11:12:07 Date Recorded Body height Body mass index (BMI) Body weight Heart rate Oxygen saturation Oxygen saturation in Arterial blood by Pulse oximetry Body temperature Systolic blood pressure Diastolic blood pressure Provider Name and Address Organization Details Last Updated DateTime 4 171.45 cm 29.2 kg/m2 11775.0 6 g 90 /min 97 % 97 % 97.2 [degF] 145 mm[Hg] 83 mm[Hg] [facility] 4 10:55:04 Date Recorded Body height Body mass index (BMI) Body weight Heart rate Oxygen saturation Oxygen saturation in Arterial blood by Pulse oximetry Body temperature Systolic blood pressure Diastolic blood pressure Provider Name and Address Organization Details Last Updated DateTime 4 171.45 cm 29.8 kg/m2 37247.7 3 g 53 /min 96 % 96 % 97.9 [degF] 140 mm[Hg] 86 mm[Hg] [facility] 4 13:36:40 Date Recorded Body height Body weight Heart rate Oxygen saturation Oxygen saturation in Arterial blood by Pulse oximetry Body temperature Systolic blood pressure Diastolic blood pressure Provider Name and Address Organization Details Last Updated DateTime 4 171.45 cm 34382.3 7 g 76 /min 96 % 96 % 97 [degF] 135 mm[Hg] 67 mm[Hg] [facility] 4 09:10:36 Date Recorded Body height Body mass index (BMI) Body weight Heart rate Oxygen saturation Oxygen saturation in Arterial blood by Pulse oximetry Body temperature Systolic blood pressure Diastolic blood pressure Provider Name and Address Organization Details Last Updated DateTime 5 171.45 cm 29.3 kg/m2 17715.2 5 g 79 /min 97 % 97 % 98.1 [degF] 148 mm[Hg] 84 mm[Hg] [facility] 5 14:34:36 Social History Question Answer Notes LastModified by Organizat ion Details LastModified Time Tobacco Smoking Status Never Smoker Not Available [facility] 12/19/2019 03:11:20 Do You Have An Advance Directive? Yes [id number] Information not available 12/19/2019 What Is Your Level Of Alcohol Consumption? None [id number] Information not available 12/19/2019 Animal Exposure? No Informat ion not available 07/03/2011 Auto Related Injury? No Information not available 01/06/2011 Is Blood Transfusion Acceptable In An Emergency? Yes [id number] Information not available 12/19/2019 What Is Your Level Of Caffeine Consumption? Moderate Information not available 06/22/2020 How Much Tobacco Do You Chew? None [id number] Information not available 12/19/2019 Are You Currently Employed? Yes [id number] Information not available 12/19/2019 Diabetes No Information not available 01/06/2011 What Type Of Diet Are You Following? REGULAR [id number] Information not available 12/19/2019 Education 12 Information no t available 07/03/2011 What Is The Highest Grade Or Level Of School You Have Completed Or The Highest Degree You Have Received? [id number] Information not available 06/21/2020 What Is Your Occupation? Retired [id number] Information not available 12/19/2019 Family History Of Heart Disease? Yes 5 Information not available 01/06/2011 Which Of Your Hands Is Dominant? Right [id number] Information not available 12/19/2019 High Blood Pressure Yes 5 Information not available 01/06/2011 High Cholesterol No Informat ion not available 07/03/2011 Live Alone Or With Others? With Others Information not available 01/06/2011 Marital Status Information not available 01/06/2011 What Was The Date Of Your Most Recent Tobacco Screening? 09/02/2023 Information not available 09/02/2023 How Many Children Do You Have? 2 [id number] Information not available 12/19/2019 What Is Your Relationship Status? Information not available 06/21/2020 Do You Use Your Seat Belt Or Car Seat Routinely? Yes [id number] Information not available 12/19/2019 Seat Belts Used Routinely Yes 5 Information not available 01/06/2011 Smoke Alarm In Home Yes Information not available 07/03/2011 General Stress Level Low Information not available 07/03/2011 Do You Use Any Illicit Or Recreational Drugs? No Information not available 06/21/2020 Do You Use Sunscreen Routinely? Yes [id number] Information not available 12/19/2019 Do You Or Have You Ever Used Any Other Forms Of Tobacco Or Nicotine? No Information not available 06/21/2020 Sex: Unknown Functional Status Question Answer Note LastModified by Organization D etails LastModified Time Are you able to care for yourself? Yes [id number] Information n ot available 12/19/2019 What is your exercise level? None [id number] Information not available 12/19/2019 Mental Status None recorded. Family History Relationship Description Onset Age of this Age Resolved Age Notes LastModified by Organization Details LastModified Time Father Myocardial infarction 70 previo usly record ed as Heart Attack ([place]) Not available 09/09/2015 11:37:58 Mother Problem 70 porphy alex (previ ously record ed as Other) Not available 09/09/2015 11:37:58 Medical History Condition Response Coronary Artery Disease N Gout N Kidney Stones Y Blood Diseases N Hyperthyroidism N Depression N COPD N Hypothyroidism N Developmental or Behavioral Disorders N Eczema, [...] N Seizures/Epilepsy N Tuberculosis N Diverticulitis N Asthma N Allergies N GERD/Reflux N Heart Disease N Pulmonary Embolism N Hypertension Y Chicken Pox N Osteoporosis N Immunizations Vaccine Type Date Status Note Provider Nam e and Address Organization Details Recorded Time Pneumococcal conjugate PCV 13 7 completed Not Available [facility] 03/11/2019 02:12:07 Influenza, high-dose, quadrivalent, PF 0 completed Charlotte Bernstein MD [address] [facility], [address], [place], [address], [facility] 11/27/2019 10:26:48 Influenza, high-dose, trivalent, PF 4 completed [facility] 01/29/2014 14:30:01 pneumococcal polysaccharide PPV23 4 completed [facility] 01/29/2014 14:30:56 pneumococcal polysaccharide PPV23 3 completed Charlotte Bernstein MD [address] [address], [place], [place], [address] [place] [address], [facility] 05/15/2014 16:10:57 Td (adult) 0 completed Charlotte Bernstein MD [address] [address], [place], [place], [address] [place] [address], [facility] 10/22/2014 10:31:23 Tdap 5 completed [facility] 10/22/2014 10:32:08 COVID-19, mRNA, LNP-S, bivalent, PF, 30 mcg/0.3 mL dose 3 completed [facility] 01/21/2023 10:41:33 COVID-19, mRNA, LNP-S, PF, zan-sucrose, 30 mcg/0.3 mL 4 completed Charlotte Bernstein MD [address] [address], [place], [place], [address] [place] [address], [facility] 02/03/2024 22:26:29 COVID-19, mRNA, LNP-S, PF, 100 mcg/0.5mL dose or 50 mcg/0.25mL dose 1 completed Charlotte Bernstein MD [address] [address], [place], [address] [place] [address], [facility] 06/20/2020 11:21:45 COVID-19, mRNA, LNP-S, PF, 100 mcg/0.5mL dose or 50 mcg/0.25mL dose 1 completed Charlotte Bernstein MD [address], [address] [place] [address], [facility] 06/20/2020 11:22:01 COVID-19, mRNA, LNP-S, PF, 100 mcg/0.5mL dose or 50 mcg/0.25mL dose completed [facility] 06/24/2021 10:11:33 Past Encounters Encounter ID Performer Location Encounter Start Date Encounter Closed Date Diagnosis/Indication Diagnosis SNOMED-CT Code Diagnosis ICD10 Code Diagnosis Note [id number] Guanaco Coronel MD [facility] [address] [id number] 7 11/14/2010 08:56:10 11/14/2010 14:04:31 [id number] Guanaco Coronel MD [address] [id number] 7 12/26/2010 09:12:00 12/29/2010 15:06:22 [id number] Guanaco Coronel MD [address] [facility] [id number] 7 01/30/2011 10:22:00 01/30/2011 16:22:47 [id number] Guanaco Coronle MD [address] [facility] [id number] 7 04/20/2011 08:45:04 04/20/2011 17:20:05 [id number] Guanaco Coronel MD [address] [id number] 7 07/03/2011 08:53:58 07/03/2011 10:39:22 [id number] Guanaco Coronel MD [address] [facility] [id number] 7 09/03/2011 08:46:31 09/03/2011 17:07:52 [id number] Guanaco Coronel MD [address] [facility] [id number] 7 10/29/2011 11:49:47 10/29/2011 18:02:36 [id number] Guanaco Coronel MD [address] [id number] 7 01/28/2012 09:01:43 01/28/2012 16:00:13 [id number] Guanaco Coronel MD [address] [address] 7 05/18/2012 08:30:31 05/18/2012 11:53:00 [id number] Guanaco Coronel MD [facility] [address] [id number] 7 08/31/2012 09:03:57 08/31/2012 12:21:19 [id number] Charlotte Bernstein MD [facility] [address] [id number] 7 11/04/2012 08:02:46 11/04/2012 10:47:10 [id number] Charlotte Bernstein MD [facility] [address] [id number] 7 02/03/2013 09:01:00 02/03/2013 10:06:39 Varicose veins of lower extremity 05316106 Blood coag ulation disorder 37118179 Benign ess ential hypertension 1422312 Disorder o f porphyrin metabolism 49490231 Pain in ri ght lower limb 391259261 [id number] Charlotte Bernstein MD [facility] [address] [id number] 7 04/11/2013 15:03:10 04/11/2013 17:38:45 Benign essential hypertension 3939998 Blood coag ulation disorder 02410642 Disorder o f porphyrin metabolism 86466276 Varicose v eins of lower extremity 82069955 Pruritic disorder 790685782 Chronic pain syndrome 122693553 [id number] Charlotte Bernstein MD [facility] [address] [address] 7 09/22/2013 10:28:11 09/22/2013 14:12:28 Chronic pain syndrome 404814151 Disorder o f porphyrin metabolism 81621385 Blood coag ulation disorder 51325711 Benign ess ential hypertension 3250490 Adult heal th examination 664356315 Hyperlipidemia 06666104 Pruritic disorder 653827608 Screening for cancer 46152475 [id number] Charlotte Bernstein MD [facility] [address] [id number] 7 12/11/2013 09:46:50 12/15/2013 15:18:12 Benign essential hypertension 3378485 Chronic pain syndrome 973609900 Nausea 797424631 Pruritic disorder 927241852 [id number] Charlotte Bernstein MD [facility] [address] [place] [address]818 7 02/13/2014 09:49:33 02/13/2014 12:17:19 Superficial thrombophlebitis 9998325 Benign ess ential hypertension 6947671 Anticoagulant therapy 063481142 Chronic pain syndrome 182142062 Pain in ri ght lower limb 392488263 [id number] Charlotte Bernstein MD [facility] [address] [id number] 7 05/15/2014 14:33:58 05/15/2014 16:33:37 Anticoagulant therapy 792395716 Benign ess ential hypertension 3860192 Chronic pain syndrome 014204694 Disorder o f porphyrin metabolism 47228779 Hyperlipidemia 58252713 [id number] Charlotte Bernstein MD [facility] [address] [address] 7 07/20/2014 09:50:46 07/20/2014 12:10:37 Fracture of lower limb 12511330 Benign ess ential hypertension 8182939 Anticoagulant therapy 569072943 Chronic pain syndrome 154249340 Superficia l thrombophlebitis 5668568 [id number] Charlotte Bernstein MD [address] [address] 7 10/22/2014 09:09:36 10/22/2014 13:37:38 Adult health examination 619442588 Anticoagulant therapy 668436611 Blood coag ulation disorder 65502901 Chronic pain syndrome 201333237 Disorder o f porphyrin metabolism 41768277 Gastroesop hageal reflux disease 587704384 Hyperlipidemia 23097796 Superficia l thrombophlebitis 3035785 Vertigo 574630105 Screening for cancer 93219626 Fatigue 96204961 Benign ess ential hypertension 8822648 [id number] Charlotte Bernstein MD [facility] [address] [id number] 7 01/01/2015 09:07:45 01/01/2015 15:31:07 Chronic back pain 654341688 R52 Anticoagulant therapy 18 3812172 Z79.01 Blood gluc ose outside reference range 926757406 R73.09 Gastroesop hageal reflux disease 666411092 K21.9 Lower abdominal pain 545 84439 R10.30 [id number] Charlotte Bernstein MD [facility] [address] [id number] 7 03/04/2015 14:33:23 03/04/2015 17:11:45 Peripheral neuropathic pain 219257151 M79.2 Anticoagulant therapy 18 9026448 Z79.01 Disorder o f porphyrin metabolism 27147061 E80.20 Fatigue 19306727 R53.83 Pruritic disorder 065322 002 L29.9 Chronic pain syndrome 37 2701930 G89.4 Nausea 453658286 R11.0 [id number] Charlotte Bernstein MD [facility] [address] [id number] 7 05/10/2015 09:17:32 05/10/2015 14:30:15 Benign essential hypertension 3389099 I10 Disorder o f porphyrin metabolism 20015188 E80.20 Anticoagulant therapy 18 1438130 Z79.01 Chronic back pain 618272 002 R52 Depression screening 171 017779 Z13.89 [id number] Charlotte Bernstein MD [facility] [address] [address] 7 08/23/2015 10:22:00 08/23/2015 17:02:06 Anticoagulant therapy 818265603 Z79.01 Blood coag ulation disorder 94407889 D68.9 Chronic pain syndrome 37 1333121 G89.4 Disorder o f porphyrin metabolism 07761259 E80.1 [id number] Charlotte Bernstein MD [address] 933[address]61-116 7 09/09/2015 10:38:33 09/10/2015 08:02:42 Acute bronchitis 38771550 J20.9 Wheezing 72928964 R06.2 Anticoagulant therapy 18 6039195 Z79.01 [id number] Charlotte Bernstein MD [facility] [address] [address] 7 10/03/2015 10:32:36 10/04/2015 07:50:04 Dizziness 717311551 R42 Recurrent falls 17136610 2 R29.6 Pain in lower limb 09490 006 M79.605 Lower resp iratory tract infection 75835443 J22 Deep venou s thrombosis of lower extremity 113534891 I82.401 I82.539 [id number] Charlotte Bernstein MD [facility] [address] [id number] 7 11/19/2015 11:06:01 11/19/2015 14:28:37 Abdominal pain 38841867 R10.9 Colitis 10526023 K52.9 Anticoagulant therapy 18 3715650 Z79.01 Nausea, vo miting and diarrhea 6140972 R11.2 Chronic pain syndrome 37 1831960 G89.4 Benign ess ential hypertension 4215852 I10 Disorder o f porphyrin metabolism 66966797 E80.1 [id number] Charlotte Bernstein MD [facility] [address] [address] 7 11/26/2015 10:56:25 11/26/2015 13:43:15 Disorder of porphyrin metabolism 40116753 E80.1 Anticoagulant therapy 18 1850886 Z79.01 Chronic constipation 236 650886 K59.00 Chronic ab dominal pain 801533357 R10.9 [id number] Charlotte Bernstein MD [facility] [address] [address] 7 01/21/2016 14:37:25 01/23/2016 09:01:06 Adult health examination 610749718 Z00.00 Disorder o f porphyrin metabolism 43384511 E80.1 Anticoagulant therapy 18 1520733 Z79.01 Benign ess ential hypertension 7402071 I10 Chronic pain syndrome 37 7360833 G89.4 Hyperlipidemia 28216884 E78.5 Varicose v eins of lower extremity 55383633 I83.893 Body mass index 30+ - obesity 109107865 Z68.30 [id number] Charlotte Bernstein MD [facility] [address] [address] 7 06/18/2016 10:15:20 06/23/2016 08:37:43 Disorder of porphyrin metabolism 74552641 E80.1 Chronic pain syndrome 37 1433431 G89.4 Superficia l thrombophlebitis 5967334 I80.9 Essential hypertension 14887905 I10 Hyperlipidemia 85468542 E78.5 [id number] Charlotte Bernstein MD [facility] [address] [address] 7 09/10/2016 10:14:49 09/10/2016 15:03:32 Dizziness 686577397 R42 Essential hypertension 34128084 I10 Anticoagulant therapy 18 8087554 Z79.01 Chronic pain syndrome 37 9217256 G89.4 [id number] Charlotte Bernstein MD [facility] [address] [place] [address] 7 02/01/2017 09:39:25 02/02/2017 08:40:44 Chronic pain syndrome 139201244 G89.4 Adult heal th examination 662082668 Z00.01 Cervical radiculopathy 50640851 M54.12 Active or passive immunization 756887300 Z23 Anticoagulant therapy 18 0681128 Z79.01 Benign ess ential hypertension 1632202 I10 Chronic back pain 777866 002 R52 Gastroesop hageal reflux disease 115412807 K21.9 Superficia l thrombophlebitis 9285303 I80.9 Peripheral neuropathic pain 715273841 M79.2 Disorder o f porphyrin metabolism 93004489 E80.1 Hyperlipidemia 47743021 E78.5 Varicose v eins of lower extremity 05141661 I83.893 Fatigue 19717908 R53.83 Body mass index 30+ - obesity 292352177 Z68.30 Depression screening 171 057824 Z13.89 [id number] Charlotte Bernstein MD [facility] [address] [place] [address]224 7 07/29/2017 09:07:06 08/03/2017 15:00:34 Body mass index 30+ - obesity 866339240 Z68.30 Nausea 885035232 R11.0 Chronic pain syndrome 37 6340224 G89.4 Anticoagulant therapy 18 9900564 Z79.01 Benign ess ential hypertension 8759376 I10 Chronic back pain 731835 002 R52 Gastroesop hageal reflux disease 896267257 K21.9 Superficia l thrombophlebitis 7844757 I80.9 Peripheral neuropathic pain 276955209 M79.2 Disorder o f porphyrin metabolism 22465590 E80.1 Hyperlipidemia 42554980 E78.5 Varicose v eins of lower extremity 61858316 I83.893 Fatigue 72485462 R53.83 [id number] Charlotte Bernstein MD [facility] [address] [place] [address] [place] [address] 7 11/01/2017 09:11:08 11/03/2017 08:58:41 Chronic headache disorder 415053599 G43.719 Anticoagulant therapy 18 6313170 Z79.01 Body mass index 30+ - obesity 051031654 Z68.30 [id number] Charlotte Bernstein MD [facility] [address] [address] 7 02/04/2018 09:00:23 02/07/2018 15:05:07 Adult health examination 076509834 Z00.01 Peripheral neuropathic pain 140341476 M79.2 Pruritic disorder 349261 002 L29.9 Viral screening 07851429 4 Z11.59 Blood gluc ose outside reference range 685282757 R73.09 Anticoagulant therapy 18 8373037 Z79.01 Impacted c erumen in right ear 4713833017 505724 H61.21 Chronic pain syndrome 37 0600675 G89.4 Benign ess ential hypertension 4813732 I10 Chronic back pain 852210 002 R52 Gastroesop hageal reflux disease 868817906 K21.9 Superficia l thrombophlebitis 6683765 I80.9 Disorder o f porphyrin metabolism 39587714 E80.1 Hyperlipidemia 68683338 E78.5 Varicose v eins of lower extremity 64518051 I83.893 Fatigue 97227803 R53.83 Body mass index 30+ - obesity 216868683 Z68.30 Depression screening 171 314286 Z13.89 [id number] Charlotte Bernstein MD [facility] [address] [address] 7 06/09/2018 09:07:06 06/10/2018 08:22:52 Seasonal allergic rhinitis 680006988 J30.2 Nausea 335683337 R11.0 Headache 17821368 R51 Disorder o f porphyrin metabolism 55817556 E80.1 Anticoagulant therapy 18 4599663 Z79.01 [id number] Charlotte Bernstein MD [facility] [address] [address] 7 10/07/2018 09:45:21 10/07/2018 13:29:22 Disorder of porphyrin metabolism 30917952 E80.1 Headache 30960769 R51 Seasonal allergy 2165454 04 J30.2 Anticoagulant therapy 18 1540417 Z79.01 [id number] Charlotte Bernstein MD [facility] [address] [place] [address] 7 02/10/2019 08:42:16 02/13/2019 08:55:02 Adult health examination 239478213 Z00.01 Peripheral neuropathic pain 128718535 M79.2 Pruritic disorder 762689 002 L29.9 Viral screening 98260037 4 Z11.59 Blood gluc ose outside reference range 044720529 R73.09 Anticoagulant therapy 18 1966092 Z79.01 Chronic pain syndrome 37 9923777 G89.4 Benign ess ential hypertension 6103845 I10 Chronic back pain 331927 002 R52 Gastroesop hageal reflux disease 568805013 K21.9 Superficia l thrombophlebitis 4090346 I80.9 Disorder o f porphyrin metabolism 78444318 E80.1 Hyperlipidemia 81197014 E78.5 Varicose v eins of lower extremity 90567471 I83.893 Fatigue 43516957 R53.83 Body mass index 30+ - obesity 502230344 Z68.30 Depression screening 171 562174 Z13.89 Influenza vaccination declined 247933382 Z28.21 [id number] Charlotte Bernstein MD [facility] [address] [address] 7 08/28/2019 11:03:17 08/29/2019 08:06:53 Superficial thrombophlebitis 2996144 I80.9 Pain of mu ltiple joints 26680300 M25.50 Chronic pain syndrome 37 8212578 G89.4 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 0495024628 94227 G56.01 Long-term current use of anticoagulant 369269213 Z79.01 [id number] Charlotte Bernstein MD [facility] [address] [address] 7 11/27/2019 09:02:51 11/27/2019 17:09:03 Superficial thrombophlebitis 7738181 I80.9 Pain of mu ltiple joints 66571511 M25.50 Chronic pain syndrome 37 6123824 G89.4 Long-term current use of anticoagulant 010954158 Z79.01 Essential hypertension 44064836 I10 Administra tion of influenza vaccine 03452798 Z23 [id number] Charlotte Bernstein MD [facility] [address] [place] [address]-161 7 03/18/2020 10:20:39 03/19/2020 08:12:26 Essential hypertension 28058944 I10 Disorder o f porphyrin metabolism 04786872 E80.1 Hyperlipidemia 69629741 E78.5 Long-term current use of anticoagulant 700013838 Z79.01 Gastroesop hageal reflux disease 893682149 K21.9 Screening for malignant neoplasm of prostate 083521463 Z12.5 Fatigue 36432025 R53.83 [id number] Charlotte Bernstein MD [facility] [address] [address] 7 06/20/2020 10:13:35 06/24/2020 08:45:39 Essential hypertension 67901975 I10 Eczema 16722621 L30.9 Adult heal th examination 682411777 Z00.01 Peripheral neuropathic pain 090576178 M79.2 Pruritic disorder 375821 002 L29.9 Anticoagulant therapy 18 5476165 Z79.01 Chronic pain syndrome 37 3519777 G89.4 Benign ess ential hypertension 8267999 I10 Chronic back pain 950174 002 R52 Gastroesop hageal reflux disease 882751344 K21.9 Superficia l thrombophlebitis 3852084 I80.9 Disorder o f porphyrin metabolism 08014639 E80.1 Hyperlipidemia 55842463 E78.5 Varicose v eins of lower extremity 10206353 I83.893 Fatigue 86269266 R53.83 Depression screening 171 220526 Z13.89 Body mass index 25-29 - overweight 206621574 Z68.29 Screening for disorder 607610473 Z13.9 Timed up and go is 5 seconds Colon canc er screening declined 9803268336 9109 Z53.20 [id number] Charlotte Bernstein MD [facility] [address] [place] [address]23-437 7 10/08/2020 09:47:10 10/09/2020 17:51:20 Long-term current use of anticoagulant 695211403 Z79.01 Disorder o f porphyrin metabolism 32435758 E80.1 Chest wall pain 50053252 6 R07.89 [id number] Charlotte Bernstein MD [facility] [address] [address] 7 01/09/2021 14:12:41 01/13/2021 08:15:30 Syncope and collapse 287395952 R55 Anticoagulant therapy 18 5745571 Z79.01 he will stop coumadin 2 days Warfarin overdosage 4754 6008 T45.514A Essential hypertension 77895023 I10 Gastroesop hageal reflux disease 147502104 K21.9 Chronic pain syndrome 37 8019836 G89.4 Disorder o f porphyrin metabolism 69473642 E80.1 [id number] Charlotte Bernstein MD [facility] [address] [address] 7 06/24/2021 09:39:31 07/01/2021 08:38:50 Adult health examination 281064597 Z00.01 Essential hypertension 36384196 I10 Eczema 14627908 L30.9 Peripheral neuropathic pain 846091801 M79.2 Pruritic disorder 516201 002 L29.9 Anticoagulant therapy 18 1072042 Z79.01 Chronic pain syndrome 37 4298032 G89.4 Benign ess ential hypertension 5510271 I10 Chronic back pain 735375 002 R52 Gastroesop hageal reflux disease 004474890 K21.9 Superficia l thrombophlebitis 9494308 I80.9 Disorder o f porphyrin metabolism 78873676 E80.1 Hyperlipidemia 28431116 E78.5 Varicose v eins of lower extremity 80250106 I83.893 Fatigue 11599748 R53.83 Depression screening 171 153312 Z13.89 Screening for disorder 517059784 Z13.9 Timed up and go is 5 seconds Colon canc er screening declined 8395409436 9109 Z53.20 Neoplasm o f uncertain behavior of skin 08669802 D48.5 Asthma 571438107 J45.90 9 Chest wall pain 32276864 6 R07.89 Body mass index 30+ - obesity 321613451 Z68.31 Colonoscopy declined 989 8665126 15088 Z53.20 [id number] Charlotte Bernstein MD [facility] [address] [address] 7 10/03/2021 10:06:56 10/07/2021 08:01:20 Anticoagulant therapy 914111610 Z79.01 Disorder o f vitamin B12 686357153 E53.8 Hyperlipidemia 54586938 E78.5 Fatigue 81879197 R53.83 [id number] Charlotte Bernstein MD [facility] [address] [place] [address]518 7 01/05/2022 13:50:42 01/06/2022 09:19:25 Gastroesophageal reflux disease 357740692 K21.9 Disorder o f vitamin B12 605655392 E53.8 History of malignant basal cell neoplasm of skin 748505780 Z85.828 [id number] Charlotte Bernstein MD [facility] [address] [place] [address] 7 05/05/2022 10:53:20 05/07/2022 11:19:12 Thrombophlebitis of superficial veins of lower extremity 79535501 I80.299 right medial foot and anklt with broken veins that are inflamed and a little warm and pink. Long-term current use of anticoagulant 348698685 Z79.01 [id number] Charlotte Bernstein MD [facility] [address] [place] [address]183-981 7 08/13/2022 08:41:50 08/17/2022 08:41:15 Adult health examination 195886967 Z00.01 Essential hypertension 79764909 I10 Eczema 08124628 L30.9 Peripheral neuropathic pain 262379886 M79.2 Pruritic disorder 962096 002 L29.9 Anticoagulant therapy 18 5939291 Z79.01 Chronic pain syndrome 37 1193229 G89.4 Benign ess ential hypertension 8369598 I10 Chronic back pain 130459 002 R52 Gastroesop hageal reflux disease 909237210 K21.9 Superficia l thrombophlebitis 4018952 I80.9 Disorder o f porphyrin metabolism 22938964 E80.1 Hyperlipidemia 06762034 E78.5 Varicose v eins of lower extremity 24232277 I83.893 Fatigue 86436872 R53.83 Depression screening 171 972980 Z13.89 Screening for disorder 390009256 Z13.9 Timed up and go is 5 seconds Colon [facility] er screening declined 3587849947 9109 Z53.20 Asthma 597209317 J45.20 Chest wall pain 04207014 6 R07.89 Colonoscopy declined 816 5499003 76008 Z53.20 Screening for cardiovascular system disease 820162440 Z13.6 Taking hig h risk medication 5064464009 45895 Z91.89 Body mass index 25-29 - overweight 848720091 Z68.29 [id number] Charlotte Bernstein MD [facility] [address] [place] [address]508 7 11/19/2022 10:39:15 11/20/2022 09:09:18 Chronic constipation 079319582 K59.00 Wheezing 42216561 R06.2 Disorder o f porphyrin metabolism 42266535 E80.1 Long-term current use of anticoagulant 142151807 Z79.01 Disorder o f vitamin B12 700275733 E53.8 Colon canc er screening declined [id number] 9109 Z53.20 [id number] Charlotte Bernstein MD [facility] [address] [place] [phone] 7 04/02/2023 10:25:14 04/05/2023 08:25:21 Vitamin B12 deficiency (non anemic) 67600844 E53.8 Rhinitis 65428737 J00 Essential hypertension 13098189 I10 Abdominal pain 79591993 R10.9 Prediabetes 885146635 R7 3.03 Lipoma of skin 422241224 D17.30 Factor V L eiden mutation 608456913 D68.51 Anticoagulant therapy 18 4448554 Z79.01 Chronic pain syndrome 37 1319101 G89.4 Disorder o f porphyrin metabolism 65823674 E80.1 [id number] Charlotte Bernstein MD [facility] [address] [place] [address] 74218-468 7 09/02/2023 13:31:41 09/03/2023 08:25:19 Vitamin B12 deficiency (non anemic) 97244587 E53.8 Nausea 525616588 R11.0 Adult heal th examination 323046533 Z00.01 Essential hypertension 22676663 I10 Eczema 54206896 L30.9 Peripheral neuropathic pain 544846310 M79.2 Pruritic disorder 749897 002 L29.9 Anticoagulant therapy 18 4953114 Z79.01 Chronic pain syndrome 37 2938872 G89.4 Benign ess ential hypertension 0149254 I10 Chronic back pain 907831 002 R52 Gastroesop hageal reflux disease 648566337 K21.9 Disorder o f porphyrin metabolism 08317139 E80.1 Hyperlipidemia 37422154 E78.5 Varicose v eins of lower extremity 44842433 I83.893 Fatigue 90055119 R53.83 Depression screening 171 317886 Z13.89 Screening for disorder 541153127 Z13.9 Timed up and go is 5 seconds Colon canc er screening declined 1520856868 9109 Z53.20 Asthma 594863359 J45.20 Chest wall pain 59121109 6 R07.89 Colonoscopy declined 764 8050991 56870 Z53.20 Screening for cardiovascular system disease 539908637 Z13.6 Taking hig h risk medication 8092364900 43442 Z91.89 Body mass index 25-29 - overweight 024514810 Z68.29 Lung funct ion restrictive 652543060 R94.2 Chronic ob structive pulmonary disease 81208081 J44.9 Blood gluc ose outside reference range 145982198 R73.09 [id number] Charlotte Bernstein MD [facility] [address] [address] 7 02/03/2024 08:41:28 02/04/2024 10:16:58 Active or passive immunization 655690080 Z23 Disorder o f porphyrin metabolism 42111680 E80.1 Multiple a ctinic keratoses 563924132 L57.0 Requires l ifelong warfarin therapy 631781043 Z79.01 recheck INR on 02/13 Body mass index 25-29 - overweight 273732696 Z68.29 Charlotte Bernstein MD [facility] [address] [address] 7 06/12/2024 14:12:51 06/12/2024 16:02:01 Asthma 844777797 J45.20 Disorder o f porphyrin metabolism 64310644 E80.1 Requires l ifelong warfarin therapy 425904294 Z79.01 recheck INR on 02/13 Body mass index 25-29 - overweight 559360387 Z68.29 Health Concerns Section Related Observation LastModified by Organization Detai ls LastModified Time None Recorded Concern Status LastModified by Organization Details LastModified Time None Recorded Advance Directives Directive Y: Payers Encounter Date Sequence Insurance Name Policy Number Policy [place] Covered Member ID [place] Member ID Guarantor Name 11/19/2022 1 [place] Vianey Flores [id number] Vianey Gibsony 11/19/2022 2 [employer] - CHOICE (POS II) [id number] Vianey Gibsony [id number] Vianey Gibsony 04/02/2023 1 [place] Vianey Gibsony [id number] Vianey Gibsony 04/02/2023 2 [employer] - CHOICE (POS II) [id number] Vianey Gibsony [id number] Vianey Gibsony 09/02/2023 2 [place] Vianey Mahoneyarty [id number] Vianey Gibsony 09/02/2023 1 [place] Vianey Gibsony [id number] Vianey Gibsony 02/03/2024 2 [place] Vianey Mahoneyarty [id number] Vianey Cohen Flores 02/03/2024 1 [place] Vianey Gibsony [id number] Vianey Gibsony 06/12/2024 2 [facility] [place] ([place] SUPPLEMENT) Vianey Mahoneyarty [id number] Vianey Cohen Flores 06/12/2024 1 [place] Vianey Gibsony [id number] Vianey Flores Notes Date Note Type Note Provider Name and Address Organization Details Recorded Time 11/19/2022 text/html plans on the cov id booster but had bad reaction to flu vac in 2019 so will not take anymore flu vaccines.Does use his inhaler sometimes but overall has no significant shortness of breath. 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 He is followed by pain management and is taking regular opioids. Subsequently he has constipation issues. Miralax has helped before and will be ordered. Charlotte Bernstein MD [address] [place], [place] [address], [address], [facility] 11/20/2022 08:15:25 04/02/2023 text/html has a knot on le ft side of neck for a couple of weeks and it is uncomfortable around the neck. He is a chronic pain patient and takes opiates regularly. The last 3 weeks have been difficult and most of what he eats make him feel bad.Has a little sore he feels inside right nostril laterallyJust feeling really sick lately with night sweats recently.The mass on left side of neck is about 2 cm soft and most c/w a lipoma.Taking miralax but just feels bad all the time from chronic constipation and states his chronic abdominal pain seems worse. He declines colonoscopy because of having to temporarily stop the coumadin. Charlotte Bernstein MD [address], [address], [facility] 04/04/2023 01:17:08 02/03/2024 text/html He is not eating much and only drinks pepsi or sprite and sometimes V8 juice. States water makes him sick Also drinks some gatorade. Difficult blood draw and have to do on the left wrist usually.He has had a sore throat but that is better.Needs the covid booster Charlotte Bernstein MD [address], [address], [facility] 02/04/2024 06:01:31 06/12/2024 text/html he is stable exc ept having night sweats at night; INR us staying therapeutic now on the 2.5 mg coumadin daily.He had a lot of cryotherapy on face and the ears especially are still sore and healing more slowly. We have suggested topical vaseline. They are benign. Charlotte Bernstein MD [address] [address], [place], [address], [facility] 06/12/2024 15:25:48
--- NOTE | 2024-06-22 15:17 | EXP.PAIN.SOA ---
[facility] Disclaimer: The information contained in this section may have been updated after the patient was seen, as this information can be updated by other users. Medical History Blood disorder HTN (hypertension) GERD (gastroesophageal reflux disease) Surgical History History of facial surgery Family History Other Unknown family medical history Social History Smoking Status: Never smoker alcohol intake: never substance use type: denies use current occupational status: other Travel in the last 8 weeks?: None PM Subjective & Objective Subjective Subjective:: Patient is a pleasant 73-year-old male who presents today for medication refill and follow-up. Today he rates his pain a 9 out of 10. Patient does state that he continues to have issues with his blood thinner and they still are out of range. Patient does also state he recently had an episode of abdominal pain Wednesday that was severe. Patient is currently managed with oxycodone 5 mg 6 times a day from our office. Patient does also use MiraLAX and laxatives to help with the abdominal cramping. Patient does have a longstanding history of colon issues. His Kevin has been reviewed and is appropriate. Review of Systems: General: No recent weight changes, no fever, no sleep disturbances Respiratory: No cough, no shortness of air, no recurring pulmonary infections Cardiovascular/peripheral vascular: No chest pain, no palpitations, no edema, no shortness of breath Gastrointestinal: No new onset incontinence, normal bowel movements reported Genitourinary: No new onset incontinence Musculoskeletal: Abdominal pain Psychiatric: [Normal mood/affect] Neurological: [Denies weakness in extremities], [denies balance issues] Pain at rest (0-10 scale): 9 Objective Objective:: Physical Exam: General: Alert and oriented x3, no acute distress, pleasant and cooperative Lungs: Respirations even and unlabored, symmetrical chest expansion Eyes: PERRL Musculoskeletal: Flexion and extension of lumbar [spine] somewhat guarded secondary to pain, [antalgic gait noted] Neurological: Speech clear, no gross sensory deficit Has patient had previous pain injection?: No Conservative treatment options previously tried: Prescription medications Length of treatment: Longer than 12 weeks Meds Home Medications and Allergies Home Medications ?Medication ?Instructions ?Recorded ?Confirmed ?Type isosorbide mononitrate 120 mg 30 mg PO DAILY Hypertension 07/12/17 05/25/24 History tablet,extended release 24 hr amlodipine 10 mg tablet 2.5 mg PO DAILY Hypertension 12/04/19 05/25/24 History famotidine 20 mg tablet 20 mg PO BID GERD 01/10/21 05/25/24 History hydroxyzine HCl 25 mg tablet 25 mg PO QID itching 01/10/21 05/25/24 History lisinopril 20 1 tab PO DAILY blood pressure 01/10/21 05/25/24 History mg-hydrochlorothiazide 12.5 mg tablet warfarin 5 mg tablet 5 mg PO DAILY DVT prophylaxis 01/10/21 05/25/24 History gabapentin 300 mg capsule 300 mg PO TID pain 05/08/21 05/25/24 History lidocaine 5 % topical patch 1 each TP Q24H Pain 05/23/21 05/25/24 History pantoprazole 40 mg tablet,delayed 40 mg PO DAILY STOMACH 01/13/22 05/25/24 History release oxycodone 5 mg tablet 5 mg PO Q4H PRN pain #180 tabs 05/25/24 Rx New Prescriptions to Start Prescriptions: Allergies Allergy/AdvReac Type Severity Reaction Status Date / Time iodine (IODINE) Allergy Unknown UNKNOWN Verified 07/26/23 10:42 metoclopramide (From REGLAN) Allergy Unknown UNKNOWN Verified 07/26/23 10:42 ofloxacin (From FLOXIN) Allergy Unknown UNKNOWN Verified 07/26/23 10:42 Assessment and Plan *Assessment and plan (1) Lumbar radiculopathy: Status: Acute Category: Medical Code(s): M54.16 - Radiculopathy, lumbar region (2) Chronic abdominal pain: Status: Acute Category: Medical Code(s): R10.9 - Unspecified abdominal pain; G89.29 - Other chronic pain (3) Degenerative disc disease, lumbar: Status: Acute Category: Medical Code(s): M51.369 - Other intervertebral disc degeneration, lumbar region without mention of lumbar back pain or lower extremity pain Plan I will refill the patient's oxycodone and provide a 1 month supply of this medication. I did also discuss with the patient that I will send in a prescription of Movantik to help with the constipation related to opioids. Patient will return to clinic in 1 month for reevaluation of symptoms and plan of care. Risks and benefits of the medication have been explained in detail to the patient. The patient does understand the risk of dependence on the medication when given over a prolonged period. Patient has been advised of risks of oversedation with the prescribed medication. Narcan has been offered to the paitent in the event of oversedation. Patient has been advised that a family member should also be educated regarding administration of Narcan. The patient has been advised to consult with his/her primary care provider and pharmacist regarding drug-drug interaction of medications currently prescribed. Patient has been prescribed a controlled substance after being counseled on the medication, medication safety, and possible side effects. Opioid contract was reviewed and signed by the patient, and that they have agreed to all of the terms set forth by our compliance program. A UDS is needed to verify patient's compliance with our office pain contract. This is ordered based off specific treatments related to chronic pain with the potential to abuse certain medications. Patient has been instructed to contact the clinic with any concerns before the next appointment. Dr. Grier has reviewed this note and agrees with this plan of care. This note was dictated using voice recognition software and make contain errors or omissions.
[2024-06-22 15:23] VITALS: BP 162/85; BP 162/98; PULSE 68; RESP 14; O2SAT 96; BMI 29.4
== END 2024-06-22 23:59 | disposition home or self-care (01) ==
PROVIDERS: PCP Family Medicine; Visit Provider Nurse Practitioner Family
DX: M51.16 Intervertebral disc disorders with radiculopathy, lumbar region (principal); R10.9 Unspecified abdominal pain; G89.29 Other chronic pain
CPT/HCPCS: 99212; G0463

== ENCOUNTER 2024-07-25 08:58 | Outpatient (POV) | payer MEDICARE, OTHER, SELFPAY ==
--- OUTSIDE RECORDS SUMMARY | 2024-06-24 12:26 | XMS_ITS | Continuity of Care Document ---
Author Organization [facility] Phone Care Team Providers Care Auto Wrecker Name Role Phone SAQIB GREENE Primary Attending [phone] SAQIB GREENE Unavailable SAQIB GREENE Primary Care SAQIB GREENE Admitting ALLERGIES AND ADVERSE REACTIONS ALLERGIES AND ADVERSE REACTIONS Code System Allergy Substance Adverse Reaction Date Reaction (Severity) Comment Status Reported By Updated By 5200 RXNorm FLOXIN Adverse reaction to substance active [id number] on October 17, 2015 1:11:03 PM [place] 3292126 RXNorm IODINE Adverse reaction to substance active [id number] on October 17, 2015 1:11:03 PM UTC METOCLOPRAMIDE Adverse reaction to substance active [id number] on October 17, 2015 4:31:40 PM UT 6058 RXNorm ISOSORBIDE NITRATE Adverse reaction to substance active [id number] on June 03, 2017 2:53:38 PM [place] RESULTS Patient: LILIBETH Cohen Date of : 1950 LABORATORY RESULTS ORDER 200: PT PROTHROMBIN TI ME W INR (LOINC: 41431-5) ORDER DATE: May 23, 2024 12:32:00 PM UT Specimen Source: Plasma Specimen Type: Plasma specim en PERFORMING LAB: [facility] [address] [facility] [id number] Result Comment: Final Result Date: May 23, 2024 12:50:00 PM UT (TECH: LT) LOINC TEST [place] [address]-4 INR in Platelet poor plasma or blood by Coagulation assay H 33.6 seconds 9.1 seconds - 12.0 seconds May 23, 2024 12:50:00 PM UTC (TECH: LT) 6301-6 INR in Platelet poor plasma by Coagulation assay H 3.33 0.9 - 1.1 May 23, 2024 12:50:00 PM UTC (TECH: LT) ORDER 400: PT PROTHROMBIN TI ME W INR (LOINC: 77485-5) ORDER DATE: May 31, 2024 1:24:00 PM UTC Specimen Source: Plasma Specimen Type: Plasma specim en PERFORMING LAB: [address] [id number] Result Comment: Final Result Date: May 31, 2024 2:09:00 PM UTC (TECH: MRB) LOINC TEST [place] [address]-2 INR in Platelet poor plasma or blood by Coagulation assay H 22.9 seconds 9.1 seconds - 12.0 seconds May 31, 2024 2:09:00 PM UTC (TECH: MRB) 6301-6 INR in Platelet poor plasma by Coagulation assay H 2.21 0.9 - 1.1 May 31, 2024 2:09:00 PM UTC (TECH: MRB) ORDER 600: PT PROTHROMBIN TI ME W INR (LOINC: 09608-0) ORDER DATE: June 19, 2024 12:59:00 PM UTC Specimen Source: Plasma Specimen Type: Plasma specim en PERFORMING LAB: [address] [id number] Result Comment: Final Result Date: June 19, 2024 1:25:00 PM UTC (TECH: LT) LOINC TEST [place] [address]-9 INR in Platelet poor plasma or blood by Coagulation assay H 18.9 seconds 9.1 seconds - 12.0 seconds June 19, 2024 1:25:00 PM UTC (TECH: LT) 6301-6 INR in Platelet poor plasma by Coagulation assay H 1.80 0.9 - 1.1 June 19, 2024 1:25:00 PM UTC (TECH: LT) LABORATORY NARRATIVE RESULTS Information is not available RADIOLOGY RESULTS Information is not available PATHOLOGY NARRATIVE RESULTS Information is not available MICROBIOLOGY RESULTS No Micro Labs/Results Exist for Patient BLOOD ADMIN RESULTS Information is not available MEDICATIONS HOME MEDICATIONS Status RXNORM NDC Medication Dose Route Frequency Dates Comments Reported By Updated By Drug Treatment Unknown DISCHARGE MEDICATIONS Status RXNORM NDC Medication Dose Route Frequency Dates Comments Physician Updated By No Discharge Medication Info rmation Available INPATIENT MEDICATIONS Status RXNORM NDC Medication Dose Route Frequency Rat e Quantity Dates Comments Physician Updated By No Inpatient Medication Info rmation Available SOCIAL HISTORY SOCIAL HISTORY SNOMED-CT Social History Element Description Effective Dates Offered Cessation Comment UpdatedBy [id number] Smoking Status Unknown If Ever Smoked SOCIAL HISTORY - Gender Sex: Male SOCIAL HISTORY - Status : status i nformation is not available Intention in Next Year: intention information is not available SOCIAL HISTORY - Sexual Behavior Sexual Orientation Gender Identity SNOMED-CT Description SNO MED -CT Description Activity Level No of Partners Partner Type UpdatedBy Information is not available HEALTH CONCERNS Problems Concern Status Health Concern problem infor mation not available. Smoking Status Status Years Used Consumed packs p er day Health Concern smoking histo ry information not available. Family History Concern Status Health Concern family histor y information not available. ENCOUNTERS ENCOUNTER INFORMATION Reason for Visit D68.9 Admission May 23, 2024 7:32:[address] [address] Discharge June 22, 2024 3:59:00 AM [facility] DISCH ARGED TO HOME OR SELF CARE ENCOUNTER DIAGNOSES Notes information is not kalyn ilable. Code System Diagnosis Onset Date Diagnosis information is not available. ABSTRACT DIAGNOSES Code System Diagnosis Updated By D68.9 ICD10 COAGULATION DEFECT, UNSPECIF IED [id number] on June 24, 2024 4:26:05 PM [facility] D68.9 ICD10 COAGULATION DEFECT, UNSPECIF IED [id number] on June 24, 2024 4:26:05 PM [facility] CARE TEAM Care Auto Wrecker Role SAQIB GREENE Primary Attending SAQIB GREENE Referring SAQIB GREENE Primary Care SAQIB GREENE Admitting CARE TEAM CARE med aide Role on Team Status Start Date End Date Update d By RAMONA VILA Referring normal May 23, 2024 12:23:16 PM [facility] May 23, 2024 4:00:00 AM [facility] [id number] on May 23, 2024 12:23:16 PM [facility] RAMONA VILA Attending normal May 23, 2024 12:23:16 PM [facility] May 23, 2024 4:00:00 AM [facility] [id number] on May 23, 2024 12:23:16 PM [facility] RAMONA VILA Admitting normal May 23, 2024 12:23:16 PM [facility] May 23, 2024 4:00:00 AM [facility] [id number] on May 23, 2024 12:23:16 PM [facility] RAMONA Cohen MD PHY PCP normal May 23, 2024 7:32:10 AM [facility] May 23, 2024 4:00:00 AM [facility] [id number] on May 23, 2024 12:23:16 PM [facility]
--- OUTSIDE RECORDS SUMMARY | 2024-07-25 06:28 | XMS_ITS | Continuity of Care Document ---
Author Organization [facility] Phone Care Team Providers Care Overedger Name Role Phone SAQIB GREENE Unavailable SAQIB GREENE Primary Care SAQIB GREENE Primary Attending SAQIB GREENE Admitting ALLERGIES AND ADVERSE REACTIONS ALLERGIES AND ADVERSE REACTIONS Code System Allergy Substance Adverse Reaction Date Reaction (Severity) Comment Status Reported By Updated By 7613 RXNorm FLOXIN Adverse reaction to substance active [id number] on October 17, 2015 1:11:03 PM [place] [id number] RXNorm IODINE Adverse reaction to substance active [id number] on October 17, 2015 1:11:03 PM UTC METOCLOPRAMIDE Adverse reaction to substance active [id number] on October 17, 2015 4:31:40 PM UT 6058 RXNorm ISOSORBIDE NITRATE Adverse reaction to substance active [id number] on June 03, 2017 2:53:38 PM UT RESULTS Patient: LILIBETH Cohen Date of : 1950 LABORATORY RESULTS ORDER 200: PT PROTHROMBIN TI ME W INR (LOINC: 52175-9) ORDER DATE: June 27, 2024 2:00:00 PM UT Specimen Source: Plasma Specimen Type: Plasma specim en PERFORMING LAB: [facility] [address] [facility] [id number] Result Comment: Final Result Date: June 27, 2024 2:16:00 PM UT (TECH: LT) LOINC TEST [place] [address]-5 INR in Platelet poor plasma or blood by Coagulation assay H 23.5 seconds 9.1 seconds - 12.0 seconds June 27, 2024 2:16:00 PM UT (TECH: LT) 6301-6 INR in Platelet poor plasma by Coagulation assay H 2.28 0.9 - 1.1 June 27, 2024 2:16:00 PM UTC (TECH: LT) ORDER 400: PT PROTHROMBIN TI ME W INR (LOINC: 28837-8) ORDER DATE: July 12, 2024 1:28:00 PM UTC Specimen Source: Plasma Specimen Type: Plasma specim en PERFORMING LAB: [address] [id number] Result Comment: Final Result Date: July 12, 2024 1:53:00 PM UTC (TECH: KSM) LOINC TEST [place] [address]-4 INR in Platelet poor plasma or blood by Coagulation assay H 19.4 seconds 9.1 seconds - 12.0 seconds July 12, 2024 1:53:00 PM UTC (TECH: KSM) 6301-6 INR in Platelet poor plasma by Coagulation assay H 1.85 0.9 - 1.1 July 12, 2024 1:53:00 PM UTC (TECH: KSM) ORDER 600: PT PROTHROMBIN TI ME W INR (LOINC: 69952-9) ORDER DATE: July 21, 2024 1:46:00 PM UTC Specimen Source: Plasma Specimen Type: Plasma specim en PERFORMING LAB: [address] [id number] Result Comment: Final Result Date: July 21, 2024 2:04:00 PM UTC (TECH: MRB) LOINC TEST [place] [address]-5 INR in Platelet poor plasma or blood by Coagulation assay H 31.0 seconds 9.1 seconds - 12.0 seconds July 21, 2024 2:04:00 PM UTC (TECH: MRB) 6301-6 INR in Platelet poor plasma by Coagulation assay H 3.06 0.9 - 1.1 July 21, 2024 2:04:00 PM UTC (TECH: MRB) LABORATORY NARRATIVE RESULTS Information is not available [...] Description Effective Dates Offered Cessation Comment UpdatedBy [id number] Smoking Status Unknown If Ever Smoked SOCIAL [...] ENCOUNTER INFORMATION Reason for Visit D68.9 Admission June 22, 2024 7:31:[address] [address] Discharge July 23, 2024 3:59:00 AM [facility] DISC HARGED TO HOME OR SELF CARE ENCOUNTER DIAGNOSES Notes information is not kalyn ilable. Code System Diagnosis Onset Date Diagnosis information is not available. 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 Role on Team Status Start Date End Date Update d By RAMONA VILA Referring normal June 23, 2024 4:06:30 AM [facility] June 22, 2024 4:00:00 AM [facility] [id number] on June 23, 2024 4:06:30 AM [facility] RAMONA VILA Attending normal June 23, 2024 4:06:30 AM [facility] June 22, 2024 4:00:00 AM [facility] [id number] on June 23, 2024 4:06:30 AM [facility] RAMONA VILA Admitting normal June 23, 2024 4:06:30 AM [facility] June 22, 2024 4:00:00 AM [facility] [id number] on June 23, 2024 4:06:30 AM [facility] RAMONA Cohen MD PHY PCP normal June 22, 2024 7:31:45 AM [facility] June 22, 2024 4:00:00 AM [facility] [id number] on June 23, 2024 4:06:30 AM [facility]
--- OUTSIDE RECORDS SUMMARY | 2024-07-25 09:04 | XMS_ITS | Data Portability ---
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 Name Role Phone DANTE JUSTYN Referring Provider [...] Organization Details Last Modified Time Details Appointments MEDICARE WELLNESS ANNUAL VISIT 2024 09:00A M Charlotte Bernstein MD Not available Not available Not available Lab HbA1c (hemoglob in A1c), blood 2023 024 [email or web address] 2 [facility] (Lab Registration) , [address] [place], [address], 10/07/2023 11:41:27 CBC w/ auto diff [address] (Lab Registration) , [address] [place] [address] [place], [address], 05/03/2023 09:15:18 lipase, serum or plasma [address] (Lab Registration) , [address] [place], [address], 05/03/2023 09:15:18 amylase, serum or plasma [address] (Lab Registration) , [address] [place], [address], 05/03/2023 09:15:18 C-reactiv e protein, quantitat nik, serum or plasma [email or web address] (Lab Registration) , [address] , [place], [address], 05/03/2023 09:15:19 HbA1c (hemoglob in A1c), blood 2023 024 [email or web address] 2 [facility] (Lab Registration) , [address] , [place], [address], 05/07/2023 09:46:52 CMP, serum or plasma [email or web address] (Lab Registration) , [address] , [place], [address], 05/03/2023 09:15:18 Referral dermatolo gist referral - history skin cancer 2023 024 [place] [address] [facility], [address] [place] [address] , [facility], [place], [address], 03/02/2024 16:10:19 Procedures None recorded. Surgeries None recorded. Imaging None recorded. Medication Orders albuterol sulfate HFA 90 mcg/actua tion aerosol inhaler 2024 025 [id number], [address] [place], [address], 06/12/2024 15:26:42 Breyna 160 mcg-4.5 mcg/actua tion HFA aerosol inhaler 2023 025 [facility], [address] [place] [address], [id number], 06/12/2024 15:31:39 cyanocoba allie (vit B-12) 1,000 mcg/mL injection solution 2023 024 [place] [address] [facility], [address] [place] [address], [id number], 09/02/2023 13:40:34 promethaz ine 25 mg tablet 2023 024 [facility], [address] [place] [address], [id number], 04/27/2024 10:39:27 cyanocoba allie (vit B-12) 1,000 mcg/mL injection solution 2023 024 [email or web address] 5 [facility], [address] [place] [address], [id number], 04/02/2023 11:29:37 mupirocin 2 % topical ointment 2023 024 [facility], [address] [place] [address], [id number], 09/02/2023 14:33:20 polyethyl jaspreet glycol 3350 17 gram/dose oral powder 2022 023 [facility], [address] [place] [address], [id number], 09/02/2023 13:02:48 cyanocoba allie (vit B-12) 1,000 mcg/mL injection solution 2022 023 [email or web address] Not available 11/19/2022 16:20:24 Patient TargetsNo targets recorded. 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 Not Available [facility] (Lab Registration) [address], [place], [address], 11/17/2022 08:48:44 11/18/19 23 11/17/2022 PT (PROT HROMB IN TIME) W INR note Unles s other lazcano noted testi ng perfo rmed at: [facility] [address] [place] [address] [phone] Gilberto harrison MD CLIA: [id number] Not Available [facility] (Lab Registration) [address] [place], [address], 11/17/2022 08:48:44 02/03/20 23 02/02/2023 PT (PROT HROMB IN TIME) W INR PT (prothrombin time) 31.7 secon ds 9.3-11 .4 high Not Available [facility] (Lab Registration) [address] [place], [address], 02/02/2023 12:03:43 02/03/20 23 02/02/2023 PT (PROT [...] mecha nical heart valve s. Not Available [facility] (Lab Registration) [address], [place], [address], 02/02/2023 12:03:43 02/03/20 23 02/02/2023 PT (PROT HROMB IN TIME) W INR note Unles s other lazcano noted testi ng perfo rmed at: [facility] [address] [place] [address] [phone] Gilberto harrison MD CLIA: [id number] Not Available [facility] (Lab Registration) [address] [place], [address], 02/02/2023 12:03:43 04/01/19 24 04/01/2023 PT (PROT HROMB IN TIME) W INR PT (prothrombin time) 22.9 secon ds 9.1-12 .0 high Not Available [facility] (Lab Registration) [address] [place], [address], 04/01/2023 09:28:48 04/01/19 24 04/01/2023 PT (PROT [...] mecha nical heart valve s. Not Available [facility] (Lab Registration) [address] [place], [address], 04/01/2023 09:28:48 04/01/19 24 04/01/2023 PT (PROT HROMB IN TIME) W INR note Unles s other lazcano noted testi ng perfo rmed at: [facility] [address] [place] [address] [phone] Gilberto harrison MD CLIA: [id number] Not Available [facility] (Lab Registration) [address] [place], [address], 04/01/2023 09:28:48 05/10/19 24 05/10/2023 CBC AUTO W DIFF WBC 10.4 10 4.5-11 .5 Not Available [facility] (Lab Registration) [address] [place], [address], 05/10/2023 09:35:53 05/10/19 24 05/10/2023 CBC AUTO W DIFF RBC 4.02 10 4.25-5 .57 low Not Available [facility] (Lab Registration) [address] [place], [address], 05/10/2023 09:35:53 05/10/19 24 05/10/2023 CBC AUTO W DIFF HGB 13.6 g/dL 13.5-1 7.2 Not Available [facility] (Lab Registration) [address] [place], [address], 05/10/2023 09:35:53 05/10/19 24 05/10/2023 CBC AUTO W DIFF HCT 37.1 % 42.0-5 2.0 low Not Available [facility] (Lab Registration) [address] [place], [address], 05/10/2023 09:35:53 05/10/19 24 05/10/2023 CBC AUTO W DIFF MCV 92.3 fL 80-95 Not Available [facility] (Lab Registration) [address] [place], [address], 05/10/2023 09:35:53 05/10/19 24 05/10/2023 CBC AUTO W DIFF MCH 33.8 pg 27.0-3 4.0 Not Available [facility] (Lab Registration) [address] [place], [address], 05/10/2023 09:35:53 05/10/19 24 05/10/2023 CBC AUTO W DIFF MCHC 36.7 g/dL 32.0-3 6.0 high Not Available [facility] (Lab Registration) [address] [place], [address], 05/10/2023 09:35:53 05/10/19 24 05/10/2023 CBC AUTO W DIFF platelet count 346 10 150-45 0 Not Available [facility] (Lab Registration) [address] [place], [address], 05/10/2023 09:35:53 05/10/19 24 05/10/2023 CBC AUTO W DIFF RDW 11.9 % 12.3-1 5.1 low Not Available [facility] (Lab Registration) [address] [place], [address], 05/10/2023 09:35:53 05/10/19 24 05/10/2023 CBC AUTO W DIFF MPV 11.0 fL 7.4-10 .4 high Not Available [facility] (Lab Registration) [address] [place], [address], 05/10/2023 09:35:53 05/10/19 24 05/10/2023 CBC AUTO W DIFF granulocyte% 51.2 % 40-75 Not Available [facility] (Lab Registration) [address] [place], [address], 05/10/2023 09:35:53 05/10/19 24 05/10/2023 CBC AUTO W DIFF lymphocyte% 36.2 % 15-57 Not Available [facility] (Lab Registration) [address] [place], [address], 05/10/2023 09:35:53 05/10/19 24 05/10/2023 CBC AUTO W DIFF monocyte% 10.1 % 4.0-12 .0 Not Available [facility] (Lab Registration) [address] [place], [address], 05/10/2023 09:35:53 05/10/19 24 05/10/2023 CBC AUTO W DIFF eosinophil% 2.1 % 0.0-4. 0 Not Available [facility] (Lab Registration) [address] [place], [address], 05/10/2023 09:35:53 05/10/19 24 05/10/2023 CBC AUTO W DIFF basophil% 0.3 % 0.0-1. 0 Not Available [facility] (Lab Registration) [address] [place], [address], 05/10/2023 09:35:53 05/10/19 24 05/10/2023 CBC AUTO W DIFF immature granulocytes % 0.1 % 0.0-0. 8 Not Available [facility] (Lab Registration) [address] [place], [address], 05/10/2023 09:35:53 05/10/19 24 05/10/2023 CBC AUTO W DIFF granulocyte# 5.35 10 Not Available [facility] (Lab Registration) [address] [place], [address], 05/10/2023 09:35:53 05/10/19 24 05/10/2023 CBC AUTO W DIFF lymphocyte# 3.78 10 Not Available [facility] (Lab Registration) [address] [place], [address], 05/10/2023 09:35:53 05/10/19 24 05/10/2023 CBC AUTO W DIFF monocyte# 1.05 10 Not Available [facility] (Lab Registration) [address] [place], [address], 05/10/2023 09:35:53 05/10/19 24 05/10/2023 CBC AUTO W DIFF eosinophil# 0.22 10 Not Available [facility] (Lab Registration) [address] [place], [address], 05/10/2023 09:35:53 05/10/19 24 05/10/2023 CBC AUTO W DIFF basophil# 0.03 10 Not Available [facility] (Lab Registration) [address] [place], [address], 05/10/2023 09:35:53 05/10/19 24 05/10/2023 CBC AUTO W DIFF immature granulocytes # 0.01 10 Not Available [facility] (Lab Registration) [address] [place], [address], 05/10/2023 09:35:53 05/10/19 24 05/10/2023 CBC AUTO W DIFF manual differential NO Not Available [facility] (Lab Registration) [address] [place], [address], 05/10/2023 09:35:53 05/10/19 24 05/10/2023 CBC AUTO W DIFF note Unles s other lazcano noted testi ng perfo rmed at: [facility] [address] [place] [address] [phone] Gilberto harrison MD CLIA: [id number] Not Available [facility] (Lab Registration) [address] [place], [address], 05/10/2023 09:35:53 05/10/19 24 05/10/2023 PT (PROT HROMB IN TIME) W INR PT (prothrombin time) 35.7 secon ds 9.1-12 .0 high Not Available [facility] (Lab Registration) [address] [place], [address], 05/10/2023 09:42:30 05/10/19 24 05/10/2023 PT (PROT [...] mecha nical heart valve s. Not Available [facility] (Lab Registration) [address], [place], [address], 05/10/2023 09:42:30 05/10/19 24 05/10/2023 PT (PROT HROMB IN TIME) W INR note Unles s other lazcano noted testi ng perfo rmed at: [facility] [address] [place] [address] [phone] Gilberto harrison MD CLIA: [id number] Not Available [facility] (Lab Registration) [address], [place], [address], 05/10/2023 09:42:30 05/10/19 24 05/10/2023 HEMOG LOBIN A1C glycosylated hemoglobin A1C 6.8 % 4.5-6. 2 high Not Available [facility] (Lab Registration) [address] [place], [address], 05/10/2023 09:56:50 05/10/19 24 05/10/2023 HEMOG LOBIN A1C estimated average glucose 148 mg/dL 82-131 high Not Available [facility] (Lab Registration) [address] [place], [address], 05/10/2023 09:56:50 05/10/19 24 05/10/2023 HEMOG LOBIN A1C note Unles s other lazcano noted testi ng perfo rmed at: [facility] [address] [employer] [place] [address] [phone] Gilberto harrison MD CLIA: [id number] Not Available [facility] (Lab Registration) [address] [place], [address], 05/10/2023 09:56:50 05/10/19 24 05/10/2023 COMP METAB OLIC PANEL sodium 138 mmol/ L 136-14 5 Not Available [facility] (Lab Registration) [address] [place], [address], 05/10/2023 10:14:15 05/10/19 24 05/10/2023 COMP METAB OLIC PANEL potassium 4.2 mmol/ L 3.5-5. 1 Not Available [facility] (Lab Registration) [address] [place], [address], 05/10/2023 10:14:15 05/10/19 24 05/10/2023 COMP METAB OLIC PANEL chloride 102 mmol/ L 98-107 Not Available [facility] (Lab Registration) [address] [place], [address], 05/10/2023 10:14:15 05/10/19 24 05/10/2023 COMP METAB OLIC PANEL carbon dioxide 25 mmol/ L 21-32 Not Available [facility] (Lab Registration) [address] [place], [address], 05/10/2023 10:14:15 05/10/19 24 05/10/2023 COMP METAB OLIC PANEL anion gap 11.0 Not Available [facility] (Lab Registration) [address] [place], [address], 05/10/2023 10:14:15 05/10/19 24 05/10/2023 COMP METAB OLIC PANEL glucose 180 mg/dL 70-110 high Not Available [facility] (Lab Registration) [address] [place], [address], 05/10/2023 10:14:15 05/10/19 24 05/10/2023 COMP METAB OLIC PANEL blood urea nitrogen 12 mg/dL 7-18 Not Available [facility] (Lab Registration) [address], [place], [address], 05/10/2023 10:14:15 05/10/19 24 05/10/2023 COMP METAB OLIC PANEL creatinine 1.0 mg/dL 0.8-1. 3 Not Available [facility] (Lab Registration) [address] [place], [address], 05/10/2023 10:14:15 05/10/19 24 05/10/2023 COMP METAB OLIC PANEL BUN/creatini ne ratio 12.0 ratio 9-21 Not Available [facility] (Lab Registration) [address] [place], [address], 05/10/2023 10:14:15 05/10/19 24 05/10/2023 COMP METAB OLIC PANEL estimated glom filtration rate 78 mL/mi n >60- Not Available [facility] (Lab Registration) [address] [place], [address], 05/10/2023 10:14:15 05/10/19 24 05/10/2023 COMP METAB OLIC PANEL total protein 7.5 g/dL 6.4-8. 2 Not Available [facility] (Lab Registration) [address] [place], [address], 05/10/2023 10:14:15 05/10/19 24 05/10/2023 COMP METAB OLIC PANEL albumin 4.0 g/dL 3.4-5. 0 Not Available [facility] (Lab Registration) [address] [place], [address], 05/10/2023 10:14:15 05/10/19 24 05/10/2023 COMP METAB OLIC PANEL calcium 9.2 mg/dL 8.5-10 .1 Not Available [facility] (Lab Registration) [address] [place], [address], 05/10/2023 10:14:15 05/10/19 24 05/10/2023 COMP METAB OLIC PANEL corrected calcium 9.2 mg/dL 8.5-10 .1 Not Available [facility] (Lab Registration) [address] [place], [address], 05/10/2023 10:14:15 05/10/19 24 05/10/2023 COMP METAB OLIC PANEL bilirubin total 1.1 mg/dL 0.4-1. 5 Not Available [facility] (Lab Registration) [address] [place], [address], 05/10/2023 10:14:15 05/10/19 24 05/10/2023 COMP METAB OLIC PANEL AST (SGOT) 17 U/L 15-37 Not Available [facility] (Lab Registration) [address] [place], [address], 05/10/2023 10:14:15 05/10/19 24 05/10/2023 COMP METAB OLIC PANEL ALT (SGPT) 19 U/L 12-78 Not Available [facility] (Lab Registration) [address] [place], [address], 05/10/2023 10:14:15 05/10/19 24 05/10/2023 COMP METAB OLIC PANEL alk phosphatase 65 U/L Not Available [facility] (Lab Registration) [address] [place], [address], 05/10/2023 10:14:15 05/10/19 24 05/10/2023 COMP METAB OLIC PANEL note Unles s other lazcano noted testi ng perfo rmed at: [facility] [address] [facility] [address] [address] [phone] Gilberto harrison MD CLIA: [id number] Not Available [facility] (Lab Registration) [address] [place], [address], 05/10/2023 10:14:15 05/10/19 24 05/10/2023 LIPAS E lipase 41 U/L 16-77 Not Available [facility] (Lab Registration) [address] [place], [address], 05/10/2023 10:14:16 05/10/19 24 05/10/2023 LIPAS E note Unles s other lazcano noted testi ng perfo rmed at: [facility] [address] [place] [address] [phone] Gilberto harrison MD CLIA: [id number] Not Available [facility] (Lab Registration) [address] [place], [address], 05/10/2023 10:14:16 05/10/19 24 05/10/2023 AMYLA SE amylase 46 U/L 25-115 Not Available [facility] (Lab Registration) [address] [place], [address], 05/10/2023 10:15:20 05/10/19 24 05/10/2023 AMYLA SE note Unles s other lazcano noted testi ng perfo rmed at: [facility] [address] [place] [address] [phone] Gilberto harrison MD CLIA: [id number] Not Available [facility] (Lab Registration) [address] [place], [address], 05/10/2023 10:15:20 05/10/19 24 05/10/2023 C-NIDHI CTIVE PROTE IN C-reactive protein, quant 0.30 mg/dL 0.05-0 .300 Not Available [facility] (Lab Registration) [address] [place], [address], 05/10/2023 10:15:22 05/10/19 24 05/10/2023 C-NIDHI CTIVE PROTE IN note Unles s other lazcano noted testi ng perfo rmed at: [facility] [address] [place] [phone] Gilberto harrison MD CLIA: [id number] Not Available [facility] (Lab Registration) [address] , [place], [address], 05/10/2023 10:15:22 05/26/19 24 05/26/2023 PT (PROT HROMB IN TIME) W INR PT (prothrombin time) 21.3 secon ds 9.1-12 .0 high Not Available [facility] (Lab Registration) [address], [place], [address], 05/26/2023 11:11:48 05/26/19 24 05/26/2023 PT (PROT [...] mecha nical heart valve s. Not Available [facility] (Lab Registration) [address], [place], [address], 05/26/2023 11:11:48 05/26/19 24 05/26/2023 PT (PROT HROMB IN TIME) W INR note Unles s other lazcano noted testi ng perfo rmed at: [facility] [address] [place] [address] [phone] Gilberto harrison MD CLIA: [id number] Not Available [facility] (Lab Registration) [address] [place], [address], 05/26/2023 11:11:48 06/15/19 24 06/15/2023 PT (PROT HROMB IN TIME) W INR PT (prothrombin time) 39.9 secon ds 9.1-12 .0 high Not Available [facility] (Lab Registration) [address], [place], [address], 06/15/2023 10:24:37 06/15/19 24 06/15/2023 PT (PROT [...] mecha nical heart valve s. Not Available [facility] (Lab Registration) [address], [place], [address], 06/15/2023 10:24:37 06/15/19 24 06/15/2023 PT (PROT HROMB IN TIME) W INR note Unles s other lazcano noted testi ng perfo rmed at: [facility] [address] [place] [address] [phone] Gilberto harrison MD CLIA: [id number] Not Available [facility] (Lab Registration) [address], [place], [address], 06/15/2023 10:24:37 06/29/19 24 06/29/2023 PT (PROT HROMB IN TIME) W INR PT (prothrombin time) 48.4 secon ds 9.1-12 .0 high Not Available [facility] (Lab Registration) [address], [place], [address], 06/29/2023 08:37:53 06/29/19 24 06/29/2023 PT (PROT [...] mecha nical heart valve s. Not Available [facility] (Lab Registration) [address], [place], [address], 06/29/2023 08:37:53 06/29/19 24 06/29/2023 PT (PROT HROMB IN TIME) W INR note Unles s other lazcano noted testi ng perfo rmed at: [facility] [address] [employer] [place] [address] [phone] Gilberto harrison MD CLIA: [id number] Not Available [facility] (Lab Registration) [address] [place], [address], 06/29/2023 08:37:53 07/14/19 24 07/14/2023 PT (PROT HROMB IN TIME) W INR PT (prothrombin time) 42.7 secon ds 9.1-12 .0 high Not Available [facility] (Lab Registration) [address] [place], [address], 07/14/2023 09:14:41 07/14/19 24 07/14/2023 PT (PROT [...] mecha nical heart valve s. Not Available [facility] (Lab Registration) [address] [place], [address], 07/14/2023 09:14:41 07/14/19 24 07/14/2023 PT (PROT HROMB IN TIME) W INR note Unles s other lazcano noted testi ng perfo rmed at: [facility] [address] [place], [place] [id number] [phone] Gilberto harrison MD CLIA: [id number] Not Available [facility] (Lab Registration) [address] , [place], [address], 07/14/2023 09:14:41 07/23/19 24 07/23/2023 PT (PROT HROMB IN TIME) W INR PT (prothrombin time) 38.2 secon ds 9.1-12 .0 high Not Available [facility] (Lab Registration) [address], [place], [address], 07/23/2023 10:30:30 07/23/19 24 07/23/2023 PT (PROT [...] mecha nical heart valve s. Not Available [facility] (Lab Registration) [address], [place], [address], 07/23/2023 10:30:30 07/23/19 24 07/23/2023 PT (PROT HROMB IN TIME) W INR note Unles s other lazcano noted testi ng perfo rmed at: [facility] [address] [place], [place] [id number] [phone] Gilberto harrison MD CLIA: [id number] Not Available [facility] (Lab Registration) [address] [place], [address], 07/23/2023 10:30:30 08/09/19 24 08/09/2023 PT (PROT HROMB IN TIME) W INR PT (prothrombin time) 20.1 secon ds 9.1-12 .0 high Not Available [facility] (Lab Registration) [address], [place], [address], 08/09/2023 10:06:28 08/09/19 24 08/09/2023 PT (PROT [...] mecha nical heart valve s. Not Available [facility] (Lab Registration) [address], [place], [address], 08/09/2023 10:06:28 08/09/19 24 08/09/2023 PT (PROT HROMB IN TIME) W INR note Unles s other lazcano noted testi ng perfo rmed at: [facility] [address] [place] [address] [phone] Gilberto harrison MD CLIA: [id number] Not Available [facility] (Lab Registration) [address], [place], [address], 08/09/2023 10:06:28 08/19/19 24 08/19/2023 PT (PROT HROMB IN TIME) W INR PT (prothrombin time) 40.9 secon ds 9.1-12 .0 high Not Available [facility] (Lab Registration) [address], [place], [address], 08/19/2023 10:18:27 08/19/19 24 08/19/2023 PT (PROT [...] mecha nical heart valve s. Not Available [facility] (Lab Registration) [address], [place], [address], 08/19/2023 10:18:27 08/19/19 24 08/19/2023 PT (PROT HROMB IN TIME) W INR note Unles s other lazcano noted testi ng perfo rmed at: [facility] [address] [place] [address] [phone] Gilberto harrison MD CLIA: [id number] Not Available [facility] (Lab Registration) [address], [place], [address], 08/19/2023 10:18:27 08/31/19 24 08/31/2023 PT (PROT HROMB IN TIME) W INR PT (prothrombin time) 38.3 secon ds 9.1-12 .0 high Not Available [facility] (Lab Registration) [address], [place], [address], 08/31/2023 10:06:02 08/31/19 24 08/31/2023 PT (PROT [...] mecha nical heart valve s. Not Available [facility] (Lab Registration) [address] [place], [address], 08/31/2023 10:06:02 08/31/19 24 08/31/2023 PT (PROT HROMB IN TIME) W INR note Unles s other lazcano noted testi ng perfo rmed at: [facility] [address] [place] [place] [address] [phone] Gilberto harrison MD CLIA: [id number] Not Available [facility] (Lab Registration) [address] [place], [address], 08/31/2023 10:06:02 08/31/19 24 08/31/2023 CBC AUTO W DIFF WBC 11.2 10 4.5-11 .5 Not Available [facility] (Lab Registration) [address] [place], [address], 08/31/2023 10:06:05 08/31/19 24 08/31/2023 CBC AUTO W DIFF RBC 4.29 10 4.25-5 .57 Not Available [facility] (Lab Registration) [address] [place], [address], 08/31/2023 10:06:05 08/31/19 24 08/31/2023 CBC AUTO W DIFF HGB 14.3 g/dL 13.5-1 7.2 Not Available [facility] (Lab Registration) [address] [place], [address], 08/31/2023 10:06:05 08/31/19 24 08/31/2023 CBC AUTO W DIFF HCT 39.5 % 42.0-5 2.0 low Not Available [facility] (Lab Registration) [address] [place], [address], 08/31/2023 10:06:05 08/31/19 24 08/31/2023 CBC AUTO W DIFF MCV 92.1 fL 80-95 Not Available [facility] (Lab Registration) [address] [place], [address], 08/31/2023 10:06:05 08/31/19 24 08/31/2023 CBC AUTO W DIFF MCH 33.3 pg 27.0-3 4.0 Not Available [facility] (Lab Registration) [address] [place], [address], 08/31/2023 10:06:05 08/31/19 24 08/31/2023 CBC AUTO W DIFF MCHC 36.2 g/dL 32.0-3 6.0 high Not Available [facility] (Lab Registration) [address] [place], [address], 08/31/2023 10:06:05 08/31/19 24 08/31/2023 CBC AUTO W DIFF platelet count 360 10 150-45 0 Not Available [facility] (Lab Registration) [address] [place], [address], 08/31/2023 10:06:05 08/31/19 24 08/31/2023 CBC AUTO W DIFF RDW 11.9 % 12.3-1 5.1 low Not Available [facility] [facility] ([facility] Registration) [address] [place], [address], 08/31/2023 10:06:05 08/31/19 24 08/31/2023 CBC AUTO W DIFF MPV 10.5 fL 7.4-10 .4 high Not Available [facility] (Lab Registration) [address] [place], [address], 08/31/2023 10:06:05 08/31/19 24 08/31/2023 CBC AUTO W DIFF granulocyte% 56.0 % 40-75 Not Available [facility] (Lab Registration) [address] [place], [address], 08/31/2023 10:06:05 08/31/19 24 08/31/2023 CBC AUTO W DIFF lymphocyte% 33.2 % 15-57 Not Available [facility] (Lab Registration) [address] [place], [address], 08/31/2023 10:06:05 08/31/19 24 08/31/2023 CBC AUTO W DIFF monocyte% 8.4 % 4.0-12 .0 Not Available [facility] (Lab Registration) [address] [place], [address], 08/31/2023 10:06:05 08/31/19 24 08/31/2023 CBC AUTO W DIFF eosinophil% 1.8 % 0.0-4. 0 Not Available [facility] (Lab Registration) [address] [place], [address], 08/31/2023 10:06:05 08/31/19 24 08/31/2023 CBC AUTO W DIFF basophil% 0.4 % 0.0-1. 0 Not Available [facility] (Lab Registration) [address] [place], [address], 08/31/2023 10:06:05 08/31/19 24 08/31/2023 CBC AUTO W DIFF immature granulocytes % 0.2 % 0.0-0. 8 Not Available [facility] (Lab Registration) [address] [place], [address], 08/31/2023 10:06:05 08/31/19 24 08/31/2023 CBC AUTO W DIFF granulocyte# 6.28 10 Not Available [facility] (Lab Registration) [address] [place], [address], 08/31/2023 10:06:05 08/31/19 24 08/31/2023 CBC AUTO W DIFF lymphocyte# 3.73 10 Not Available [facility] (Lab Registration) [address] [place], [address], 08/31/2023 10:06:05 08/31/19 24 08/31/2023 CBC AUTO W DIFF monocyte# 0.94 10 Not Available [facility] (Lab Registration) [address] [place], [address], 08/31/2023 10:06:05 08/31/19 24 08/31/2023 CBC AUTO W DIFF eosinophil# 0.20 10 Not Available [facility] (Lab Registration) [address] [place], [address], 08/31/2023 10:06:05 08/31/19 24 08/31/2023 CBC AUTO W DIFF basophil# 0.05 10 Not Available [facility] (Lab Registration) [address] [place], [address], 08/31/2023 10:06:05 08/31/19 24 08/31/2023 CBC AUTO W DIFF immature granulocytes # 0.02 10 Not Available [facility] (Lab Registration) [address] [place], [address], 08/31/2023 10:06:05 08/31/19 24 08/31/2023 CBC AUTO W DIFF manual differential NO Not Available [facility] (Lab Registration) [address] [place], [address], 08/31/2023 10:06:05 08/31/19 24 08/31/2023 CBC AUTO W DIFF note Unles s other lazcano noted testi ng perfo rmed at: [facility] [address] [place] [address] [phone] Gilberto harrison MD CLIA: [id number] Not Available [facility] (Lab Registration) [address] [place], [address], 08/31/2023 10:06:05 08/31/19 24 08/31/2023 PROST ATE SPECI FIC AG (PSA) prostate specific Ag (PSA) 1.03 NG/mL 0.0-4. 0 Not Available [facility] (Lab Registration) [address] [place], [address], 08/31/2023 10:13:42 07/09/20 24 08/31/2023 PROST ATE SPECI FIC AG (PSA) note Unles s other lazcano noted testi ng perfo rmed at: [facility] [address] [place] [address] [phone] Gilberto harrison MD CLIA: [id number] Not Available [facility] (Lab Registration) [address], [place], [address], 08/31/2023 10:13:42 08/31/19 24 08/31/2023 THYRO ID STIMU LATIN G HORMO NE thyroid stimulating hormone 2.16 mIU/m L 0.34-4 .80 Not Available [facility] (Lab Registration) [address], [place], [address], 08/31/2023 10:13:44 08/31/19 24 08/31/2023 THYRO ID STIMU LATIN G HORMO NE note Unles s other lazcano noted testi ng perfo rmed at: [facility] [address] [place] [address] [phone] Gilberto harrison MD CLIA: [id number] Not Available [facility] (Lab Registration) [address], [place], [address], 08/31/2023 10:13:44 08/31/19 24 08/31/2023 COMP METAB OLIC PANEL sodium 136 mmol/ L 136-14 5 Not Available [facility] (Lab Registration) [address], [place], [address], 08/31/2023 10:13:46 08/31/19 24 08/31/2023 COMP METAB OLIC PANEL potassium 4.3 mmol/ L 3.5-5. 1 Not Available [facility] (Lab Registration) [address], [place], [address], 08/31/2023 10:13:46 08/31/19 24 08/31/2023 COMP METAB OLIC PANEL chloride 102 mmol/ L 98-107 Not Available [facility] (Lab Registration) [address] [place], [address], 08/31/2023 10:13:46 08/31/19 24 08/31/2023 COMP METAB OLIC PANEL carbon dioxide 24 mmol/ L 21-32 Not Available [facility] (Lab Registration) [address] [place], [address], 08/31/2023 10:13:46 08/31/19 24 08/31/2023 COMP METAB OLIC PANEL anion gap 10.0 Not Available [facility] (Lab Registration) [address] [place], [address], 08/31/2023 10:13:46 08/31/19 24 08/31/2023 COMP METAB OLIC PANEL glucose 225 mg/dL 70-110 high Not Available [facility] (Lab Registration) [address] [place], [address], 08/31/2023 10:13:46 08/31/19 24 08/31/2023 COMP METAB OLIC PANEL blood urea nitrogen 8 mg/dL 7-18 Not Available [facility] (Lab Registration) [address] [place], [address], 08/31/2023 10:13:46 08/31/19 24 08/31/2023 COMP METAB OLIC PANEL creatinine 0.9 mg/dL 0.8-1. 3 Not Available [facility] (Lab Registration) [address] [place], [address], 08/31/2023 10:13:46 08/31/19 24 08/31/2023 COMP METAB OLIC PANEL BUN/creatini ne ratio 8.9 ratio 9-21 low Not Available [facility] (Lab Registration) [address] [place], [address], 08/31/2023 10:13:46 08/31/19 24 08/31/2023 COMP METAB OLIC PANEL estimated glom filtration rate 89 mL/mi n >60- Not Available [facility] (Lab Registration) [address] [place], [address], 08/31/2023 10:13:46 08/31/19 24 08/31/2023 COMP METAB OLIC PANEL total protein 8.2 g/dL 6.4-8. 2 Not Available [facility] (Lab Registration) [address] [place], [address], 08/31/2023 10:13:46 08/31/19 24 08/31/2023 COMP METAB OLIC PANEL albumin 3.7 g/dL 3.4-5. 0 Not Available [facility] (Lab Registration) [address] [place], [address], 08/31/2023 10:13:46 08/31/19 24 08/31/2023 COMP METAB OLIC PANEL calcium 8.9 mg/dL 8.5-10 .1 Not Available [facility] (Lab Registration) [address] [place], [address], 08/31/2023 10:13:46 08/31/19 24 08/31/2023 COMP METAB OLIC PANEL corrected calcium 9.1 mg/dL 8.5-10 .1 Not Available [facility] (Lab Registration) [address] [place], [address], 08/31/2023 10:13:46 08/31/19 24 08/31/2023 COMP METAB OLIC PANEL bilirubin total 1.2 mg/dL 0.4-1. 5 Not Available [facility] (Lab Registration) [address] [place], [address], 08/31/2023 10:13:46 08/31/19 24 08/31/2023 COMP METAB OLIC PANEL AST (SGOT) 13 U/L 15-37 low Not Available [facility] (Lab Registration) [address] [place], [address], 08/31/2023 10:13:46 08/31/19 24 08/31/2023 COMP METAB OLIC PANEL ALT (SGPT) 16 U/L 12-78 Not Available [facility] (Lab Registration) [address], [place], [address], 08/31/2023 10:13:46 08/31/19 24 08/31/2023 COMP METAB OLIC PANEL alk phosphatase 78 U/L Not Available [facility] (Lab Registration) [address] [place], [address], 08/31/2023 10:13:46 08/31/19 24 08/31/2023 COMP METAB OLIC PANEL note Unles s other lazcano noted testi ng perfo rmed at: [facility] [address] [place] [address] [phone] Gilberto harrison MD CLIA: [id number] Not Available [facility] (Lab Registration) [address] [place], [address], 08/31/2023 10:13:46 08/31/19 24 08/31/2023 LIPID PANEL triglyceride 141 mg/dL 20-200 [employer] ([facility] ) has set the follo wing guide lines for Fasti ng Trigl yceri kanu: TURNER L: <150 mg/dL BORDE RLINE HIGH: 150 - 199 mg/dL HIGH: 200 - 499 mg/dL VERY HIGH: > or =500 mg/dL Not Available [facility] (Lab Registration) [address] [place], [address], 08/31/2023 10:13:48 08/31/19 24 08/31/2023 LIPID PANEL cholesterol 156 mg/dL 0-200 [employer] ([employer] ) has set the follo wing guide lines for Fasti ng Jacquelyn stero l: SINDHU ABLE: <200 mg/dL BORDE RLINE HIGH: 200 - 239 mg/dL HIGH: > or =240 mg/dL Not Available [facility] (Lab Registration) [address] [place], [address], 08/31/2023 10:13:48 08/31/19 24 08/31/2023 LIPID PANEL HDL cholesterol 42 mg/dL 60- low [employer] ([facility] ) has set the follo wing guide lines for Fasti ng HDL Jacquelyn stero l: LOW HDL: <40 mg/dL TURNER L: 40 - 60 mg/dL SINDHU ABLE: >60 mg/dL Not Available [facility] (Lab Registration) [address], [place], [address], 08/31/2023 10:13:48 08/31/19 24 08/31/2023 LIPID PANEL LDL calculated 86 mg/dL 100- low [employer] (FLEP ) has set the follo wing guide lines for Fasti ng LDL Jacquelyn stero l: OPTIM AL: < 100 mg/dL LOW RISK: 100 - 129 mg/dL BORDE RLINE HIGH: 130 - 159 mg/dL HIGH: 160 - 189 mg/dL VERY HIGH: > or = 190 mg/dL Not Available [facility] (Lab Registration) [address], [place], [address], 08/31/2023 10:13:48 08/31/19 24 08/31/2023 LIPID PANEL chol/HDL ratio 4 ratio -5 Not Available [facility] (Lab Registration) [address] [place], [address], 08/31/2023 10:13:48 08/31/19 24 08/31/2023 LIPID PANEL note Unles s other lazcano noted testi ng perfo rmed at: [facility] [place] [address] [phone] Gilberto harrison MD CLIA: [id number] Not Available [facility] (Lab Registration) [address] [place], [address], 08/31/2023 10:13:48 09/14/19 24 09/14/2023 PT (PROT HROMB IN TIME) W INR PT (prothrombin time) 15.5 secon ds 9.1-12 .0 high Not Available [facility] (Lab Registration) [address] [place], [address], 09/14/2023 10:41:37 09/14/19 24 09/14/2023 PT (PROT [...] mecha nical heart valve s. Not Available [facility] (Lab Registration) [address] [place], [address], 09/14/2023 10:41:37 09/14/19 24 09/14/2023 PT (PROT HROMB IN TIME) W INR note Unles s other lazcano noted testi ng perfo rmed at: [facility] [address] [place] [address] [phone] Gilberto harrison MD CLIA: [id number] Not Available [facility] (Lab Registration) [address] [place], [address], 09/14/2023 10:41:37 09/27/19 24 09/27/2023 PT (PROT HROMB IN TIME) W INR PT (prothrombin time) 22.5 secon ds 9.1-12 .0 high Not Available [facility] (Lab Registration) [address] [place], [address], 09/27/2023 10:49:44 09/27/19 24 09/27/2023 PT (PROT [...] mecha nical heart valve s. Not Available [facility] (Lab Registration) [address], [place], [address], 09/27/2023 10:49:44 09/27/19 24 09/27/2023 PT (PROT HROMB IN TIME) W INR note Unles s other lazcano noted testi ng perfo rmed at: [facility] [address] [place] [address] [phone] Gilberto harrison MD CLIA: [id number] Not Available [facility] (Lab Registration) [address], [place], [address], 09/27/2023 10:49:44 10/12/19 24 10/12/2023 PT (PROT HROMB IN TIME) W INR PT (prothrombin time) 31.6 secon ds 9.1-12 .0 high Not Available [facility] (Lab Registration) [address] [place], [address], 10/12/2023 10:29:13 10/12/19 24 10/12/2023 PT (PROT [...] mecha nical heart valve s. Not Available [facility] (Lab Registration) [address], [place], [address], 10/12/2023 10:29:13 10/12/19 24 10/12/2023 PT (PROT HROMB IN TIME) W INR note Unles s other lazcano noted testi ng perfo rmed at: [facility] [address] [place] [address] [phone] Gilberto harrison MD CLIA: [id number] Not Available [facility] (Lab Registration) [address], [place], [address], 10/12/2023 10:29:13 10/29/19 24 10/29/2023 PT (PROT HROMB IN TIME) W INR PT (prothrombin time) 33.9 secon ds 9.1-12 .0 high Not Available [facility] (Lab Registration) [address] [place], [address], 10/29/2023 08:55:43 10/29/19 24 10/29/2023 PT (PROT [...] mecha nical heart valve s. Not Available [facility] (Lab Registration) [address] [place], [address], 10/29/2023 08:55:43 10/29/19 24 10/29/2023 PT (PROT HROMB IN TIME) W INR note Unles s other lazcano noted testi ng perfo rmed at: [facility] [place] [phone] Gilberto harrison MD CLIA: [id number] Not Available [facility] (Lab Registration) [address] , [place], [address], 10/29/2023 08:55:43 11/11/19 24 11/11/2023 PT (PROT HROMB IN TIME) W INR PT (prothrombin time) 32.5 secon ds 9.1-12 .0 high Not Available [facility] (Lab Registration) [address], [place], [address], 11/11/2023 16:33:40 11/11/19 24 11/11/2023 PT (PROT [...] mecha nical heart valve s. Not Available [facility] (Lab Registration) [address], [place], [address], 11/11/2023 16:33:40 11/11/19 24 11/11/2023 PT (PROT HROMB IN TIME) W INR note Unles s other lazcano noted testi ng perfo rmed at: [facility] [address] [place] [address] [phone] Gilberto harrison MD CLIA: [id number] Not Available [facility] (Lab Registration) [address] [place], [address], 11/11/2023 16:33:40 11/23/19 24 11/23/2023 PT (PROT HROMB IN TIME) W INR PT (prothrombin time) 53.8 secon ds 9.1-12 .0 high Not Available [facility] (Lab Registration) [address] , [place], [address], 11/23/2023 10:26:33 11/23/19 24 11/23/2023 PT (PROT [...] mecha nical heart valve s. Not Available [facility] (Lab Registration) [address], [place], [address], 11/23/2023 10:26:33 11/23/1911/23/2023 PT (PROT HROMB IN TIME) W INR note Unles s other lazcano noted testi ng perfo rmed at: [facility] [address] [place], [place] [address] [phone] Gilberto harrison MD CLIA: [id number] Not Available [facility] (Lab Registration) [address], [place], [address], 11/23/2023 10:26:33 11/23/1911/23/2023 PTT (PART IAL THROM B TIME) PTT (partial thromb time) 44.6 secon ds 24.5-3 2.8 high Not Available [facility] (Lab Registration) [address] [place], [address], 11/23/2023 10:27:36 11/23/19 24 11/23/2023 PTT (PART IAL THROM B TIME) note Unles s other lazcano noted testi ng perfo rmed at: [facility] [address] [place] [address] [phone] Gilberto harrison MD CLIA: [id number] Not Available [facility] (Lab Registration) [address] , [place], [address], 11/23/2023 10:27:36 11/26/19 24 11/26/2023 PT (PROT HROMB IN TIME) W INR PT (prothrombin time) 38.7 secon ds 9.1-12 .0 high Not Available [facility] (Lab Registration) [address], [place], [address], 11/26/2023 09:38:11 11/26/19 24 11/26/2023 PT (PROT [...] mecha nical heart valve s. Not Available [facility] (Lab Registration) [address], [place], [address], 11/26/2023 09:38:11 11/26/19 24 11/26/2023 PT (PROT HROMB IN TIME) W INR note Unles s other lazcano noted testi ng perfo rmed at: [facility] [address] [facility] [place] [address] [phone] Gilberto harrison MD CLIA: [id number] Not Available [facility] (Lab Registration) [address] [place], [address], 11/26/2023 09:38:11 11/29/19 24 11/29/2023 PT (PROT HROMB IN TIME) W INR PT (prothrombin time) 15.9 secon ds 9.1-12 .0 high Not Available [facility] (Lab Registration) [address], [place], [address], 11/29/2023 09:34:30 11/29/19 24 11/29/2023 PT (PROT [...] mecha nical heart valve s. Not Available [facility] (Lab Registration) [address] , [place], [address], 11/29/2023 09:34:30 11/29/19 24 11/29/2023 PT (PROT HROMB IN TIME) W INR note Unles s other lazcano noted testi ng perfo rmed at: [facility] [address] [employer] [place] [address] [phone] Gilberto harrison MD CLIA: [id number] Not Available [facility] (Lab Registration) [address] , [place], [address], 11/29/2023 09:34:30 12/03/19 24 12/03/2023 PT (PROT HROMB IN TIME) W INR PT (prothrombin time) 19.2 secon ds 9.1-12 .0 high Not Available [facility] (Lab Registration) [address] [place], [address], 12/03/2023 09:40:22 12/03/19 24 12/03/2023 PT (PROT [...] mecha nical heart valve s. Not Available [facility] (Lab Registration) [address], [place], [address], 12/03/2023 09:40:22 12/03/19 24 12/03/2023 PT (PROT HROMB IN TIME) W INR note Unles s other lazcano noted testi ng perfo rmed at: [facility] [address] [place] [address] [phone] Gilberto harrison MD CLIA: [id number] Not Available [facility] (Lab Registration) [address], [place], [address], 12/03/2023 09:40:22 12/10/19 24 12/10/2023 PT (PROT HROMB IN TIME) W INR PT (prothrombin time) 32.6 secon ds 9.1-12 .0 high Not Available [facility] (Lab Registration) [address], [place], [address], 12/10/2023 09:24:52 12/10/1912/10/2023 PT (PROT HROMB IN TIME) W INR [...] mecha nical heart valve s. Not Available [facility] (Lab Registration) [address], [place], [address], 12/10/2023 09:24:52 12/10/19 24 12/10/2023 PT (PROT HROMB IN TIME) W INR note Unles s other lazcano noted testi ng perfo rmed at: [facility] [address] [place], [place] [address] [phone] Gilberto harrison MD CLIA: [id number] Not Available [facility] (Lab Registration) [address] [place], [address], 12/10/2023 09:24:52 12/20/1912/20/2023 PT (PROT HROMB IN TIME) W INR PT (prothrombin time) 28.7 secon ds 9.1-12 .0 high Not Available [facility] (Lab Registration) [address] [place], [address], 12/20/2023 10:04:52 12/20/1912/20/2023 PT (PROT HROMB IN TIME) W INR [...] mecha nical heart valve s. Not Available [facility] (Lab Registration) [address] [place], [address], 12/20/2023 10:04:52 12/20/1912/20/2023 PT (PROT HROMB IN TIME) W INR note Unles s other lazcano noted testi ng perfo rmed at: [facility] [address] [place] [address] [phone] Gilberto harrison MD CLIA: [id number] Not Available [facility] (Lab Registration) [address] [place], [address], 12/20/2023 10:04:52 01/05/20 01/05/2024 PT (PROT HROMB IN TIME) W INR PT (prothrombin time) 31.4 secon ds 9.1-12 .0 high Not Available [facility] (Lab Registration) [address], [place], [address], 01/05/2024 09:59:06 01/05/20 24 01/05/2024 PT (PROT [...] mecha nical heart valve s. Not Available [facility] (Lab Registration) [address], [place], [address], 01/05/2024 09:59:06 01/05/20 24 01/05/2024 PT (PROT HROMB IN TIME) W INR note Unles s other lazcano noted testi ng perfo rmed at: [facility] [address] [place] [address] [phone] Gilberto harrison MD CLIA: [id number] Not Available [facility] (Lab Registration) [address] [place], [address], 01/05/2024 09:59:06 01/17/20 24 01/17/2024 PT (PROT HROMB IN TIME) W INR PT (prothrombin time) 28.9 secon ds 9.1-12 .0 high Not Available [facility] (Lab Registration) [address], [place], [address], 01/17/2024 10:21:50 01/17/20 24 01/17/2024 PT (PROT [...] mecha nical heart valve s. Not Available [facility] (Lab Registration) [address], [place], [address], 01/17/2024 10:21:50 01/17/20 24 01/17/2024 PT (PROT HROMB IN TIME) W INR note Unles s other lazcano noted testi ng perfo rmed at: [facility] [address] [place] [address] [phone] Gilberto harrison MD CLIA: [id number] Not Available [facility] (Lab Registration) [address], [place], [address], 01/17/2024 10:21:50 02/02/20 24 02/02/2024 PT (PROT HROMB IN TIME) W INR PT (prothrombin time) 37.8 secon ds 9.1-12 .0 high Not Available [facility] (Lab Registration) [address] [place], [address], 02/02/2024 10:55:13 02/02/20 24 02/02/2024 PT (PROT [...] mecha nical heart valve s. Not Available [facility] (Lab Registration) [address] [place], [address], 02/02/2024 10:55:13 02/02/20 24 02/02/2024 PT (PROT HROMB IN TIME) W INR note Unles s other lazcano noted testi ng perfo rmed at: [facility] [place] [address] [phone] Gilberto harrison MD CLIA: [id number] Not Available [facility] (Lab Registration) [address], [place], [address], 02/02/2024 10:55:13 02/15/20 24 02/15/2024 PT (PROT HROMB IN TIME) W INR PT (prothrombin time) 23.9 secon ds 9.1-12 .0 high Not Available [facility] (Lab Registration) [address], [place], [address], 02/15/2024 10:00:50 02/15/20 24 02/15/2024 PT (PROT [...] mecha nical heart valve s. Not Available [facility] (Lab Registration) [address] [place], [address], 02/15/2024 10:00:50 02/15/20 24 02/15/2024 PT (PROT HROMB IN TIME) W INR note Unles s other lazcano noted testi ng perfo rmed at: [facility] [address] [place] [address] [phone] Gilberto harrison MD CLIA: [id number] Not Available [facility] (Lab Registration) [address], [place], [address], 02/15/2024 10:00:50 04/18/1904/18/2024 PT (PROT HROMB IN TIME) W INR PT (prothrombin time) 16.7 secon ds 9.1-12 .0 high Not Available [facility] (Lab Registration) [address], [place], [address], 04/18/2024 10:10:09 04/18/19 25 04/18/2024 PT (PROT [...] mecha nical heart valve s. Not Available [facility] (Lab Registration) [address], [place], [address], 04/18/2024 10:10:09 04/18/19 25 04/18/2024 PT (PROT HROMB IN TIME) W INR note Unles s other lazcano noted testi ng perfo rmed at: [facility] [place] [address] [phone] Gilberto harrison MD CLIA: [id number] Not Available [facility] (Lab Registration) [address] [place], [address], 04/18/2024 10:10:09 04/29/19 25 04/28/2024 PT (PROT HROMB IN TIME) W INR PT (prothrombin time) 64.3 secon ds 9.1-12 .0 Not Available [facility] (Lab Registration) [address] [place], [address], 04/28/2024 11:18:48 04/29/19 25 04/28/2024 PT (PROT [...] mecha nical heart valve s. Not Available [facility] (Lab Registration) [address], [place], [address], 04/28/2024 11:18:48 04/29/19 25 04/28/2024 PT (PROT HROMB IN TIME) W INR note Unles s other lazcano noted testi ng perfo rmed at: [facility] [address] [place] [address] [phone] Gilberto harrison MD CLIA: [id number] Not Available [facility] (Lab Registration) [address], [place], [address], 04/28/2024 11:18:48 05/02/19 25 05/01/2024 PT (PROT HROMB IN TIME) W INR PT (prothrombin time) 21.2 secon ds 9.1-12 .0 high Not Available [facility] (Lab Registration) [address], [place], [address], 05/01/2024 12:39:09 05/02/19 25 05/01/2024 PT (PROT [...] mecha nical heart valve s. Not Available [facility] (Lab Registration) [address], [place], [address], 05/01/2024 12:39:09 05/02/19 25 05/01/2024 PT (PROT HROMB IN TIME) W INR note Unles s other lazcano noted testi ng perfo rmed at: [facility] [address] [place] [address] [phone] Gilberto harrison MD CLIA: [id number] Not Available [facility] (Lab Registration) [address], [place], [address], 05/01/2024 12:39:09 05/06/19 25 05/05/2024 PT (PROT HROMB IN TIME) W INR PT (prothrombin time) 25.7 secon ds 9.1-12 .0 high Not Available [facility] (Lab Registration) [address] [place], [address], 05/05/2024 09:48:56 05/06/19 25 05/05/2024 PT (PROT [...] mecha nical heart valve s. Not Available [facility] (Lab Registration) [address], [place], [address], 05/05/2024 09:48:56 05/06/19 25 05/05/2024 PT (PROT HROMB IN TIME) W INR note Unles s other lazcano noted testi ng perfo rmed at: [facility] [place] [address] [phone] Gilberto harrison MD CLIA: [id number] Not Available [facility] (Lab Registration) [address], [place], [address], 05/05/2024 09:48:56 05/16/1905/15/2024 PT (PROT HROMB IN TIME) W INR PT (prothrombin time) 25.1 secon ds 9.1-12 .0 high Not Available [facility] (Lab Registration) [address] [place], [address], 05/15/2024 10:56:15 05/16/19 25 05/15/2024 PT (PROT [...] mecha nical heart valve s. Not Available [facility] (Lab Registration) [address], [place], [address], 05/15/2024 10:56:15 05/16/19 25 05/15/2024 PT (PROT HROMB IN TIME) W INR note Unles s other lazcano noted testi ng perfo rmed at: [facility] [place] [address] [phone] Gilberto harrison MD CLIA: [id number] Not Available [facility] (Lab Registration) [address] [place], [address], 05/15/2024 10:56:15 05/24/19 25 05/23/2024 PT (PROT HROMB IN TIME) W INR PT (prothrombin time) 33.6 secon ds 9.1-12 .0 high Not Available [facility] (Lab Registration) [address], [place], [address], 05/23/2024 08:51:45 05/24/19 25 05/23/2024 PT (PROT [...] mecha nical heart valve s. Not Available [facility] (Lab Registration) [address], [place], [address], 05/23/2024 08:51:45 05/24/19 25 05/23/2024 PT (PROT HROMB IN TIME) W INR note Unles s other lazcano noted testi ng perfo rmed at: [facility] [address] [place] [address] [phone] Gilberto harrison MD CLIA: [id number] Not Available [facility] (Lab Registration) [address] [place], [address], 05/23/2024 08:51:45 06/01/19 25 05/31/2024 PT (PROT HROMB IN TIME) W INR PT (prothrombin time) 22.9 secon ds 9.1-12 .0 high Not Available [facility] (Lab Registration) [address] [place], [address], 05/31/2024 10:10:55 06/01/19 25 05/31/2024 PT (PROT [...] mecha nical heart valve s. Not Available [facility] (Lab Registration) [address], [place], [address], 05/31/2024 10:10:55 06/01/19 25 05/31/2024 PT (PROT HROMB IN TIME) W INR note Unles s other lazcano noted testi ng perfo rmed at: [facility] [place] [address] [phone] Gilberto harrison MD CLIA: [id number] Not Available [facility] (Lab Registration) [address], [place], [address], 05/31/2024 10:10:55 06/20/19 25 06/19/2024 PT (PROT HROMB IN TIME) W INR PT (prothrombin time) 18.9 secon ds 9.1-12 .0 high Not Available [facility] (Lab Registration) [address] [place], [address], 06/19/2024 09:26:51 06/20/1906/19/2024 PT (PROT HROMB IN TIME) W INR [...] mecha nical heart valve s. Not Available [facility] (Lab Registration) [address] [place], [address], 06/19/2024 09:26:51 06/20/19 25 06/19/2024 PT (PROT HROMB IN TIME) W INR note Unles s other lazcano noted testi ng perfo rmed at: [facility] [place], [place] [id number] [phone] Gilberto harrison MD CLIA: [id number] Not Available [facility] (Lab Registration) [address], [place], [address], 06/19/2024 09:26:51 06/28/19 25 06/27/2024 PT (PROT HROMB IN TIME) W INR PT (prothrombin time) 23.5 secon ds 9.1-12 .0 high Not Available [facility] (Lab Registration) [address], [place], [address], 06/27/2024 10:18:50 06/28/19 25 06/27/2024 PT (PROT HROMB IN TIME) W INR INR 2.28 0.9-1. 1 high INR is inten ded to be used only for patie nts on stabl e oral anti- coagu lant thera py. *Ther apeut ic Range s 2.0 - 3.0 Usual Thera peuti c Range 2.5 - 3.5 For patie nts with a histo ry of multi ple deep vein throm bus or mecha nical heart valve s. Not Available [facility] (Lab Registration) [address] [place], [address], 06/27/2024 10:18:50 06/28/19 25 06/27/2024 PT (PROT HROMB IN TIME) W INR note Unles s other lazcano noted testi ng perfo rmed at: [facility] [place], [place] [id number] [phone] Gilberto harrison MD CLIA: [id number] Not Available [facility] (Lab Registration) [address] [place], [address], 06/27/2024 10:18:50 07/13/19 25 07/12/2024 PT (PROT HROMB IN TIME) W INR PT (prothrombin time) 19.4 secon ds 9.1-12 .0 high Not Available [facility] (Lab Registration) [address], [place], [address], 07/12/2024 09:54:32 07/13/19 25 07/12/2024 PT (PROT HROMB IN TIME) W INR INR 1.85 0.9-1. 1 high INR is inten ded to be used only for patie nts on stabl e oral anti- coagu lant thera py. *Ther apeut ic Range s 2.0 - 3.0 Usual Thera peuti c Range 2.5 - 3.5 For patie nts with a histo ry of multi ple deep vein throm bus or mecha nical heart valve s. Not Available [facility] (Lab Registration) [address], [place], [address], 07/12/2024 09:54:32 07/13/1907/12/2024 PT (PROT HROMB IN TIME) W INR note Unles s other lazcano noted testi ng perfo rmed at: [facility] [address] [place] [address] [phone] Gilberto harrison MD CLIA: [id number] Not Available [facility] (Lab Registration) [address], [place], [address], 07/12/2024 09:54:32 11/21/19 23 11/19/2022 pulmo nary funct ion test* No observ ation record ed. [email or web address] [facility] [address] [place] [address], [address], 11/20/2022 16:30:59 09/03/19 24 09/02/2023 pulmo nary funct ion test* No observ ation record ed. [email or web address] [facility] [address] [facility], [place], [address], 09/03/2023 09:37:16 Result Notes None recorded. 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 6 11:31:55 Blood coagulation disorder 01994332 Active Charlotte Bernstein MD [address] [address], [facility] 6 11:31:55 Varicose veins of lower extremity 03759834 Lucretia Bernsetin MD [address] [address], [facility] 6 11:31:55 Benign essential hypertension 1099675 Active Charlotte Bernstein MD [address] [address], [facility] 6 11:31:55 Nausea 485226030 Lucretia Bernstein MD [address] [address], [facility] 6 11:31:55 Hyperlipidemia 08059653 Lucretia Bernstein MD [address] [address], [facility] 6 11:31:54 Pain in right lower limb 101079345 Lucretia Bernstein MD [address] [address], [facility] 6 11:31:55 Gastroesophage al reflux disease 261509561 Lucretia Bernstein MD [address], [address] [place] [address], [facility] 6 11:31:55 Pruritic disorder 114951970 Lucretia Bernstein MD [address] [address], [facility] 6 11:31:55 Chronic pain syndrome 877018460 Lucretia Bernstein MD [address] [address], [place] - [facility] 6 11:31:55 Superficial thrombophlebit is 4638518 Lucretia Bernstein MD [address] [address], [facility] 6 11:31:55 Pain in lower limb 57694611 Lucretia Bernstein MD [address] [address], [facility] 6 11:31:55 Fracture of ankle 57828296 Lucretia Bernstein MD [address] [address], [facility] 6 11:31:55 Fracture of lower limb 20950539 Lucretia Bernstein MD [address] [address], [facility] 6 11:31:55 Vertigo 758402986 Lucretia Bernstein MD [address] [address], [facility] 6 11:31:55 Fatigue 31843590 Lucretia Bernstein MD [address] [address], [place] - [facility] 6 11:31:55 Chronic back pain 533690248 Active Charlotte Bernstein MD [address] [address], [place] - [facility] 6 11:31:55 Blood glucose outside reference range 598606167 Active Charlotte Bernstein MD [address] [address], [place] - [facility] 6 11:31:55 Lower abdominal pain 26475472 Active Charlotte Bernstein MD [address] [address], [place] - [facility] 6 11:31:55 Peripheral neuropathic pain 022570413 Active Charlotte Bernstein MD [address] [address], [place] - [facility] 6 11:31:55 Acute bronchitis 00626227 Active Charlotte Bernstein MD [address] [address], [place] - [facility] 6 22:22:11 Wheezing 02508440 Active Charlotte Bernstein MD [address] [address], [place] - [facility] 6 22:22:11 Anticoagulant therapy Active 2015 Charlotte Bernstein MD [address] [address], [facility] 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 8 21:06:57 Factor V Leiden mutation 747041635 Active Charlotte Bernstein MD [address] [facility] [address], [address] , [facility] 8 21:07:38 Problem Notes None recorded. Procedures Surgical History Date Name Laterality Status Provider Name and Address Organization Details Recorded Time 022 reconstruction using skin flap completed Charlotte Bernstein MD [address], [address], [facility] 08/16/2022 09:02:59 006 Bronchoscopy completed [facility] 10/03/2015 11:14:11 006 Hernia Repair completed [facility] 10/03/2015 11:12:32 996 Partial removal of colon completed [facility] 10/03/2015 11:13:31 Colonoscopy completed Charlotte Bernstein MD [address] [address], [place], [address], [facility] 09/22/2013 10:54:43 Splenectomy completed Not Available [facility] 01/06/2011 04:58:32 Cholecystectomy completed Not Available [facility] 01/06/2011 04:58:32 Appendectomy completed Not Available [facility] 01/06/2011 04:58:32 Hemorrhoidectomy completed Not Available [facility] 01/06/2011 04:58:32 Imaging Results None recorded. Procedure Notes None recorded. Medical Equipment None Reported. Allergies Allergen ID Allergen Name Allergen Category Reaction Reaction Severity Criticality Documentation Date Start Date Code Code System Note Provider Name and Address Organization Details Recorded Time 9383 iodine medicatio n Not available Not available Not available 04/20/2011 5933 [facility] 2 09:26:52 9384 Floxin medicatio n Not available Not available Not available 04/20/201130391 8 RxNorm Isabella [facility] 2 09:26:52 9385 Reglan medicatio n Not available Not available Not available 04/20/2011 9230 RxNorm Isabella [facility] 2 09:26:52 Medications Name Sig Start [...] oxycodone 5 mg tablet TAKE 1 TABLET EVERY 4 HOURS NEEDED FOR PAIN active [...] Updated DateTime 4 171.45 cm 29.2 kg/m2 75543.0 6 g 90 /min 97 % 97 % 97.2 [degF] 145 mm[Hg] 83 mm[Hg] [facility] 4 10:55:04 Date Recorded Body height Body mass index (BMI) Body weight Heart rate Oxygen saturation Oxygen saturation in Arterial blood by Pulse oximetry Body temperature Systolic blood pressure Diastolic blood pressure Provider Name and Address Organization Details Last Updated DateTime 5 171.45 cm 29.3 kg/m2 55376.2 5 g 79 /min 97 % 97 % 98.1 [degF] 148 mm[Hg] 84 mm[Hg] [facility] 5 14:34:36 Date Recorded Body height Body mass index (BMI) Body weight Heart rate Oxygen saturation Oxygen saturation in Arterial blood by Pulse oximetry Body temperature Systolic blood pressure Diastolic blood pressure Provider Name and Address Organization Details Last Updated DateTime 4 171.45 cm 29.8 kg/m2 76193.7 3 g 53 /min 96 % 96 % 97.9 [degF] 140 mm[Hg] 86 mm[Hg] [facility] 4 13:36:40 Date Recorded Body height Body mass index (BMI) Body weight Heart rate Oxygen saturation Oxygen saturation in Arterial blood by Pulse oximetry Body temperature Systolic blood pressure Diastolic blood pressure Provider Name and Address Organization Details Last Updated DateTime 3 171.45 cm 29 kg/m2 75850.0 7 g 91 /min 99 % 99 % 97.9 [degF] 142 mm[Hg] 81 mm[Hg] [facility] 3 11:12:07 Date Recorded Body height Body weight Heart rate Oxygen saturation Oxygen saturation in Arterial blood by Pulse oximetry Body temperature Systolic blood pressure Diastolic blood pressure Provider Name and Address Organization Details Last Updated DateTime 4 171.45 cm 79313.3 7 g 76 /min 96 % 96 % 97 [degF] 135 mm[Hg] 67 mm[Hg] [facility] 4 09:10:36 Social History Question Answer Notes LastModified by Organizat ion Details LastModified Time Tobacco Smoking Status Never Smoker Not Available [facility] 12/19/2019 03:11:20 Do You Have An Advance Directive? Yes [id number] Information not available 12/19/2019 Animal Exposure? No Informat ion not available 07/03/2011 Auto Related Injury? No 5 Information not available 01/06/2011 Is Blood Transfusion Acceptable In An Emergency? Yes [id number] Information not available 12/19/2019 What Is Your Level Of Caffeine Consumption? Moderate Information not available 06/22/2020 How Much Tobacco Do You Chew? None [id number] Information not available 12/19/2019 Diabetes No [email or web address] 11 5 Information not available 01/06/2011 What Type Of Diet Are You Following? REGULAR [id number] Information not available 12/19/2019 Education 12 Information no t available 07/03/2011 What Is The Highest Grade Or Level Of School You Have Completed Or The Highest Degree You Have Received? [id number] Information not available 06/21/2020 Family History Of Heart Disease? Yes 5 Information not available 01/06/2011 Which Of Your Hands Is Dominant? Right [id number] Information not available 12/19/2019 High Blood Pressure Yes 5 Information not available 01/06/2011 High Cholesterol No Informat ion not available 07/03/2011 Live Alone Or With Others? With Others Information not available 01/06/2011 Marital Status [email or web address] [id number] 5 Information not available 01/06/2011 What Was The Date Of Your Most Recent Tobacco Screening? 09/02/2023 Information not available 09/02/2023 How Many Children Do You Have? 2 [id number] Information not available 12/19/2019 What Is Your Relationship Status? Information not available 06/21/2020 Do You Use Your Seat Belt Or Car Seat Routinely? Yes [id number] Information not available 12/19/2019 Seat Belts Used Routinely Yes 5 Information not available 01/06/2011 Smoke Alarm In Home Yes Information not available 07/03/2011 General Stress Level Low Information not available 07/03/2011 Do You Use Sunscreen Routinely? Yes [id number] Information not available 12/19/2019 Sex: Unknown Functional Status Question Answer Note LastModified by Organizat ion Details LastModified Time Do you use any illicit or recreational drugs? No Information not available 06/21/2020 Do you or have you ever used any other forms of tobacco or nicotine? No Information not available 06/21/2020 What is your level of alcohol consumption? None [id number] Information not available 12/19/2019 Are you currently employed? Yes [id number] Information not available 12/19/2019 Are you able to care for yourself? Yes [id number] Information n ot available 12/19/2019 What is your occupation? retired [id number] Information not available 12/19/2019 What is your exercise level? None [id number] Information not available 12/19/2019 Mental Status None recorded. Family History Relationship Description Onset Age of this Age Resolved Age Notes LastModified by Organization Details LastModified Time Father Myocardial infarction 68 previo usly record ed as Heart Attack (CT) Not available 09/09/2015 11:37:58 Mother Problem 68 [...] conjugate PCV 13 7 completed Not Available [facility] 03/11/2019 02:12:07 Influenza, high-dose, quadrivalent, PF 0 completed Charlotte Bernstein MD [address] [address], [place], [address], [facility] 11/27/2019 10:26:48 Influenza, high-dose, trivalent, PF 4 completed [facility] 01/29/2014 14:30:01 pneumococcal polysaccharide PPV23 4 completed [facility] 01/29/2014 14:30:56 pneumococcal polysaccharide PPV23 3 completed Charlotte Bernstein MD [address] [address], [place], [address], [facility] 05/15/2014 16:10:57 Td (adult) 0 completed Charlotte Bernstein MD [address] [address], [place], [place], [address] [place] [address], [facility] 10/22/2014 10:31:23 Tdap 5 completed [facility] 10/22/2014 10:32:08 COVID-19, mRNA, LNP-S, bivalent, PF, 30 mcg/0.3 mL dose 3 completed [facility] 01/21/2023 10:41:33 COVID-19, mRNA, LNP-S, PF, zan-sucrose, 30 mcg/0.3 mL 4 completed Charlotte Bernstein MD [address] [address], [place], [address], [facility] 02/03/2024 22:26:29 COVID-19, mRNA, LNP-S, PF, 100 mcg/0.5mL dose or 50 mcg/0.25mL dose 1 completed Charlotte Bernstein MD [address] [address], [place], [address], [facility] 06/20/2020 11:21:45 COVID-19, mRNA, LNP-S, PF, 100 mcg/0.5mL dose or 50 mcg/0.25mL dose 1 completed Charlotte Bernstein MD [address] [address], [place], [address], [facility] 06/20/2020 11:22:01 COVID-19, mRNA, LNP-S, PF, 100 mcg/0.5mL dose or 50 mcg/0.25mL dose 1 completed [facility] 06/24/2021 10:11:33 Past Encounters Encounter ID Performer Location Encounter Start Date Encounter Closed Date Diagnosis/Indication Diagnosis SNOMED-CT Code Diagnosis ICD10 Code Diagnosis Note [id number] Guanaco Coronel MD [facility] [address] [id number] 11/14/2010 08:56:10 11/14/2010 14:04:31 [id number] Guanaco Coronel MD [facility] [address] [id number] 12/26/2010 09:12:00 12/29/2010 15:06:22 [id number] Guanaco Coronel MD [facility] [address] [place] [id number] 01/30/2011 10:22:00 01/30/2011 16:22:47 [id number] Guanaco Coronel MD [facility] [address] [place] [id number] 04/20/2011 08:45:04 04/20/2011 17:20:05 [id number] Guanaco Coronel MD [facility] [address] [id number] 07/03/2011 08:53:58 07/03/2011 10:39:22 [id number] Guanaco Coronel MD [address] [address] 09/03/2011 08:46:31 09/03/2011 17:07:52 [id number] Guanaco Coronel MD [address] [address] 10/29/2011 11:49:47 10/29/2011 18:02:36 [id number] Guanaco Coronel MD [facility] [address] [id number] 01/28/2012 09:01:43 01/28/2012 16:00:13 [id number] Guanaco Coronel MD [address] [address] 05/18/2012 08:30:31 05/18/2012 11:53:00 [id number] Guanaco Coronel MD [address] [address] 08/31/2012 09:03:57 08/31/2012 12:21:19 [id number] Charlotte Bernstein MD [address] [address] 11/04/2012 08:02:46 11/04/2012 10:47:10 [id number] Charlotte Bernstein MD [address] [address] 02/03/2013 09:01:00 02/03/2013 10:06:39 Varicose veins of lower extremity 23201659 Blood coag ulation disorder 36591011 Benign ess ential hypertension 5248749 Disorder o f porphyrin metabolism 35153942 Pain in ri ght lower limb 017838754 [id number] Charlotte Bernstein MD [facility] [address] [id number] 04/11/2013 15:03:10 04/11/2013 17:38:45 Benign essential hypertension 5879447 Blood coag ulation disorder 95163055 Disorder o f porphyrin metabolism 16006535 Varicose v eins of lower extremity 89555478 Pruritic disorder 278355221 Chronic pain syndrome 314307603 [id number] Charlotte Bernstein MD [facility] [address] [id number] 09/22/2013 10:28:11 09/22/2013 14:12:28 Chronic pain syndrome 719137900 Disorder o f porphyrin metabolism 52336316 Blood coag ulation disorder 55209826 Benign ess ential hypertension 4499265 Adult [facility] th examination 535394802 Hyperlipidemia 68404065 Pruritic disorder 513750110 Screening for cancer 81104124 [id number] Charlotte Bernstein MD [facility] [address] [id number] 12/11/2013 09:46:50 12/15/2013 15:18:12 Benign essential hypertension 5406368 Chronic pain syndrome 924137967 Nausea 267121777 Pruritic disorder 532002024 [id number] Charlotte Bernstein MD [address] [address] 02/13/2014 09:49:33 02/13/2014 12:17:19 Superficial thrombophlebitis 0958358 Benign ess ential hypertension 1192950 Anticoagulant therapy 911688862 Chronic pain syndrome 946923645 Pain in ri ght lower limb 103585399 [id number] Charlotte Bernstein MD [address] [address] 05/15/2014 14:33:58 05/15/2014 16:33:37 Anticoagulant therapy 494401038 Benign ess ential hypertension 5770030 Chronic pain syndrome 206306284 Disorder o f porphyrin metabolism 19977763 Hyperlipidemia 10728126 [id number] Charlotte Bernstein MD [facility] [address] [id number] 07/20/2014 09:50:46 07/20/2014 12:10:37 Fracture of lower limb 62301619 Benign ess ential hypertension 2447339 Anticoagulant therapy 259930931 Chronic pain syndrome 548605532 Superficia l thrombophlebitis 0887677 [id number] Charlotte Bernstein MD [facility] [address] [id number] 10/22/2014 09:09:36 10/22/2014 13:37:38 Adult health examination 749341126 Anticoagulant therapy 289829331 Blood coag ulation disorder 26661460 Chronic pain syndrome 469312034 Disorder o f porphyrin metabolism 40308532 Gastroesop hageal reflux disease 040131565 Hyperlipidemia 18555587 Superficia l thrombophlebitis 6937903 Vertigo 812026619 Screening for cancer 05828003 Fatigue 98486507 Benign ess ential hypertension 5965483 [id number] Charlotte Bernstein MD [facility] [place] [address] 01/01/2015 09:07:45 01/01/2015 15:31:07 Chronic back pain 550547906 R52 Anticoagulant therapy 18 1588281 Z79.01 Blood gluc ose outside reference range 216708078 R73.09 Gastroesop hageal reflux disease 812977581 K21.9 Lower abdominal pain 545 14886 R10.30 [id number] Charlotte Bernstein MD [place] [address] 03/04/2015 14:33:23 03/04/2015 17:11:45 Peripheral neuropathic pain 626556206 M79.2 Anticoagulant therapy 18 0465479 Z79.01 Disorder o f porphyrin metabolism 90914266 E80.20 Fatigue 89106509 R53.83 Pruritic disorder 856862 002 L29.9 Chronic pain syndrome 37 8904324 G89.4 Nausea 995792229 R11.0 [id number] Charlotte Bernstein MD [place] [address] 7 05/10/2015 09:17:32 05/10/2015 14:30:15 Benign essential hypertension 9815488 I10 Disorder o f porphyrin metabolism 53847825 E80.20 Anticoagulant therapy 18 0820953 Z79.01 Chronic back pain 020151 002 R52 Depression screening 171 351015 Z13.89 [id number] Charlotte Bernstein MD [place] [address] 7 08/23/2015 10:22:00 08/23/2015 17:02:06 Anticoagulant therapy 011047944 Z79.01 Blood coag ulation disorder 99426010 D68.9 Chronic pain syndrome 37 1923306 G89.4 Disorder o f porphyrin metabolism 09133392 E80.1 [id number] Charlotte Bernstein MD [facility] [address] [place] [id number] 09/09/2015 10:38:33 09/10/2015 08:02:42 Acute bronchitis 68868255 J20.9 Wheezing 09858301 R06.2 Anticoagulant therapy 18 1496196 Z79.01 [id number] Charlotte Bernstein MD [facility] [address] [address] 10/03/2015 10:32:36 10/04/2015 07:50:04 Dizziness 123164607 R42 Recurrent falls 17621849 2 R29.6 Pain in lower limb 54603 006 M79.605 Lower resp iratory tract infection 56823080 J22 Deep venou s thrombosis of lower extremity 976821238 I82.401 I82.539 [id number] Charlotte Bernstein MD [facility] [address] [address] 11/19/2015 11:06:01 11/19/2015 14:28:37 Abdominal pain 82411846 R10.9 Colitis 41596758 K52.9 Anticoagulant therapy 18 5410022 Z79.01 Nausea, vo miting and diarrhea 4954176 R11.2 Chronic pain syndrome 37 6951722 G89.4 Benign ess ential hypertension 4318746 I10 Disorder o f porphyrin metabolism 25643551 E80.1 [id number] Charlotte Bernstein MD [facility] [address] [address] 11/26/2015 10:56:25 11/26/2015 13:43:15 Disorder of porphyrin metabolism 61689976 E80.1 Anticoagulant therapy 18 3443003 Z79.01 Chronic constipation 236 658767 K59.00 Chronic ab dominal pain 935531443 R10.9 [id number] Charlotte [facility] MD [facility] PRIMARY [address] [address] 01/21/2016 14:37:25 01/23/2016 09:01:06 Adult health examination 601884920 Z00.00 Disorder o f porphyrin metabolism 20712612 E80.1 Anticoagulant therapy 18 2184976 Z79.01 Benign ess ential hypertension 5310473 I10 Chronic pain syndrome 37 8983697 G89.4 Hyperlipidemia 15883390 E78.5 Varicose v eins of lower extremity 99096667 I83.893 Body mass index 30+ - obesity 983536901 Z68.30 [id number] Charlotte Bernstein MD [facility] [address] [place] [address] 7 06/18/2016 10:15:20 06/23/2016 08:37:43 Disorder of porphyrin metabolism 12780754 E80.1 Chronic pain syndrome 37 2523397 G89.4 Superficia l thrombophlebitis 0360014 I80.9 Essential hypertension 43626631 I10 Hyperlipidemia 81842012 E78.5 [id number] Charlotte Bernstein MD [facility] [place] [address] 7 09/10/2016 10:14:49 09/10/2016 15:03:32 Dizziness 433489080 R42 Essential hypertension 65330821 I10 Anticoagulant therapy 18 4926911 Z79.01 Chronic pain syndrome 37 6362367 G89.4 [id number] Charlotte Bernstein MD [facility] [address] [address] 02/01/2017 09:39:25 02/02/2017 08:40:44 Chronic pain syndrome 043296589 G89.4 Adult heal th examination 479682612 Z00.01 Cervical radiculopathy 78866931 M54.12 Active or passive immunization 814819005 Z23 Anticoagulant therapy 18 1590564 Z79.01 Benign ess ential hypertension 2209130 I10 Chronic back pain 012377 002 R52 Gastroesop hageal reflux disease 541492253 K21.9 Superficia l thrombophlebitis 8194045 I80.9 Peripheral neuropathic pain 091631174 M79.2 Disorder o f porphyrin metabolism 16072490 E80.1 Hyperlipidemia 18198301 E78.5 Varicose v eins of lower extremity 44340029 I83.893 Fatigue 59403761 R53.83 Body mass index 30+ - obesity 545339261 Z68.30 Depression screening 171 010323 Z13.89 [id number] Charlotte Bernstein MD [facility] [address] [address] 07/29/2017 09:07:06 08/03/2017 15:00:34 Body mass index 30+ - obesity 476887990 Z68.30 Nausea 287705849 R11.0 Chronic pain syndrome 37 9583868 G89.4 Anticoagulant therapy 18 2556560 Z79.01 Benign ess ential hypertension 7878894 I10 Chronic back pain 219057 002 R52 Gastroesop hageal reflux disease 175923484 K21.9 Superficia l thrombophlebitis 5653338 I80.9 Peripheral neuropathic pain 399661279 M79.2 Disorder o f porphyrin metabolism 51772907 E80.1 Hyperlipidemia 03909311 E78.5 Varicose v eins of lower extremity 18066629 I83.893 Fatigue 91583780 R53.83 [id number] Charlotte Bernstein MD [facility] [address] [place] [address] 7 11/01/2017 09:11:08 11/03/2017 08:58:41 Chronic headache disorder 798660462 G43.719 Anticoagulant therapy 18 8474399 Z79.01 Body mass index 30+ - obesity 416724526 Z68.30 [id number] Charlotte Bernstein MD [facility] [address] [place] [address] 7 02/04/2018 09:00:23 02/07/2018 15:05:07 Adult health examination 379805156 Z00.01 Peripheral neuropathic pain 286048606 M79.2 Pruritic disorder 825122 002 L29.9 Viral screening 39615379 4 Z11.59 Blood gluc ose outside reference range 496266134 R73.09 Anticoagulant therapy 18 8834738 Z79.01 Impacted c erumen in right ear 6900199075 254975 H61.21 Chronic pain syndrome 37 9405938 G89.4 Benign ess ential hypertension 8330483 I10 Chronic back pain 315344 002 R52 Gastroesop hageal reflux disease 120024703 K21.9 Superficia l thrombophlebitis 9475534 I80.9 Disorder o f porphyrin metabolism 47803756 E80.1 Hyperlipidemia 88817798 E78.5 Varicose v eins of lower extremity 25525541 I83.893 Fatigue 09935209 R53.83 Body mass index 30+ - obesity 892175761 Z68.30 Depression screening 171 276290 Z13.89 [id number] Charlotte Bernstein MD [facility] [address] [address] 06/09/2018 09:07:06 06/10/2018 08:22:52 Seasonal allergic rhinitis 396127239 J30.2 Nausea 750392672 R11.0 Headache 93149185 R51 Disorder o f porphyrin metabolism 85801864 E80.1 Anticoagulant therapy 18 9396274 Z79.01 [id number] Charlotte Bernstein MD [facility] [address] [place] [address] 7 10/07/2018 09:45:21 10/07/2018 13:29:22 Disorder of porphyrin metabolism 75035559 E80.1 Headache 01443758 R51 Seasonal allergy 7778361 04 J30.2 Anticoagulant therapy 18 1243143 Z79.01 [id number] Charlotte Bernstein MD [facility] [address] [address] 02/10/2019 08:42:16 02/13/2019 08:55:02 Adult health examination 977070147 Z00.01 Peripheral neuropathic pain 253571448 M79.2 Pruritic disorder 289782 002 L29.9 Viral screening 09861886 4 Z11.59 Blood gluc ose outside reference range 423201889 R73.09 Anticoagulant therapy 18 6109892 Z79.01 Chronic pain syndrome 37 8357976 G89.4 Benign ess ential hypertension 4769621 I10 Chronic back pain 327001 002 R52 Gastroesop hageal reflux disease 786244530 K21.9 Superficia l thrombophlebitis 6865570 I80.9 Disorder o f porphyrin metabolism 39992154 E80.1 Hyperlipidemia 11611253 E78.5 Varicose v eins of lower extremity 42702831 I83.893 Fatigue 74390205 R53.83 Body mass index 30+ - obesity 407917739 Z68.30 Depression screening 171 537646 Z13.89 Influenza vaccination declined 397847593 Z28.21 [id number] Charlotte Bernstein MD [facility] [address] [address] 08/28/2019 11:03:17 08/29/2019 08:06:53 Superficial thrombophlebitis 4355912 I80.9 Pain of mu ltiple joints 97860748 M25.50 Chronic pain syndrome 37 6409698 G89.4 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 0708271475 09443 G56.01 Long-term current use of anticoagulant 425785014 Z79.01 [id number] Charlotte Bernstein MD [facility] [address] [place] [address] 7 11/27/2019 09:02:51 11/27/2019 17:09:03 Superficial thrombophlebitis 1723694 I80.9 Pain of mu ltiple joints 48417902 M25.50 Chronic pain syndrome 37 0544264 G89.4 Long-term current use of anticoagulant 522279008 Z79.01 Essential hypertension 10994169 I10 Administra tion of influenza vaccine 11612116 Z23 [id number] Charlotte Bernstein MD [facility] [address] [address] 03/18/2020 10:20:39 03/19/2020 08:12:26 Essential hypertension 69221163 I10 Disorder o f porphyrin metabolism 73198469 E80.1 Hyperlipidemia 66970761 E78.5 Long-term current use of anticoagulant 632314778 Z79.01 Gastroesop hageal reflux disease 957499588 K21.9 Screening for malignant neoplasm of prostate 039336774 Z12.5 Fatigue 05439599 R53.83 [id number] Charlotte Bernstein MD [address] [address] 06/20/2020 10:13:35 06/24/2020 08:45:39 Essential hypertension 50583871 I10 Eczema 12551502 L30.9 Adult heal th examination 569719285 Z00.01 Peripheral neuropathic pain 278570189 M79.2 Pruritic disorder 648568 002 L29.9 Anticoagulant therapy 18 6615082 Z79.01 Chronic pain syndrome 37 6417620 G89.4 Benign ess ential hypertension 9382628 I10 Chronic back pain 050292 002 R52 Gastroesop hageal reflux disease 742706764 K21.9 Superficia l thrombophlebitis 5856285 I80.9 Disorder o f porphyrin metabolism 22175082 E80.1 Hyperlipidemia 03966290 E78.5 Varicose v eins of lower extremity 02377438 I83.893 Fatigue 88007292 R53.83 Depression screening 171 757466 Z13.89 Body mass index 25-29 - overweight 676103009 Z68.29 Screening for disorder 985266530 Z13.9 Timed up and go is 5 seconds Colon canc er screening declined 7950844388 9109 Z53.20 [id number] Charlotte Bernstein MD [facility] [address] [place] [address] 7 10/08/2020 09:47:10 10/09/2020 17:51:20 Long-term current use of anticoagulant 532052551 Z79.01 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 Chest wall pain 68625470 6 R07.89 [id number] Charlotte Bernstein MD [facility] [address] [place] [address] 7 01/09/2021 14:12:41 01/13/2021 08:15:30 Syncope and collapse 047936116 R55 Anticoagulant therapy 18 4886833 Z79.01 he will stop coumadin 2 days Warfarin overdosage 4754 6008 T45.514A Essential hypertension 99991870 I10 Gastroesop hageal reflux disease 544193585 K21.9 Chronic pain syndrome 37 7148637 G89.4 Disorder o f porphyrin metabolism 51672906 E80.1 [id number] Charlotte Bernstein MD [facility] [place] [address] 7 06/24/2021 09:39:31 07/01/2021 08:38:50 Adult health examination 895587051 Z00.01 Essential hypertension 91869169 I10 Eczema 78099057 L30.9 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 Pruritic disorder 997144 002 L29.9 Anticoagulant therapy 18 2619308 Z79.01 Chronic pain syndrome 37 7024184 G89.4 Benign ess ential hypertension 4476927 I10 Chronic back pain 712129 002 R52 Gastroesop hageal reflux disease 735421632 K21.9 Superficia l thrombophlebitis 6920680 I80.9 Disorder o f porphyrin metabolism 47598744 E80.1 Hyperlipidemia 19749594 E78.5 Varicose v eins of lower extremity 88410247 I83.893 Fatigue 82729146 R53.83 Depression screening 171 978128 Z13.89 Screening for disorder 587989854 Z13.9 Timed up and go is 5 seconds Colon canc er screening declined 7491617102 9109 Z53.20 Neoplasm o f uncertain behavior of skin 59131219 D48.5 Asthma 433636676 J45.90 9 Chest wall pain 27681998 6 R07.89 Body mass index 30+ - obesity 166956017 Z68.31 Colonoscopy declined 112 2749599 14694 Z53.20 [id number] Charlotte Bernstein MD [facility] [address] [place], [place] [address] 10/03/2021 10:06:56 10/07/2021 08:01:20 Anticoagulant therapy 790953647 Z79.01 Disorder o f vitamin B12 438997133 E53.8 Hyperlipidemia 91002810 E78.5 Fatigue 22138247 R53.83 [id number] Charlotte Bernstein MD [facility] [address] [place], [place] [address] 01/05/2022 13:50:42 01/06/2022 09:19:25 Gastroesophageal reflux disease 091209647 K21.9 Disorder o f vitamin B12 915912109 E53.8 History of malignant basal cell neoplasm of skin 136701825 Z85.828 [id number] Charlotte Bernstein MD [facility] [address] [address] 05/05/2022 10:53:20 05/07/2022 11:19:12 Thrombophlebitis of superficial veins of lower extremity 69134350 I80.299 right medial foot and anklt with broken veins that are inflamed and a little warm and pink. Long-term current use of anticoagulant 208945027 Z79.01 [id number] Charlotte Bernstein MD [facility] [address] [place] [address] 7 08/13/2022 08:41:50 08/17/2022 08:41:15 Adult health examination 339696592 Z00.01 Essential hypertension 32666376 I10 Eczema 53216708 L30.9 Peripheral neuropathic pain 685330464 M79.2 Pruritic disorder 929210 002 L29.9 Anticoagulant therapy 18 9453519 Z79.01 Chronic pain syndrome 37 1739350 G89.4 Benign ess ential hypertension 4391254 I10 Chronic back pain 280564 002 R52 Gastroesop hageal reflux disease 201779407 K21.9 Superficia l thrombophlebitis 5579669 I80.9 Disorder o f porphyrin metabolism 93194604 E80.1 Hyperlipidemia 01168060 E78.5 Varicose v eins of lower extremity 28484211 I83.893 Fatigue 57158649 R53.83 Depression screening 171 496252 Z13.89 Screening for disorder 042259993 Z13.9 Timed up and go is 5 seconds Colon canc er screening declined 8457482965 9109 Z53.20 Asthma 198723367 J45.20 Chest wall pain 48177310 6 R07.89 Colonoscopy declined 112 2816072 41651 Z53.20 Screening for cardiovascular system disease 232038646 Z13.6 Taking hig h risk medication 2103725665 62670 Z91.89 Body mass index 25-29 - overweight 450898602 Z68.29 [id number] Charlotte Bernstein MD [facility] [address] [address] 11/19/2022 10:39:15 11/20/2022 09:09:18 Chronic constipation 334187034 K59.00 Wheezing 90573454 R06.2 Disorder o f porphyrin metabolism 35633846 E80.1 Long-term current use of anticoagulant 120533707 Z79.01 Disorder o f vitamin B12 491456754 E53.8 Colon canc er screening declined 4803045885 9109 Z53.20 [id number] Charlotte Bernstein MD [facility] [address] [place] [address] 7 04/02/2023 10:25:14 04/05/2023 08:25:21 Vitamin B12 deficiency (non anemic) 77480618 E53.8 Rhinitis 78654306 J00 Essential hypertension 45223547 I10 Abdominal pain 85207161 R10.9 Prediabetes 977684368 R7 3.03 Lipoma of skin 136290666 D17.30 Factor V L eiden mutation 107492408 D68.51 Anticoagulant therapy 18 4558566 Z79.01 Chronic pain syndrome 37 4038546 G89.4 Disorder o f porphyrin metabolism 04394802 E80.1 [id number] Charlotte Bernstein MD [facility] [address] [facility], [address] [place] [address] 09/02/2023 13:31:41 09/03/2023 08:25:19 Vitamin B12 deficiency (non anemic) 16571886 E53.8 Nausea 830411603 R11.0 Adult heal th examination 790443832 Z00.01 Essential hypertension 39094521 I10 Eczema 19329298 L30.9 Peripheral neuropathic pain 744536297 M79.2 Pruritic disorder 571228 002 L29.9 Anticoagulant therapy 18 3755031 Z79.01 Chronic pain syndrome 37 7412052 G89.4 Benign ess ential hypertension 8906375 I10 Chronic back pain 269563 002 R52 Gastroesop hageal reflux disease 907098198 K21.9 Disorder o f porphyrin metabolism 84625404 E80.1 Hyperlipidemia 73240353 E78.5 Varicose v eins of lower extremity 12420836 I83.893 Fatigue 72022273 R53.83 Depression screening 171 803668 Z13.89 Screening for disorder 358395878 Z13.9 Timed up and go is 5 seconds Colon canc er screening declined 4771598943 9109 Z53.20 Asthma 374449958 J45.20 Chest wall pain 68628448 6 R07.89 Colonoscopy declined 325 9937783 33550 Z53.20 Screening for cardiovascular system disease 702842689 Z13.6 Taking hig h risk medication 4118900930 78554 Z91.89 Body mass index 25-29 - overweight 822145612 Z68.29 Lung funct ion restrictive 553045424 R94.2 Chronic ob structive pulmonary disease 62081709 J44.9 Blood gluc ose outside reference range 951401026 R73.09 [id number] Charlotte Bernstein MD [facility] [address] [facility], [address] [place] [address] 02/03/2024 08:41:28 02/04/2024 10:16:58 Active or passive immunization 308902829 Z23 Disorder o f porphyrin metabolism 02424686 E80.1 Multiple a ctinic keratoses 042816688 L57.0 Requires l ifelong warfarin therapy 513329875 Z79.01 recheck INR on 02/13 Body mass index 25-29 - overweight 502648214 Z68.29 [id number] Charlotte Bernstein MD [address], [address] [place] [address] 06/12/2024 14:12:51 06/12/2024 16:02:01 Asthma 899719681 J45.20 Disorder o f porphyrin metabolism 26770881 E80.1 Requires l ifelong warfarin therapy 188655199 Z79.01 recheck INR on 02/13 Body mass index 25-29 - overweight 475747676 Z68.29 Health Concerns Section Related Observation LastModified by Organization Detai ls LastModified Time None Recorded Concern Status LastModified by Organization Details LastModified Time None Recorded Advance Directives Directive Y: Payers Encounter Date Sequence Insurance Name Policy Number Policy [place] Covered Member ID [place]obato Member ID Guarantor Name 11/19/2022 1 [place] Vianey Flores [id number] Vianey Flores 11/19/2022 2 [employer]ET[employer] (POS II) [id number] Vianey Flores [id number] Vianey Flores 04/02/2023 1 [place] Vianey Flores [id number] Vianey Flores 04/02/2023 2 [employer] (POS II) [id number] Vianey Flores [id number] Vianey Flores 09/02/2023 2 [place] Vianey Flores [id number] Vianey Flores 09/02/2023 1 [place] Vianey Flores [id number] Vianey Flores 02/03/2024 2 [place] Vianey Flores [id number] Vianey Flores 02/03/2024 1 [place] Vianey Flores [id number] Vianey Flores 06/12/2024 2 [place]) Vianey Flores [id number] Vianey Flores 06/12/2024 1 [place] Vianey Flores [id number] Vianey Flores Notes Date Note Type Note [...] and will be ordered. Charlotte Bernstein MD [address], [address], [facility] 11/20/2022 08:15:25 04/02/2023 text/html has a [...] stop the coumadin. Charlotte Bernstein MD [address] [facility], [place] [address], [place], [address], [facility] 04/04/2023 01:17:08 02/03/2024 text/html He is not eating much and only drinks pepsi or sprite and sometimes V8 juice. States water makes him sick Also drinks some gatorade. Difficult blood draw and have to do on the left wrist usually.He has had a sore throat but that is better.Needs the covid booster Charlotte Bernstein MD [address] [facility], [place] [address], [place], [address], [facility] 02/04/2024 06:01:31 06/12/2024 text/html he is stable exc ept having night sweats at night; INR us staying therapeutic now on the 2.5 mg coumadin daily.He had a lot of cryotherapy on face and the ears especially are still sore and healing more slowly. We have suggested topical vaseline. They are benign. Charlotte Bernstein MD [address] [facility], [address], [place], [address], [facility] 06/12/2024 15:25:48
--- OUTSIDE RECORDS SUMMARY | 2024-07-25 09:04 | XMS_ITS | Data Portability ---
Author Organization [facility] KLAUDIA Duran [place] [facility] Address [address] [facility] [address] [place] [address] Care Team Providers Care Readiness Paraprofessional Name Role Phone SAQIB GREENE Primary Care Provider [phone] Assessment Encounter Date Assessment Date Assessment LastModified by Organization Details LastModified Time 06/10/2021 06/10/2021 RTC in [address] for at [facility] for next week. [email or web address] Not available 06/10/2021 11:21:22 07/03/2021 07/03/2021 RTC PRN. Not available 06/22 10:51:41 Plan of Treatment [...] contr ast No observ ation record ed. [facility] (Radiology) [address], [place], [address], 09/02/2021 10:35:17 Result Notes None recorded. 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 Medical Equipment None Reported. [...] Address Organization Details Last Updated DateTime 2 49566.2 5 g 101 /min 98 % 98 % 134 mm[Hg] 79 mm[Hg] Tamar Malik [facility] 2 10:46:39 Date Recorded Body weight Heart rate Oxygen saturation Oxygen saturation in Arterial blood by Pulse oximetry Systolic blood pressure Diastolic blood pressure Provider Name and Address Organization Details Last Updated DateTime 2 96681.7 g 82 /min 98 % 98 % 126 mm[Hg] 70 mm[Hg] Amberly Hammond [facility] 2 10:13:54 Social History Question Answer Notes LastModified by [employer] Details LastModified Time Tobacco Smoking Status Never Smoker Tamar Malik [facility] 06/10/2021 10:45:14 What Was The Date Of Your Most Recent Tobacco Screening? 06/10/2021 Information not available 06/10/2021 Has Tobacco Cessation Counseling Been Provided? No Information not available 06/10/2021 Sex: Unknown Functional Status Question Answer Note LastModified by [employer] Details LastModified Time Do you use any illicit or recreational drugs? No Information not available 06/10/2021 Do you or have you ever used any other forms of tobacco or nicotine? No Information not available 06/10/2021 What is your level of alcohol consumption? None Information not available 06/10/2021 Mental Status None recorded. Family History Nothing Reported. Medical History No medical history recorded. Past Encounters Encounter ID Performer Location Encounter Start Date Encounter Closed Date Diagnosis/Indication Diagnosis SNOMED-CT Code Diagnosis ICD10 Code Diagnosis Note [id number] FLORENTIN CROWLEY MD [facility] [address] [facility], [address] [place] [address] 06/10/2021 10:12:19 06/11/2021 08:22:36 Multiple nodules of lung 007270795 R91.8 Miliary pattern of multiple nodules reported [...] him. He wants to get it at [facility] where he had a CT scan several years ago. I have asked him to bring the disc with him on follow-up for my imaging review. Based on the pattern, I will decide if he needs QuantiFERO N testing or interstiti al lung disease testing or BAL or chest trending of his imaging. [id number] FLORENTIN CROWLEY MD [facility] [address] [facility], [address] [place] [address] 07/03/2021 09:49:11 07/03/2021 11:10:26 Calcified granuloma of lung 2581452079 5410620 J84.10 Scattered calcified pulmonary granulomas . These [...] Recorded Advance Directives Directive None Recorded Payers Insurance Date Sequence Insurance Name Policy Number Policy [place] Covered Member ID [place] Member ID Guarantor Name 06/10/2021 2 [employer] (MEDICARE SUPPLEMENT) Vianey Flores [id number] Vianey Flores 06/30/2021 2 [employer]ET[employer] (POS) [id number] Vianey Flores [id number] Vianey Flores 06/30/2021 1 [place] Vianey Flores [id number] Vianey Gibsony Notes Date Note Type Note Provider Name [...] he had imaging in the past at [place] and we have been unable to find it. FLORENTIN CROWLEY MD [address] [place] [address] [place], [address], [facility] 07/02/2021 02:10:28 07/03/2021 text/html Mr. Flores come s in for evaluation of an abnormal CXR. He had a miliary pattern show up on CXR. 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 CT chest without contrast 06/25/2021: Scattered calcified granulomas. 1.8 cm paratracheal lymph node. No masses or noncalcified nodules. Small hiatal hernia. FLORENTIN CROWLEY MD [address] [place] [address] [place], [address], [facility] 07/03/2021 10:52:18
--- OUTSIDE RECORDS SUMMARY | 2024-07-25 09:04 | XMS_ITS | Continuity of Care Document ---
Author Organization [facility], [facility] Address [address] [facility] [address] [place] [address] Care Team Providers Care Music Internship Name Role Phone JUSTYN HOWELL Referring Provider SARAHWING Referring Provider [phone] Assessment Encounter Date Assessment Date Assessment LastModified [...] the lab every 2 weeks for now. arthur Not available 06/12/2024 15:25:38 Plan of Treatment Reminders Order Date Submit Date Provider Last Modified By Organization Details Last Modified Time Details Appointments MEDICARE WELLNESS ANNUAL VISIT 2024 09:00A M Charlotte Bernstein MD Not available Not available Not available Lab None recorded. Referral None recorded. Procedures None recorded. Surgeries None recorded. Imaging None recorded. Medication Orders albuterol sulfate HFA 90 mcg/actua tion aerosol inhaler 2024 025 [facility]/Pharmacy #[id number], [address] [place], [address], 06/12/2024 15:26:42 Patient TargetsNo targets recorded. Patient InstructionsNo instructions recorded. Reason for Referral None Reported. 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 6 11:31:55 Blood coagulation disorder 91936369 Active Charlotte Bernstein MD [address] [place] [address], [place] - [facility] 6 11:31:55 Varicose veins of lower extremity 26769864 Active Charlotte Bernstein MD [address] [address], [place] - [facility] 6 11:31:55 Benign essential hypertension 5432978 Active Charlotte Bernstein MD [address] [address], [place] - [facility] 6 11:31:55 Nausea [id number] Lucretia Bernstein MD [address] [address], [place] - [facility] 6 11:31:55 Hyperlipidemia 57927615 Lucretia Bernstein MD [address] [address], [facility] 6 11:31:54 Pain in right lower limb 777601016 Lucretia Bernstein MD [address] [address], [facility] 6 11:31:55 Gastroesophage al reflux disease 728865072 Lucretia Bernstein MD [address] [address], [facility] 6 11:31:55 Pruritic disorder 998577252 Lucretia Bernstein MD [address] [address], [facility] 6 11:31:55 Chronic pain syndrome 892740486 Lucretia Bernstein MD [address] [address], [facility] 6 11:31:55 Superficial thrombophlebit is 8268919 Lucretia Bernstein MD [address] [address], [facility] 6 11:31:55 Pain in lower limb 18442577 Lucretia Bernstein MD [address] [address], [facility] - [facility] 6 11:31:55 Fracture of ankle 93408164 Lucretia Bernstein MD [address] [address], [facility] 6 11:31:55 Fracture of lower limb 91974105 Lucretia Bernstein MD [address] [address], [facility] 6 11:31:55 Vertigo 777809011 Lucretia Bernstein MD [address] [address], [facility] 6 11:31:55 Fatigue 72631290 Lucretia Bernstein MD [address] [address], [facility] 6 11:31:55 Chronic back pain 937137774 Lucretia Bernstein MD [address] [address], [facility] 6 11:31:55 Blood glucose outside reference range 398823869 Active Charlotte Bernstein MD [address] [address], [facility] 6 11:31:55 Lower abdominal pain 34843009 Active Charlotte Bernstein MD [address] [address], [place] - [facility] 6 11:31:55 Peripheral neuropathic pain 687996638 Active Charlotte eBrnstein MD [address] [address], [place] - [facility] 6 11:31:55 Acute bronchitis 06562247 Active Charlotte Bernstein MD [address] [address], [facility] 6 22:22:11 Wheezing 53516492 Active Charlotte Bernstein MD [address] [address], [facility] 6 22:22:11 Anticoagulant therapy Active 2015 Charlotte Bernstein MD [address] [address], [facility] 6 08:45:00 Hereditary coagulation factor deficiency 48713137 Active Charlotte Bernstein MD [address] [address], [facility] 8 21:06:57 Factor V Leiden mutation 366736581 Active Charlotte Bernstein MD [address] [address], [facility] 8 21:07:38 Problem Notes None recorded. Procedures Surgical History Date Name Laterality Status Provider Name and Address Organization Details Recorded Time 022 reconstruction using skin flap completed Charlotte Bernstein MD [address] [facility], [address], [place], [address], [facility] 08/16/2022 09:02:59 006 Bronchoscopy completed [facility] 10/03/2015 11:14:11 006 Hernia Repair completed [facility] 10/03/2015 11:12:32 996 Partial removal of colon completed [facility] 10/03/2015 11:13:31 Colonoscopy completed Charlotte Bernstein MD [address] [facility], [address], [place], [address], [facility] 09/22/2013 10:54:43 Splenectomy completed Not Available [facility] 01/06/2011 04:58:32 Cholecystectomy completed Not Available [facility] 01/06/2011 04:58:32 Appendectomy completed Not Available [facility] 01/06/2011 04:58:32 Hemorrhoidectomy completed Not Available [facility] 01/06/2011 04:58:32 Imaging Results None recorded. Procedure Notes None recorded. Medical Equipment None Reported. Allergies Allergen ID Allergen Name Allergen Category Reaction Reaction Severity Criticality Documentation Date Start Date Code Code System Note Provider Name and Address Organization Details Recorded Time 9383 iodine medicatio n Not available Not available Not available 04/20/2011 5933 RxNorm [facility] 2 09:26:52 9384 Floxin medicatio n Not available Not available Not available 04/20/201171677 8 [facility] 2 09:26:52 9385 Reglan medicatio n Not available Not available Not available 04/20/2011 9230 RxNorm [facility] 2 09:26:52 Medications Name Sig Start [...] Updated DateTime 5 171.45 cm 29.3 kg/m2 38322.2 5 g 79 /min 97 % 97 % 98.1 [degF] 148 mm[Hg] 84 mm[Hg] [facility] 5 14:34:36 Social History Question Answer Notes LastModified by Organizat ion Details LastModified Time Tobacco Smoking Status Never [facility]oker [facility] 12/19/2019 03:11:20 Do You Have An Advance Directive? Yes [id number] Information not available 12/19/2019 Animal Exposure? No Informat ion not available 07/03/2011 Auto Related Injury? No 5 Information not available 01/06/2011 Is Blood Transfusion Acceptable In An Emergency? Yes [id number] Information not available 12/19/2019 What Is Your Level Of Caffeine Consumption? Moderate Information not available 06/22/2020 How Much Tobacco Do You Chew? None [id number] Information not available 12/19/2019 Diabetes No DBA_PATCH_ 11 5 Information not available 01/06/2011 What Type Of Diet Are You Following? REGULAR [id number] Information not available 12/19/2019 Education 12 Information no t available 07/03/2011 What Is The Highest Grade Or Level Of School You Have Completed Or The Highest Degree You Have Received? [id number] Information not available 06/21/2020 Family History Of Heart Disease? Yes 5 Information not available 01/06/2011 Which Of Your Hands Is Dominant? Right [id number] Information not available 12/19/2019 High Blood Pressure [...] How Many Children Do You Have? 2 [id number] Information not available 12/19/2019 What Is Your Relationship Status? Information not available 06/21/2020 Do You Use Your Seat Belt Or Car Seat Routinely? Yes [id number] Information not available 12/19/2019 Seat Belts Used Routinely Yes 5 Information not available 01/06/2011 Smoke Alarm In Home Yes Information not available 07/03/2011 General Stress Level Low Information not available 07/03/2011 Do You Use Sunscreen Routinely? Yes [id number] Information not available 12/19/2019 Sex: Unknown Functional Status Question Answer Note LastModified by Organizat ion Details LastModified Time Do you use any illicit or recreational drugs? No Information not available 06/21/2020 Do you or have you ever used any other forms of tobacco or nicotine? No Information not available 06/21/2020 What is your level of alcohol consumption? None [id number] Information not available 12/19/2019 Are you currently employed? Yes [id number] Information not available 12/19/2019 Are you able to care for yourself? Yes [id number] Information n ot available 12/19/2019 What is your occupation? retired [id number] Information not available 12/19/2019 What is your exercise level? None [id number] Information not available 12/19/2019 Mental Status None [...] Stones Y Blood Diseases N Hyperthyroidism N Hypothyroidism N COPD N Depression N Developmental or Behavioral Disorders N Eczema, [...] PF 0 completed Charlotte Bernstein MD [address] [facility], [address], [place], [address], [place] [facility] 11/27/2019 10:26:48 Influenza, high-dose, trivalent, PF 4 completed [facility] 01/29/2014 14:30:01 pneumococcal polysaccharide PPV23 4 completed [facility] 01/29/2014 14:30:56 pneumococcal polysaccharide PPV23 3 completed Charlotte Bernstein MD [address] [address], [place], [address], [facility] 05/15/2014 16:10:57 Td (adult) 0 completed Charlotte Bernstein MD [address] [address], [place], [address], [facility] 10/22/2014 10:31:23 Tdap 5 completed [facility] 10/22/2014 10:32:08 COVID-19, mRNA, LNP-S, bivalent, PF, 30 mcg/0.3 mL dose 3 completed [facility] 01/21/2023 10:41:33 COVID-19, mRNA, LNP-S, PF, zan-sucrose, 30 mcg/0.3 mL 4 completed Charlotte Bernstein MD [address] [address], [place], [address], [facility] 02/03/2024 22:26:29 COVID-19, mRNA, LNP-S, PF, 100 mcg/0.5mL dose or 50 mcg/0.25mL dose 1 completed Charlotte Bernstein MD [address] [address], [place], [address], [facility] 06/20/2020 11:21:45 COVID-19, mRNA, LNP-S, PF, 100 mcg/0.5mL dose or 50 mcg/0.25mL dose 1 completed Charlotte Bernstein MD [address] [facility] [address], [place], [address], [facility] 06/20/2020 11:22:01 COVID-19, mRNA, LNP-S, PF, 100 mcg/0.5mL dose or 50 mcg/0.25mL dose 1 completed [facility] 06/24/2021 10:11:33 Past Encounters Encounter ID Performer Location Encounter Start Date Encounter Closed Date Diagnosis/Indication Diagnosis SNOMED-CT Code Diagnosis ICD10 Code Diagnosis Note [id number] Charlotte Bernstein MD [facility] [address] [facility] [address] [place] [address] 06/12/2024 14:12:51 06/12/2024 16:02:01 Asthma 252462499 J45.20 Disorder o f porphyrin metabolism 77114320 E80.1 Requires l ifelong warfarin therapy 035248898 Z79.01 recheck INR on 02/13 Body mass index 25-29 - overweight 055549039 Z68.29 Health Concerns Section Related Observation LastModified by Organization Detai ls LastModified Time None Recorded Concern Status LastModified by Organization Details LastModified Time None Recorded Payers Encounter Date Sequence Insurance Name Policy Number Policy [place]ato Covered Member ID [place]ato Member ID Guarantor Name 06/12/2024 2 [facility] (MEDICARE SUPPLEMENT) Vianey Flores [id number] Vianey Flores 06/12/2024 1 [place] Vianey Flores [id number] Vianey Flores Notes Date Note Type Note [...] They are benign. Charlotte Bernstein MD [address] [facility], [address], [place], [address], [facility] 06/12/2024 15:25:48
--- NOTE | 2024-07-25 09:16 | EXP.PAIN.SOA ---
[facility] Disclaimer: The information contained in this section may have been updated after the patient was seen, as this information can be updated by other users. Medical History Blood disorder HTN (hypertension) GERD (gastroesophageal reflux disease) Surgical History History of facial surgery Family History Other Unknown family medical history Social History Smoking Status: Never smoker alcohol intake: never substance use type: denies use current occupational status: other Travel in the last 8 weeks?: None PM Subjective & Objective Subjective Subjective:: Patient is a pleasant 74-year-old male who presents today for medication refill and follow-up.He does rate his pain a 8 out of 10. He denies any new injury or trauma. Patient does state that he is still having issues with his blood thinner and still trying to regulate his numbers. Patient denies any changes on his blood clots or his stomach related issues. Patient does state that the medication we sent in for constipation related to opioids was going to be about $400 with insurance and so they never did chart picker this medication. Patient states he will continue to use his MiraLAX. Patient is currently managed with oxycodone 5 mg 6 times a day. He denies any side effects. His Kevin has been reviewed and is appropriate. Review of Systems: General: No recent weight changes, no fever, no sleep disturbances Respiratory: No cough, no shortness of air, no recurring pulmonary infections Cardiovascular/peripheral vascular: No chest pain, no palpitations, no edema, no shortness of breath Gastrointestinal: No new onset incontinence, normal bowel movements reported Genitourinary: No new onset incontinence Musculoskeletal: Chronic back pain, abdominal pain Psychiatric: [Normal mood/affect] Neurological: [Denies weakness in extremities], [denies balance issues] Pain at rest (0-10 scale): 8 Objective Objective:: Physical Exam: General: Alert and oriented x3, no acute distress, pleasant and cooperative Lungs: Respirations even and unlabored, symmetrical chest expansion Eyes: PERRL Musculoskeletal: Flexion and extension of lumbar [spine] somewhat guarded secondary to pain, [antalgic gait noted] Neurological: Speech clear, no gross sensory deficit Has patient had previous pain injection?: No Conservative treatment options previously tried: Prescription medications Length of treatment: Longer than 12 weeks Meds Home Medications and Allergies Home Medications ?Medication ?Instructions ?Recorded ?Confirmed ?Type isosorbide mononitrate 120 mg 30 mg PO DAILY Hypertension 07/12/17 06/22/24 History tablet,extended release 24 hr amlodipine 10 mg tablet 2.5 mg PO DAILY Hypertension 12/04/19 06/22/24 History famotidine 20 mg tablet 20 mg PO BID GERD 01/10/21 06/22/24 History hydroxyzine HCl 25 mg tablet 25 mg PO QID itching 01/10/21 06/22/24 History lisinopril 20 1 tab PO DAILY blood pressure 01/10/21 06/22/24 History mg-hydrochlorothiazide 12.5 mg tablet warfarin 5 mg tablet 5 mg PO DAILY DVT prophylaxis 01/10/21 06/22/24 History gabapentin 300 mg capsule 300 mg PO TID pain 05/08/21 06/22/24 History lidocaine 5 % topical patch 1 each TP Q24H Pain 05/23/21 06/22/24 History pantoprazole 40 mg tablet,delayed 40 mg PO DAILY STOMACH 01/13/22 06/22/24 History release naloxegol 12.5 mg tablet 12.5 mg PO DAILY #30 tabs 06/22/24 Rx oxycodone 5 mg tablet 5 mg PO Q4H PRN pain #180 tabs 06/22/24 Rx New Prescriptions to Start Prescriptions: Allergies Allergy/AdvReac Type Severity Reaction Status Date / Time iodine (IODINE) Allergy Unknown UNKNOWN Verified 07/26/23 10:42 metoclopramide (From REGLAN) Allergy Unknown UNKNOWN Verified 07/26/23 10:42 ofloxacin (From FLOXIN) Allergy Unknown UNKNOWN Verified 07/26/23 10:42 Assessment and Plan *Assessment and plan (1) Lumbar radiculopathy: Status: Acute Category: Medical Code(s): M54.16 - Radiculopathy, lumbar region (2) Degenerative disc disease, lumbar: Status: Acute Category: Medical Code(s): M51.369 - Other intervertebral disc degeneration, lumbar region without mention of lumbar back pain or lower extremity pain (3) Chronic abdominal pain: Status: Acute Category: Medical Code(s): R10.9 - Unspecified abdominal pain; G89.29 - Other chronic pain (4) Chronic pain syndrome: Status: Acute Category: Medical Code(s): G89.4 - Chronic pain syndrome Plan I will refill his oxycodone and provide a 1 month supply of this medication. Patient will return to clinic in 1 month for reevaluation of symptoms and plan of care. Risks and benefits of the medication have been explained in detail to the patient. The patient does understand the risk of dependence on the medication when given over a prolonged period. Patient has been advised of risks of oversedation with the prescribed medication. Narcan has been offered to the paitent in the event of oversedation. Patient has been advised that a family member should also be educated regarding administration of Narcan. The patient has been advised to consult with his/her primary care provider and pharmacist regarding drug-drug interaction of medications currently prescribed. Patient has been prescribed a controlled substance after being counseled on the medication, medication safety, and possible side effects. Opioid contract was reviewed and signed by the patient, and that they have agreed to all of the terms set forth by our compliance program. A UDS is needed to verify patient's compliance with our office pain contract. This is ordered based off specific treatments related to chronic pain with the potential to abuse certain medications. Patient has been instructed to contact the clinic with any concerns before the next appointment. Dr. Grier has reviewed this note and agrees with this plan of care. This note was dictated using voice recognition software and make contain errors or omissions.
[2024-07-25 09:23] VITALS: BP 138/72; PULSE 77; RESP 14; O2SAT 97; BMI 29.1
== END 2024-07-25 23:59 | disposition home or self-care (01) ==
PROVIDERS: PCP Family Medicine; Visit Provider Nurse Practitioner Family
DX: M51.16 Intervertebral disc disorders with radiculopathy, lumbar region (principal); G89.4 Chronic pain syndrome; R10.9 Unspecified abdominal pain; Z79.891 Long term (current) use of opiate analgesic; Z86.2 Personal history of diseases of the blood and blood-forming organs and certain disorders involving the immune mechanism
CPT/HCPCS: 99212; G0463

== ENCOUNTER 2024-08-23 08:39 | Outpatient (POV) | payer MEDICARE, OTHER, SELFPAY ==
--- OUTSIDE RECORDS SUMMARY | 2024-08-23 06:27 | XMS_ITS | Continuity of Care Document ---
Author Organization [facility] Phone Care Team Providers Care Nut Grader Name Role Phone SAQIB GREENE Admitting SAQIB GREENE Primary Care SAQIB GREENE Unavailable SAQIB GREENE Primary Attending ALLERGIES AND ADVERSE REACTIONS ALLERGIES AND ADVERSE REACTIONS Code System Allergy Substance Adverse Reaction Date Reaction (Severity) Comment Status Reported By Updated By 7689 RXNorm FLOXIN Adverse reaction to substance active [id number] on October 17, 2015 1:11:03 PM UT 1087814 RXNorm IODINE Adverse reaction to substance active [id number] on October 17, 2015 1:11:03 PM UT METOCLOPRAMIDE Adverse reaction to substance active [id number] on October 17, 2015 4:31:40 PM UT 6058 RXNorm ISOSORBIDE NITRATE Adverse reaction to substance active [id number] on June 03, 2017 2:53:38 PM UT RESULTS Patient: LILIBETH Choen Date of : 1950 LABORATORY RESULTS ORDER 200: PT PROTHROMBIN TI ME W INR (LOINC: 41833-7) ORDER DATE: July 28, 2024 12:02:00 PM [facility] Specimen Source: Plasma Specimen Type: Plasma specim en PERFORMING LAB: [facility] [address] [facility] [id number] Result Comment: Final Result Date: July 28, 2024 12:22:00 PM UT (TECH: LT) LOINC TEST [place] [address]-0 INR in Platelet poor plasma or blood by Coagulation assay H 33.6 seconds 9.1 seconds - 12.0 seconds July 28, 2024 12:22:00 PM UT (TECH: LT) 6301-6 INR in Platelet poor plasma by Coagulation assay H 3.33 0.9 - 1.1 July 28, 2024 12:22:00 PM UTC (TECH: LT) ORDER 300: PT PROTHROMBIN TI ME W INR (LOINC: 14369-6) ORDER DATE: August 11, 2024 1:31:00 PM UT Specimen Source: Plasma Specimen Type: Plasma specim en PERFORMING LAB: [address] [id number] Result Comment: Final Result Date: August 11, 2024 1:51:00 PM UTC (TECH: CB) LOINC TEST [place] [address]-7 INR in Platelet poor plasma or blood by Coagulation assay H 20.6 seconds 9.1 seconds - 12.0 seconds August 11, 2024 1:51:00 PM UTC (TECH: CB) 6301-6 INR in Platelet poor plasma by Coagulation assay H 1.98 0.9 - 1.1 August 11, 2024 1:51:00 PM UT (TECH: CB) ORDER 500: PT PROTHROMBIN TI ME W INR (LOINC: 79551-1) ORDER DATE: August 18, 2024 11:40:00 AM UTC Specimen Source: Plasma Specimen Type: Plasma specim en PERFORMING LAB: [address] [id number] Result Comment: Final Result Date: August 18, 2024 12:09:00 PM UTC (TECH: LT) LOINC TEST [place] [address]-2 INR in Platelet poor plasma or blood by Coagulation assay H 23.8 seconds 9.1 seconds - 12.0 seconds August 18, 2024 12:09:00 PM UTC (TECH: LT) 6301-6 INR in Platelet poor plasma by Coagulation assay H 2.30 0.9 - 1.1 August 18, 2024 12:09:00 PM UT (TECH: LT) LABORATORY NARRATIVE RESULTS Information is [...] Description Effective Dates Offered Cessation Comment UpdatedBy [id number] Smoking Status Unknown If Ever Smoked SOCIAL [...] ENCOUNTER INFORMATION Reason for Visit D68.9 Admission July 23, 2024 7:31:[address] [address] Discharge August 22, 2024 3:59:00 AM [facility] DISC HARGED TO HOME OR SELF CARE ENCOUNTER DIAGNOSES Notes information is not kalyn ilable. Code System Diagnosis Onset Date Diagnosis information is not available. ABSTRACT DIAGNOSES Code System Diagnosis Updated By D68.9 ICD10 COAGULATION DEFECT, UNSPECIF IED [id number] on August 23, 2024 10:27:23 AM [facility] D68.9 ICD10 COAGULATION DEFECT, UNSPECIF IED [id number] on August 23, 2024 10:27:23 AM [facility] CARE TEAM Care Nut Grader Role SAQIB GREENE Admitting SAQIB GREENE Primary Care SAQIB GREENE Referring [facility] Primary Attending CARE TEAM CARE business management intern Role on Team Status Start Date End Date Update d By RAMONA VILA Referring normal July 24, 2024 4:06:18 AM [facility] July 23, 2024 4:00:00 AM [facility] [id number] on July 24, 2024 4:06:18 AM [facility] RAMONA VILA Attending normal July 24, 2024 4:06:18 AM [facility] July 23, 2024 4:00:00 AM [facility] [id number] on July 24, 2024 4:06:18 AM [facility] RAMONA VILA Admitting normal July 24, 2024 4:06:18 AM [facility] July 23, 2024 4:00:00 AM [facility] [id number] on July 24, 2024 4:06:18 AM [facility] RAMONA Cohen MD PHY PCP normal July 23, 2024 7:31:25 AM [facility] July 23, 2024 4:00:00 AM [facility] [id number] on July 24, 2024 4:06:18 AM [facility]
--- OUTSIDE RECORDS SUMMARY | 2024-08-23 08:46 | XMS_ITS | Encounter Summary ---
Author Organization Healthcare Address [address] [place] [address] Care Team Providers Care Master Tax Advisor Name Role Phone Charlotte Bernstein MD Primary Care Provider [phone] Ty Gibbs MD Unavailable [phone] Gerber Shelley MD Unavailable Encounter Details Date Type Department Care Team (Late st Contact Info) Description 11/17/2021 Lab Requisition [facility] [address] [place] [address] Gerber Shelley MD [address] [place] [address] Actinic keratosis Social History Tobacco Use Types Packs/Day Years Used Date Smoking Tobacco: Never Smokeless Tobacco: Never PHQ-2 Answer Date Recorded Patient Health Questionnaire-2 Score 0 11/14/2021 Sex and Gender Information Value Date Recorded Sex Assigned at Not on file Legal Sex Male 7:52 PM EDT Gender Identity Not on file Sexual Orientation Not on file COVID-19 Exposure Response Date Recorded In the last 10 days, have yo u been in contact with someone who was confirmed or suspected to have Coronavirus/COVID-19? No / Unsure 11/14/2021 8:30 AM EDT documented as of this encounter Plan of Treatment Not on file documented as of this encounter Procedures Procedure Name Priority Date/Time Associated Diagnosis Comments SURGICAL PATHOLOGY CONSULT Routine 11/17/2021 3:43 PM EDT Actinic keratosis documented in this encounter Results * Surgical Pathology Consult (11/17/2021 3:43 PM EDT) Case Report Sugical Pathology Consult Case: [id number] Authorizing Provider: Gerber Shelley MD Collected: 11/17/2021 1542 Ordering Location: [facility] Lab Received: 11/17/2021 1544 Pathologist: Dante Edward DO Specimen: Skin, [id number] 11/23/2021 10:57 AM EDT [facility] Final Diagnosis A. SKIN, SUPERIOR LEFT CHEEK, PUNCH BIOPSY ([id number]; COLLECTED 07/01/21): - ACTINIC KERATOSIS B. SKIN, INNER LEFT CHEEK, PUNCH BIOPSY: - BASAL CELL CARCINOMA, NODULAR TYPE C. SKIN, INFERIOR LEFT CHEEK, PUNCH BIOPSY: - BASAL CELL CARCINOMA, NODULAR AND INFILTRATIVE TYPE 11/23/2021 10:57 AM EDT [facility] at 1057 EDT Clinical Information L57.0 - Actinic keratosis [ICD-10-CM] 11/23/2021 10:57 AM EDT [facility] Gross Description A. [id number] Received along with a corresponding pathology report from [facility] are 30 unstained slide(s) labeled outside case: [id number] collected on 07/01/2021. 11/23/2021 10:57 AM EDT [facility] Note: A resident was involved in the service. I attest I examined the relevant preparations for the specimens and confirmed the diagnosis or interpretation. 11/23/2021 10:57 AM EDT [facility] Tissue Skin structure / Unknown 11/17/2021 3:43 PM EDT 11/17/2021 3:44 PM EDT us Gerber Shelley MD LAB PATHOLOGY ORDERABLES Final R esult [facility] [address] [place] [address] documented in this encounter Visit Diagnoses Diagnosis Actinic keratosis documented in this encounter Additional Health Concerns Assessment Noted Time A fall risk assessment has been complete d for the patient 11/14/2021 8:45 AM EDT documented as of this encounter Care Teams Master Tax Advisor Relationship Specialty Start Date End Date Charlotte Bernstein MD [address] [facility] [address] [place] [address] PCP - General 10/13/21 Ty Gibbs MD [address] [facility] [address] [place] [address] Referring Physician 11/05/21 Gerber Shelley MD [address] [facility] [address] [place] [address] Surgeon Otolaryngology 11/05/21 documented as of this encounter
--- OUTSIDE RECORDS SUMMARY | 2024-08-23 08:46 | XMS_ITS | Clinical Summary ---
Author Organization [facility] Address [address] [place] [address] Care Team Providers Care Aircraft General Repair Mechanic Name Role Phone Charlotte Bernstein MD Primary Care Provider [phone] Ty Gibbs MD Unavailable [phone] Gerber Shelley MD Unavailable Allergies Active Allergy Reactions Criticality Noted Date Comments Ofloxacin Rash Low 10/13/2021 Iodine Anaphylaxis High 10/13/2021 Metoclopramide Angioedema High 11/14/2021 Medications albuterol 108 (90 Base) MCG/ACT inhaler Inhale 1 puff if needed. 2 Active amitriptyline (Elavil) 25 MG tablet Take 25 mg by mouth 1 (one) time each day. Active famotidine (Pepcid) 20 MG tablet Take 20 mg by mouth 1 (one) time each day. Active lisinopril-hydr oCHLOROthiazide 20-12.5 MG tablet Take 1 tablet by mouth 2 (two) times a day. Active oxyCODONE (Roxicodone) 5 MG immediate release tablet Take 5 mg by mouth every 4 (four) hours if needed. 2 Active promethazine (Phenergan) 25 MG tablet Take 25 mg by mouth if needed. Active simvastatin (Zocor) 20 MG tablet Take 20 mg by mouth 1 (one) time each day. 2 Active warfarin (Coumadin) 5 MG tablet Take 5 mg by mouth 1 (one) time each day. Last dose 11/27/21 Active Cyanocobalamin (B-12 Compliance Injection) 1000 MCG/ML kit Inject 1,000 mcg as directed every 14 (fourteen) days. Last dose 12/17/21 Active amLODIPine (Norvasc) 5 MG tablet Take 1 tablet(s) every day 3 Active enoxaparin (Lovenox) 100 MG/ML solution prefilled syringe enoxaparin 100 mg/mL subcutaneous syringe Active pantoprazole (Protonix) 40 MG EC tablet pantoprazole 40 mg tablet,delayed release Take 1 tablet every day by oral route in the morning. 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 Gastroesophageal reflux disease 12/02/2021 Basal cell carcinoma (BCC) of cheek 11/14/2021 Hereditary factor V deficiency disease 2 Hypercholesterolemia 06/10/2021 Hypertensive disorder 06/10/2021 Immunizations Immunization Administration Dates Next Due Influenza, high-dose, quadrivalent 11/27/2019 Pneumococcal Conjugate PCV 13 02/01/2017 Family History Medical History Relation Name Comments No Known Problems Brother No Known Problems Father No Known Problems Maternal Grandfather No Known Problems Maternal Grandmother No Known Problems Mother No Known Problems Paternal Grandfather No Known Problems Paternal Grandmother No Known Problems Sister Relation Name Status Comments Brother Father Maternal Grandfather Maternal Grandmother Mother Paternal Grandfather Paternal Grandmother Sister Social History Tobacco Use Types Packs/Day Years Used Date Smoking Tobacco: Never Smokeless Tobacco: Never Tobacco Cessation:Counseling Given: Not Answered Alcohol Use Standard Drinks/Week Comments Never 0 (1 standard drink = 0.6 oz pur e alcohol) PHQ-2 Answer Date Recorded Patient Health Questionnaire-2 Score 0 11/14/2021 CAGE ASSESSMENT Answer Date Recorded Cage unable to access Not on file 12/02/2021 Cage max number of drinks Not on file 2021 Cage Beverages a week Not on file 12/02/2021 Have you ever felt you should CUT down on your d rinking? 0 12/02/2021 Have you been ANNOYED by people criticizing your drinking? 0 12/02/2021 Have you felt GUILTY about your drinking? 0 12/02/2021 Have you had a drink first t kristine in the morning (EYE-HAT RENOVATOR) to steady your nerves or to get rid of a hangover? 0 12/02/2021 CAGE Questionnaire Score 0 022 Sex and Gender Information Value Date Recorded Sex Assigned at Not on file Legal Sex Male 7:52 PM EDT Gender Identity Not on file Sexual Orientation Not on file Last Filed Vital Signs Vital Sign Reading Time Taken Comments Blood Pressure 151/79 03/18/2022 9:58 AM EST Pulse 88 03/18/2022 9:58 AM EST Temperature 36.6 C (97.8 F) 03/18/2022 9:58 AM EST Respiratory Rate 16 03/18/2022 9:58 AM EST Oxygen Saturation 97% 03/18/2022 9:58 AM EST Inhaled Oxygen Concentration - - Weight 88.7 kg (195 lb 8.8 oz) 03/18/2022 9:58 A M EST Height 171.5 cm (5' 7.5 ) 03/18/2022 9:58 AM EST Body Mass Index 30.18 03/18/2022 9:58 AM EST Plan of Treatment Health Maintenance Due Date Last Done Comments [facility]-Hepatitis C Screening 1950 [facility]-Medicare Annual Wellness (AWV) 1950 [facility]-/Child/Adol SDOH Screenings 1950 [facility]- SDOH Screenings 1966 [facility]-Adult SDOH Screenings 1966 [facility]-Zoster Vaccines (1 of 2) 07/18/1967 [facility]-Depression Screening 11/14/2022 11/14/2021 [facility]-RSV Vaccine: 60+ Years or (1 - 1-dose 75+ series) 07/18/2023 [id number] Vaccine ( season) 2023 03/05/2021, 01/01/2021, 05/24/2020, Additional history exists [facility]-DTaP,Tdap,and Td Vaccines (2 - Td or Tdap) 10/22/2024 10/22/2014, 02/22/1999 [facility]-Influenza Vaccine (Season Ended) 2024 11/27/2019, 12/11/2013 [facility]-Pneumococcal Vaccine: 50+ Years Completed 02/01/2017, 12/11/2013, 10/26/2002 [facility]-Obesity Intervention Completed 11/21/2021 HPV Vaccines Aged Out No longer eligi ble based on patient's age to complete this topic [facility]-HIB Vaccines Aged Out No longer e ligible based on patient's age to complete this topic [facility]-Hepatitis A Vaccines Aged Out No longer eligible based on patient's age to complete this topic [facility]-IPV Vaccines Aged Out No longer e ligible based on patient's age to complete this topic [facility]-Rotavirus Vaccines Aged Out No lo nger eligible based on patient's age to complete this topic Medical Devices Implanted Type Area Church Official Device Identifier Shelf Expiration Date Model / Serial / Lot Screw Screw Ankle Insurance MEDICARE AET[employer] Advance Directives * Full Code (Latest Code Status on File) Date Activated Date Inactivated Comments 12/02/2021 11:41 AM 12/03/2021 3:58 PM Question Answer Comments Patient has decision-making capacity? Yes Care Teams Aircraft General Repair Mechanic Relationship Specialty Start Date End Date Charlotte Bernstein MD [address] [place] [address] PCP - General 10/13/21 Ty Gibbs MD [address] [facility] [address] [place] [address] Referring Physician 11/05/21 Gerber Shelley MD [address] [facility] [address] [place] [address] Surgeon Otolaryngology 11/05/21
--- OUTSIDE RECORDS SUMMARY | 2024-08-23 08:46 | XMS_ITS | Data Portability ---
Author Organization [facility] KLAUDIA Elias [facility] Address [address] [place] [address] Care Team Providers Care Dural Mechanic Name Role Phone SAQIB GREENE Primary Care Provider Assessment Encounter Date Assessment Date Assessment LastModified by Organization Details LastModified Time 06/10/2021 06/10/2021 RTC in [address] for at [facility] for next week. [email or web address] Not available 06/10/2021 11:21:22 07/03/2021 07/03/2021 RTC [...] contr ast No observ ation record ed. [facility] (Radiology) [address], [place], [address], 09/02/2021 10:35:17 Result Notes None recorded. 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 Medical [...] Address Organization Details Last Updated DateTime 2 20812.2 5 g 101 /min 98 % 98 % 134 mm[Hg] 79 mm[Hg] Tamar Malik [facility] 2 10:46:39 Date Recorded Body weight Heart rate Oxygen saturation Oxygen saturation in Arterial blood by Pulse oximetry Systolic blood pressure Diastolic blood pressure Provider Name and Address Organization Details Last Updated DateTime 2 56787.7 g 82 /min 98 % 98 % 126 mm[Hg] 70 mm[Hg] Amberly Hammond [facility] 2 10:13:54 Social History Question Answer Notes LastModified by [employer] Details LastModified Time Tobacco Smoking Status Never Smoker Tamar Malik [facility] 06/10/2021 10:45:14 What Was The Date Of Your Most Recent Tobacco Screening? 06/10/2021 Information not available 06/10/2021 Has Tobacco Cessation Counseling Been Provided? No Information not available 06/10/2021 Sex: Unknown Functional Status Question Answer Note LastModified by [employer] Details LastModified Time Do you use any [...] SNOMED-CT Code Diagnosis ICD10 Code Diagnosis Note [id number] FLORENTIN CROWLEY MD PULMONARY [address] [facility], [address] [place] [address] 06/10/2021 10:12:19 06/11/2021 08:22:36 Multiple nodules of lung 998140078 R91.8 Miliary pattern of multiple nodules reported [...] him. He wants to get it at [facility] where he had a CT scan several years ago. I have asked him to bring the disc with him on follow-up for my imaging review. Based on the pattern, I will decide if he needs QuantiFERO N testing or interstiti al lung disease testing or BAL or chest trending of his imaging. [id number] FLORENTIN CROWLEY MD PULMONARY [address] [facility], [address] [place] [address] 07/03/2021 09:49:11 07/03/2021 11:10:26 Calcified granuloma of lung [id number] 4770277 J84.10 Scattered calcified pulmonary granulomas . These [...] [employer] Member ID Guarantor Name 06/10/2021 2 [employer] (MEDICARE SUPPLEMENT) Vianey Gibsony [id number] Vianey Mahoneyarty 06/30/2021 2 [employer] (POS) [id number] Vianey Gibsony [id number] Vianey Flores 06/30/2021 1 [place]IC[place] (MEDICARE) Vianey Flores [id number] Vianey Cohen Sandra Notes Date Note Type Note Provider Name [...] he had imaging in the past at [place] and we have been unable to find it. FLORENTIN CROWLEY MD [address] [place] [address] [place], [address], [facility] 07/02/2021 02:10:28 07/03/2021 text/html Mr. Flores come s in for evaluation of an abnormal CXR. He had a miliary pattern show up on CXR. 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 CT chest without contrast 06/25/2021: Scattered calcified granulomas. 1.8 cm paratracheal lymph node. No masses or noncalcified nodules. Small hiatal hernia. FLORENTIN CROWLEY MD [facility] [place], [address], [facility] 07/03/2021 10:52:18
--- OUTSIDE RECORDS SUMMARY | 2024-08-23 08:47 | XMS_ITS | Data Portability ---
Author Organization [facility] Address [address] [place] [address] Care Team Providers Care Director Of Accounts Payable Name Role Phone JUSTYN HOWELL Referring Provider WING SMITH Referring Provider [phone] Assessment Encounter Date Assessment Date Assessment LastModified [...] in A1c), blood 2023 024 [email or web address] 2 [facility] (Lab Registration) , [address] [place], [address], 10/07/2023 11:41:27 CBC w/ auto diff [address] (Lab Registration) , [address] [place], [address], 05/03/2023 09:15:18 lipase, serum or plasma [address] (Lab Registration) , [address] [place], [address], 05/03/2023 09:15:18 amylase, serum or plasma [address] (Lab Registration) , [address] [place], [address], 05/03/2023 09:15:18 C-reactiv e protein, quantitat nik, serum or plasma [email or web address] (Lab Registration) , [address] , [place], [address], 05/03/2023 09:15:19 HbA1c (hemoglob in A1c), blood 2023 024 [email or web address] 2 [facility] (Lab Registration) , [address], [place], [address], 05/07/2023 09:46:52 CMP, serum or plasma [email or web address] (Lab Registration) , [address] , [place], [address], 05/03/2023 09:15:18 Referral dermatolo gist referral - history skin cancer 2023 024 [place] [id number] [facility], [address] [place] [address] , [facility], [place], [address], 03/02/2024 16:10:19 Procedures None recorded. Surgeries None recorded. Imaging None recorded. Medication Orders albuterol sulfate HFA 90 mcg/actua tion aerosol inhaler [address] [id number], [address] [place], [address], 06/12/2024 15:26:42 Breyna 160 mcg-4.5 mcg/actua tion HFA aerosol inhaler 2023 025 [facility], [address] [place] [address], [id number], 06/12/2024 15:31:39 cyanocoba allie (vit B-12) 1,000 mcg/mL injection solution [address] [facility], [address] [place] [address], [id number], 09/02/2023 13:40:34 promethaz ine 25 mg tablet 2023 024 [facility], [address] [place] [address], [id number], 04/27/2024 10:39:27 cyanocoba allie (vit B-12) 1,000 mcg/mL injection solution 2023 024 [email or web address] 5 [facility], [address] [place] [address], [id number], 04/02/2023 11:29:37 mupirocin 2 % topical ointment 2023 024 [facility], [address] [place] [address], [id number], 09/02/2023 14:33:20 polyethyl jaspreet glycol 3350 17 gram/dose oral powder 2022 023 [facility], [address] [place] [address], [id number], 09/02/2023 13:02:48 cyanocoba allie (vit B-12) 1,000 mcg/mL injection solution 2022 023 [email or web address] Not available 11/19/2022 16:20:24 Patient TargetsNo targets recorded. 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 Not Available [facility] (Lab Registration) [address], [place], [address], 11/17/2022 08:48:44 11/18/19 23 11/17/2022 PT (PROT HROMB IN TIME) W INR note Unles s other lazcano noted testi ng perfo rmed at: [facility] [address] [place] [address] [phone] Gilberto harrison MD CLIA: [id number] Not Available [facility] (Lab Registration) [address] [place], [address], 11/17/2022 08:48:44 02/03/20 23 02/02/2023 PT (PROT HROMB IN TIME) W INR PT (prothrombin time) 31.7 secon ds 9.3-11 .4 high Not Available [facility] (Lab Registration) [address] [place], [address], 02/02/2023 12:03:43 02/03/20 23 02/02/2023 PT (PROT [...] mecha nical heart valve s. Not Available [facility] (Lab Registration) [address], [place], [address], 02/02/2023 12:03:43 02/03/20 23 02/02/2023 PT (PROT HROMB IN TIME) W INR note Unles s other lazcano noted testi ng perfo rmed at: [facility] [address] [place] [address] [phone] Gilberto harrison MD CLIA: [id number] Not Available [facility] (Lab Registration) [address], [place], [address], 02/02/2023 12:03:43 04/01/19 24 04/01/2023 PT (PROT HROMB IN TIME) W INR PT (prothrombin time) 22.9 secon ds 9.1-12 .0 high Not Available [facility] (Lab Registration) [address] [place], [address], 04/01/2023 09:28:48 04/01/19 24 04/01/2023 PT (PROT [...] mecha nical heart valve s. Not Available [facility] (Lab Registration) [address] [place], [address], 04/01/2023 09:28:48 04/01/19 24 04/01/2023 PT (PROT HROMB IN TIME) W INR note Unles s other lazcano noted testi ng perfo rmed at: [facility] [address] [place] [address] [phone] Gilberto harrison MD CLIA: [id number] Not Available [facility] (Lab Registration) [address] [place], [address], 04/01/2023 09:28:48 05/10/19 24 05/10/2023 CBC AUTO W DIFF WBC 10.4 10 4.5-11 .5 Not Available [facility] (Lab Registration) [address] [place], [address], 05/10/2023 09:35:53 05/10/19 24 05/10/2023 CBC AUTO W DIFF RBC 4.02 10 4.25-5 .57 low Not Available [facility] (Lab Registration) [address] [place], [address], 05/10/2023 09:35:53 05/10/19 24 05/10/2023 CBC AUTO W DIFF HGB 13.6 g/dL 13.5-1 7.2 Not Available [facility] (Lab Registration) [address] [place], [address], 05/10/2023 09:35:53 05/10/19 24 05/10/2023 CBC AUTO W DIFF HCT 37.1 % 42.0-5 2.0 low Not Available [facility] (Lab Registration) [address] [place], [address], 05/10/2023 09:35:53 05/10/19 24 05/10/2023 CBC AUTO W DIFF MCV 92.3 fL 80-95 Not Available [facility] (Lab Registration) [address] [place], [address], 05/10/2023 09:35:53 05/10/19 24 05/10/2023 CBC AUTO W DIFF MCH 33.8 pg 27.0-3 4.0 Not Available [facility] (Lab Registration) [address] [place], [address], 05/10/2023 09:35:53 05/10/19 24 05/10/2023 CBC AUTO W DIFF MCHC 36.7 g/dL 32.0-3 6.0 high Not Available [facility] (Lab Registration) [address] [place], [address], 05/10/2023 09:35:53 05/10/19 24 05/10/2023 CBC AUTO W DIFF platelet count 346 10 150-45 0 Not Available [facility] (Lab Registration) [address] [place], [address], 05/10/2023 09:35:53 05/10/19 24 05/10/2023 CBC AUTO W DIFF RDW 11.9 % 12.3-1 5.1 low Not Available [facility] (Lab Registration) [address] [place], [address], 05/10/2023 09:35:53 05/10/19 24 05/10/2023 CBC AUTO W DIFF MPV 11.0 fL 7.4-10 .4 high Not Available [facility] (Lab Registration) [address] [place], [address], 05/10/2023 09:35:53 05/10/19 24 05/10/2023 CBC AUTO W DIFF granulocyte% 51.2 % 40-75 Not Available [facility] (Lab Registration) [address] [place], [address], 05/10/2023 09:35:53 05/10/19 24 05/10/2023 CBC AUTO W DIFF lymphocyte% 36.2 % 15-57 Not Available [facility] (Lab Registration) [address] [place], [address], 05/10/2023 09:35:53 05/10/19 24 05/10/2023 CBC AUTO W DIFF monocyte% 10.1 % 4.0-12 .0 Not Available [facility] (Lab Registration) [address] [place], [address], 05/10/2023 09:35:53 05/10/19 24 05/10/2023 CBC AUTO W DIFF eosinophil% 2.1 % 0.0-4. 0 Not Available [facility] (Lab Registration) [address] [place], [address], 05/10/2023 09:35:53 05/10/19 24 05/10/2023 CBC AUTO W DIFF basophil% 0.3 % 0.0-1. 0 Not Available [facility] (Lab Registration) [address] [place], [address], 05/10/2023 09:35:53 05/10/19 24 05/10/2023 CBC AUTO W DIFF immature granulocytes % 0.1 % 0.0-0. 8 Not Available [facility] (Lab Registration) [address] [place], [address], 05/10/2023 09:35:53 05/10/19 24 05/10/2023 CBC AUTO W DIFF granulocyte# 5.35 10 Not Available [facility] (Lab Registration) [address] [place], [address], 05/10/2023 09:35:53 05/10/19 24 05/10/2023 CBC AUTO W DIFF lymphocyte# 3.78 10 Not Available [facility] (Lab Registration) [address] [place], [address], 05/10/2023 09:35:53 05/10/19 24 05/10/2023 CBC AUTO W DIFF monocyte# 1.05 10 Not Available [facility] (Lab Registration) [address] [place], [address], 05/10/2023 09:35:53 03/18/20 24 05/10/2023 CBC AUTO W DIFF eosinophil# 0.22 10 Not Available [facility] (Lab Registration) [address], [place], [address], 05/10/2023 09:35:53 05/10/19 24 05/10/2023 CBC AUTO W DIFF basophil# 0.03 10 Not Available [facility] (Lab Registration) [address] [place], [address], 05/10/2023 09:35:53 05/10/19 24 05/10/2023 CBC AUTO W DIFF immature granulocytes # 0.01 10 Not Available [facility] (Lab Registration) [address] [place], [address], 05/10/2023 09:35:53 05/10/19 24 05/10/2023 CBC AUTO W DIFF manual differential NO Not Available [facility] (Lab Registration) [address] [place], [address], 05/10/2023 09:35:53 05/10/19 24 05/10/2023 CBC AUTO W DIFF note Unles s other lazcano noted testi ng perfo rmed at: [facility] [address] [place] [address] [phone] Gilberto harrison MD CLIA: [id number] Not Available [facility] (Lab Registration) [address], [place], [address], 05/10/2023 09:35:53 05/10/19 24 05/10/2023 PT (PROT HROMB IN TIME) W INR PT (prothrombin time) 35.7 secon ds 9.1-12 .0 high Not Available [facility] (Lab Registration) [address] [place], [address], 05/10/2023 09:42:30 05/10/19 24 05/10/2023 PT (PROT [...] mecha nical heart valve s. Not Available [facility] (Lab Registration) [address], [place], [address], 05/10/2023 09:42:30 05/10/19 24 05/10/2023 PT (PROT HROMB IN TIME) W INR note Unles s other lazcano noted testi ng perfo rmed at: [facility] [address] [place] [address] [phone] Gilberto harrison MD CLIA: [id number] Not Available [facility] (Lab Registration) [address] [place], [address], 05/10/2023 09:42:30 05/10/19 24 05/10/2023 HEMOG LOBIN A1C glycosylated hemoglobin A1C 6.8 % 4.5-6. 2 high Not Available [facility] (Lab Registration) [address] [place], [address], 05/10/2023 09:56:50 05/10/19 24 05/10/2023 HEMOG LOBIN A1C estimated average glucose 148 mg/dL 82-131 high Not Available [facility] (Lab Registration) [address] [place], [address], 05/10/2023 09:56:50 05/10/19 24 05/10/2023 HEMOG LOBIN A1C note Unles s other lazcano noted testi ng perfo rmed at: [facility] [address] [place] [address] [phone] Gilberto harrison MD CLIA: [id number] Not Available [facility] (Lab Registration) [address] [place], [address], 05/10/2023 09:56:50 05/10/19 24 05/10/2023 COMP METAB OLIC PANEL sodium 138 mmol/ L 136-14 5 Not Available [facility] (Lab Registration) [address] [place], [address], 05/10/2023 10:14:15 05/10/19 24 05/10/2023 COMP METAB OLIC PANEL potassium 4.2 mmol/ L 3.5-5. 1 Not Available [facility] (Lab Registration) [address] [place], [address], 05/10/2023 10:14:15 05/10/19 24 05/10/2023 COMP METAB OLIC PANEL chloride 102 mmol/ L 98-107 Not Available [facility] (Lab Registration) [address] [place], [address], 05/10/2023 10:14:15 05/10/19 24 05/10/2023 COMP METAB OLIC PANEL carbon dioxide 25 mmol/ L 21-32 Not Available [facility] (Lab Registration) [address] [place], [address], 05/10/2023 10:14:15 05/10/19 24 05/10/2023 COMP METAB OLIC PANEL anion gap 11.0 Not Available [facility] (Lab Registration) [address] [place], [address], 05/10/2023 10:14:15 05/10/19 24 05/10/2023 COMP METAB OLIC PANEL glucose 180 mg/dL 70-110 high Not Available [facility] (Lab Registration) [address] [place], [address], 05/10/2023 10:14:15 05/10/19 24 05/10/2023 COMP METAB OLIC PANEL blood urea nitrogen 12 mg/dL 7-18 Not Available [facility] (Lab Registration) [address] [place], [address], 05/10/2023 10:14:15 05/10/19 24 05/10/2023 COMP METAB OLIC PANEL creatinine 1.0 mg/dL 0.8-1. 3 Not Available [facility] (Lab Registration) [address] [place], [address], 05/10/2023 10:14:15 05/10/19 24 05/10/2023 COMP METAB OLIC PANEL BUN/creatini ne ratio 12.0 ratio 9-21 Not Available [facility] (Lab Registration) [address] [place], [address], 05/10/2023 10:14:15 05/10/19 24 05/10/2023 COMP METAB OLIC PANEL estimated glom filtration rate 78 mL/mi n >60- Not Available [facility] (Lab Registration) [address] [place], [address], 05/10/2023 10:14:15 05/10/19 24 05/10/2023 COMP METAB OLIC PANEL total protein 7.5 g/dL 6.4-8. 2 Not Available [facility] (Lab Registration) [address] [place], [address], 05/10/2023 10:14:15 05/10/19 24 05/10/2023 COMP METAB OLIC PANEL albumin 4.0 g/dL 3.4-5. 0 Not Available [facility] (Lab Registration) [address] [place], [address], 05/10/2023 10:14:15 05/10/19 24 05/10/2023 COMP METAB OLIC PANEL calcium 9.2 mg/dL 8.5-10 .1 Not Available [facility] (Lab Registration) [address] [place], [address], 05/10/2023 10:14:15 05/10/19 24 05/10/2023 COMP METAB OLIC PANEL corrected calcium 9.2 mg/dL 8.5-10 .1 Not Available [facility] (Lab Registration) [address], [place], [address], 05/10/2023 10:14:15 05/10/19 24 05/10/2023 COMP METAB OLIC PANEL bilirubin total 1.1 mg/dL 0.4-1. 5 Not Available [facility] (Lab Registration) [address] [place], [address], 05/10/2023 10:14:15 05/10/19 24 05/10/2023 COMP METAB OLIC PANEL AST (SGOT) 17 U/L 15-37 Not Available [facility] (Lab Registration) [address] [place], [address], 05/10/2023 10:14:15 05/10/19 24 05/10/2023 COMP METAB OLIC PANEL ALT (SGPT) 19 U/L 12-78 Not Available [facility] (Lab Registration) [address] [place], [address], 05/10/2023 10:14:15 05/10/19 24 05/10/2023 COMP METAB OLIC PANEL alk phosphatase 65 U/L Not Available [facility] (Lab Registration) [address] [place], [address], 05/10/2023 10:14:15 05/10/19 24 05/10/2023 COMP METAB OLIC PANEL note Unles s other lazcano noted testi ng perfo rmed at: [facility] [address] [place] [address] [phone] Gilberto harrison MD CLIA: [id number] Not Available [facility] (Lab Registration) [address] [place], [address], 05/10/2023 10:14:15 05/10/19 24 05/10/2023 LIPAS E lipase 41 U/L 16-77 Not Available [facility] (Lab Registration) [address] [place], [address], 05/10/2023 10:14:16 05/10/19 24 05/10/2023 LIPAS E note Unles s other lazcano noted testi ng perfo rmed at: [facility] [address] [place] [address] [phone] Gilberto harrison MD CLIA: [id number] Not Available [facility] (Lab Registration) [address] [place], [address], 05/10/2023 10:14:16 05/10/19 24 05/10/2023 AMYLA SE amylase 46 U/L 25-115 Not Available [facility] (Lab Registration) [address] [place], [address], 05/10/2023 10:15:20 05/10/19 24 05/10/2023 AMYLA SE note Unles s other lazcano noted testi ng perfo rmed at: [facility] [address] [place] [address] [phone] Gilberto harrison MD CLIA: [id number] Not Available [facility] (Lab Registration) [address] [place], [address], 05/10/2023 10:15:20 05/10/19 24 05/10/2023 C-NIDHI CTIVE PROTE IN C-reactive protein, quant 0.30 mg/dL 0.05-0 .300 Not Available [facility] (Lab Registration) [address] [place], [address], 05/10/2023 10:15:22 05/10/19 24 05/10/2023 C-NIDHI CTIVE PROTE IN note Unles s other lazcano noted testi ng perfo rmed at: [facility] [address] [place] [address] [phone] Gilberto harrison MD CLIA: [id number] Not Available [facility] (Lab Registration) [address], [place], [address], 05/10/2023 10:15:22 05/26/19 24 05/26/2023 PT (PROT HROMB IN TIME) W INR PT (prothrombin time) 21.3 secon ds 9.1-12 .0 high Not Available [facility] (Lab Registration) [address] [place], [address], 05/26/2023 11:11:48 05/26/19 24 05/26/2023 PT (PROT [...] mecha nical heart valve s. Not Available [facility] (Lab Registration) [address], [place], [address], 05/26/2023 11:11:48 05/26/19 24 05/26/2023 PT (PROT HROMB IN TIME) W INR note Unles s other lazcano noted testi ng perfo rmed at: [facility] [address] [place] [address] [phone] Gilberto harrison MD CLIA: [id number] Not Available [facility] (Lab Registration) [address] [place], [address], 05/26/2023 11:11:48 06/15/19 24 06/15/2023 PT (PROT HROMB IN TIME) W INR PT (prothrombin time) 39.9 secon ds 9.1-12 .0 high Not Available [facility] (Lab Registration) [address], [place], [address], 06/15/2023 10:24:37 06/15/19 24 06/15/2023 PT (PROT [...] mecha nical heart valve s. Not Available [facility] (Lab Registration) [address], [place], [address], 06/15/2023 10:24:37 06/15/19 24 06/15/2023 PT (PROT HROMB IN TIME) W INR note Unles s other lazcano noted testi ng perfo [facility]med [facility] [address] [place] [address] [phone] Gilberto harrison MD CLIA: [id number] Not Available [facility] (Lab Registration) [address], [place], [address], 06/15/2023 10:24:37 06/29/19 24 06/29/2023 PT (PROT HROMB IN TIME) W INR PT (prothrombin time) 48.4 secon ds 9.1-12 .0 high Not Available [facility] (Lab Registration) [address], [place], [address], 06/29/2023 08:37:53 06/29/19 24 06/29/2023 PT (PROT [...] mecha nical heart valve s. Not Available [facility] (Lab Registration) [address] [place], [address], 06/29/2023 08:37:53 06/29/19 24 06/29/2023 PT (PROT HROMB IN TIME) W INR note Unles s other lazcano noted testi ng perfo rmed at: [facility] [address] [place] [address] [phone] Gilberto harrison MD CLIA: [id number] Not Available [facility] (Lab Registration) [address] [place], [address], 06/29/2023 08:37:53 07/14/19 24 07/14/2023 PT (PROT HROMB IN TIME) W INR PT (prothrombin time) 42.7 secon ds 9.1-12 .0 high Not Available [facility] (Lab Registration) [address] [place], [address], 07/14/2023 09:14:41 07/14/19 24 07/14/2023 PT (PROT [...] mecha nical heart valve s. Not Available [facility] (Lab Registration) [address] [place], [address], 07/14/2023 09:14:41 07/14/19 24 07/14/2023 PT (PROT HROMB IN TIME) W INR note Unles s other lazcano noted testi ng perfo rmed at: [facility] [address] [place], [place] [address] [phone] Gilberto harrison MD CLIA: [id number] Not Available [facility] (Lab Registration) [address], [place], [address], 07/14/2023 09:14:41 07/23/19 24 07/23/2023 PT (PROT HROMB IN TIME) W INR PT (prothrombin time) 38.2 secon ds 9.1-12 .0 high Not Available [facility] (Lab Registration) [address], [place], [address], 07/23/2023 10:30:30 07/23/19 24 07/23/2023 PT (PROT [...] mecha nical heart valve s. Not Available [facility] (Lab Registration) [address], [place], [address], 07/23/2023 10:30:30 07/23/19 24 07/23/2023 PT (PROT HROMB IN TIME) W INR note Unles s other lazcano noted testi ng perfo rmed at: [facility] [address] [place], [place] [address] [phone] Gilberto harrison MD CLIA: [id number] Not Available [facility] (Lab Registration) [address] [place], [address], 07/23/2023 10:30:30 08/09/19 24 08/09/2023 PT (PROT HROMB IN TIME) W INR PT (prothrombin time) 20.1 secon ds 9.1-12 .0 high Not Available [facility] (Lab Registration) [address], [place], [address], 08/09/2023 10:06:28 08/09/19 24 08/09/2023 PT (PROT [...] mecha nical heart valve s. Not Available [facility] (Lab Registration) [address], [place], [address], 08/09/2023 10:06:28 08/09/19 24 08/09/2023 PT (PROT HROMB IN TIME) W INR note Unles s other lazcano noted testi ng perfo rmed at: [facility] [address] [place] [address] [phone] Gilberto harrison MD CLIA: [id number] Not Available [facility] (Lab Registration) [address], [place], [address], 08/09/2023 10:06:28 08/19/19 24 08/19/2023 PT (PROT HROMB IN TIME) W INR PT (prothrombin time) 40.9 secon ds 9.1-12 .0 high Not Available [facility] (Lab Registration) [address], [place], [address], 08/19/2023 10:18:27 08/19/19 24 08/19/2023 PT (PROT [...] mecha nical heart valve s. Not Available [facility] (Lab Registration) [address] [place], [address], 08/19/2023 10:18:27 08/19/19 24 08/19/2023 PT (PROT HROMB IN TIME) W INR note Unles s other lazcano noted testi ng perfo rmed at: [facility] [address] [place] [address] [phone] Gilberto harrison MD CLIA: [id number] Not Available [facility] (Lab Registration) [address], [place], [address], 08/19/2023 10:18:27 08/31/19 24 08/31/2023 PT (PROT HROMB IN TIME) W INR PT (prothrombin time) 38.3 secon ds 9.1-12 .0 high Not Available [facility] (Lab Registration) [address], [place], [address], 08/31/2023 10:06:02 08/31/19 24 08/31/2023 PT (PROT [...] mecha nical heart valve s. Not Available [facility] (Lab Registration) [address] [place], [address], 08/31/2023 10:06:02 08/31/19 24 08/31/2023 PT (PROT HROMB IN TIME) W INR note Unles s other lazcano noted testi ng perfo rmed at: [facility] [address] [place] [address] [phone] Gilberto harrison MD CLIA: [id number] Not Available [facility] (Lab Registration) [address] [place], [address], 08/31/2023 10:06:02 08/31/19 24 08/31/2023 CBC AUTO W DIFF WBC 11.2 10 4.5-11 .5 Not Available [facility] (Lab Registration) [address] [place], [address], 08/31/2023 10:06:05 08/31/19 24 08/31/2023 CBC AUTO W DIFF RBC 4.29 10 4.25-5 .57 Not Available [facility] (Lab Registration) [address] [place], [address], 08/31/2023 10:06:05 08/31/19 24 08/31/2023 CBC AUTO W DIFF HGB 14.3 g/dL 13.5-1 7.2 Not Available [facility] (Lab Registration) [address] [place], [address], 08/31/2023 10:06:05 08/31/19 24 08/31/2023 CBC AUTO W DIFF HCT 39.5 % 42.0-5 2.0 low Not Available [facility] (Lab Registration) [address] [place], [address], 08/31/2023 10:06:05 08/31/19 24 08/31/2023 CBC AUTO W DIFF MCV 92.1 fL 80-95 Not Available [facility] (Lab Registration) [address] [place], [address], 08/31/2023 10:06:05 08/31/19 24 08/31/2023 CBC AUTO W DIFF MCH 33.3 pg 27.0-3 4.0 Not Available [facility] (Lab Registration) [address] [place], [address], 08/31/2023 10:06:05 08/31/19 24 08/31/2023 CBC AUTO W DIFF MCHC 36.2 g/dL 32.0-3 6.0 high Not Available [facility] (Lab Registration) [address] [place], [address], 08/31/2023 10:06:05 08/31/19 24 08/31/2023 CBC AUTO W DIFF platelet count 360 10 150-45 0 Not Available [facility] (Lab Registration) [address] [place], [address], 08/31/2023 10:06:05 08/31/19 24 08/31/2023 CBC AUTO W DIFF RDW 11.9 % 12.3-1 5.1 low Not Available [facility] (Lab Registration) [address] [place], [address], 08/31/2023 10:06:05 08/31/19 24 08/31/2023 CBC AUTO W DIFF MPV 10.5 fL 7.4-10 .4 high Not Available [facility] (Lab Registration) [address] [place], [address], 08/31/2023 10:06:05 08/31/19 24 08/31/2023 CBC AUTO W DIFF granulocyte% 56.0 % 40-75 Not Available [facility] (Lab Registration) [address] [place], [address], 08/31/2023 10:06:05 08/31/19 24 08/31/2023 CBC AUTO W DIFF lymphocyte% 33.2 % 15-57 Not Available [facility] (Lab Registration) [address] [place], [address], 08/31/2023 10:06:05 08/31/19 24 08/31/2023 CBC AUTO W DIFF monocyte% 8.4 % 4.0-12 .0 Not Available [facility] (Lab Registration) [address] [place], [address], 08/31/2023 10:06:05 08/31/19 24 08/31/2023 CBC AUTO W DIFF eosinophil% 1.8 % 0.0-4. 0 Not Available [facility] (Lab Registration) [address] [place], [address], 08/31/2023 10:06:05 08/31/19 24 08/31/2023 CBC AUTO W DIFF basophil% 0.4 % 0.0-1. 0 Not Available [facility] (Lab Registration) [address] [place], [address], 08/31/2023 10:06:05 08/31/19 24 08/31/2023 CBC AUTO W DIFF immature granulocytes % 0.2 % 0.0-0. 8 Not Available [facility] (Lab Registration) [address] [place], [address], 08/31/2023 10:06:05 08/31/19 24 08/31/2023 CBC AUTO W DIFF granulocyte# 6.28 10 Not Available [facility] (Lab Registration) [address] [place], [address], 08/31/2023 10:06:05 08/31/19 24 08/31/2023 CBC AUTO W DIFF lymphocyte# 3.73 10 Not Available [facility] (Lab Registration) [address] [place], [address], 08/31/2023 10:06:05 08/31/19 24 08/31/2023 CBC AUTO W DIFF monocyte# 0.94 10 Not Available [facility] (Lab Registration) [address] [place], [address], 08/31/2023 10:06:05 08/31/19 24 08/31/2023 CBC AUTO W DIFF eosinophil# 0.20 10 Not Available [facility] (Lab Registration) [address] [place], [address], 08/31/2023 10:06:05 08/31/19 24 08/31/2023 CBC AUTO W DIFF basophil# 0.05 10 Not Available [facility] (Lab Registration) [address] [place], [address], 08/31/2023 10:06:05 08/31/19 24 08/31/2023 CBC AUTO W DIFF immature granulocytes # 0.02 10 Not Available [facility] (Lab Registration) [address] [place], [address], 08/31/2023 10:06:05 08/31/19 24 08/31/2023 CBC AUTO W DIFF manual differential NO Not Available [facility] (Lab Registration) [address] [place], [address], 08/31/2023 10:06:05 08/31/19 24 08/31/2023 CBC AUTO W DIFF note Unles s other lazcano noted testi ng perfo rmed at: [facility] [address] [place] [address] [phone] Gilberto harrison MD CLIA: [id number] Not Available [facility] (Lab Registration) [address] [place], [address], 08/31/2023 10:06:05 08/31/19 24 08/31/2023 PROST ATE SPECI FIC AG (PSA) prostate specific Ag (PSA) 1.03 NG/mL 0.0-4. 0 Not Available [facility] (Lab Registration) [address] [place], [address], 08/31/2023 10:13:42 08/31/19 24 08/31/2023 PROST ATE SPECI FIC AG (PSA) note Unles s other lazcano noted testi ng perfo rmed at: [facility] [address] [place] [address] [phone] Gilberto harrison MD CLIA: [id number] Not Available [facility] (Lab Registration) [address], [place], [address], 08/31/2023 10:13:42 08/31/19 24 08/31/2023 THYRO ID STIMU LATIN G HORMO NE thyroid stimulating hormone 2.16 mIU/m L 0.34-4 .80 Not Available [facility] (Lab Registration) [address], [place], [address], 08/31/2023 10:13:44 08/31/19 24 08/31/2023 THYRO ID STIMU LATIN G HORMO NE note Unles s other lazcano noted testi ng perfo rmed at: [facility] [address] [place] [phone] Gilberto harrison MD CLIA: [id number] Not Available [facility] (Lab Registration) [address], [place], [address], 08/31/2023 10:13:44 08/31/19 24 08/31/2023 COMP METAB OLIC PANEL sodium 136 mmol/ L 136-14 5 Not Available [facility] (Lab Registration) [address], [place], [address], 08/31/2023 10:13:46 08/31/19 24 08/31/2023 COMP METAB OLIC PANEL potassium 4.3 mmol/ L 3.5-5. 1 Not Available [facility] (Lab Registration) [address], [place], [address], 08/31/2023 10:13:46 08/31/19 24 08/31/2023 COMP METAB OLIC PANEL chloride 102 mmol/ L 98-107 Not Available [facility] (Lab Registration) [address] [place], [address], 08/31/2023 10:13:46 08/31/19 24 08/31/2023 COMP METAB OLIC PANEL carbon dioxide 24 mmol/ L 21-32 Not Available [facility] (Lab Registration) [address] [place], [address], 08/31/2023 10:13:46 08/31/19 24 08/31/2023 COMP METAB OLIC PANEL anion gap 10.0 Not Available [facility] (Lab Registration) [address] [place], [address], 08/31/2023 10:13:46 08/31/19 24 08/31/2023 COMP METAB OLIC PANEL glucose 225 mg/dL 70-110 high Not Available [facility] (Lab Registration) [address] [place], [address], 08/31/2023 10:13:46 08/31/19 24 08/31/2023 COMP METAB OLIC PANEL blood urea nitrogen 8 mg/dL 7-18 Not Available [facility] (Lab Registration) [address] [place], [address], 08/31/2023 10:13:46 08/31/19 24 08/31/2023 COMP METAB OLIC PANEL creatinine 0.9 mg/dL 0.8-1. 3 Not Available [facility] (Lab Registration) [address] [place], [address], 08/31/2023 10:13:46 08/31/19 24 08/31/2023 COMP METAB OLIC PANEL BUN/creatini ne ratio 8.9 ratio 9-21 low Not Available [facility] (Lab Registration) [address] [place], [address], 08/31/2023 10:13:46 08/31/19 24 08/31/2023 COMP METAB OLIC PANEL estimated glom filtration rate 89 mL/mi n >60- Not Available [facility] (Lab Registration) [address] [place], [address], 08/31/2023 10:13:46 08/31/19 24 08/31/2023 COMP METAB OLIC PANEL total protein 8.2 g/dL 6.4-8. 2 Not Available [facility] (Lab Registration) [address] [place], [address], 08/31/2023 10:13:46 08/31/19 24 08/31/2023 COMP METAB OLIC PANEL albumin 3.7 g/dL 3.4-5. 0 Not Available [facility] (Lab Registration) [address] [place], [address], 08/31/2023 10:13:46 08/31/19 24 08/31/2023 COMP METAB OLIC PANEL calcium 8.9 mg/dL 8.5-10 .1 Not Available [facility] (Lab Registration) [address] [place], [address], 08/31/2023 10:13:46 08/31/19 24 08/31/2023 COMP METAB OLIC PANEL corrected calcium 9.1 mg/dL 8.5-10 .1 Not Available [facility] (Lab Registration) [address] [place], [address], 08/31/2023 10:13:46 08/31/19 24 08/31/2023 COMP METAB OLIC PANEL bilirubin total 1.2 mg/dL 0.4-1. 5 Not Available [facility] (Lab Registration) [address] [place], [address], 08/31/2023 10:13:46 08/31/19 24 08/31/2023 COMP METAB OLIC PANEL AST (SGOT) 13 U/L 15-37 low Not Available [facility] (Lab Registration) [address] [place], [address], 08/31/2023 10:13:46 08/31/19 24 08/31/2023 COMP METAB OLIC PANEL ALT (SGPT) 16 U/L 12-78 Not Available [facility] (Lab Registration) [address] , [place], [address], 08/31/2023 10:13:46 08/31/19 24 08/31/2023 COMP METAB OLIC PANEL alk phosphatase 78 U/L Not Available [facility] (Lab Registration) [address] [place], [address], 08/31/2023 10:13:46 08/31/19 24 08/31/2023 COMP METAB OLIC PANEL note Unles s other lazcano noted testi ng perfo rmed at: [facility] [address] [place] [address] [phone] Gilberto harrison MD CLIA: [id number] Not Available [facility] (Lab Registration) [address] [place], [address], 08/31/2023 10:13:46 08/31/19 24 08/31/2023 LIPID PANEL triglyceride 141 mg/dL 20-200 The [employer]io [employer] ([employer]CE[employer] ) has set the follo wing guide lines for Fasti ng Trigl yceri kanu: TURNER L: <150 mg/dL BORDE RLINE HIGH: 150 - 199 mg/dL HIGH: 200 - 499 mg/dL VERY HIGH: > or =500 mg/dL Not Available [facility] (Lab Registration) [address] [place], [address], 08/31/2023 10:13:48 08/31/19 24 08/31/2023 LIPID PANEL cholesterol 156 mg/dL 0-200 The [employer]io [employer] ([employer]CE[employer] ) has set the follo wing guide lines for Fasti ng Jacquelyn stero l: SINDHU ABLE: <200 mg/dL BORDE RLINE HIGH: 200 - 239 mg/dL HIGH: > or =240 mg/dL Not Available [facility] (Lab Registration) [address], [place], [address], 08/31/2023 10:13:48 08/31/19 24 08/31/2023 LIPID PANEL HDL cholesterol 42 mg/dL 60- low The [facility]io [facility] [employer] ([facility] ) has set the follo wing guide lines for Fasti ng HDL Jacquelyn stero l: LOW HDL: <40 mg/dL TURNER L: 40 - 60 mg/dL SINDHU ABLE: >60 mg/dL Not Available [facility] (Lab Registration) [address], [place], [address], 08/31/2023 10:13:48 08/31/19 24 08/31/2023 LIPID PANEL LDL calculated 86 mg/dL 100- low [employer] ([facility] ) has set the follo wing guide lines for Fasti ng LDL Jacquelyn stero l: OPTIM AL: < 100 mg/dL LOW RISK: 100 - 129 mg/dL BORDE RLINE HIGH: 130 - 159 mg/dL HIGH: 160 - 189 mg/dL VERY HIGH: > or = 190 mg/dL Not Available [facility] (Lab Registration) [address], [place], [address], 08/31/2023 10:13:48 08/31/19 24 08/31/2023 LIPID PANEL chol/HDL ratio 4 ratio -5 Not Available [facility] (Lab Registration) [address] [place], [address], 08/31/2023 10:13:48 08/31/19 24 08/31/2023 LIPID PANEL note Unles s other lazcano noted testi ng perfo rmed at: [facility] [address] [employer] [place] [address] [phone] Gilberto harrison MD CLIA: [id number] Not Available [facility] (Lab Registration) [address] [place], [address], 08/31/2023 10:13:48 09/14/19 24 09/14/2023 PT (PROT HROMB IN TIME) W INR PT (prothrombin time) 15.5 secon ds 9.1-12 .0 high Not Available [facility] (Lab Registration) [address], [place], [address], 09/14/2023 10:41:37 09/14/19 24 09/14/2023 PT (PROT [...] mecha nical heart valve s. Not Available [facility] (Lab Registration) [address], [place], [address], 09/14/2023 10:41:37 09/14/19 24 09/14/2023 PT (PROT HROMB IN TIME) W INR note Unles s other lazcano noted testi ng perfo rmed at: [facility] [address] [place] [address] [phone] Gilberto harrison MD CLIA: [id number] Not Available [facility] (Lab Registration) [address] [place], [address], 09/14/2023 10:41:37 09/27/19 24 09/27/2023 PT (PROT HROMB IN TIME) W INR PT (prothrombin time) 22.5 secon ds 9.1-12 .0 high Not Available [facility] (Lab Registration) [address] [place], [address], 09/27/2023 10:49:44 09/27/19 24 09/27/2023 PT (PROT [...] mecha nical heart valve s. Not Available [facility] (Lab Registration) [address], [place], [address], 09/27/2023 10:49:44 09/27/19 24 09/27/2023 PT (PROT HROMB IN TIME) W INR note Unles s other lazcano noted testi ng perfo rmed at: [facility] [address] [place] [address] [phone] Gilberto harrison MD CLIA: [id number] Not Available [facility] (Lab Registration) [address], [place], [address], 09/27/2023 10:49:44 10/12/19 24 10/12/2023 PT (PROT HROMB IN TIME) W INR PT (prothrombin time) 31.6 secon ds 9.1-12 .0 high Not Available [facility] (Lab Registration) [address] [place], [address], 10/12/2023 10:29:13 10/12/19 24 10/12/2023 PT (PROT [...] mecha nical heart valve s. Not Available [facility] (Lab Registration) [address], [place], [address], 10/12/2023 10:29:13 10/12/19 24 10/12/2023 PT (PROT HROMB IN TIME) W INR note Unles s other lazcano noted testi ng perfo rmed at: [facility] [address] [place] [address] [phone] Gilberto harrison MD CLIA: [id number] Not Available [facility] (Lab Registration) [address], [place], [address], 10/12/2023 10:29:13 10/29/19 24 10/29/2023 PT (PROT HROMB IN TIME) W INR PT (prothrombin time) 33.9 secon ds 9.1-12 .0 high Not Available [facility] (Lab Registration) [address], [place], [address], 10/29/2023 08:55:43 10/29/19 24 10/29/2023 PT (PROT [...] mecha nical heart valve s. Not Available [facility] (Lab Registration) [address] [place], [address], 10/29/2023 08:55:43 10/29/19 24 10/29/2023 PT (PROT HROMB IN TIME) W INR note Unles s other lazcano noted testi ng perfo rmed at: [facility] [address] [place] [address] [phone] Gilberto harrison MD CLIA: [id number] Not Available [facility] (Lab Registration) [address] [place], [address], 10/29/2023 08:55:43 11/11/19 24 11/11/2023 PT (PROT HROMB IN TIME) W INR PT (prothrombin time) 32.5 secon ds 9.1-12 .0 high Not Available [facility] (Lab Registration) [address] [place], [address], 11/11/2023 16:33:40 11/11/19 24 11/11/2023 PT (PROT [...] mecha nical heart valve s. Not Available [facility] (Lab Registration) [address], [place], [address], 11/11/2023 16:33:40 11/11/19 24 11/11/2023 PT (PROT HROMB IN TIME) W INR note Unles s other lazcano noted testi ng perfo rmed at: [facility] [address] [place] [address] [phone] Gilberto harrison MD CLIA: [id number] Not Available [facility] (Lab Registration) [address] [place], [address], 11/11/2023 16:33:40 11/23/19 24 11/23/2023 PT (PROT HROMB IN TIME) W INR PT (prothrombin time) 53.8 secon ds 9.1-12 .0 high Not Available [facility] (Lab Registration) [address], [place], [address], 11/23/2023 10:26:33 11/23/19 24 11/23/2023 PT (PROT [...] mecha nical heart valve s. Not Available [facility] (Lab Registration) [address], [place], [address], 11/23/2023 10:26:33 11/23/19 24 11/23/2023 PT (PROT HROMB IN TIME) W INR note Unles s other lazcano noted testi ng perfo rmed at: [facility] [address] [place], [place] [address] [phone] Gilberto harrison MD CLIA: [id number] Not Available [facility] (Lab Registration) [address] [place], [address], 11/23/2023 10:26:33 11/23/19 24 11/23/2023 PTT (PART IAL THROM B TIME) PTT (partial thromb time) 44.6 secon ds 24.5-3 2.8 high Not Available [facility] (Lab Registration) [address] [place], [address], 11/23/2023 10:27:36 11/23/19 24 11/23/2023 PTT (PART IAL THROM B TIME) note Unles s other lazcano noted testi ng perfo rmed at: [facility] [address] [place] [address] [phone] Gilberto harrison MD CLIA: [id number] Not Available [facility] (Lab Registration) [address], [place], [address], 11/23/2023 10:27:36 11/26/19 24 11/26/2023 PT (PROT HROMB IN TIME) W INR PT (prothrombin time) 38.7 secon ds 9.1-12 .0 high Not Available [facility] (Lab Registration) [address], [place], [address], 11/26/2023 09:38:11 11/26/19 24 11/26/2023 PT (PROT [...] mecha nical heart valve s. Not Available [facility] (Lab Registration) [address], [place], [address], 11/26/2023 09:38:11 11/26/19 24 11/26/2023 PT (PROT HROMB IN TIME) W INR note Unles s other lazcano noted testi ng perfo rmed at: [facility] [place] [address] [phone] Gilberto harrison MD CLIA: [id number] Not Available [facility] (Lab Registration) [address] [place], [address], 11/26/2023 09:38:11 11/29/19 24 11/29/2023 PT (PROT HROMB IN TIME) W INR PT (prothrombin time) 15.9 secon ds 9.1-12 .0 high Not Available [facility] (Lab Registration) [address], [place], [address], 11/29/2023 09:34:30 11/29/19 24 11/29/2023 PT (PROT [...] mecha nical heart valve s. Not Available [facility] (Lab Registration) [address], [place], [address], 11/29/2023 09:34:30 11/29/19 24 11/29/2023 PT (PROT HROMB IN TIME) W INR note Unles s other lazcano noted testi ng perfo rmed at: [facility] [address] [place] [address] [phone] Gilberto harrison MD CLIA: [id number] Not Available [facility] (Lab Registration) [address] , [place], [address], 11/29/2023 09:34:30 12/03/19 24 12/03/2023 PT (PROT HROMB IN TIME) W INR PT (prothrombin time) 19.2 secon ds 9.1-12 .0 high Not Available [facility] (Lab Registration) [address] [place], [address], 12/03/2023 09:40:22 12/03/19 24 12/03/2023 PT (PROT [...] mecha nical heart valve s. Not Available [facility] (Lab Registration) [address], [place], [address], 12/03/2023 09:40:22 12/03/19 24 12/03/2023 PT (PROT HROMB IN TIME) W INR note Unles s other lazcano noted testi ng perfo rmed at: [facility] [address] [place] [address] [phone] Gilberto harrison MD CLIA: [id number] Not Available [facility] (Lab Registration) [address], [place], [address], 12/03/2023 09:40:22 12/10/19 24 12/10/2023 PT (PROT HROMB IN TIME) W INR PT (prothrombin time) 32.6 secon ds 9.1-12 .0 high Not Available [facility] (Lab Registration) [address], [place], [address], 12/10/2023 09:24:52 12/10/19 24 12/10/2023 PT (PROT [...] mecha nical heart valve s. Not Available [facility] (Lab Registration) [address], [place], [address], 12/10/2023 09:24:52 12/10/19 24 12/10/2023 PT (PROT HROMB IN TIME) W INR note Unles s other lazcano noted testi ng perfo rmed at: [facility] [address] [place] [address] [phone] Gilberto harrison MD CLIA: [id number] Not Available [facility] (Lab Registration) [address] [place], [address], 12/10/2023 09:24:52 12/20/1912/20/2023 PT (PROT HROMB IN TIME) W INR PT (prothrombin time) 28.7 secon ds 9.1-12 .0 high Not Available [facility] (Lab Registration) [address] [place], [address], 12/20/2023 10:04:52 12/20/1912/20/2023 PT (PROT HROMB IN [...] mecha nical heart valve s. Not Available [facility] (Lab Registration) [address] [place], [address], 12/20/2023 10:04:52 12/20/1912/20/2023 PT (PROT HROMB IN TIME) W INR note Unles s other lazcano noted testi ng perfo rmed at: [facility] [address] [place] [address] [phone] Gilberto harrison MD CLIA: [id number] Not Available [facility] (Lab Registration) [address] [place], [address], 12/20/2023 10:04:52 01/05/20 24 01/05/2024 PT (PROT HROMB IN TIME) W INR PT (prothrombin time) 31.4 secon ds 9.1-12 .0 high Not Available [facility] (Lab Registration) [address], [place], [address], 01/05/2024 09:59:06 01/05/20 24 01/05/2024 PT (PROT [...] mecha nical heart valve s. Not Available [facility] (Lab Registration) [address], [place], [address], 01/05/2024 09:59:06 01/05/20 24 01/05/2024 PT (PROT HROMB IN TIME) W INR note Unles s other lazcano noted testi ng perfo rmed at: [facility] [address] [facility] [place] [address] [phone] Gilberto harrison MD CLIA: [id number] Not Available [facility] (Lab Registration) [address], [place], [address], 01/05/2024 09:59:06 01/17/20 24 01/17/2024 PT (PROT HROMB IN TIME) W INR PT (prothrombin time) 28.9 secon ds 9.1-12 .0 high Not Available [facility] (Lab Registration) [address], [place], [address], 01/17/2024 10:21:50 01/17/20 24 01/17/2024 PT (PROT [...] mecha nical heart valve s. Not Available [facility] (Lab Registration) [address], [place], [address], 01/17/2024 10:21:50 01/17/20 24 01/17/2024 PT (PROT HROMB IN TIME) W INR note Unles s other lazcano noted testi ng perfo rmed at: [facility] [address] [place] [address] [phone] Gilberto harrison MD CLIA: [id number] Not Available [facility] (Lab Registration) [address], [place], [address], 01/17/2024 10:21:50 02/02/20 24 02/02/2024 PT (PROT HROMB IN TIME) W INR PT (prothrombin time) 37.8 secon ds 9.1-12 .0 high Not Available [facility] (Lab Registration) [address], [place], [address], 02/02/2024 10:55:13 02/02/20 24 02/02/2024 PT (PROT [...] mecha nical heart valve s. Not Available [facility] (Lab Registration) [address] [place], [address], 02/02/2024 10:55:13 02/02/20 24 02/02/2024 PT (PROT HROMB IN TIME) W INR note Unles s other lazcano noted testi ng perfo rmed at: [facility] [address] [place] [address] [phone] Gilberto harrison MD CLIA: [id number] Not Available [facility] (Lab Registration) [address] [place], [address], 02/02/2024 10:55:13 02/15/20 24 02/15/2024 PT (PROT HROMB IN TIME) W INR PT (prothrombin time) 23.9 secon ds 9.1-12 .0 high Not Available [facility] (Lab Registration) [address] [place], [address], 02/15/2024 10:00:50 02/15/20 24 02/15/2024 PT (PROT [...] mecha nical heart valve s. Not Available [facility] (Lab Registration) [address] [place], [address], 02/15/2024 10:00:50 02/15/20 24 02/15/2024 PT (PROT HROMB IN TIME) W INR note Unles s other lazcano noted testi ng perfo rmed at: [facility] [address] [place] [address] [phone] Gilberto harrison MD CLIA: [id number] Not Available [facility] (Lab Registration) [address] [place], [address], 02/15/2024 10:00:50 04/18/19 25 04/18/2024 PT (PROT HROMB IN TIME) W INR PT (prothrombin time) 16.7 secon ds 9.1-12 .0 high Not Available [facility] (Lab Registration) [address] [place], [address], 04/18/2024 10:10:09 04/18/19 25 04/18/2024 PT (PROT [...] mecha nical heart valve s. Not Available [facility] (Lab Registration) [address] [place], [address], 04/18/2024 10:10:09 04/18/19 25 04/18/2024 PT (PROT HROMB IN TIME) W INR note Unles s other lazcano noted testi ng perfo rmed at: [facility] [address] [facility] [place] [address] [phone] Gilberto harrison MD CLIA: [id number] Not Available [facility] (Lab Registration) [address] [place], [address], 04/18/2024 10:10:09 04/29/19 25 04/28/2024 PT (PROT HROMB IN TIME) W INR PT (prothrombin time) 64.3 secon ds 9.1-12 .0 Not Available [facility] (Lab Registration) [address] [place], [address], 04/28/2024 11:18:48 04/29/19 25 04/28/2024 PT (PROT [...] mecha nical heart valve s. Not Available [facility] (Lab Registration) [address], [place], [address], 04/28/2024 11:18:48 04/29/19 25 04/28/2024 PT (PROT HROMB IN TIME) W INR note Unles s other lazcano noted testi ng perfo rmed at: [facility] [address] [place] [address] [phone] Gilberto harrison MD CLIA: [id number] Not Available [facility] (Lab Registration) [address] [place], [address], 04/28/2024 11:18:48 05/02/19 25 05/01/2024 PT (PROT HROMB IN TIME) W INR PT (prothrombin time) 21.2 secon ds 9.1-12 .0 high Not Available [facility] (Lab Registration) [address] [place], [address], 05/01/2024 12:39:09 05/02/19 25 05/01/2024 PT (PROT [...] mecha nical heart valve s. Not Available [facility] [facility] ([facility] Registration) [address], [place], [address], 05/01/2024 12:39:09 05/02/19 25 05/01/2024 PT (PROT HROMB IN TIME) W INR note Unles s other lazcano noted testi ng perfo [facility]med at: [facility] [address] [place] [address] [phone] Gilberto harrison MD CLIA: [id number] Not Available [facility] (Lab Registration) [address], [place], [address], 05/01/2024 12:39:09 05/06/19 25 05/05/2024 PT (PROT HROMB IN TIME) W INR PT (prothrombin time) 25.7 secon ds 9.1-12 .0 high Not Available [facility] (Lab Registration) [address] [place], [address], 05/05/2024 09:48:56 05/06/19 25 05/05/2024 PT (PROT [...] mecha nical heart valve s. Not Available [facility] (Lab Registration) [address] [place], [address], 05/05/2024 09:48:56 05/06/19 25 05/05/2024 PT (PROT HROMB IN TIME) W INR note Unles s other lazcano noted testi ng perfo rmed at: [facility] [address] [place] [address] [phone] Gilberto harrison MD CLIA: [id number] Not Available [facility] (Lab Registration) [address] , [place], [address], 05/05/2024 09:48:56 05/16/1905/15/2024 PT (PROT HROMB IN TIME) W INR PT (prothrombin time) 25.1 secon ds 9.1-12 .0 high Not Available [facility] (Lab Registration) [address] [place], [address], 05/15/2024 10:56:15 05/16/19 25 05/15/2024 PT (PROT [...] mecha nical heart valve s. Not Available [facility] (Lab Registration) [address] [place], [address], 05/15/2024 10:56:15 05/16/19 25 05/15/2024 PT (PROT HROMB IN TIME) W INR note Unles s other lazcano noted testi ng perfo rmed at: [facility] [address] [place] [address] [phone] Gilberto harrison MD CLIA: [id number] Not Available [facility] (Lab Registration) [address] [place], [address], 05/15/2024 10:56:15 05/24/19 25 05/23/2024 PT (PROT HROMB IN TIME) W INR PT (prothrombin time) 33.6 secon ds 9.1-12 .0 high Not Available [facility] (Lab Registration) [address], [place], [address], 05/23/2024 08:51:45 05/24/19 25 05/23/2024 PT (PROT [...] mecha nical heart valve s. Not Available [facility] (Lab Registration) [address], [place], [address], 05/23/2024 08:51:45 05/24/19 25 05/23/2024 PT (PROT HROMB IN TIME) W INR note Unles s other lazcano noted testi ng perfo [facility]med [facility]: [facility] [address] [place] [address] [phone] Gilberto harrison MD CLIA: [id number] Not Available [facility] (Lab Registration) [address] [place], [address], 05/23/2024 08:51:45 06/01/19 25 05/31/2024 PT (PROT HROMB IN TIME) W INR PT (prothrombin time) 22.9 secon ds 9.1-12 .0 high Not Available [facility] (Lab Registration) [address] [place], [address], 05/31/2024 10:10:55 06/01/19 25 05/31/2024 PT (PROT [...] mecha nical heart valve s. Not Available [facility] (Lab Registration) [address], [place], [address], 05/31/2024 10:10:55 06/01/19 25 05/31/2024 PT (PROT HROMB IN TIME) W INR note Unles s other lazcano noted testi ng perfo rmed at: [facility] [address] [place] [address] [phone] Gilberto harrison MD CLIA: [id number] Not Available [facility] (Lab Registration) [address] [place], [address], 05/31/2024 10:10:55 06/20/19 25 06/19/2024 PT (PROT HROMB IN TIME) W INR PT (prothrombin time) 18.9 secon ds 9.1-12 .0 high Not Available [facility] (Lab Registration) [address] [place], [address], 06/19/2024 09:26:51 06/20/1906/19/2024 PT (PROT HROMB IN [...] mecha nical heart valve s. Not Available [facility] (Lab Registration) [address] [place], [address], 06/19/2024 09:26:51 06/20/19 25 06/19/2024 PT (PROT HROMB IN TIME) W INR note Unles s other lazcano noted testi ng perfo rmed at: [facility] [address] [place] [phone] Gilberto harrison MD CLIA: [id number] Not Available [facility] (Lab Registration) [address], [place], [address], 06/19/2024 09:26:51 06/28/19 25 06/27/2024 PT (PROT HROMB IN TIME) W INR PT (prothrombin time) 23.5 secon ds 9.1-12 .0 high Not Available [facility] (Lab Registration) [address] [place], [address], 06/27/2024 10:18:50 06/28/19 25 06/27/2024 PT (PROT [...] mecha nical heart valve s. Not Available [facility] (Lab Registration) [address] [place], [address], 06/27/2024 10:18:50 06/28/19 25 06/27/2024 PT (PROT HROMB IN TIME) W INR note Unles s other lazcano noted testi ng perfo rmed at: [facility] [address] [place] [phone] Gilberto harrison MD CLIA: [id number] Not Available [facility] (Lab Registration) [address] [place], [address], 06/27/2024 10:18:50 07/13/1907/12/2024 PT (PROT HROMB IN TIME) W INR PT (prothrombin time) 19.4 secon ds 9.1-12 .0 high Not Available [facility] (Lab Registration) [address], [place], [address], 07/12/2024 09:54:32 07/13/19 25 07/12/2024 PT (PROT [...] mecha nical heart valve s. Not Available [facility] (Lab Registration) [address] [place], [address], 07/12/2024 09:54:32 07/13/1907/12/2024 PT (PROT HROMB IN TIME) W INR note Unles s other lazcano noted testi ng perfo rmed at: [facility] [address] [place] [address] [phone] Gilberto harrison MD CLIA: [id number] Not Available [facility] (Lab Registration) [address] [place], [address], 07/12/2024 09:54:32 07/22/1907/21/2024 PT (PROT HROMB IN TIME) W INR PT (prothrombin time) 31.0 secon ds 9.1-12 .0 high Not Available [facility] (Lab Registration) [address] [place], [address], 07/21/2024 10:06:07 07/22/19 25 07/21/2024 PT (PROT HROMB IN TIME) W INR INR 3.06 0.9-1. 1 high INR is inten ded to be used only for patie nts on stabl e oral anti- coagu lant thera py. *Ther apeut ic Range s 2.0 - 3.0 Usual Thera peuti c Range 2.5 - 3.5 For patie nts with a histo ry of multi ple deep vein throm bus or mecha nical heart valve s. Not Available [facility] (Lab Registration) [address], [place], [address], 07/21/2024 10:06:07 07/22/19 25 07/21/2024 PT (PROT HROMB IN TIME) W INR note Unles s other lazcano noted testi ng perfo rmed at: [facility] [address] [place] [address] [phone] Gilberto harrison MD CLIA: [id number] Not Available [facility] (Lab Registration) [address] [place], [address], 07/21/2024 10:06:07 07/29/19 25 07/28/2024 PT (PROT HROMB IN TIME) W INR PT (prothrombin time) 33.6 secon ds 9.1-12 .0 high Not Available [facility] (Lab Registration) [address] [place], [address], 07/28/2024 08:23:36 07/29/19 25 07/28/2024 PT (PROT HROMB IN TIME) W INR [...] mecha nical heart valve s. Not Available [facility] (Lab Registration) [address] [place], [address], 07/28/2024 08:23:36 07/29/19 25 07/28/2024 PT (PROT HROMB IN TIME) W INR note Unles s other lazcano noted testi ng perfo rmed at: [facility] [address] [place] [address] [phone] Gilberto harrison MD CLIA: [id number] Not Available [facility] (Lab Registration) [address] [place], [address], 07/28/2024 08:23:36 08/12/19 25 08/11/2024 PT (PROT HROMB IN TIME) W INR PT (prothrombin time) 20.6 secon ds 9.1-12 .0 high Not Available [facility] (Lab Registration) [address] [place], [address], 08/11/2024 09:51:53 08/12/19 25 08/11/2024 PT (PROT HROMB IN TIME) W INR INR 1.98 0.9-1. 1 high INR is inten ded to be used only for patie nts on stabl e oral anti- coagu lant thera py. *Ther apeut ic Range s 2.0 - 3.0 Usual Thera peuti c Range 2.5 - 3.5 For patie nts with a histo ry of multi ple deep vein throm bus or mecha nical heart valve s. Not Available [facility] (Lab Registration) [address] [place], [address], 08/11/2024 09:51:53 08/12/19 25 08/11/2024 PT (PROT HROMB IN TIME) W INR note Unles s other lazcano noted testi ng perfo rmed at: [facility] [address] [place] [address] [phone] Gilberto harrison MD CLIA: [id number] Not Available [facility] (Lab Registration) [address] [place], [address], 08/11/2024 09:51:53 11/21/19 23 11/19/2022 pulmo nary funct ion test* No observ ation record ed. [email or web address] [facility] [address] [place], [address], 11/20/2022 16:30:59 09/03/19 24 09/02/2023 pulmo nary funct ion test* No observ ation record ed. [email or web address] [place], [address], 09/03/2023 09:37:16 Result Notes None recorded. 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 6 11:31:55 Blood coagulation disorder 56676727 Active Charlotte Bernstein MD [address], [address] [place] [address], [facility] 6 11:31:55 Varicose veins of lower extremity 92194732 Lucretia Bernstein MD [address], [address] [place] [address] 7, [facility] 6 11:31:55 Benign essential hypertension 4971836 Lucretia Bernstein MD [address], [address] [place] [address] 7, [facility] 6 11:31:55 Nausea 346874805 Lucretia Bernstein MD [address], [address] [place] [address], [place] - [facility] 6 11:31:55 Hyperlipidemia 05399064 Lucretia Bernstein MD [address] [place] [address], [place] - [facility] 6 11:31:54 Pain in right lower limb 544987221 Lucretia Bernstein MD [address] [place] [address], [place] - [facility] 6 11:31:55 Gastroesophage al reflux disease 945579288 Lucretia Bernstein MD [address] [place] [address], [place] - [facility] 6 11:31:55 Pruritic disorder 345609366 Lucretia Bernstein MD [address], [address] [place] [address], [place] - [facility] 6 11:31:55 Chronic pain syndrome 499463458 Lucretia Bernstein MD [address] [place] [address], [place] - [facility] 6 11:31:55 Superficial thrombophlebit is 4380678 Lucretia Bernstein MD [address] [place] [address], [place] - [facility] 6 11:31:55 Pain in lower limb 60028402 Lucretia Bernstein MD [address] [place] [address], [place] - [facility] 6 11:31:55 Fracture of ankle 66743892 Lucretia Bernstein MD [address] [place] [address], [place] - [facility] 6 11:31:55 Fracture of lower limb 48100759 Lucretia Bernstein MD [address] [place] [address], [place] - [facility] 6 11:31:55 Vertigo 363684084 Lucretia Bernstein MD [address] [place] [address], [place] - [facility] 6 11:31:55 Fatigue 74734016 Lucretia Bernstein MD [address] [place] [address], [place] - [facility] 6 11:31:55 Chronic back pain 207719377 Lucretia Bernstein MD [address] [address], [place] - [facility] 6 11:31:55 Blood glucose outside reference range 411425547 Lucretia Bernstein MD [address] [place] [address], [place] - [facility] 6 11:31:55 Lower abdominal pain 56387907 Lucretia Bernstein MD [address] [address], [place] - [facility] 6 11:31:55 Peripheral neuropathic pain 504842421 Lucretia Bernstein MD [address] [address], [place] - [facility] 6 11:31:55 Acute bronchitis 86171161 Lucretia Bernstein MD [address] [address], [facility] 6 22:22:11 Wheezing 90130479 Active Charlotte Bernstein MD [address], [address] [place] [address] 7, [facility] 6 22:22:11 Anticoagulant therapy Active 2015 Charlotte Bernstein MD [address] [address], [facility] 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 8 21:06:57 Factor V Leiden mutation 170042144 Active Charlotte Bernstein MD [address] [place] [address], [facility] 8 21:07:38 Problem Notes None recorded. Procedures Surgical History Date Name Laterality Status Provider Name and Address Organization Details Recorded Time 022 reconstruction using skin flap completed Charlotte Bernstein MD [address], [address] [place] [address], [facility] 08/16/2022 09:02:59 006 Bronchoscopy completed [facility] 10/03/2015 11:14:11 006 Hernia Repair completed [facility] 10/03/2015 11:12:32 996 Partial removal of colon completed [facility] 10/03/2015 11:13:31 Colonoscopy completed Charlotte Bernstein MD [address], [address] [place] [address], [facility] 09/22/2013 10:54:43 [facility]enectomy completed Not Available [facility] 01/06/2011 04:58:32 Cholecystectomy completed Not Available [facility] 01/06/2011 04:58:32 Appendectomy completed Not Available [facility] 01/06/2011 04:58:32 Hemorrhoidectomy completed Not Available [facility] 01/06/2011 04:58:32 Imaging Results None recorded. Procedure Notes None recorded. Medical Equipment None Reported. Allergies Allergen ID Allergen Name Allergen Category Reaction Reaction Severity Criticality Documentation Date Start Date Code Code System Note Provider Name and Address Organization Details Recorded Time 9383 iodine medicatio n Not available Not available Not available 04/20/2011 5933 RxNorm [facility] 2 09:26:52 9384 Floxin medicatio n Not available Not available Not available 04/20/201138519 8 RxNorm [facility] 2 09:26:52 9385 Reglan medicatio n Not available Not available Not available 04/20/2011 9230 RxNorm [facility]abella[facility] 2 09:26:52 Medications Name [...] day by oral route in the morning. 2024 active Not Available Not Available Not Avai lable simvastat in 20 mg tablet Take 1 [...] 5 mg tablet TAKE 1 TABLET DAILY OR DIRECTED . 2024 active Not Available Not Available Not Avai lable metoprolo l tartrate 50 mg tablet 12/07 [...] Updated DateTime 4 171.45 cm 29.2 kg/m2 66630.0 6 g 90 /min 97 % 97 % 97.2 [degF] 145 mm[Hg] 83 mm[Hg] [facility] 4 10:55:04 Date Recorded Body height Body mass index (BMI) Body weight Heart rate Oxygen saturation Oxygen saturation in Arterial blood by Pulse oximetry Body temperature Systolic blood pressure Diastolic blood pressure Provider Name and Address Organization Details Last Updated DateTime 5 171.45 cm 29.3 kg/m2 40401.2 5 g 79 /min 97 % 97 % 98.1 [degF] 148 mm[Hg] 84 mm[Hg] [facility] 5 14:34:36 Date Recorded Body height Body mass index (BMI) Body weight Heart rate Oxygen saturation Oxygen saturation in Arterial blood by Pulse oximetry Body temperature Systolic blood pressure Diastolic blood pressure Provider Name and Address Organization Details Last Updated DateTime 4 171.45 cm 29.8 kg/m2 90868.7 3 g 53 /min 96 % 96 % 97.9 [degF] 140 mm[Hg] 86 mm[Hg] [facility] 4 13:36:40 Date Recorded Body height Body mass index (BMI) Body weight Heart rate Oxygen saturation Oxygen saturation in Arterial blood by Pulse oximetry Body temperature Systolic blood pressure Diastolic blood pressure Provider Name and Address Organization Details Last Updated DateTime 3 171.45 cm 29 kg/m2 03410.0 7 g 91 /min 99 % 99 % 97.9 [degF] 142 mm[Hg] 81 mm[Hg] [facility] 3 11:12:07 Date Recorded Body height Body weight Heart rate Oxygen saturation Oxygen saturation in Arterial blood by Pulse oximetry Body temperature Systolic blood pressure Diastolic blood pressure Provider Name and Address Organization Details Last Updated DateTime 4 171.45 cm 89633.3 7 g 76 /min 96 % 96 % 97 [degF] 135 mm[Hg] 67 mm[Hg] [facility] 4 09:10:36 Social History Question Answer Notes LastModified by Organizat ion Details LastModified Time Tobacco Smoking Status Never Smoker Not Available [facility] 12/19/2019 03:11:20 Do You Have An Advance Directive? Yes [id number] Information not available 12/19/2019 Animal Exposure? No Informat ion not available 07/03/2011 Auto Related Injury? No 5 Information not available 01/06/2011 Is Blood Transfusion Acceptable In An Emergency? Yes [id number] Information not available 12/19/2019 What Is Your Level Of Caffeine Consumption? Moderate Information not available 06/22/2020 How Much Tobacco Do You Chew? None [id number] Information not available 12/19/2019 Diabetes No [email or web address] 11 5 Information not available 01/06/2011 What Type Of Diet Are You Following? REGULAR [id number] Information not available 12/19/2019 Education 12 Information no t available 07/03/2011 What Is The Highest Grade Or Level Of School You Have Completed Or The Highest Degree You Have Received? [id number] Information not available 06/21/2020 Family History Of Heart Disease? Yes 5 Information not available 01/06/2011 Which Of Your Hands Is Dominant? Right [id number] Information not available 12/19/2019 High Blood Pressure Yes 5 Information not available 01/06/2011 High Cholesterol No Informat ion not available 07/03/2011 Live Alone Or With Others? With Others Information not available 01/06/2011 Marital Status [email or web address] [id number] 5 Information not available 01/06/2011 What Was The Date Of Your Most Recent Tobacco Screening? 09/02/2023 Information not available 09/02/2023 How Many Children Do You Have? 2 [id number] Information not available 12/19/2019 What Is Your Relationship Status? Information not available 06/21/2020 Do You Use Your Seat Belt Or Car Seat Routinely? Yes [id number] Information not available 12/19/2019 Seat Belts Used Routinely Yes 5 Information not available 01/06/2011 Smoke Alarm In Home Yes Information not available 07/03/2011 General Stress Level Low Information not available 07/03/2011 Do You Use Sunscreen Routinely? Yes [id number] Information not available 12/19/2019 Sex: Unknown Functional Status Question Answer Note LastModified by Organizat ion Details LastModified Time Do you use any illicit or recreational drugs? No Information not available 06/21/2020 Do you or have you ever used any other forms of tobacco or nicotine? No Information not available 06/21/2020 What is your level of alcohol consumption? None [id number] Information not available 12/19/2019 Are you currently employed? Yes [id number] Information not available 12/19/2019 Are you able to care for yourself? Yes [id number] Information n ot available 12/19/2019 What is your occupation? retired [id number] Information not available 12/19/2019 What is your exercise level? None [id number] Information not available 12/19/2019 Mental Status None recorded. Family History Relationship Description Onset Age of this Age Resolved Age Notes LastModified by Organization Details LastModified Time Father Myocardial infarction 70 previo usly record ed as Heart Attack ([place]) Not available 09/09/2015 11:37:58 Mother Problem 68 [...] conjugate PCV 13 7 completed Not Available [facility] 03/11/2019 02:12:07 Influenza, high-dose, quadrivalent, PF 0 completed Charlotte Bernstein MD [address], [address], [facility] 11/27/2019 10:26:48 Influenza, high-dose, trivalent, PF 4 completed [facility] 01/29/2014 14:30:01 pneumococcal polysaccharide PPV23 4 completed [facility] 01/29/2014 14:30:56 pneumococcal polysaccharide PPV23 3 completed Charlotte Bernstein MD [address], [address], [facility] 05/15/2014 16:10:57 Td (adult) 0 completed Charlotte Bernstein MD [address], [address], [facility] 10/22/2014 10:31:23 Tdap 5 completed [facility] 10/22/2014 10:32:08 COVID-19, mRNA, LNP-S, bivalent, PF, 30 mcg/0.3 mL dose 3 completed [facility] 01/21/2023 10:41:33 COVID-19, mRNA, LNP-S, PF, zan-sucrose, 30 mcg/0.3 mL 4 completed Charlotte Bernstein MD [address] [address], [place], [address], [facility] 02/03/2024 22:26:29 COVID-19, mRNA, LNP-S, PF, 100 mcg/0.5mL dose or 50 mcg/0.25mL dose 1 completed Charlotte Bernstein MD [address] [address], [place], [address], [facility] 06/20/2020 11:21:45 COVID-19, mRNA, LNP-S, PF, 100 mcg/0.5mL dose or 50 mcg/0.25mL dose 1 completed Charlotte Bernstein MD [address] [address], [place], [address], [facility] 06/20/2020 11:22:01 COVID-19, mRNA, LNP-S, PF, 100 mcg/0.5mL dose or 50 mcg/0.25mL dose 1 completed [facility] 06/24/2021 10:11:33 Past Encounters Encounter ID Performer Location Encounter Start Date Encounter Closed Date Diagnosis/Indication Diagnosis SNOMED-CT Code Diagnosis ICD10 Code Diagnosis Note [id number] Guanaco Coronel MD [facility] [address] [place] [id number] 11/14/2010 08:56:10 11/14/2010 14:04:31 [id number] Guanaco Coronel MD [facility] [address] [id number] 12/26/2010 09:12:00 12/29/2010 15:06:22 [id number] Guanaco Coronel MD [address] [id number] 01/30/2011 10:22:00 01/30/2011 16:22:47 [id number] Guanaco Coronel MD [facility] [address] [id number] 04/20/2011 08:45:04 04/20/2011 17:20:05 [id number] Guanaco Coronel MD [address] [id number] 07/03/2011 08:53:58 07/03/2011 10:39:22 [id number] Guanaco Coronel MD [address] [id number] 09/03/2011 08:46:31 09/03/2011 17:07:52 [id number] Guanaco Coronel MD [address] [place] [id number] 10/29/2011 11:49:47 10/29/2011 18:02:36 [id number] Guanaco Coronel MD [address] [id number] 01/28/2012 09:01:43 01/28/2012 16:00:13 [id number] Guanaco Coronel MD [address] [id number] 05/18/2012 08:30:31 05/18/2012 11:53:00 [id number] Guanaco Coronel MD [facility] [address] [id number] 08/31/2012 09:03:57 08/31/2012 12:21:19 [id number] Charlotte Bernstein MD [address] [id number] 11/04/2012 08:02:46 11/04/2012 10:47:10 [id number] Charlotte Bernstein MD [facility] [address] [id number] 02/03/2013 09:01:00 02/03/2013 10:06:39 Varicose veins of lower extremity 72488685 Blood coag ulation disorder 61998603 Benign ess ential hypertension 2940077 Disorder o f porphyrin metabolism 41976680 Pain in ri ght lower limb 123200130 [id number] Charlotte Bernstein MD [facility] [address] [place] [id number] 04/11/2013 15:03:10 04/11/2013 17:38:45 Benign essential hypertension 5580712 Blood coag ulation disorder 18379246 Disorder o f porphyrin metabolism 12053271 Varicose v eins of lower extremity 39227777 Pruritic disorder 983632352 Chronic pain syndrome 576322748 [id number] Charlotte Bernstein MD [facility] [address] [id number] 09/22/2013 10:28:11 09/22/2013 14:12:28 Chronic pain syndrome 260264013 Disorder o f porphyrin metabolism 66380407 Blood coag ulation disorder 12055878 Benign ess ential hypertension 6829515 Adult heal th examination 558441362 Hyperlipidemia 16902114 Pruritic disorder 633480941 Screening for cancer 80743111 [id number] Charlotte Bernstein MD [facility] [address] [id number] 12/11/2013 09:46:50 12/15/2013 15:18:12 Benign essential hypertension 7068414 Chronic pain syndrome 836720830 Nausea 180591971 Pruritic disorder 865184407 [id number] Charlotte Bernstein MD [facility] [address] [id number] 02/13/2014 09:49:33 02/13/2014 12:17:19 Superficial thrombophlebitis 8305481 Benign ess ential hypertension 0539125 Anticoagulant therapy 148506312 Chronic pain syndrome 417099520 Pain in ri ght lower limb 956968759 [id number] Charlotte Bernstein MD [facility] [address] [id number] 05/15/2014 14:33:58 05/15/2014 16:33:37 Anticoagulant therapy 580767146 Benign ess ential hypertension 6852304 Chronic pain syndrome 657247786 Disorder o f porphyrin metabolism 33498814 Hyperlipidemia 58217681 [id number] Charlotte Bernstein MD [facility] [address] [id number] 07/20/2014 09:50:46 07/20/2014 12:10:37 Fracture of lower limb 04921310 Benign ess ential hypertension 5026006 Anticoagulant therapy 676751882 Chronic pain syndrome 873185412 Superficia l thrombophlebitis 7652195 [id number] Charlotte Bernstein MD [facility] [address] [address] 7 10/22/2014 09:09:36 10/22/2014 13:37:38 Adult health examination 477379765 Anticoagulant therapy 708051351 Blood coag ulation disorder 93013223 Chronic pain syndrome 092457943 Disorder o f porphyrin metabolism 44626549 Gastroesop hageal reflux disease 606989906 Hyperlipidemia 95604440 Superficia l thrombophlebitis 8546422 Vertigo 931122964 Screening for cancer 13612146 Fatigue 30232749 Benign ess ential hypertension 2907213 [id number] Charlotte Bernstein MD [address] [address] 7 01/01/2015 09:07:45 01/01/2015 15:31:07 Chronic back pain 065015402 R52 Anticoagulant therapy 18 6432693 Z79.01 Blood gluc ose outside reference range 723941889 R73.09 Gastroesop hageal reflux disease 129691943 K21.9 Lower abdominal pain 545 18982 R10.30 [id number] Charlotte Bernstein MD [address] [address] 7 03/04/2015 14:33:23 03/04/2015 17:11:45 Peripheral neuropathic pain 838307117 M79.2 Anticoagulant therapy 18 7128240 Z79.01 Disorder o f porphyrin metabolism 15208573 E80.20 Fatigue 69267328 R53.83 Pruritic disorder 172448 002 L29.9 Chronic pain syndrome 37 5078060 G89.4 Nausea 316398851 R11.0 [id number] Charlotte Bernstein MD [facility] [address] [address] 7 05/10/2015 09:17:32 05/10/2015 14:30:15 Benign essential hypertension 6743087 I10 Disorder o f porphyrin metabolism 34397907 E80.20 Anticoagulant therapy 18 2488213 Z79.01 Chronic back pain 519551 002 R52 Depression screening 171 190547 Z13.89 [id number] Charlotte Bernstein MD [facility] [place] 3545061-116 7 08/23/2015 10:22:00 08/23/2015 17:02:06 Anticoagulant therapy 047320175 Z79.01 Blood coag ulation disorder 74467019 D68.9 Chronic pain syndrome 37 8966879 G89.4 Disorder o f porphyrin metabolism 44464115 E80.1 707201 Charlotte Bernstein MD [place] 2106661-116 7 09/09/2015 10:38:33 09/10/2015 08:02:42 Acute bronchitis 92819132 J20.9 Wheezing 38523877 R06.2 Anticoagulant therapy 18 7481109 Z79.01 [id number] Charlotte Bernstein MD [address] [address] 7 10/03/2015 10:32:36 10/04/2015 07:50:04 Dizziness 863442002 R42 Recurrent falls 63592636 2 R29.6 Pain in lower limb 45144 006 M79.605 Lower resp iratory tract infection 33693955 J22 Deep venou s thrombosis of lower extremity 556264771 I82.401 I82.539 [id number] Charlotte Bernstein MD [facility] [address] [address] 7 11/19/2015 11:06:01 11/19/2015 14:28:37 Abdominal pain 18492794 R10.9 Colitis 03536844 K52.9 Anticoagulant therapy 18 2906019 Z79.01 Nausea, vo miting and diarrhea 1714730 R11.2 Chronic pain syndrome 37 9872141 G89.4 Benign ess ential hypertension 6513042 I10 Disorder o f porphyrin metabolism 65241443 E80.1 [id number] Charlotte Bernstein MD [facility] [address] [address] 7 11/26/2015 10:56:25 11/26/2015 13:43:15 Disorder of porphyrin metabolism 69310429 E80.1 Anticoagulant therapy 18 3816445 Z79.01 Chronic constipation 236 492440 K59.00 Chronic ab dominal pain 988638567 R10.9 [id number] Charlotte Bernstein MD [facility] [address] [address] 7 01/21/2016 14:37:25 01/23/2016 09:01:06 Adult health examination 073273899 Z00.00 Disorder o f porphyrin metabolism 30551285 E80.1 Anticoagulant therapy 18 2568328 Z79.01 Benign ess ential hypertension 2905504 I10 Chronic pain syndrome 37 7112310 G89.4 Hyperlipidemia 30712950 E78.5 Varicose v eins of lower extremity 55634307 I83.893 Body mass index 30+ - obesity 398636866 Z68.30 [id number] Charlotte Bernstein MD [facility] [address] [place] [address]489 7 06/18/2016 10:15:20 06/23/2016 08:37:43 Disorder of porphyrin metabolism 94521176 E80.1 Chronic pain syndrome 37 3026246 G89.4 Superficia l thrombophlebitis 7545309 I80.9 Essential hypertension 42933976 I10 Hyperlipidemia 53427199 E78.5 [id number] Charlotte Bernstein MD [address] [address] 7 09/10/2016 10:14:49 09/10/2016 15:03:32 Dizziness 057701571 R42 Essential hypertension 80699393 I10 Anticoagulant therapy 18 6942818 Z79.01 Chronic pain syndrome 37 6080607 G89.4 [id number] Charlotte Bernstein MD [facility] [address] [place] [address]558 7 02/01/2017 09:39:25 02/02/2017 08:40:44 Chronic pain syndrome 888343023 G89.4 Adult heal th examination 686460274 Z00.01 Cervical radiculopathy 39596916 M54.12 Active or passive immunization 749088787 Z23 Anticoagulant therapy 18 0901929 Z79.01 Benign ess ential hypertension 3663207 I10 Chronic back pain 751816 002 R52 Gastroesop hageal reflux disease 039407710 K21.9 Superficia l thrombophlebitis 3718064 I80.9 Peripheral neuropathic pain 335370488 M79.2 Disorder o f porphyrin metabolism 67296752 E80.1 Hyperlipidemia 77864304 E78.5 Varicose v eins of lower extremity 04308524 I83.893 Fatigue 59453123 R53.83 Body mass index 30+ - obesity 766567054 Z68.30 Depression screening 171 789146 Z13.89 [id number] Charlotte Bernstein MD [facility] [address] [place] [address] 7 07/29/2017 09:07:06 08/03/2017 15:00:34 Body mass index 30+ - obesity 340414194 Z68.30 Nausea 211652551 R11.0 Chronic pain syndrome 37 4130088 G89.4 Anticoagulant therapy 18 0672658 Z79.01 Benign ess ential hypertension 1905525 I10 Chronic back pain 605484 002 R52 Gastroesop hageal reflux disease 808096404 K21.9 Superficia l thrombophlebitis 7627244 I80.9 Peripheral neuropathic pain 739204202 M79.2 Disorder o f porphyrin metabolism 47470147 E80.1 Hyperlipidemia 43234051 E78.5 Varicose v eins of lower extremity 95017601 I83.893 Fatigue 25228829 R53.83 [id number] Charlotte Bernstein MD [facility] [address] [place] [address] 7 11/01/2017 09:11:08 11/03/2017 08:58:41 Chronic headache disorder 188621251 G43.719 Anticoagulant therapy 18 0949597 Z79.01 Body mass index 30+ - obesity 839662644 Z68.30 [id number] Charlotte Bernstein MD [facility] [address] [place] [address]-064 7 02/04/2018 09:00:23 02/07/2018 15:05:07 Adult health examination 674169763 Z00.01 Peripheral neuropathic pain 908199659 M79.2 Pruritic disorder 192344 002 L29.9 Viral screening 67319617 4 Z11.59 Blood gluc ose outside reference range 983529819 R73.09 Anticoagulant therapy 18 0423988 Z79.01 Impacted c erumen in right ear 4578553378 876144 H61.21 Chronic pain syndrome 37 9045469 G89.4 Benign ess ential hypertension 6083511 I10 Chronic back pain 295176 002 R52 Gastroesop hageal reflux disease 613703218 K21.9 Superficia l thrombophlebitis 4507512 I80.9 Disorder o f porphyrin metabolism 90510201 E80.1 Hyperlipidemia 03087479 E78.5 Varicose v eins of lower extremity 40040067 I83.893 Fatigue 75642346 R53.83 Body mass index 30+ - obesity 387111092 Z68.30 Depression screening 171 793842 Z13.89 [id number] Charlotte Bernstein MD [facility] [address] [place], [place] [address] 7 06/09/2018 09:07:06 06/10/2018 08:22:52 Seasonal allergic rhinitis 297226077 J30.2 Nausea 364210909 R11.0 Headache 34493693 R51 Disorder o f porphyrin metabolism 99022104 E80.1 Anticoagulant therapy 18 6691660 Z79.01 [id number] Charlotte Bernstein MD [facility] [address] [place], [place] [address] 7 10/07/2018 09:45:21 10/07/2018 13:29:22 Disorder of porphyrin metabolism 64643063 E80.1 Headache 41693260 R51 Seasonal allergy 7831345 04 J30.2 Anticoagulant therapy 18 3381074 Z79.01 [id number] Charlotte Bernstein MD [facility] [address] [place] [address]859 7 02/10/2019 08:42:16 02/13/2019 08:55:02 Adult health examination 865993550 Z00.01 Peripheral neuropathic pain 315834971 M79.2 Pruritic disorder 063895 002 L29.9 Viral screening 72459264 4 Z11.59 Blood gluc ose outside reference range 884452156 R73.09 Anticoagulant therapy 18 8836400 Z79.01 Chronic pain syndrome 37 2578933 G89.4 Benign ess ential hypertension 3779381 I10 Chronic back pain 756476 002 R52 Gastroesop hageal reflux disease 057121166 K21.9 Superficia l thrombophlebitis 9331572 I80.9 Disorder o f porphyrin metabolism 23942871 E80.1 Hyperlipidemia 91689332 E78.5 Varicose v eins of lower extremity 67726899 I83.893 Fatigue 11046547 R53.83 Body mass index 30+ - obesity 198155163 Z68.30 Depression screening 171 793839 Z13.89 Influenza vaccination declined 843621603 Z28.21 [id number] Charlotte Bernstein MD [facility] [address] [place] [address]142 7 08/28/2019 11:03:17 08/29/2019 08:06:53 Superficial thrombophlebitis 4855009 I80.9 Pain of mu ltiple joints 47829594 M25.50 Chronic pain syndrome 37 0530344 G89.4 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 3477858211 61615 G56.01 Long-term current use of anticoagulant 353783016 Z79.01 [id number] Charlotte Brenstein MD [facility] [address] [place] [address]32[address]396 7 11/27/2019 09:02:51 11/27/2019 17:09:03 Superficial thrombophlebitis 9071620 I80.9 Pain of mu ltiple joints 77168954 M25.50 Chronic pain syndrome 37 0908812 G89.4 Long-term current use of anticoagulant 273623535 Z79.01 Essential hypertension 09714531 I10 Administra tion of influenza vaccine 51883029 Z23 [id number] Charlotte Bernstein MD [facility] [address] [place] [address] 7 03/18/2020 10:20:39 03/19/2020 08:12:26 Essential hypertension 19345223 I10 Disorder o f porphyrin metabolism 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 Hyperlipidemia 67010745 E78.5 Long-term current use of anticoagulant 527065609 Z79.01 Gastroesop hageal reflux disease 922968369 K21.9 Screening for malignant neoplasm of prostate 277856423 Z12.5 Fatigue 16818630 R53.83 [id number] Charlotte Bernstein MD [facility] [address] [place] [address]-358 7 06/20/2020 10:13:35 06/24/2020 08:45:39 Essential hypertension 62736284 I10 Eczema 42920235 L30.9 Adult heal th examination 774169178 Z00.01 Peripheral neuropathic pain 625948026 M79.2 Pruritic disorder 380315 002 L29.9 Anticoagulant therapy 18 8042052 Z79.01 Chronic pain syndrome 37 8228958 G89.4 Benign ess ential hypertension 0467155 I10 Chronic back pain 925513 002 R52 Gastroesop hageal reflux disease 639691453 K21.9 Superficia l thrombophlebitis 7572020 I80.9 Disorder o f porphyrin metabolism 98620672 E80.1 Hyperlipidemia 44514284 E78.5 Varicose v eins of lower extremity 17240356 I83.893 Fatigue 41914843 R53.83 Depression screening 171 967318 Z13.89 Body mass index 25-29 - overweight 128037177 Z68.29 Screening for disorder 849821011 Z13.9 Timed up and go is 5 seconds Colon canc er screening declined 7505482435 9109 Z53.20 [id number] Charlotte Bernstein MD [facility] [address] [address] 7 10/08/2020 09:47:10 10/09/2020 17:51:20 Long-term current use of anticoagulant 035864328 Z79.01 Disorder o f porphyrin metabolism 89096765 E80.1 Chest wall pain 79161177 6 R07.89 [id number] Charlotte Bernstein MD [facility] [address] [place] [address] 7[address]37-247 7 01/09/2021 14:12:41 01/13/2021 08:15:30 Syncope and collapse 135733390 R55 Anticoagulant therapy 18 0725507 Z79.01 he will stop coumadin 2 days Warfarin overdosage 4754 6008 T45.514A Essential hypertension 81313561 I10 Gastroesop hageal reflux disease 002173140 K21.9 Chronic pain syndrome 37 8545748 G89.4 Disorder o f porphyrin metabolism 94829692 E80.1 [id number] Charlotte Bernstein MD [facility] [address] [place] [address] 7[address]-303 7 06/24/2021 09:39:31 07/01/2021 08:38:50 Adult health examination 283958685 Z00.01 Essential hypertension 89788189 I10 Eczema 65442598 L30.9 Peripheral neuropathic pain 530199835 M79.2 Pruritic disorder 112606 002 L29.9 Anticoagulant therapy 18 1863111 Z79.01 Chronic pain syndrome 37 3081609 G89.4 Benign ess ential hypertension 5297308 I10 Chronic back pain 397149 002 R52 Gastroesop hageal reflux disease 136422260 K21.9 Superficia l thrombophlebitis 4472972 I80.9 Disorder o f porphyrin metabolism 46980036 E80.1 Hyperlipidemia 73933403 E78.5 Varicose v eins of lower extremity 64111476 I83.893 Fatigue 63703909 R53.83 Depression screening 171 959936 Z13.89 Screening for disorder 571908992 Z13.9 Timed up and go is 5 seconds Colon canc er screening declined 0919709872 9109 Z53.20 Neoplasm o f uncertain behavior of skin 79539823 D48.5 Asthma 505847990 J45.90 9 Chest wall pain 44300636 6 R07.89 Body mass index 30+ - obesity 613784416 Z68.31 Colonoscopy declined 972 2986860 64650 Z53.20 [id number] Charlotte Bernstein MD [facility] [address] [address] 7 10/03/2021 10:06:56 10/07/2021 08:01:20 Anticoagulant therapy 441391463 Z79.01 Disorder o f vitamin B12 286293608 E53.8 Hyperlipidemia 90783517 E78.5 Fatigue 61950310 R53.83 [id number] Charlotte Bernstein MD [facility] [address] [place] [address] 78[address]272 7 01/05/2022 13:50:42 01/06/2022 09:19:25 Gastroesophageal reflux disease 728213696 K21.9 Disorder o f vitamin B12 628338276 E53.8 History of malignant basal cell neoplasm of skin 314520628 Z85.828 [id number] Charlotte Bernstein MD [facility] [address] [place] [address]53-006 7 05/05/2022 10:53:20 05/07/2022 11:19:12 Thrombophlebitis of superficial veins of lower extremity 45560876 I80.299 right medial foot and anklt with broken veins that are inflamed and a little warm and pink. Long-term current use of anticoagulant 480181559 Z79.01 [id number] Charlotte Bernstein MD [facility] [address] [place] [address]796-806 7 08/13/2022 08:41:50 08/17/2022 08:41:15 Adult health examination 293088881 Z00.01 Essential hypertension 39551195 I10 Eczema 94513054 L30.9 Peripheral neuropathic pain 315798230 M79.2 Pruritic disorder 765101 002 L29.9 Anticoagulant therapy 18 0843803 Z79.01 Chronic pain syndrome 37 9441443 G89.4 Benign ess ential hypertension 1425716 I10 Chronic back pain 011947 002 R52 Gastroesop hageal reflux disease 135083352 K21.9 Superficia l thrombophlebitis 6687914 I80.9 Disorder o f porphyrin metabolism 78768379 E80.1 Hyperlipidemia 70141377 E78.5 Varicose v eins of lower extremity 41875236 I83.893 Fatigue 24990033 R53.83 Depression screening 171 997584 Z13.89 Screening for disorder 631027316 Z13.9 Timed up and go is 5 seconds Colon canc er screening declined 8771370489 9109 Z53.20 Asthma 081132839 J45.20 Chest wall pain 06231874 6 R07.89 Colonoscopy declined 400 0662856 94335 Z53.20 Screening for cardiovascular system disease 157479528 Z13.6 Taking hig h risk medication 6205132651 47979 Z91.89 Body mass index 25-29 - overweight 406845236 Z68.29 [id number] Charlotte Bernstein MD [facility] [address] [place] [address] 84549-103 7 11/19/2022 10:39:15 11/20/2022 09:09:18 Chronic constipation 073552063 K59.00 Wheezing 00175649 R06.2 Disorder o f porphyrin metabolism 33313919 E80.1 Long-term current use of anticoagulant 109392105 Z79.01 Disorder o f vitamin B12 595191714 E53.8 Colon canc er screening declined 0738747325 9109 Z53.20 [id number] Charlotte Bernstein MD [facility] [address] [place] [address] 07022-966 7 04/02/2023 10:25:14 04/05/2023 08:25:21 Vitamin B12 deficiency (non anemic) 39151347 E53.8 Rhinitis 14737367 J00 Essential hypertension 86181374 I10 Abdominal pain 36834997 R10.9 Prediabetes 307402805 R7 3.03 Lipoma of skin 691178295 D17.30 Factor V L eiden mutation 782125713 D68.51 Anticoagulant therapy 18 8870362 Z79.01 Chronic pain syndrome 37 1365430 G89.4 Disorder o f porphyrin metabolism 22192018 E80.1 [id number] Charlotte Bernstein MD [facility] [address] [place] [address] 79634-573 7 09/02/2023 13:31:41 09/03/2023 08:25:19 Vitamin B12 deficiency (non anemic) 56916276 E53.8 Nausea 163475051 R11.0 Adult heal th examination 060738020 Z00.01 Essential hypertension 74279915 I10 Eczema 01852034 L30.9 Peripheral neuropathic pain 206861604 M79.2 Pruritic disorder 248894 002 L29.9 Anticoagulant therapy 18 2592645 Z79.01 Chronic pain syndrome 37 0256407 G89.4 Benign ess ential hypertension 8505597 I10 Chronic back pain 343113 002 R52 Gastroesop hageal reflux disease 014274370 K21.9 Disorder o f porphyrin metabolism 31973841 E80.1 Hyperlipidemia 02901968 E78.5 Varicose v eins of lower extremity 92297798 I83.893 Fatigue 90284032 R53.83 Depression screening 171 858019 Z13.89 Screening for disorder 717966685 Z13.9 Timed up and go is 5 seconds Colon canc er screening declined 6812899051 9109 Z53.20 Asthma 038250422 J45.20 Chest wall pain 82509074 6 R07.89 Colonoscopy declined 209 1008862 22410 Z53.20 Screening for cardiovascular system disease 588901584 Z13.6 Taking hig h risk medication 3490387772 06345 Z91.89 Body mass index 25-29 - overweight 542318784 Z68.29 Lung funct ion restrictive 995155003 R94.2 Chronic ob structive pulmonary disease 89982626 J44.9 Blood gluc ose outside reference range 955889223 R73.09 [id number] Charlotte Bernstein MD [facility] [address] [place] [address] 41987-633 7 02/03/2024 08:41:28 02/04/2024 10:16:58 Active or passive immunization 943486915 Z23 Disorder o f porphyrin metabolism 99274961 E80.1 Multiple a ctinic keratoses 547125610 L57.0 Requires l ifelong warfarin therapy 010481709 Z79.01 recheck INR on 02/13 Body mass index 25-29 - overweight 059436937 Z68.29 [id number] Charlotte Bernstein MD [facility] [address] [place] [address] 40705-463 7 06/12/2024 14:12:51 06/12/2024 16:02:01 Asthma 129252087 J45.20 Disorder o f porphyrin metabolism 65689442 E80.1 Requires l ifelong warfarin therapy 030747287 Z79.01 recheck INR on 02/13 Body mass index 25-29 - overweight 720042546 Z68.29 Health Concerns Section Related Observation LastModified by Organization Detai ls LastModified Time None Recorded Concern Status LastModified by Organization Details LastModified Time None Recorded Advance Directives Directive Y: Payers Insurance Date Sequence Insurance Name Policy Number Policy Lobato Covered Member ID Lobato Member ID Guarantor Name 02/03/2024 1 [facility] [id number] Vianey Flores [id number] Vianey Flores 02/03/2024 2 [employer] (MEDICARE REPLACEMENT /ADVANTAGE - PPO) Vianey Flores [id number] Vianey Flores 02/03/2024 1 [place] Vianey Flores [id number] Vianey Flores 02/03/2024 2 [employer] (MEDICARE SUPPLEMENT) Vianey Flores [id number] Vianey Flores 02/03/2024 2 [facility] C[facility] (MEDICARE SUPPLEMENT) Vianey Flores [id number] Vianey Flores 02/03/2024 [place] [id number] Vianey Flores [id number] Vianey Flores 06/09/2024 1 [place] Vianey Flores [id number] Vianey Flores 02/03/2024 2 [employer] (POS II) [id number] Vianey Flores [id number] Vianey Flores Notes Date Note Type Note [...] will be ordered. Charlotte Bernstein MD 2017 [facility], [facility], [place], [address], [facility] 11/20/2022 08:15:25 04/02/2023 text/html [...] stop the coumadin. Charlotte Bernstein MD [address] [place], [address], [facility] 04/04/2023 01:17:08 02/03/2024 text/html He is not eating much and only drinks pepsi or sprite and sometimes V8 juice. States water makes him sick Also drinks some gatorade. Difficult blood draw and have to do on the left wrist usually.He has had a sore throat but that is better.Needs the covid booster Charlotte Bernstein MD [address], [address], [facility] 02/04/2024 06:01:31 06/12/2024 text/html he is stable exc ept having night sweats at night; INR us staying therapeutic now on the 2.5 mg coumadin daily.He had a lot of cryotherapy on face and the ears especially are still sore and healing more slowly. We have suggested topical vaseline. They are benign. Charlotte Bernstein MD 2017 [facility], [place] [address], [place], [address], [facility] 06/12/2024 15:25:48
--- NOTE | 2024-08-23 09:20 | EXP.PAIN.SOA ---
[facility] Disclaimer: The information contained in this section may have been updated after the patient was seen, as this information can be updated by other users. Medical History Blood disorder HTN (hypertension) GERD (gastroesophageal reflux disease) Surgical History History of facial surgery Family History Other Unknown family medical history Social History Smoking Status: Never smoker alcohol intake: never substance use type: denies use current occupational status: other Travel in the last 8 weeks?: None PM Subjective & Objective Subjective Subjective:: Patient is a pleasant 74-year-old male who presents today for medication refill. Today he rates his pain an 8 out of 10. Patient states that he is still having issues with his blood thinner. They are still unable to get it regulated. He does see Dr. Bernstein for this and is not scheduled back to see her for another month. Patient does feel like the clots in his left lower leg have gotten worse if not a new clot. Patient states that this has been the longest run of them still trying to get his numbers within range. Patient is currently managed with oxycodone 5 mg 6 times a day from our office. He denies any side effects. His Kevin has been reviewed and is appropriate. Review of Systems: General: No recent weight changes, no fever, no sleep disturbances Respiratory: No cough, no shortness of air, no recurring pulmonary infections Cardiovascular/peripheral vascular: No chest pain, no palpitations, no edema, no shortness of breath Gastrointestinal: No new onset incontinence, normal bowel movements reported Genitourinary: No new onset incontinence Musculoskeletal: Abdominal pain chronic back pain, leg pain Psychiatric: [Normal mood/affect] Neurological: [Denies weakness in extremities], [denies balance issues] Pain at rest (0-10 scale): 8 Objective Objective:: Physical Exam: General: Alert and oriented x3, no acute distress, pleasant and cooperative Lungs: Respirations even and unlabored, symmetrical chest expansion Eyes: PERRL Musculoskeletal: Flexion and extension of lumbar [spine] somewhat guarded secondary to pain, [antalgic gait noted] Neurological: Speech clear, no gross sensory deficit Has patient had previous pain injection?: No Conservative treatment options previously tried: Prescription medications Length of treatment: Longer than 12 weeks Meds Home Medications and Allergies Home Medications ?Medication ?Instructions ?Recorded ?Confirmed ?Type isosorbide mononitrate 120 mg 30 mg PO DAILY Hypertension 07/12/17 07/25/24 History tablet,extended release 24 hr amlodipine 10 mg tablet 2.5 mg PO DAILY Hypertension 12/04/19 07/25/24 History famotidine 20 mg tablet 20 mg PO BID GERD 01/10/21 07/25/24 History hydroxyzine HCl 25 mg tablet 25 mg PO QID itching 01/10/21 07/25/24 History lisinopril 20 1 tab PO DAILY blood pressure 01/10/21 07/25/24 History mg-hydrochlorothiazide 12.5 mg tablet warfarin 5 mg tablet 5 mg PO DAILY DVT prophylaxis 01/10/21 07/25/24 History gabapentin 300 mg capsule 300 mg PO TID pain 05/08/21 07/25/24 History lidocaine 5 % topical patch 1 each TP Q24H Pain 05/23/21 07/25/24 History pantoprazole 40 mg tablet,delayed 40 mg PO DAILY STOMACH 01/13/22 07/25/24 History release naloxegol 12.5 mg tablet 12.5 mg PO DAILY #30 tabs 06/22/24 07/25/24 Rx oxycodone 5 mg tablet 5 mg PO Q4H PRN pain #180 tabs 07/25/24 Rx New Prescriptions to Start Prescriptions: Allergies Allergy/AdvReac Type Severity Reaction Status Date / Time iodine (IODINE) Allergy Unknown UNKNOWN Verified 07/26/23 10:42 metoclopramide (From REGLAN) Allergy Unknown UNKNOWN Verified 07/26/23 10:42 ofloxacin (From FLOXIN) Allergy Unknown UNKNOWN Verified 07/26/23 10:42 Assessment and Plan *Assessment and plan (1) Degenerative disc disease, lumbar: Status: Acute Category: Medical Code(s): M51.369 - Other intervertebral disc degeneration, lumbar region without mention of lumbar back pain or lower extremity pain (2) Lumbar radiculopathy: Status: Acute Category: Medical Code(s): M54.16 - Radiculopathy, lumbar region (3) Chronic abdominal pain: Status: Acute Category: Medical Code(s): R10.9 - Unspecified abdominal pain; G89.29 - Other chronic pain (4) Chronic pain syndrome: Status: Acute Category: Medical Code(s): G89.4 - Chronic pain syndrome Plan I did discuss with the patient due to the fact that it has been over a year this timeframe of trying to get his warfarin regulated to therapeutic range that it may be beneficial to have fresh eyes such as a prescription eyeglass maker to look over his medication. I will send a referral to Rob Hansen in [facility] for evaluation and treatment. Patient and his spouse both agree with the option to send a referral. I will refill his oxycodone and provide a 1 month supply of this medication. Patient will return to clinic in 1 month for reevaluation of symptoms and plan of care. Risks and benefits of the medication have been explained in detail to the patient. The patient does understand the risk of dependence on the medication when given over a prolonged period. Patient has been advised of risks of oversedation with the prescribed medication. Narcan has been offered to the paitent in the event of oversedation. Patient has been advised that a family member should also be educated regarding administration of Narcan. The patient has been advised to consult with his/her primary care provider and pharmacist regarding drug-drug interaction of medications currently prescribed. Patient has been prescribed a controlled substance after being counseled on the medication, medication safety, and possible side effects. Opioid contract was reviewed and signed by the patient, and that they have agreed to all of the terms set forth by our compliance program. A UDS is needed to verify patient's compliance with our office pain contract. This is ordered based off specific treatments related to chronic pain with the potential to abuse certain medications. Patient has been instructed to contact the clinic with any concerns before the next appointment. Dr. Grier has reviewed this note and agrees with this plan of care. This note was dictated using voice recognition software and make contain errors or omissions.
[2024-08-23 09:34] VITALS: BP 150/80; PULSE 84; RESP 18; O2SAT 98; BMI 29.1
== END 2024-08-23 23:59 | disposition home or self-care (01) ==
PROVIDERS: PCP Family Medicine; Visit Provider Nurse Practitioner Family
DX: M51.16 Intervertebral disc disorders with radiculopathy, lumbar region (principal); G89.4 Chronic pain syndrome; R10.9 Unspecified abdominal pain
CPT/HCPCS: 99212; G0463

== ENCOUNTER 2024-09-25 09:12 | Outpatient (POV) | payer MEDICARE, OTHER, SELFPAY ==
--- OUTSIDE RECORDS SUMMARY | 2024-09-12 13:00 | XMS_ITS | Encounter Summary ---
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 Person Name Role Phone Unavailable Primary Care Provider Unavailabl e Reason for Visit * Reason Comments New Hematology Patient Encounter Details Date Type Department Care Team (Latest Contact Info) Description 09/12/2024 1:00 PM EDT Office Visit [facility] - [address] [facility] [address] [place] [address] Rob Hansen MD [address] [place] [address] Thrombophilia (HCC) (Primary Dx) Social History Tobacco Use Types Packs/Day Years Used Date Smoking Tobacco: Never Smokeless Tobacco: Never Alcohol Use Standard Drinks/Week Comments Not Currently 0 (1 standard drink = 0.6 oz pur e alcohol) Former Drinker Sex and Gender Information Value Date Recorded Sex Assigned at Not on file Legal Sex Male 3:16 PM CDT Gender Identity Not on file Sexual Orientation Not on file documented as of this encounter Last Filed Vital Signs Vital Sign Reading Time Taken Comments Blood Pressure 151/73 09/12/2024 12:57 PM EDT Pulse 92 09/12/2024 12:57 PM EDT Temperature 36.6 C (97.9 F) 09/12/2024 12:57 PM EDT Respiratory Rate 18 09/12/2024 12:57 PM EDT Oxygen Saturation 97% 09/12/2024 12:57 PM EDT Inhaled Oxygen Concentration - - Weight 81.7 kg (180 lb 3.2 oz) 09/12/2024 12:57 PM EDT Height 170.2 cm (5' 7 ) 09/12/2024 12:57 PM EDT Body Mass Index 28.22 09/12/2024 12:57 PM EDT documented in this encounter Progress Notes * Rob Hansen MD - 09/12/2024 1:00 PM EDT I met Mr. Flores today. He apparently has had several episodes of blood clots. He has been on warfarin since 1981 he thinks. Apparently has had pretty good control he tries to keep his INR around 3 as a result of his clotting problem. He has been diagnosed with factor V Leiden. Apparently there has been more trouble keeping his INR adjusted in the correct area and he was sent to me for a second opinion. PMH: He has allergy to Reglan and floxacillin Medication includes oxycodone 5 mg every 4 hours as needed, Norvasc 5 mg daily, warfarin and adjusting doses, Protonix 40 mg in the morning, pravastatin 40 mg daily, Elavil 25 mg at night, promethazine 25 mg daily, Pepcid 20 mg a day, lisinopril 20 mg daily, B12 1 mg/month Medical problems include hypertension gastroesophageal reflux disease hyperlipidemia nephrolithiasis he had a past cerebrovascular accident. He has had multiple surgeries in the past that he cannot outline for me. 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 He has a history of Coproporphyria. FH: No history of cancer or blood disease in the family. SH: He neither smokes nor drinks. He is retired. ROS: He has had fatigue and night sweats he has had significant vision loss from apparently this past stroke. He does have some dyspnea with exertion and wheezing. He has had significant constipation. 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 Neck without adenopathy lungs are clear heart regular rate and rhythm abdomen he has multiple surgical incisions that are well-healed no organomegaly extremities with some v aricosities Impression patient with factor V Leiden with multiple episodes of blood clots. Plan: There is no easy answer here. He could go on a direct oral anticoagulant. He is not interested. He is concerned that it would cost too much and that is a real possibility. In regards to his Coumadin he already knows he has to be consistent in his diet and medications and that he has to have his INR tested often. When his INR is not in the proper range changes that need to be done should be incremental enough wholesale. Based on his history it sounds as though his primary doctor is doing that. At this point I will have him return only as needed. There is no magical answer. He is not somebody that would receive fondaparinux or low molecular weight heparin or other choices. I have answered their questions Rob Hansen MD 09/12/2024 2:09 PM documented in this encounter Plan of Treatment Not on file documented as of this encounter Visit Diagnoses Diagnosis Thrombophilia (HCC)- Primary Other and unspecified coagulation defects documented in this encounter
[2024-09-25 09:18] VITALS: BP 156/84; BP 159/84; PULSE 87; RESP 14; O2SAT 97; BMI 28.1
--- OUTSIDE RECORDS SUMMARY | 2024-09-25 09:21 | XMS_ITS | Encounter Summary ---
Author Organization Healthcare Address [address] [place] [address] Care Team Providers Care Lamp Shade Joiner Name Role Phone Charlotte Bernstein MD Primary Care Provider [phone] Ty Gibbs MD Unavailable [phone] Gerber Shelley MD Unavailable Encounter Details Date Type Department Care Team (Late st Contact Info) Description 11/17/2021 Lab Requisition [facility] [address] [place] [address] Gerber Shelley MD [address] [place] [address] Actinic keratosis Social History Tobacco [...] EDT) Case Report [facility] Pathology Consult Case: [id number] Authorizing Provider: Gerber Shelley MD Collected: 11/17/2021 1540 Ordering Location: [facility] Lab Received: 11/17/2021 1544 Pathologist: Dante Edward DO Specimen: Skin, [id number] 11/23/2021 10:57 AM EDT [facility] Final Diagnosis A. SKIN, SUPERIOR LEFT CHEEK, PUNCH BIOPSY ([id number]; COLLECTED 07/01/21): - ACTINIC KERATOSIS B. SKIN, INNER LEFT CHEEK, PUNCH BIOPSY: - BASAL CELL CARCINOMA, NODULAR TYPE C. SKIN, INFERIOR LEFT CHEEK, PUNCH BIOPSY: - BASAL CELL CARCINOMA, NODULAR AND INFILTRATIVE TYPE 11/23/2021 10:57 AM EDT [facility] at 1057 EDT Clinical Information L57.0 - Actinic keratosis [ICD-10-CM] 11/23/2021 10:57 AM EDT [facility] Gross Description A. [id number] Received along with a corresponding pathology report from [facility] are 30 unstained slide(s) labeled outside case: [id number] collected on 07/01/2021. 11/23/2021 10:57 AM EDT [facility] Note: A resident was involved in the service. I attest I examined the relevant preparations for the specimens and confirmed the diagnosis or interpretation. 11/23/2021 10:57 AM EDT [facility] Tissue Skin structure / Unknown 11/17/2021 3:43 PM EDT 11/17/2021 3:44 PM EDT us Gerber Shelley MD LAB PATHOLOGY ORDERABLES Final R esult [facility] [address] [place] [address] documented in this encounter Visit Diagnoses Diagnosis Actinic keratosis documented in this encounter Additional Health Concerns Assessment Noted Time A fall risk assessment has been complete d for the patient 11/14/2021 8:45 AM EDT documented as of this encounter Care Teams Lamp Shade Joiner Relationship Specialty Start Date End Date Charlotte Bernstein MD [address] [facility] [address] [place] [address] PCP - General 10/13/21 Ty Gibbs MD [address] [facility] [address] [place] [address] Referring Physician 11/05/21 Gerber Shelley MD [address] [facility] [address] [place] [address] Surgeon Otolaryngology 11/05/21 documented as of this encounter
--- OUTSIDE RECORDS SUMMARY | 2024-09-25 09:21 | XMS_ITS | Referral Summary ---
Author Organization [employer] ([place], [place], [place], [place]) Address [address] [place] [address] Care Team Providers Care Rice Farmer Name Role Phone Unavailable Primary Care Provider Unavailabl e Encounters Date Type Department Care Team Description 09/12/2024 1:00 PM EDT Office Visit [facility] - [address] [place] [address] Rob Hansen MD Thrombophilia (HCC) (Primary Dx) 08/31/2024 Outside Orders [facility] - [address] [place] [address] Maryjane Woodard Abnormal prothrombin time (PT) (Primary Dx); Abnormal INR from Last 3 Months Allergies Active Allergy Reactions Criticality Noted Date Comments Floxacillin 09/12/2024 Iodine 09/12/2024 Metoclopramide 09/12/2024 Medications warfarin (COUMADIN) 5 MG tablet Take 1 tablet (5 mg total) by mouth daily. Active promethazine (PHENERGAN) 25 MG tablet Take 1 tablet (25 mg total) by mouth daily. Active pravastatin (PRAVACHOL) 40 MG tablet Take 1 tablet (40 mg total) by mouth daily. 08/31/2024 Active pantoprazole (PROTONIX) 40 MG tablet Take 1 tablet (40 mg total) by mouth every morning. Active oxyCODONE (ROXICODONE) 5 MG immediate release tablet Take 1 tablet (5 mg total) by mouth every 4 (four) hours as needed. Max Daily Amount: 30 mg 08/23/2024 Active famotidine (PEPCID) 20 MG tablet Take 1 tablet (20 mg total) by mouth daily. Active sennosides (SENOKOT) 8.6 mg tablet Take 1 tablet (8.6 mg total) by mouth nightly. Active lisinopriL (ZESTRIL) 20 MG tablet Take 1 tablet (20 mg total) by mouth daily. Active cyanocobalamin 1,000 mcg/mL injection Inject 1 mL (1,000 mcg total) into the shoulder, thigh, or buttocks once. Active amLODIPine (NORVASC) 5 MG tablet Take 1 tablet (5 mg total) by mouth daily. Active amitriptyline (ELAVIL) 25 MG tablet Take 1 tablet (25 mg total) by mouth nightly. Active Social History Tobacco Use Types Packs/Day Years [...] Mass Index 28.22 09/12/2024 12:57 PM EDT Plan of Treatment Not on file Insurance MEDICARE PART A B
--- OUTSIDE RECORDS SUMMARY | 2024-09-25 09:21 | XMS_ITS | Clinical Summary ---
Author Organization [facility] Address [address] [place] [address] Care Team Providers Care Cover Stitch Machine Operator Name Role Phone Charlotte Bernstein MD Primary Care Provider [phone] Ty Gibbs MD Unavailable Gerber Shelley MD Unavailable Allergies Active Allergy [...] drink first t kristine in the morning (EYE-CORRESPONDENCE REVIEW CLERK) to steady your nerves or to get [...] Screening 1950 [facility]-Medicare Annual Wellness (AWV) 1950 [facility]-Infant/Child/Adol SDOH Screenings 1948 [facility]- SDOH Screenings 1966 [facility]-Adult SDOH Screenings 1966 [facility]-Zoster Vaccines (1 of 2) 07/18/1967 [facility]-Depression Screening 11/14/2022 11/14/2021 [facility]-RSV Vaccine: 60+ Years or (1 - 1-dose 75+ series) 07/18/2023 [id number] Vaccine ( season) 2023 03/05/2021, 01/01/2021, 05/24/2020, Additional history exists [facility]-DTaP,Tdap,and Td Vaccines (2 - Td or Tdap) 10/22/2024 10/22/2014, 02/22/1999 [facility]-Influenza Vaccine (#1) 2024 11/27/2019, [facility]-Pneumococcal Vaccine: 50+ Years Completed 02/01/2017, 12/11/2013, [...] this topic Medical Devices Implanted Type Area Home Sales Service Professional Device Identifier Shelf Expiration Date Model / Serial / Lot Screw Screw Ankle Insurance MEDICARE [employer] Advance Directives * Full Code (Latest Code Status on File) Date Activated Date Inactivated Comments 12/02/2021 11:41 AM 12/03/2021 3:58 PM Question Answer Comments Patient has decision-making capacity? Yes Care Teams Cover Stitch Machine Operator Relationship Specialty Start Date End Date Charlotte Bernstein MD [address] [place] [address] PCP - General 10/13/21 Ty Gibbs MD [address] [facility] [address] [place] [address] Referring Physician 11/05/21 Gerber Shelley MD [address] [facility] [address] [place] [address] Surgeon Otolaryngology 11/05/21
--- OUTSIDE RECORDS SUMMARY | 2024-09-25 09:21 | XMS_ITS | Clinical Summary ---
Author Organization [employer] ([place], [place], [place], [place]) Address [address] [place] [address] Care Team Providers Care Field Support Technician Name Role Phone Unavailable Primary Care Provider Unavailabl e Allergies Active Allergy Reactions Criticality Noted Date [...] (25 mg total) by mouth nightly. Active Encounters Date Type Department Care Team Description 09/12/2024 1:00 PM EDT Office Visit [facility] - [address] [place] [address] Rob Hansen MD Thrombophilia (HCC) (Primary Dx) 08/31/2024 Outside Orders [facility] - [address] [place] [address] Maryjane Woodard Abnormal prothrombin time (PT) (Primary Dx); Abnormal INR from Last 3 Months Family History Medical History Relation Name Comments No Known Problem Brother No Known Problem Father No Known Problem Maternal Aunt No Known Problem Maternal Grandfather No Known Problem Maternal Grandmother No Known Problem Maternal Uncle No Known Problem Mother No Known Problem Paternal Aunt No Known Problem Paternal Grandfather No Known Problem Paternal Grandmother No Known Problem Paternal Uncle No Known Problem Sister Relation Name Status Comments Brother Father Maternal Aunt Maternal Grandfather Maternal Grandmother Maternal Uncle Mother Paternal Aunt Paternal Grandfather Paternal Grandmother Paternal Uncle Sister Social History Tobacco Use Types Packs/Day [...] 09/12/2024 12:57 PM EDT Plan of Treatment Health Maintenance Due Date Last Done Comments Depression Screening (12+) 1960 Hepatitis C Screening 1966 Medicare Initial AWV [id number] 11/23/1984 Shingles Vaccine (Zoster) (1 of 2) 1998 Respiratory Syncytial Virus (RSV) Adult or (1 - 1-dose 75+ series) 07/18/2023 Falls Risk Screening 02/23/2024 COVID-19 VACCINE (6 - 2023-2 5 season) 2024 02/03/2024, 01/21/2023, 01/01/2021, Additional history exists DTAP/TDAP/TD VACCINES (3 - T d or Tdap) 10/22/2024 10/22/2014, 02/22/1999 Influenza Vaccine (#1) 2024 11/27/2019, 2013 Tobacco Cessation Counseling and Screening (12+) 09/12/2025 09/12/2024 Pneumococcal 50+ years Completed 7, 12/11/2013, 10/26/2002 Insurance MEDICARE PART A B
--- OUTSIDE RECORDS SUMMARY | 2024-09-25 09:21 | XMS_ITS | Encounter Summary ---
Author Organization [employer] ([place], [place], [place], [place]) Address [address] [place] [address] Care Team Providers Care Quality Tech Name Role Phone Unavailable Primary Care Provider Unavailabl e Reason for Referral * Consultation (Routine) - Authorized Specialty Diagnoses / Procedures Referred By Nara ruby Referred To Contact Hematology and Oncology Diagnoses Abnormal prothrombin time (PT) Abnormal INR Rob Hansen MD [address] [place] [address] [place] [address] Phone: tel: fax: Rob Hansen MD [address] [place] [address] [address] [place] [address] Phone: tel: fax: Referral ID Status Reason Start Date Expiration Date Visits Requested Visits Authorized [id number] Authorized Specialty Services Required 09/07/2024 09/07/2025 1 1 Encounter Details Date Type Department Care Team (Late st Contact Info) Description 08/31/2024 Outside Orders [facility] - [address] [place] [address] Maryjane Woodard [address] [facility] [address] [place] [id number] Abnormal prothrombin time (PT) (Primary Dx); Abnormal INR Social History Tobacco Use Types Packs/Day Years Used Date Smoking Tobacco: Never Assessed Sex and Gender Information Value Date Recorded Sex Assigned at Not on file Legal Sex Male 3:16 PM CDT Gender Identity Not on file Sexual Orientation Not on file documented as of this encounter Plan of Treatment Scheduled Referrals Name Type Priority Associated Diagnoses Orde r Schedule Ambulatory referral to Hematology / Oncology Outpatient Referral Routine Abnormal prothrombin time (PT) Abnormal INR Expected: 09/07/2024, Expires: 08/31/2025 documented as of this encounter Visit Diagnoses Diagnosis Abnormal prothrombin time (PT)- Primary Abnormal coagulation profile Abnormal INR Abnormal coagulation profile documented in this encounter
--- NOTE | 2024-09-25 10:02 | EXP.PAIN.SOA ---
[facility] Disclaimer: The information contained in this section may have been updated after the patient was seen, as this information can be updated by other users. Medical History Blood disorder HTN (hypertension) GERD (gastroesophageal reflux disease) Surgical History History of facial surgery Family History Other Unknown family medical history Social History Smoking Status: Never smoker alcohol intake: never substance use type: denies use current occupational status: other Travel in the last 8 weeks?: None PM Subjective & Objective Subjective Subjective:: Patient is a pleasant 74-year-old male who presents today for his 1 month medication refill. He rates his pain today an 8 out of 10. He denies any new trauma or injury. Patient does state that he did see the crap game box person there in [place] and that they did really enjoy the conversations however he did state overall that he did not have any additional recommendations regarding his blood thinner. 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 Patient is currently managed with oxycodone 5 mg 6 times a day from our office. He denies any side effects. His Kevin has been reviewed and is appropriate. Review of Systems: General: No recent weight changes, no fever, no sleep disturbances Respiratory: No cough, no shortness of air, no recurring pulmonary infections Cardiovascular/peripheral vascular: No chest pain, no palpitations, no edema, no shortness of breath Gastrointestinal: No new onset incontinence, normal bowel movements reported Genitourinary: No new onset incontinence Musculoskeletal: Low back pain, abdomen pain Psychiatric: [Normal mood/affect] Neurological: [Denies weakness in extremities], [denies balance issues] Pain at rest (0-10 scale): 8 Objective Objective:: Physical Exam: General: Alert and oriented x3, no acute distress, pleasant and cooperative Lungs: Respirations even and unlabored, symmetrical chest expansion Eyes: PERRL Musculoskeletal: Flexion and extension of lumbar [spine] somewhat guarded secondary to pain, [antalgic gait noted] Neurological: Speech clear, no gross sensory deficit Has patient had previous pain injection?: No Conservative treatment options previously tried: Home exercise plan Length of treatment: Longer than 12 weeks Meds Home Medications and Allergies Home Medications ?Medication ?Instructions ?Recorded ?Confirmed ?Type isosorbide mononitrate 120 mg 30 mg PO DAILY Hypertension 07/12/17 09/25/24 History tablet,extended release 24 hr amlodipine 10 mg tablet 2.5 mg PO DAILY Hypertension 12/04/19 09/25/24 History famotidine 20 mg tablet 20 mg PO BID GERD 01/10/21 09/25/24 History hydroxyzine HCl 25 mg tablet 25 mg PO QID itching 01/10/21 09/25/24 History lisinopril 20 1 tab PO DAILY blood pressure 01/10/21 09/25/24 History mg-hydrochlorothiazide 12.5 mg tablet warfarin 5 mg tablet 5 mg PO DAILY DVT prophylaxis 01/10/21 09/25/24 History gabapentin 300 mg capsule 300 mg PO TID pain 05/08/21 09/25/24 History lidocaine 5 % topical patch 1 each TP Q24H Pain 05/23/21 09/25/24 History pantoprazole 40 mg tablet,delayed 40 mg PO DAILY STOMACH 01/13/22 09/25/24 History release naloxegol 12.5 mg tablet 12.5 mg PO DAILY #30 tabs 06/22/24 09/25/24 Rx oxycodone 5 mg tablet 5 mg PO Q4H PRN pain #180 tabs 08/23/24 09/25/24 Rx New Prescriptions to Start Prescriptions: Allergies Allergy/AdvReac Type Severity Reaction Status Date / Time iodine (IODINE) Allergy Unknown UNKNOWN Verified 07/26/23 10:42 metoclopramide (From REGLAN) Allergy Unknown UNKNOWN Verified 07/26/23 10:42 ofloxacin (From FLOXIN) Allergy Unknown UNKNOWN Verified 07/26/23 10:42 Assessment and Plan *Assessment and plan (1) Lumbar radiculopathy: Status: Acute Category: Medical Code(s): M54.16 - Radiculopathy, lumbar region (2) Degenerative disc disease, lumbar: Status: Acute Category: Medical Code(s): M51.369 - Other intervertebral disc degeneration, lumbar region without mention of lumbar back pain or lower extremity pain Plan We will refill the patient's oxycodone and provide a 1 month supply of this medication patient will return to clinic in 1 month for reevaluation of symptoms and plan of care. Patient has been instructed to contact the clinic with any concerns before the next appointment. Dr. Grier has reviewed this note and agrees with this plan of care. This note was dictated using voice recognition software and make contain errors or omissions. All injections are used with Lidocaine, Bupivacaine and dexamethasone. Occasionally urine drug screen is needed to verify patient's compliance with our office pain contract. This is ordered based off specific treatments related to chronic pain with the potential to abuse certain medications.
== END 2024-09-25 23:59 | disposition home or self-care (01) ==
PROVIDERS: PCP Family Medicine; Visit Provider Nurse Practitioner Family
DX: M51.16 Intervertebral disc disorders with radiculopathy, lumbar region (principal); Z79.891 Long term (current) use of opiate analgesic
CPT/HCPCS: 99212; G0463